=== PATIENT | female | born 1945 | race Caucasian/White ===

== ENCOUNTER → 2018-02-01 18:47 | Outpatient (CLI) | payer MEDICARE, SELFPAY ==
[2018-02-01 18:49] LABS: Bacteria 0 SEEN /hpf (None Seen); Mucous, Urine 0 SEEN /hpf (<or=2+); Red Blood Cells-Urine 0 SEEN /hpf (0-5); Squamous Epithelial Cells - UA 0 SEEN /hpf (5-10)
[2018-02-01 19:07] LABS: Color, Urine Yellow (Yellow); Glucose, Dipstick Normal (Normal); Ketone-Dipstick Negative (Negative); Leukocyte Esterase-Dipstick 500 /ul (Negative); Nitrite-Dipstick Negative (Negative); Occult Blood-Urine 50 /ul (Negative); Protein-Dipstick 30 mg/dl (Negative); Urine Bilirubin Dipstick Negative (Negative); Urine Clarity Sl. Cloudy (Clear); Urine Urobilinogen Normal (Normal)
[2018-02-01 19:13] LABS: White Blood Cells >100 SEEN /hpf (0-5)
== END ==
PROVIDERS: Family Provider Family Medicine; PCP Family Medicine; Visit Provider Physician Assistant Surgical
DX: N39.0 Urinary tract infection, site not specified (principal); R30.0 Dysuria
CPT/HCPCS: 81001; 87077; 87086; 87088; 87186

== ENCOUNTER 2018-03-18 20:45 | Emergency (ER) | payer MEDICARE, SELFPAY ==
[2018-03-18 20:47] VITALS: BP 152/74; PULSE 60; RESP 14; TEMP 36.6; O2SAT 98; BMI 20.5
--- NOTE | 2018-03-18 21:51 | RAD_ITS ---
STUDY: X-RAY - LEFT WRIST REASON FOR EXAM: Female, 73 years old. Swelling TECHNIQUE: 3 view(s) of the wrist were obtained. COMPARISON: None. FINDINGS: There is demineralization of the radius and ulna. Normal radiocarpal articulation. Normal distal radioulnar articulation. There is demineralization of the carpal bones. Normal carpal articulations. Normal carpometacarpal articulation of the thumb. Normal second through fifth carpometacarpal articulations. There is demineralization of the metacarpal bones. There is a soft tissue calcification overlying the dorsum of the wrist. This measures 8 mm. RAD/Wrist min 3 Views IMPRESSION: There is a soft tissue calcification overlying the dorsum of the wrist. This measures 8 mm. This may be related to prior trauma. Electronically Signed: James Hemphill MD at 22:24 EDT , Service support ,
[2018-03-18] MEDS: Acetaminophen 500 MG Tablet 1000 MG PO (21:52)
--- NOTE | 2018-03-18 22:29 | ED.VISSUMM ---
- ER Visit Summary Date of Service: 03/18/18 Chief Complaint: Left wrist pain History of Present Illness: The patient is a [address] Muhammad. She reports that she noticed a small bump on back of her left wrist 5 days ago. She reports that it increase in size today and is much more painful. She describes a sharp pain with movement and an aching pain at rest. It is 10 out of 10 at worst 9 out of 10 currently. She is taken ibuprofen with some relief. Physical Examination: Vitals: Stable. Afebrile. General: Well-nourished and well-developed. Head: Normocephalic atraumatic. Neck: Supple, no lymphadenopathy. No JVD. Nontender. Cardiovascular: Regular rate and rhythm. No murmurs. Respiratory: No respiratory distress. Clear to auscultation bilaterally. Abdominal: Soft, nontender, nondistended, normal bowel sounds. No guarding, rebound, or peritoneal signs. Back: Nontender. Extremities: Approximately 1 cm hard cyst to the dorsum of her left wrist on the ulnar side. There is approximately 4 cm surrounding erythema with slight contusion. There is no induration or fluctuance. She is neurovascular intact distal to this. Skin: Normal color, no rash. Neurologic: Alert and oriented ?3. Cranial nerves II through XII are intact. Normal strength and sensation. Psych: Normal affect. Test Results: X-ray shows a calcium deposit dorsally without an acute fracture. Emergency Department Course and Treatment: Patient was treated with Tylenol p.o. She was placed in a Velcro wrist splint. Treatment Plan: A prolonged discussion the patient that this is not a ganglion cyst as she had thought. The x-ray suggests calcific tendinitis. She will be discharged instructions to continue ibuprofen. Follow Dr. Toussaint in 1 week for another exam. Disposition: To home in improved and stable condition. Impression: 1. Calcific tendinopathy left wrist. This note was generated with Scy[employer] dictation software. It may contain incorrect words, spelling, and punctuation that were not noted in review of the chart prior to signing ED Disposition - Plan for ED Patient: Disposition: Home or Assisted Living Chief Complaint: Upper Extremity Injury Instructions: ED Tendinitis Calcific Referrals: Sheeba Toussaint DO [STAFF PHYSICIAN] - 3-5 Days
[2018-03-18 22:49] VITALS: BP 148/60; PULSE 72; RESP 18
== END 2018-03-18 22:50 | disposition home or self-care (01) ==
PROVIDERS: Emergency Provider Emergency Medicine; Family Provider Family Medicine; PCP Family Medicine
DX: M65.28 Calcific tendinitis, other site (principal)
CPT/HCPCS: 73110; 99283

== ENCOUNTER → 2018-04-02 08:29 | Outpatient (CLI) | payer MEDICARE, SELFPAY | PROVIDERS: Family Provider Family Medicine; PCP Family Medicine; Visit Provider Orthopaedic Surgery | DX: R22.32 Localized swelling, mass and lump, left upper limb (principal) | CPT/HCPCS: 73223; A9585 ==

== ENCOUNTER 2018-05-18 09:00 | Outpatient (RCR) | payer MEDICARE, SELFPAY ==
--- NOTE | 2018-04-14 15:08 | HP.OTEVAL_ITS ---
Patient's Visit Information BATOOL LONG is a 73 year old F, referred to Occupational Therapy by Sheeba Toussaint DO, with a diagnosis of L extensor tenosynovitis/hydroxyapatite crystal deposition.. Date of Evaluation: 04/14/18 Occupational Therapist: Priti Rios - Subjective Subjective: Batool arrived and noted that bump start about month ago, March 14. Noted had dx of ganglion cyst. Noted the pain got really bad and noted that got x-ray in ER which indicated ?calcium chip? per Pt. report, and was later confirmed with MRI that increased calcium deposit or ?gout? per Pt. report. - Pain Left Wrist 0 Pain Intensity Range: 0, 4 - ROM Wrist: flexion 0-83, L 0-57; ext R 0-40, L 0-47 CMC: WFL MP: WFL PIP: WFL DIP: WFL ROM Comments: radial dev R 0-16, L 0-21. ulnar dev R 0-25, L 0-21 - Strength Vibratory Pile Driver: R 66, L 33 Lateral Pinch: R 12, L 9 Tripod Pinch: R 16 . L 13 Tip-to-Tip Pinch: R 8, L 4 - Edema Wrist: about .5cm rise and 1.5 cm width pump over dorsal wrist - Sensation Sensation Comments: Denies numbness or tingling. - In-Hand Manipulation Finger to Palm Translation: Normal - Right, Mild - Left Palm to Finger Translation: Normal - Right, Normal - Left Shift: Normal - Right, Normal - Left Rotation: Normal - Right, Normal - Left - DASH-Disabilities of Arm, Shoulder& Hand DASH Sum: 63 - Goals Goal:: Batool to increased L marble chip terrazzo worker strength by 15-20 lbs to promote increased marble chip terrazzo worker needed for B hand manipulation tasks needed for self care by d/c. Goal:: Batool to increase ROM of L wrist to similar measurements of that of R to increase ROM needed to complete ADL/IADls by d/c. Goal:: Batool to have no more than 1/10 pain for all fx tasks 4/5 trials 80% of the time by d/c. Goal:: Batool to complete energy conservation/joint protection techniques in daily activities to promote increase ROM and decrease risk of further injury by d/c. Goal:: Elizabth to be (I) to complete all ADl/IADls and b hand manipulation tasks e.g. hooking bra 4/5 trials 80% of the time by d/c. - Rehabilitation General Assessment: OT evaluation on 04/14/18. Order received from Dr. Toussaint for iontophoresis and papers faxed to [facility] pharmacy to obtain order. Batool presents with increased nodule on dorsum of wrist with .5 m height and 1.5 cm width. Limited ROM for flexion and strength due to increased discomfort with movement. OT to address ROM and strength concerns as well as work with modalities to help decrease inflammation and pain to return to PLOF for all ADl/IADls. Rehabilitation Potential: Good - Anticipated Interventions Anticipated Interventions: A/AAROM/PROM, Strengthening, Edema Control, Triggerpoint Release, Modalities, Joint Protection/Energy Conservation, Ergonomic Education, Neuro Reeducation, ADL Training, Caregiver Training, Home Program - Visit Plan Frequency: 2-3x /Week Duration: 4 Weeks General Plan: OT to work on increased ROM, strengththrough PRE, and ability to return to PLOF with ADl/IADls with minimal pain. TEXT: Thank you for the opportunity to evaluate your patient. For Medicare and Medicare HMO plans, please review the plan of care and approve it. It will need to be FAXED BACK to us at [phone] for Medicare purposes. Please let me know if there are questions or concerns regarding this plan of care. Physician Signature: Date:
--- NOTE | 2018-05-06 09:19 | HP.OTREVAL ---
Sheeba Toussaint, DO, It has been my pleasure to treat RADHA LONG over the last 10 visits for L extensor tenosynovitis/hydroxyapatite crystal deposition.. Please see the progress note below for an update on the occupational therapy plan of care! Subjective: Arrived and noted everything is going well. Feels she is about 80-85% back to PLOF. Noted that although insurance does not cover ionto but would like to continue at least for today. Objective/Function: Completed reassessment on this date. ROM measurements are as follows: ROM. wrist: flexion R 0-80, L 0-74. ext R 0-46, L 0-60. radial dev R 0-14, L 0-18. ulnar dev R 0-17, L 0-20. Strength: logistics operations director R 52, L 46. lateral R 11, L 10. tripod R 17, L 13. pincer R 7, L 5 lbs. Measurement of dorsal gout -related edema over carpal : diameter: 1.5 cm and height: .2 cm. She has decreased in height of area but looks to potentially have similar bump starting on R hand. Area to be monitored. Area is no long sensitive with palpation. She has progressed with all measurements at this time. DASH sum 51 which is progress from initial evaluation DASH score of perceived disability of 63. Plan Frequency: 2-3x /Week Duration: 3 Weeks Visits in this POC: 6- Plan: continue POC to Wednesday. She is to determine if wanting to complete continued ionto at that time. She has progressed in all measurements on this date. Will continue 2-3x per week for 3 weeks. Goals - Goals Goal:: Radha to increased L logistics operations director strength by 15-20 lbs to promote increased logistics operations director needed for B hand manipulation tasks needed for self care by d/c. Goal:: Radha to increase ROM of L wrist to similar measurements of that of R to increase ROM needed to complete ADL/IADls by d/c. Goal:: Radha to have no more than 1/10 pain for all fx tasks 4/5 trials 80% of the time by d/c. Goal:: Radha to complete energy conservation/joint protection techniques in daily activities to promote increase ROM and decrease risk of further injury by d/c. Goal:: Elizabth to be (I) to complete all ADl/IADls and b hand manipulation tasks e.g. hooking bra 4/5 trials 80% of the time by d/c. Anticipated Interventions Anticipated Interventions: A/AAROM/PROM, Strengthening, Edema Control, Triggerpoint Release, Modalities, Joint Protection/Energy Conservation, Ergonomic Education, Neuro Reeducation, ADL Training, Caregiver Training, Home Program Please do not hesitate to contact me at [phone] by phone or if you have questions or concerns regarding this new plan of care! Sincerely, Priti Rios
--- NOTE | 2018-05-18 10:17 | HP.OTDCSUM ---
HP - OT D/C Summary It has been my pleasure to treat BATOOL LONG under orders from Sheeba Toussaint DO, for the diagnosis of L extensor tenosynovitis/hydroxyapatite crystal deposition. for a total of 14 visit(s). Please see the following information for a summary of their discharge status. - Overall Improvement % Improvement: 90 - Objective Objective/Function: Completed reassessment today and measurements are as follows: ROM wrist flexion R 0-70, L 0-71, wrist extension R 0-40, L 0-42. Completed Strength measurements are as follows: employment law attorney R 52, L 41; lateral R 14, L 10; tripod R 18, L 16, tip pinch R 8, L 8 lbs. Dorsal gout related bump measurements: diameter 1.3 cm, and height .2 cm. She has progressed towards or meant most goals. - Goals Patient Goals: Regain Mobility, Regain Strength, Decrease Pain, Decrease Swelling/Stiffness, Improve Fine Motor Skills, Use Hand/Wrist/Arm Normally Again, Be More Independent in ADLS, Resume Former Household Responsibilities (Cooking,Cleaning,Yard, etc.), Resume Hobbies Goal:: Batool to increased L employment law attorney strength by 15-20 lbs to promote increased employment law attorney needed for B hand manipulation tasks needed for self care by d/c. Goal:: Batool to increase ROM of L wrist to similar measurements of that of R to increase ROM needed to complete ADL/IADls by d/c. Goal:: Batool to have no more than 1/10 pain for all fx tasks 4/5 trials 80% of the time by d/c. Goal:: Batool to complete energy conservation/joint protection techniques in daily activities to promote increase ROM and decrease risk of further injury by d/c. Goal:: Miguelina to be (I) to complete all ADl/IADls and b hand manipulation tasks e.g. hooking bra 4/5 trials 80% of the time by d/c. - Plan Plan: She will be d/c'd. DASH sum has progressed from 51 to 42 showing decreased percieved disability with L wrist. She has progressed since initial evaluation. She no longer had pain and has returned to all ADl/IADls. Gout related bump still noted but she has declined further iontophoresis treatments to hand due to need to pay out of pocket. Ultrasound on healing mode has been being completed but due to no functional related deficits and she has returned to very close to PLOF she will be d/c'd. She is to call with questions/concerns. If pain or bump get bigger she is to call and return to Dr. Olvera. - D/C Information Discharge Comments: Call with questions/concerns. Card provided to contact. She is to return to Dr. Toussaint if pain or bump increases. If there are questions or concerns regarding this patient's occupational therapy, please fell free to call me at [phone]. Thank you for the referral of this patient. Sincerely, Priti Rios
== END 2018-05-18 19:00 | disposition home or self-care (01) ==
LOC: OT 09:00
PROVIDERS: Family Provider Family Medicine; PCP Family Medicine; Visit Provider Orthopaedic Surgery
DX: M65.862 Other synovitis and tenosynovitis, left lower leg (principal); M11.0 Hydroxyapatite deposition disease
CPT/HCPCS: 97033; 97035; 97110; 97166; 97168

== ENCOUNTER → 2018-10-07 13:44 | Outpatient (CLI) | payer MEDICARE, SELFPAY ==
[2018-10-07 08:42] VITALS: BMI 20.5
[2018-10-07 14:01] LABS: Mucous, Urine 0 SEEN /hpf (<or=2+); Red Blood Cells-Urine 0 SEEN /hpf (0-5); Squamous Epithelial Cells - UA 0 SEEN /hpf (5-10)
[2018-10-07 14:07] LABS: Color, Urine Yellow (Yellow); Glucose, Dipstick Normal (Normal); Ketone-Dipstick Negative (Negative); Leukocyte Esterase-Dipstick 500 /ul (Negative); Nitrite-Dipstick Negative (Negative); Occult Blood-Urine 10 /ul (Negative); Protein-Dipstick Negative (Negative); Urine Bilirubin Dipstick Negative (Negative); Urine Clarity Sl. Cloudy (Clear); Urine Urobilinogen Normal (Normal); Urine pH 6.5 (5.0 - 8.0)
[2018-10-07 14:13] LABS: Bacteria 3+ /hpf (None Seen); White Blood Cells 10-25 SEEN /hpf (0-5)
== END ==
PROVIDERS: Family Provider Family Medicine; PCP Family Medicine; Referring Provider Physician Assistant Surgical; Visit Provider Physician Assistant Surgical
DX: N39.0 Urinary tract infection, site not specified (principal); R30.0 Dysuria
CPT/HCPCS: 81001; 87077; 87086; 87088

== ENCOUNTER → 2018-11-02 15:10 | Outpatient (CLI) | payer MEDICARE, SELFPAY ==
[2018-10-07 08:42] VITALS: BMI 20.5
--- NOTE | 2018-11-02 15:14 | US_ITS ---
STUDY: RENAL ULTRASOUND - COMPLETE REASON FOR EXAM: Female, 73 years old. Kidney stones TECHNIQUE: Ultrasound evaluation of the kidneys was performed with real-time and static zhang-scale imaging. COMPARISON: None. FINDINGS: RIGHT KIDNEY: Normal location of the right kidney, which is normal in size. The right kidney measures 10 x 4.1 x 3.7 cm. There is a normal cortex of the right kidney. The renal cortex measures 1.1 cm. There is no right renal mass or cyst. There are no right renal calculi. There is no right hydronephrosis. DISTAL RIGHT URETER: There is non-visualization of the distal right ureter. There is no demonstrated right ureterovesical junction calculus. There is a visualized right ureteral jet. LEFT KIDNEY: Normal location of the left kidney, which is normal in size. The left kidney measures 10.8 x 4 x 4.4 cm. There is a normal cortex of the left kidney. The renal cortex measures 1.2 cm. There is no left renal mass or cyst. There are no left renal calculi. There is no left hydronephrosis. DISTAL LEFT URETER: There is non-visualization of the distal left ureter. There is no demonstrated left ureterovesical junction calculus. There is a visualized left ureteral jet. AORTA: There is no demonstrated aneurysm.. I.V.C.: The IVC is patent. BLADDER: The distended urinary bladder has a volume of 294 ml. There is a urinary bladder diverticulum on the left side measures 4.5 cm in diameter. There is a normal wall thickness of the distended urinary bladder. There is no demonstrated mass within the urinary bladder. There are no demonstrated bladder calculi. US/Kidney and Bladder IMPRESSION: There is a urinary bladder diverticulum on the left side measures 4.5 cm in diameter. Electronically Signed: Bebeto Nina, at 9:17 EDT Tel , Service support ,
== END ==
PROVIDERS: Family Provider Family Medicine; PCP Family Medicine; Referring Provider Urology; Visit Provider Urology
DX: N20.0 Calculus of kidney (principal)
CPT/HCPCS: 76770

== ENCOUNTER → 2018-11-25 | Outpatient (CLI) | payer MEDICARE, SELFPAY ==
[2018-10-07 08:42] VITALS: BMI 20.5
--- NOTE | 2018-11-25 15:39 | CT_ITS ---
STUDY: CT ABDOMEN AND PELVIS WITHOUT CONTRAST REASON FOR EXAM: Female, 73 years old. Chronic right flank pain RADIATION DOSAGE (If Supplied By Facility): CTDIvol = ( 7.70 ) mGy, DLP = ( 331.65 ) mGycm TECHNIQUE: Transaxial images were obtained from the dome of the diaphragm to the symphysis pubis without oral contrast, and without intravenous contrast. Sagittal and coronal images were reconstructed. Individualized dose optimization techniques were used for this CT. COMPARISON: September 08, 2013 FINDINGS: The visualized lung bases are unremarkable. The visualized portions of the heart are within normal limits. Normal liver. Normal gallbladder and extrahepatic biliary system. Normal spleen. Normal pancreas. Normal bilateral adrenal glands. Normal right kidney. Normal left kidney. Normal visualized stomach. Nonspecific ileus with diffuse fecal retention in the colon. Multiple diverticula in the colon without evidence for acute diverticulitis No evidence for acute appendicitis. Atherosclerotic changes of the aorta without evidence for aneurysm. Normal inferior vena cava. Normal retroperitoneum. Normal urinary bladder. There is a pessary within the vaginal vault Small cystic structure in left adnexa most likely ovarian Normal abdominal wall. Normal osseous structures. Previously noted left renal calculus not identified at this time. No other significant change. CT/Abdomen/Pelvis without Cont IMPRESSION: Mild diffuse ileus and fecal retention in the colon No evidence for renal obstruction or mass Minor diverticular disease of colon without evidence for acute diverticulitis Small left ovarian cyst. Electronically Signed: Carlos Owen MD at 19:49 EDT , Service support ,
== END | disposition home or self-care (01) ==
LOC: CT 15:36
PROVIDERS: Family Provider Family Medicine; PCP Family Medicine; Referring Provider Urology; Visit Provider Urology
DX: N20.0 Calculus of kidney (principal)
CPT/HCPCS: 74176

== ENCOUNTER 2019-08-21 12:24 | Emergency (ER) | payer MEDICARE, SELFPAY ==
[2018-10-07 08:42] VITALS: BMI 20.5
[2019-08-21 12:26] VITALS: BP 151/78; PULSE 67; RESP 17; TEMP 36.4; O2SAT 100; BMI 20.9
--- NOTE | 2019-08-21 12:41 | EKG12_ITS ---
Test Reason : NEURO SYM Blood Pressure : / mmHG Vent. Rate : 058 BPM Atrial Rate : 058 BPM P-R Int : 140 ms QRS Dur : 072 ms QT Int : 432 ms P-R-T Axes : 086 048 046 degrees QTc Int : 424 ms Sinus bradycardia Otherwise normal ECG Confirmed by JESUS TINEO, BENJAMIN ([id number]), production editor TREVER DOHERTY ([id number] on 08/23/2019 10:57:18 AM Referred By: Confirmed By:BENJAMIN LEE MD
--- NOTE | 2019-08-21 12:41 | MRI_ITS ---
STUDY: MRI BRAIN WITHOUT CONTRAST REASON FOR EXAM: Female, 74 years old. DIFFICULTY READING/COMPREHENDING, VISION ISSUES, HEAD PRESSURE TECHNIQUE: Standardized multiplanar fat and water weighted pulse sequences were obtained. COMPARISON: None. FINDINGS: There is mild cerebral atrophy with widening of the extra-axial spaces and ventricular dilatation. There are a limited number of small white matter hyperintensities, distributed throughout the deep white matter tracts of the cerebral hemispheres, consistent with mild chronic white matter ischemic changes. There is no evidence for recent intracranial ischemia or other cause of cytotoxic edema on diffusion weighted imaging (DWI). Normal T2* images of the brain without demonstrated susceptibility artifact. There is no demonstrated hemosiderin stain. No visualized hydrocephalus. Normal bilateral basal ganglia. Normal thalami. There is no extra-axial fluid accumulation. Normal flow voids within the major intracranial circulation suggesting patency by spin echo criteria. Normal sella turcica, pituitary gland, infundibular stalk, optic chiasm and hypothalamus. Normal tectal plate and pineal gland. Normal midbrain, kia and medulla. Normal cerebellum. Normal basal cisterns. Normal bilateral temporal bones. Normal bilateral internal auditory canals. No demonstrated orbital abnormality, within the constraints of a routine brain study. Normal visualized paranasal sinuses. Normal calvarium and skull base. Normal visualized soft tissue structures. Normal visualized upper cervical spine. MRI/Brain without Contrast IMPRESSION: 1. Chronic involutional and ischemic changes of the brain, as described above. Electronically Signed: Damon Jackson MD at 14:58 EST , Service support ,
--- NOTE | 2019-08-21 12:51 | NURSING ---
NO OLD EKGS
[2019-08-21 12:57] VITALS: BP 138/67; PULSE 61; RESP 14; O2SAT 100
[2019-08-21 13:00] LABS: Bedside Glucose 172 mg/dL (70-110)
[2019-08-21 13:11] LABS: Absolute Lymphocyte Count 1.62 X10^3/uL (0.83-4.51); Absolute Neutrophil Count 7.6 X10^3/uL (2.0-7.7); Basophil# 0.04 X10^3/uL; Basophil% 0.4 % (0-1); Eosinophil# 0.02 X10^3/uL; Eosinophils% 0.2 % (0-5); Hematocrit 41.2 % (37-47); Hemoglobin 13.2 g/dL (12.0-15.0); Lymphocyte # 1.62 X10^3/ul (4.0); Lymphocyte % 16.5 % (19-41); Mean Corpuscular Volume 93.6 fL (81-99); Mean Platelet Vol. 12.1 fl (6.2-12.0); Monocyte# 0.51 X10^3/uL; Monocyte% 5.2 % (0-10); NRBC Flagged by Analyzer 0 % (0-5); Neutrophil # 7.57 X10^3/uL (2.7-7.7); Neutrophil % 77.4 % (47-70); Platelet Count 186 K/mm3 (150-450); RBC Distribution Width CV 12.6 % (11.6-14.6); RBC Distribution Width SD 43.7 fl (35.1-43.9); White Blood Count 9.8 K/mm3 (4.4-11.0)
--- NOTE | 2019-08-21 13:21 | ED.VIS.STROK ---
History of Present Illness Chief Complaint: Neuro S/Sx Informant: Patient Onset: Yesterday Timing: Intermittent Quality and Location: - - Difficulty with reading Onset: 2100 on Wednesday, August 20 until 2119 Current Severity: Gone Maximum Severity: Mild Worsened by: Nothing Relieved by: Nothing Associated Symptoms: Headache - Complained of by parietal head pressure that lasted 1 hour this morning. Negative for: Nausea, Vomiting, Chest Pain Narrative: Patient is an elderly 74-year-old woman who lives by herself. States at approximate 2100 while reading words were jumbled. She could not comprehend what she was reading. She did not notice letters missing or words missing. She was with no one. When she spoke with her son this morning no one noted change in her speech. She denied trouble with swallowing. She denied numbness, tingling in her upper or lower extremities. Denied weakness in her upper or lower extremity. She denied problems with balance. She denied double vision. She denied loss of vision or partial loss of vision. Prior similar symptoms: No Recent Illness/Hospitalization: No - Past Medical History (1) No significant past medical history Status: Acute Past Medical History - Allergies and Home Meds Allergies/Adverse Reactions: Allergies Sulfa (Sulfonamide Antibiotics) Allergy (Verified 10/07/18 08:41) Rash Primary Care Physician: Kymberly Muhammad DO [Primary Care Provider] - Prior records reviewed: Yes Surgical History: no surgical history Lives: Alone Smoking Status: Never smoker Alcohol: None Drugs: None Review of Systems General: Denies: Chills, Fever, Sweats Eyes: Denies: Visual changes - bilaterally, Blurred Vision - bilaterally, Diplopia ENT: Reports: - - He denied decreased hearing or ringing or ears.. Denies: Bilateral ear pain, Rhinorrhea, Sore throat Cardiovascular: Denies: Chest pain, Palpitations, Heart racing Respiratory: Denies: Dyspnea, Cough, Dyspnea on exertion Gastrointestinal: Denies: Abdominal pain, Nausea, Vomiting, Diarrhea, Melena, Hematochezia Genitourinary: Denies: Dysuria, Hematuria, Frequency Musculoskeletal: Denies: Back pain, Extremity Pain Skin: Denies: Rash, Wounds Neurological: Reports: Headache - Previously described. Denies: Weakness, Parasthesia, Numbness Psych: Denies: Depression, Anxiety Hematologic: Denies: Easy bruising, Easy bleeding Allergy: Denies: Uticaria, Swelling of the mouth, Swelling of the tongue STROKE Vital Signs/Narrative: Vital Signs Temp Pulse Resp BP Pulse Ox 08/21/19 12:57 61 14 138/67 H 100 08/21/19 12:26 97.5 F L 67 17 151/78 H 100 Inital Vital Signs reviewed: Yes - NIHSS Initial 1a Level of Consciousness: 0 1b LOC Questions (Score 2 if aphasic/stupor): 0 1c LOC Commands (Only score 1st attempt): 0 2 Best Gaze (If aphasic, use reflexive mvmts.): 0 3 Visual: 0 4 Facial Palsy: 0 5 Motor Arm Right (UN = amputation/fusion): 0 5 Motor Arm Left: 0 6 Motor Leg Right: 0 6 Motor Leg Left: 0 7 Limb ataxia (Only + if out of proportion): 0 8 Sensory (Aphasia/stupor=0 or 1, coma=2): 0 9 Best Language: 0 10 Dysarthria (mute, coma=2, intubated=UN): 0 11 Extinction and Inattention (only scored if +): 0 Total Score: 0 General: Well nourished, Well developed Head: Normocephalic, Atraumatic Eyes: Perrl, EOMI. Negative for: Pale conjunctiva, Scleral icterus ENT: Moist mucous membranes, No rhinorrhea, TM's clear Neck: Supple, Nontender, No lymphadenopathy, No JVD Cardiovascular: Regular rate, Regular rhythm, No murmurs, Normal S1, Normal S2 Respiratory: No distress, CTA bilaterally, Chest nontender Abdomen: Soft, Nontender, Nondistended, Normal bowel sounds Back: Nontender, Normal Inspection Extremities: Nontender, No edema Skin: Normal color, No rash Neurological: Alert, Oriented x3, Cranial nerves II-XII grossly intact, Normal Strength, Normal Sensation, Normal DTR Psychological: Normal affect Diagnostic/Tx/Re-eval Impressions Brain MRI 08/21/19 12:41 IMPRESSION: 1. Chronic involutional and ischemic changes of the brain, as described above. Electronically Signed: Damon Jackson MD at 14:58 EST , Service support , 08/21/19 12:41 Brain without Contrast [MRI] Stat Laboratory Results 08/21/19 08/21/19 08/21/19 12:47 12:50 12:50 WBC 9.8 RBC 4.40 Hgb 13.2 Hct 41.2 MCV 93.6 MCH 30.0 MCHC 32.0 RDW Std Deviation 43.7 RDW Coeff of Meghan 12.6 Plt Count 186 MPV 12.1 H Immature Gran % (Auto) 0.300 Neut % (Auto) 77.4 H Lymph % (Auto) 16.5 L [place] % (Auto) 5.2 Eos % (Auto) 0.2 Baso % (Auto) 0.4 Absolute Neuts (auto) 7.6 Absolute Lymphs (auto) 1.62 Nucleated RBC % 0 PT 14.1 INR 1.1 APTT 28.3 Sodium Potassium Chloride Carbon Dioxide Anion Gap BUN Creatinine Estim Creat Clear Calc Est GFR (MDRD) Af Amer Est GFR (MDRD) Non-Af BUN/Creatinine Ratio Glucose Calcium POC Glucose 172 H 08/21/19 12:50 WBC RBC Hgb Hct MCV MCH MCHC RDW Std Deviation RDW Coeff of Meghan Plt Count MPV Immature Gran % (Auto) Neut % (Auto) Lymph % (Auto) [place] % (Auto) Eos % (Auto) Baso % (Auto) Absolute Neuts (auto) Absolute Lymphs (auto) Nucleated RBC % PT INR APTT Sodium 139 Potassium 3.6 Chloride 106 Carbon Dioxide 30.0 Anion Gap 3 L BUN 21 H Creatinine 0.80 Estim Creat Clear Calc 54.89 Est GFR (MDRD) Af Amer 90 Est GFR (MDRD) Non-Af 75 BUN/Creatinine Ratio 26.2 H Glucose 187 H Calcium 8.3 L POC Glucose Basic metabolic panel is remarkable for a glucose of 187. BC is unremarkable. MRI reveals no acute pathology. There is evidence of chronic ischemic changes. - EKG Initial EKG Interpretation: Sinus Bradycardia - Sinus bradycardia with a ventricular rate of 58. KS interval is 140 ms. QS duration 72 ms. QT duration 432 ms. [place] is normal. Other than the rate being less than 60 there is no abnormality. - Medical Decision Making Stroke Team Activated: No Reviewed Inclusion/Exclusion criteria: No Was Patient considered for Endovascular Intervention?: No IV Alteplase (t-PA) Administered: No No contraindications for IV Alteplase (t-PA) administration.: No Alteplase (t-PA) risks, benefits, alternative discussed: No Patient symptoms may represent a receptive aphasia. Since this occurred greater than 12 hours ago and she has no symptoms now with an NIH of 0 and a normal complete neurologic exam will obtain MRI to determine if there is evidence of a lacunar infarct. If MRI shows no abnormality will have her follow-up with her primary care physician. ED Disposition - Plan for ED Patient: Disposition: Home or Assisted Living Diagnosis: Transient receptive aphasia Instructions: T.I.A.: Transient Ischemic Attack Referrals: Kymberly Muhammad DO [Primary Care Provider] - 2 Days Additional Instructions: Take an aspirin a day.
[2019-08-21 13:24] LABS: International Normalized Ratio 1.1; Partial Thromboplast Time 28.3 Seconds (24.1-36.2); Prothrombin Time (Protime)PT. 14.1 SECONDS (11.7-14.9)
[2019-08-21 13:25] LABS: Anion Gap 3 (5-15); BUN 21 mg/dL (7-18); BUN/Creat Ratio 26.2 RATIO (10-20); Calcium,Total 8.3 mg/dL (8.5-10.1); Chloride 106 mmol/L (98-107); EST Glomerular Filtration Rate 75 mL/min (>60); Est Glom Filt Rate - Afr Amer 90 mL/min (>60); Estimated Creatinine Clearance 54.89 ml/min; Glucose 187 mg/dL (74-106); Potassium 3.6 mmol/L (3.5-5.1); Sodium Level 139 mmol/L (136-145)
[2019-08-21 13:35] VITALS: BP 130/72; PULSE 60; RESP 18; O2SAT 99
[2019-08-21 15:58] VITALS: BP 125/74; PULSE 56; RESP 19; O2SAT 99
[2019-08-24 16:57] LABS: Cholesterol 211 mg/dL (200); High Density Lipoprotein 84 mg/dL; Triglycerides 54 mg/dL; Very Low Density Lipoprotein 11 mg/dL (5-40)
== END 2019-08-21 16:08 | disposition home or self-care (01) ==
PROVIDERS: Emergency Provider Emergency Medicine; Family Provider Family Medicine; PCP Family Medicine
DX: G45.9 Transient cerebral ischemic attack, unspecified (principal); R47.01 Aphasia; I49.8 Other specified cardiac arrhythmias
CPT/HCPCS: 70551; 80048; 80061; 82962; 85025; 85610; 85730; 93005; 99284; A4216

== ENCOUNTER → 2019-09-04 11:21 | Outpatient (CLI) | payer MEDICARE, SELFPAY ==
[2019-08-21 12:26] VITALS: BMI 20.9
== END ==
PROVIDERS: Family Provider Family Medicine; PCP Family Medicine; Referring Provider Family Medicine; Visit Provider Family Medicine
DX: R00.2 Palpitations (principal); G45.9 Transient cerebral ischemic attack, unspecified
CPT/HCPCS: 93225; 93226

== ENCOUNTER 2019-10-05 08:07 | Emergency (ER) | payer MEDICARE, SELFPAY ==
[2019-10-05 08:09] VITALS: BP 166/83; PULSE 66; RESP 12; TEMP 36.5; O2SAT 99; BMI 21.4
[2019-10-05 08:13] VITALS: BMI 21.4
--- NOTE | 2019-10-05 08:14 | CT_ITS ---
STUDY: CT BRAIN WITHOUT CONTRAST REASON FOR EXAM: Female, 74 years old. LEFT FACIAL DROOP THIS AM SYMPTOMS RESOLVED NOW RADIATION DOSAGE (If Supplied By Facility): CTDIvol = ( 60.81 ) mGy, DLP = ( 998.67 ) mGycm TECHNIQUE: Transaxial CT imaging of the brain was performed without administration of intravenous contrast material. Individualized dose optimization techniques were used for this CT. COMPARISON: No relevant priors. FINDINGS: Normal soft tissue structures. Normal calvarium. There is mild cerebral atrophy with widening of the extra-axial spaces and ventricular dilatation. Normal white matter tracts of the cerebral hemispheres. Normal basal ganglia and thalami. Normal brainstem. Normal cerebellum. There is no intracranial hemorrhage. There are no findings of an acute ischemic infarction. Atherosclerotic calcification of the cavernous portions of the internal carotid arteries bilaterally. Normal visualized paranasal sinuses. CT/Brain/Head without Contrast IMPRESSION: Chronic involutional changes of the brain. Electronically Signed: Tony Smith, at 8:55 EST , Service support ,
--- NOTE | 2019-10-05 08:14 | EKG12_ITS ---
Test Reason : Blood Pressure : / mmHG Vent. Rate : 061 BPM Atrial Rate : 061 BPM P-R Int : 150 ms QRS Dur : 072 ms QT Int : 420 ms P-R-T Axes : 006 044 046 degrees QTc Int : 422 ms Normal sinus rhythm with sinus arrhythmia Nonspecific ST abnormality Abnormal ECG Confirmed by FLORENCIA TINEO, KEENAN ([id number]), digital editor HARJIT BONILLA ([id number]) on 10/09/2019 2:16:56 PM Referred By: KURT Confirmed By:LUIZ DON MD
--- NOTE | 2019-10-05 08:19 | ED.DCSUM_ITS ---
History of Present Illness Chief Complaint: Neuro S/Sx Informant: Patient Onset: Today Current Severity: Mild Narrative: Patient reports this morning she woke feeling fine as she was putting on her make-up she felt as if she had a left facial droop and that she felt the left corner of her mouth did not go up as high as the right corner, She went to bed feeling fine and she is not ill in any way, she has no headache change in vision numbness weakness paresthesias, she came to the emergency department and on arrival time here she indicates the symptoms are resolved, and no time did she notice anything else the only thing she complained of was when she looked in the mirror she felt as if the left corner of her mouth did not go up as the right she had not noticed any change in vision trouble speaking no motor or sensory gait abnormalities no headache, her review of systems are negative She indicates she had similar symptoms about a month ago had an MRI and her work-up was negative she was told to use baby aspirin but she does not wish to use that as she believes that could cause GI bleeding, she has no history of stroke IN PE DVT or cardiovascular disease that she knows of Past Medical History - Allergies and Home Meds Allergies/Adverse Reactions: Allergies Sulfa (Sulfonamide Antibiotics) Allergy (Verified 10/05/19 08:11) Rash Primary Care Physician: Kymberly Muhammad DO [Primary Care Provider] - Past Medical History: - Surgical History: no surgical history Smoking Status: Never smoker Review of Systems ROS: - As above General: Denies: Chills, Fever, Sweats Eyes: Denies: Visual changes - bilaterally, Diplopia ENT: Reports: - - Insert for left facial droop. Denies: Rhinorrhea, Sore throat Cardiovascular: Denies: Chest pain, Palpitations Respiratory: Denies: Dyspnea, Cough, Dyspnea on exertion Gastrointestinal: Denies: Abdominal pain, Nausea, Vomiting, Diarrhea, Melena, Hematochezia Genitourinary: Denies: Dysuria, Hematuria, Frequency Musculoskeletal: Denies: Back pain, Extremity Pain Skin: Denies: Rash, Wounds Neurological: Denies: Headache, Weakness, Numbness Physical Exam Vital Signs/Narrative: Vital Signs Temp Pulse Resp BP Pulse Ox 10/05/19 08:09 97.7 F L 66 12 166/83 H 99 General: Well nourished, Well developed, No Acute Distress Head: Normocephalic, Atraumatic Eyes: Perrl, EOMI ENT: Moist mucous membranes, No rhinorrhea Neck: Supple, Nontender Cardiovascular: Regular rate, Regular rhythm, No murmurs Respiratory: No distress, CTA bilaterally, Chest nontender Abdomen: Soft, Nontender, Nondistended, Normal bowel sounds Back: Nontender, Normal Inspection Extremities: Nontender, No edema Skin: Normal color, No rash Neurological: Alert, Oriented x3, Cranial nerves II-XII grossly intact, Normal Strength, Normal Sensation, Normal Gait, - - Patient's NIH is 0 her cranial nerve exam is normal, there is no facial droop her speech is normal vision is normal neck and head normal. Negative for: Confused, Left side facial droop, Right side facial droop Psychological: Normal affect, Normal Mood Diagnostic/Tx/Re-eval - Medical Decision Making A long conversation with her about all the above her prior work-up etc. she is concerned about the possibly of stroke given all the above screening labs obtained head CT, did review her MRI from last month it showed no acute abnormality other than chronic small vessel ischemic type changes see that report The patient screening studies labs head CT are all generally unremarkable please see those reports on reevaluation she remains asymptomatic NIH is 0 I had a long conversation with her we discussed her current symptoms her symptoms from previous visits her previous work-up including MRI etc., she indicates she did have some type of imaging that showed no blockages in her carotids we discussed inpatient versus outpatient management, we discussed the need for her to take the aspirin as prescribed and recommended, she understands all the above understands the risks of an occult condition or change in status could be life- threatening she wants to go home does not wish to be admitted, she will take at least 1 baby aspirin a day and follow-up with her outpatient providers for further management potential referral to neurology Home stable Final impression transient left facial droop etiology unclear ED Disposition - Plan for ED Patient: Diagnosis: TIA Instructions: T.I.A.: Transient Ischemic Attack Referrals: Kymberly Muhammad DO [Primary Care Provider] - Additional Instructions: Take at least one baby aspirin a day and follow-up with your outpatient providers for further management
[2019-10-05 08:25] LABS: Absolute Lymphocyte Count 1.31 X10^3/uL (0.83-4.51); Absolute Neutrophil Count 4.3 X10^3/uL (2.0-7.7); Basophil# 0.05 X10^3/uL; Basophil% 0.8 % (0-1); Eosinophil# 0.08 X10^3/uL; Eosinophils% 1.3 % (0-5); Hematocrit 44.7 % (37-47); Hemoglobin 14.5 g/dL (12.0-15.0); Lymphocyte # 1.31 X10^3/ul (4.0); Lymphocyte % 20.8 % (19-41); Mean Corp Hgb Conc 32.4 g/dL (32-36); Mean Corpuscular Hgb 30.9 pg (27.0-32.0); Mean Corpuscular Volume 95.1 fL (81-99); Monocyte# 0.51 X10^3/uL; Monocyte% 8.1 % (0-10); NRBC Flagged by Analyzer 0 % (0-5); Neutrophil # 4.34 X10^3/uL (2.7-7.7); Neutrophil % 68.7 % (47-70); Platelet Count 187 K/mm3 (150-450); RBC Distribution Width SD 45.7 fl (35.1-43.9); White Blood Count 6.3 K/mm3 (4.4-11.0)
[2019-10-05 08:38] LABS: Anion Gap 3 (5-15); BUN 22 mg/dL (7-18); BUN/Creat Ratio 28.8 RATIO (10-20); Calcium,Total 8.7 mg/dL (8.5-10.1); Chloride 108 mmol/L (98-107); Creatinine, Serum 0.76 mg/dL (0.55-1.02); EST Glomerular Filtration Rate 79 mL/min (>60); Est Glom Filt Rate - Afr Amer 96 mL/min (>60); Estimated Creatinine Clearance 43.91 ml/min; Glucose 83 mg/dL (74-106); Potassium 4.1 mmol/L (3.5-5.1); Sodium Level 143 mmol/L (136-145)
[2019-10-05 09:45] VITALS: BP 139/69; PULSE 54; RESP 12; O2SAT 100
== END 2019-10-05 09:47 | disposition home or self-care (01) ==
LOC: ED 08:32
PROVIDERS: Emergency Provider Emergency Medicine; PCP Family Medicine
DX: G45.9 Transient cerebral ischemic attack, unspecified (principal)
CPT/HCPCS: 70450; 80048; 85025; 93005; 99283; A4216

== ENCOUNTER → 2022-04-17 | Outpatient (CLI) | payer MEDICARE, SELFPAY | END | disposition home or self-care (01) | PROVIDERS: PCP Family Medicine; Referring Provider Family Medicine; Visit Provider Family Medicine | DX: R10.31 Right lower quadrant pain (principal) | CPT/HCPCS: 87086; 87088 ==

== ENCOUNTER → 2022-04-24 | Outpatient (CLI) | payer MEDICARE, SELFPAY ==
[2022-04-24 12:00] LABS: Bacteria 0 SEEN /hpf (None Seen); Mucous, Urine 0 SEEN /hpf (<or=2+); Red Blood Cells-Urine 0 SEEN /hpf (0-5)
[2022-04-24 12:10] LABS: Color, Urine Yellow (Yellow); Glucose, Dipstick Normal (Normal); Ketone-Dipstick Negative (Negative); Leukocyte Esterase-Dipstick 25 /ul (Negative); Nitrite-Dipstick Negative (Negative); Occult Blood-Urine Negative /ul (Negative); Protein-Dipstick Negative (Negative); Specific Gravity, Urine 1.005 (1.002-1.030); Urine Bilirubin Dipstick Negative (Negative); Urine Clarity Sl. Cloudy (Clear); Urine Urobilinogen Normal (Normal); Urine pH 6.5 (5.0 - 8.0)
[2022-04-24 12:16] LABS: Squamous Epithelial Cells - UA 0-5 SEEN /hpf (5-10); White Blood Cells 0-5 SEEN /hpf (0-5)
== END | disposition home or self-care (01) ==
LOC: LABSPEC 11:51
PROVIDERS: PCP Family Medicine; Visit Provider Physician Assistant Surgical
DX: N30.00 Acute cystitis without hematuria (principal); M54.50 Low back pain, unspecified
CPT/HCPCS: 81001; 87086; 87088

== ENCOUNTER → 2022-05-07 | Outpatient (CLI) | payer MEDICARE, SELFPAY ==
--- NOTE | 2022-05-07 14:21 | US_ITS ---
STUDY: RENAL ULTRASOUND - COMPLETE REASON FOR EXAM: Female, 77 years old. KIDNEY STONES TECHNIQUE: Ultrasound evaluation of the kidneys was performed with real-time and static zhang-scale imaging. COMPARISON: Comparison is made with prior study dated 11/02/2018. FINDINGS: RIGHT KIDNEY: Normal location of the right kidney, which is normal in size. The right kidney measures 10 cm x 4.4 cm x 3.3 cm. There is a normal cortex of the right kidney. The renal cortex measures 1 cm. There is no right renal mass or cyst. There are no right renal calculi. There is an extra-renal pelvis of the right kidney. There is no distention of the renal calyces. DISTAL RIGHT URETER: There is non-visualization of the distal right ureter. There is no demonstrated right ureterovesical junction calculus. There is a visualized right ureteral jet. LEFT KIDNEY: Normal location of the left kidney, which is normal in size. The left kidney measures 10.1 cm x 4.67 x 3.8 cm. There is a normal cortex of the left kidney. The renal cortex measures 1.0 cm. There is no left renal mass or cyst. There are no left renal calculi. There is no left hydronephrosis. DISTAL LEFT URETER: There is non-visualization of the distal left ureter. There is no demonstrated left ureterovesical junction calculus. There is a visualized left ureteral jet. BLADDER: The distended urinary bladder has a volume of 520 ml. There is a normal wall thickness of the distended urinary bladder. There is no demonstrated mass within the urinary bladder. There are no demonstrated bladder calculi. Stable 4 cm left-sided bladder diverticulum. US/Kidney and Bladder IMPRESSION: Normal ultrasound of the kidneys and urinary bladder. Electronically Signed: Tony Smith MD at 9:39 EDT ,
--- NOTE | 2022-05-07 14:23 | US_ITS ---
STUDY: ULTRASOUND OF THE FEMALE PELVIS - COMPLETE REASON FOR EXAM: Female, 77 years old. CYST LMP: TECHNIQUE: 11/13/2013 TECHNICAL QUALITY: Adequate. COMPARISON: None. FINDINGS: Examination of the uterus is limited due to artifact created by vaginal pessary The uterus is retroverted and is in a midline position. The uterus measures 6 x 2.7 x 3 cm. Normal uterine cervix. The endometrium measures 4.3 mm in thickness. There is questionable fluid within the endometrial canal. There Is no demonstrated endometrial mass. There is no demonstrated myometrial mass. I.U.D. - The patient does not have an I.U.D. The right ovary is visualized. The right ovary measures 2.1 x 1.7 x 0.8 cm. There is no right ovarian cyst or ovarian mass. There is no visualized right adnexal mass or complex lesion. There is normal arterial and normal venous vascularity. The left ovary is visualized. The left ovary measures 3.5 x 2.9 x 2 cm. There is a cyst measuring 3.2 x 1.9 x 1.7 cm. There is no visualized left adnexal mass or complex lesion. There is normal arterial and normal venous vascularity. There is no fluid in the cul-de-sac. The pre void volume of the bladder was 482 ml. . US/Pelvic (Non ) IMPRESSION: Small left ovarian cyst measuring 3.2 x 1.9 x 1.7 cm of uncertain significance. Recommend clinical correlation and follow-up studies. Electronically Signed: Carlos Owen MD at 15:45 EDT ,
== END | disposition home or self-care (01) ==
PROVIDERS: PCP Family Medicine; Referring Provider Urology; Visit Provider Urology
DX: N83.202 Unspecified ovarian cyst, left side (principal); M54.9 Dorsalgia, unspecified; R10.2 Pelvic and perineal pain; Z87.442 Personal history of urinary calculi
CPT/HCPCS: 76770; 76856

== ENCOUNTER → 2022-05-30 | Outpatient (CLI) | payer MEDICARE, SELFPAY ==
--- NOTE | 2022-05-30 09:00 | US_ITS ---
STUDY: RENAL ULTRASOUND - COMPLETE REASON FOR EXAM: Female, 77 years old. HX KIDNEY STONES TECHNIQUE: Ultrasound evaluation of the kidneys was performed with real-time and static zhang-scale imaging. COMPARISON: None. FINDINGS: RIGHT KIDNEY: Normal location of the right kidney, which is normal in size. The right kidney measures 10.4 cm. . There is a normal cortex of the right kidney. There is no right renal mass or cyst. There are no right renal calculi. There is an extra-renal pelvis of the right kidney. There is no distention of the renal calyces. DISTAL RIGHT URETER: There is non-visualization of the distal right ureter. There is no demonstrated right ureterovesical junction calculus. There is no demonstrated right ureteral jet. LEFT KIDNEY: Normal location of the left kidney, which is normal in size. The left kidney measures 11 cm. . There is a normal cortex of the left kidney. There is no left renal mass or cyst. There are no left renal calculi. There is no left hydronephrosis. DISTAL LEFT URETER: There is non-visualization of the distal left ureter. There is no demonstrated left ureterovesical junction calculus. There is no demonstrated left ureteral jet. AORTA: There is obscuration of the abdominal aorta by overlying bowel gas I.V.C.: It is not visualized. There is too much overlying bowel gas. BLADDER: The distended urinary bladder has a volume in cc of 201. There is a normal wall thickness of the distended urinary bladder. There is no demonstrated mass within the urinary bladder. There are no demonstrated bladder calculi. US/Kidney and Bladder IMPRESSION: No acute findings of the ultrasound of the kidneys and urinary bladder. Electronically Signed: James Hemphill MD at 16:50 EDT ,
== END | disposition home or self-care (01) ==
PROVIDERS: PCP Family Medicine; Referring Provider Urology; Visit Provider Urology
DX: Z87.442 Personal history of urinary calculi (principal); Z87.898 Personal history of other specified conditions
CPT/HCPCS: 76770

== ENCOUNTER → 2023-06-09 | Outpatient (CLI) | payer MEDICARE, SELFPAY ==
[2023-06-09 13:23] LABS: ALB/GLOB Ratio 1.1 RATIO (0.9-2.4); AST(SGOT) 14 U/L (15-37); Alanine Aminotransfer ALT/SGPT 16 U/L (13-56); Albumin, Serum 3.8 g/dL (3.2-5.0); Alkaline Phosphatase 87 U/L (45-117); Anion Gap 5 (5-15); BUN 19 mg/dL (7-18); BUN/Creat Ratio 29.2 RATIO (10-20); CRP 6.23 mg/L (0.0-3.0); Chloride 104 mmol/L (98-107); Creatinine, Serum 0.65 mg/dL (0.55-1.02); EST Glomerular Filtration Rate 94 mL/min (>60); Est Glom Filt Rate - Afr Amer 114 mL/min (>60); Globulin 3.5 g/dL (2.2-4.2); Glucose 90 mg/dL (74-106); Potassium 4.6 mmol/L (3.5-5.1); Protein, Total 7.3 g/dL (6.4-8.2); Sodium Level 139 mmol/L (136-145)
[2023-06-09 13:26] LABS: Erythrocyte Sedimentation Rate 6 mm/hr (0-30)
[2023-06-09 13:29] LABS: Absolute Lymphocyte Count 1.07 X10^3/uL (0.83-4.51); Basophil# 0.07 X10^3/uL; Basophil% 0.4 % (0-1); Eosinophil# 0.04 X10^3/uL; Eosinophils% 0.2 % (0-5); Hematocrit 42.4 % (37-47); Hemoglobin 13.8 g/dL (12.0-15.0); Lymphocyte # 1.07 X10^3/ul (0.83-4.51); Lymphocyte % 6.6 % (19-41); Mean Corp Hgb Conc 32.5 g/dL (32-36); Mean Corpuscular Hgb 30.5 pg (27.0-32.0); Mean Corpuscular Volume 93.6 fL (81-99); Mean Platelet Vol. 11.9 fl (6.2-12.0); Monocyte# 1.05 X10^3/uL; Monocyte% 6.4 % (0-10); NRBC Flagged by Analyzer 0 % (0-5); Neutrophil # 14.01 X10^3/uL (2.7-7.7); Neutrophil % 85.8 % (47-70); Platelet Count 246 K/mm3 (150-450); RBC Distribution Width CV 12.6 % (11.6-14.6); RBC Distribution Width SD 43.3 fl (35.1-43.9); Red Blood Count 4.53 M/mm3 (4.2-5.4); White Blood Count 16.3 K/mm3 (4.4-11.0)
[2023-06-10 12:08] LABS: ANTINUCLEAR ANTIBODIES DIRECT Negative (Negative)
== END | disposition home or self-care (01) ==
LOC: BFHLAB 10:49
PROVIDERS: PCP Family Medicine; Visit Provider Family Medicine
DX: K12.30 Oral mucositis (ulcerative), unspecified (principal); K11.7 Disturbances of salivary secretion
CPT/HCPCS: 36415; 80053; 85025; 85652; 86038; 86140; 86225; 86235

== ENCOUNTER → 2023-12-13 | Outpatient (CLI) | payer MEDICARE, SELFPAY ==
[2023-12-13 15:21] LABS: Erythrocyte Sedimentation Rate 4 mm/hr (0-30)
[2023-12-13 15:37] LABS: Vitamin B12 556 pg/mL (211-911)
[2023-12-13 15:40] LABS: AST(SGOT) 19 U/L (15-37); Alanine Aminotransfer ALT/SGPT 21 U/L (13-56); Albumin, Serum 3.6 g/dL (3.2-5.0); Alkaline Phosphatase 83 U/L (45-117); Anion Gap 4 (5-15); BUN 21 mg/dL (7-18); BUN/Creat Ratio 28.4 RATIO (10-20); CRP < 2.90 mg/L (0.0-3.0); Chloride 105 mmol/L (98-107); Creatinine, Serum 0.74 mg/dL (0.55-1.02); EST Glomerular Filtration Rate 81 mL/min (>60); Est Glom Filt Rate - Afr Amer 98 mL/min (>60); Globulin 3.5 g/dL (2.2-4.2); Glucose 132 mg/dL (74-106); Potassium 3.7 mmol/L (3.5-5.1); Protein, Total 7.1 g/dL (6.4-8.2); Sodium Level 140 mmol/L (136-145)
[2023-12-13 15:45] LABS: Absolute Lymphocyte Count 1.21 X10^3/uL (0.83-4.51); Absolute Neutrophil Count 9.2 X10^3/uL (2.0-7.7); Basophil# 0.06 X10^3/uL; Basophil% 0.5 % (0-1); Eosinophil# 0.02 X10^3/uL; Eosinophils% 0.2 % (0-5); Hematocrit 43.8 % (37-47); Lymphocyte # 1.21 X10^3/ul (0.83-4.51); Lymphocyte % 10.7 % (19-41); Mean Corpuscular Hgb 29.9 pg (27.0-32.0); Mean Corpuscular Volume 93.4 fL (81-99); Mean Platelet Vol. 12.5 fl (6.2-12.0); Monocyte# 0.79 X10^3/uL; NRBC Flagged by Analyzer 0 % (0-5); Neutrophil # 9.17 X10^3/uL (2.7-7.7); Neutrophil % 81.3 % (47-70); Platelet Count 209 K/mm3 (150-450); RBC Distribution Width CV 13.1 % (11.6-14.6); RBC Distribution Width SD 44.3 fl (35.1-43.9); Red Blood Count 4.69 M/mm3 (4.2-5.4); White Blood Count 11.3 K/mm3 (4.4-11.0)
[2023-12-15 14:09] LABS: ANTINUCLEAR ANTIBODIES DIRECT Negative (Negative)
[2023-12-17 01:07] LABS: Lyme IgG P18 Ab Absent (.); Lyme IgG P23 Ab Absent (.); Lyme IgG P28 Ab Absent (.); Lyme IgG P30 Ab Absent (.); Lyme IgG P39 Ab Absent (.); Lyme IgG P41 Ab Present (.); Lyme IgG P45 Ab Absent (.); Lyme IgG P58 Ab Present (.); Lyme IgG P66 Ab Absent (.); Lyme IgG P93 Ab Absent (.); Lyme IgG WB Interpretation Negative (.); Lyme IgM P23 Ab Absent (.); Lyme IgM P39 Ab Absent (.); Lyme IgM P41 Ab Absent (.); Lyme IgM WB Interpretation Negative (.)
== END | disposition home or self-care (01) ==
LOC: BFHLAB 13:15
PROVIDERS: PCP Family Medicine; Visit Provider Family Medicine
DX: M25.50 Pain in unspecified joint (principal); M79.10 Myalgia, unspecified site; R53.83 Other fatigue; R20.2 Paresthesia of skin
CPT/HCPCS: 36415; 80053; 82607; 85025; 85652; 86038; 86140; 86225; 86235; 86617

== ENCOUNTER → 2024-04-25 | Outpatient (CLI) | payer MEDICARE, SELFPAY ==
[2024-04-25 15:49] LABS: Absolute Lymphocyte Count 1.44 X10^3/uL (0.83-4.51); Absolute Neutrophil Count 7.1 X10^3/uL (2.0-7.7); Basophil# 0.05 X10^3/uL; Basophil% 0.5 % (0-1); Eosinophil# 0.02 X10^3/uL; Eosinophils% 0.2 % (0-5); Hematocrit 42.4 % (37-47); Hemoglobin 13.7 g/dL (12.0-15.0); Lymphocyte # 1.44 X10^3/ul (0.83-4.51); Lymphocyte % 15.6 % (19-41); Mean Corp Hgb Conc 32.3 g/dL (32-36); Mean Corpuscular Hgb 30.2 pg (27.0-32.0); Mean Corpuscular Volume 93.6 fL (81-99); Mean Platelet Vol. 12.6 fl (6.2-12.0); Monocyte# 0.59 X10^3/uL; Monocyte% 6.4 % (0-10); NRBC Flagged by Analyzer 0 % (0-5); Neutrophil # 7.11 X10^3/uL (2.7-7.7); Platelet Count 202 K/mm3 (150-450); RBC Distribution Width CV 12.8 % (11.6-14.6); Red Blood Count 4.53 M/mm3 (4.2-5.4); White Blood Count 9.2 K/mm3 (4.4-11.0)
[2024-04-25 16:04] LABS: Vitamin B12 583 pg/mL (211-911); Vitamin D,25 Hydroxy 36.6 ng/mL
[2024-04-25 16:38] LABS: AST(SGOT) 13 U/L (15-37); Alanine Aminotransfer ALT/SGPT 21 U/L (13-56); Albumin, Serum 3.4 g/dL (3.2-5.0); Alkaline Phosphatase 77 U/L (45-117); Anion Gap 5 (5-15); BUN 18 mg/dL (7-18); BUN/Creat Ratio 22.8 RATIO (10-20); Calcium,Total 8.7 mg/dL (8.5-10.1); Chloride 105 mmol/L (98-107); Creatinine, Serum 0.79 mg/dL (0.55-1.02); EST Glomerular Filtration Rate 75 mL/min (>60); Est Glom Filt Rate - Afr Amer 91 mL/min (>60); Ferritin 77 ng/mL (8-252); Globulin 3.5 g/dL (2.2-4.2); Glucose 102 mg/dL (74-106); Iron 57 ug/dL (50-170); Protein, Total 6.9 g/dL (6.4-8.2); Sodium Level 139 mmol/L (136-145); T4 Free Direct 0.99 ng/dL (0.76-1.46)
== END | disposition home or self-care (01) ==
LOC: MTLAB 13:40
PROVIDERS: PCP Family Medicine; Referring Provider Nurse Practitioner Family; Visit Provider Nurse Practitioner Family
DX: I10 Essential (primary) hypertension (principal); D50.9 Iron deficiency anemia, unspecified; E03.9 Hypothyroidism, unspecified; E53.8 Deficiency of other specified B group vitamins; E55.9 Vitamin D deficiency, unspecified
CPT/HCPCS: 36415; 80053; 82306; 82607; 82728; 83540; 84439; 84443; 85025

== ENCOUNTER → 2024-05-24 | Outpatient (CLI) | payer MEDICARE, SELFPAY ==
[2024-05-24 17:44] LABS: Mucous, Urine 0 SEEN /hpf (<or=2+)
[2024-05-24 17:53] LABS: Color, Urine Yellow (Yellow); Glucose, Dipstick Normal (Normal); Ketone-Dipstick Negative (Negative); Leukocyte Esterase-Dipstick 500 /ul (Negative); Nitrite-Dipstick Positive (Negative); Occult Blood-Urine 150 /ul (Negative); Protein-Dipstick 15 mg/dl (Negative); Urine Bilirubin Dipstick Negative (Negative); Urine Clarity Sl. Cloudy (Clear); Urine Urobilinogen Normal (Normal)
[2024-05-24 18:01] LABS: Red Blood Cells-Urine 10-25 SEEN /hpf (0-5)
[2024-05-24 18:02] LABS: Bacteria 2+ /hpf (None Seen); Squamous Epithelial Cells - UA 0-5 SEEN /hpf (5-10); White Blood Cells >100 SEEN /hpf (0-5)
== END | disposition home or self-care (01) ==
PROVIDERS: PCP Family Medicine; Referring Provider Physician Assistant Surgical; Visit Provider Physician Assistant Surgical
DX: R30.0 Dysuria (principal)
CPT/HCPCS: 81001; 87077; 87086; 87088; 87186

== ENCOUNTER 2024-11-01 17:02 | Emergency (ER) | payer MEDICARE, SELFPAY ==
[2024-11-01 17:03] VITALS: BP 154/108; PULSE 66; RESP 15; TEMP 36.2; O2SAT 99; BMI 22.1
--- NOTE | 2024-11-01 17:11 | EDS_ITS ---
HPI History of Present Illness Chief Complaint: Eye Problem Informant: patient Narrative Narrative: Patient sent in from ophthalmology for treatment for concerns for temporal arteritis. I spoke with Dr. Murphy prior to her arrival. Patient states she woke up briseno vision lower part of her eye mild headache on the right side. No head trauma. She went to her normal eye doctor referred over to ophthalmology. She states she was evaluated for these concerns and sent here for treatment. She is not diabetic no chronic past medical history. No history of similar. She does wear bifocal glasses. Per Dr. Murphy, requesting labs with inflammatory markers starting Solu-Medrol 1 g daily for 3 days. He states MRI was not necessary in the emergency room. He coordinates temporal artery biopsies with surgeon Dr. Doll. he states this should be done within a week. Reports with his exam, there was swelling superior aspect of the optic nerve. PFSH PFSH Home Medications ?Medication ?Instructions ?Recorded ?Last Taken ?Type prednisone 20 mg tablet 80 mg (4 x 20 mg) PO DAILY # 28 11/01/24 Unknown Rx TABLETS Allergy/AdvReac Type Severity Reaction Status Date / Time Sulfa (Sulfonamide Allergy Rash Verified 11/01/24 17:03 Antibiotics) Social History Smoking Status: Never smoker alcohol intake: never ROS ROS ED Constitutional Constitutional ED: Denies chills, fever(s) or sweats Eyes Eyes: Reports blurry vision and change in vision ENT ENT ED: Denies sore throat Cardiovascular Cardiovascular: Denies chest pain, leg edema, palpitations or racing heartbeat Respiratory/Chest Respiratory/Chest: Denies cough, dyspnea or dyspnea on exertion Gastrointestinal Gastrointestinal: Denies abdominal pain, diarrhea, nausea or vomiting Genitourinary Genitourinary ED: Denies dysuria, hematuria or urinary frequency Musculoskeletal Musculoskeletal: Denies back pain, extremity pain or neck pain Integumentary Denies rash or wounds Neurologic Neurologic: Reports headache(s); Denies paresthesias or weakness EXAM Physical Exam Const Vital Signs: 11/01/24 17:03 Temperature 97.2 F L Temperature Source Temporal Pulse Rate 66 Respiratory Rate 15 Blood Pressure 154/108 H Blood Pressure Mean 123 Pulse Ox 99 Oxygen Delivery Method Room Air Positive well nourished and well developed General Appearance ED: well developed and NAD HEENT Reports moist mucous membranes HEENT Narrative: Tenderness palpation right temporal artery region. normocephalic and atraumatic Eyes Eyes Narrative: Right eye dilated from ophthalmology office. Ophthalmic evaluation noted some swelling optic nerve, finger counting patient did not see in the inferior quadrants right eye both lower quadrants. Able to finger count in the upper quadrants. Neck full ROM Chest Wall Chest: Negative for tenderness Resp normal respiratory effort and normal air movement Effort and Inspection: symmetric chest movement; Negative for respiratory distress Cardio regular rate, regular rhythm and no murmurs Peripheral Pulses: pulses 2+ throughout GI normal to inspection, nondistended, normoactive bowel sounds and non-tender Palpation: Negative for guarding or rebound tenderness present Extremity normal to inspection General Extremety ED: Negative for edema or tenderness General Extremity: Negative for edema Neuro oriented x3 and no sensory deficits noted Neuro Narrative: No focal deficit on exam. Sensorium / Orientation: awake and alert Skin no rashes or lesions noted and no wounds MDM MDM MDM Narrative Medical decision making narrative: Interventions / MDM: Differential diagnosis: Temporal arteritis, optic nerve swelling Diagnosis considered but do not suspect: My EKG interpretation: N/A Imaging independently reviewed and interpreted by myself: N/A External documents reviewed: N/A Test considered but not ordered:N/A ED course: Vital stable nontoxic. Coordinating care with ophthalmology, labs are drawn with ESR and CRP. Ordered for 1 g of IV Solu-Medrol. 1754: Labs CRP 15.9 normal ESR 17 white count normal. High clinical suspicion for temporal arteritis. She was given her Solu-Medrol. I did speak with on- call surgeon Dr. Ramirez both him and his partner does perform the biopsies. He states this can be performed within the week's timeframe. Information to his office for patient to call tomorrow. Currently coordinating IV steroids for additional 2 more days with social work. Prescription of 80 mg prednisone will be sent to her pharmacy to start after IV steroids. She will follow-up with ophthalmology as planned on Wednesday. 1924: Final plan will be charge nurses will hand the prescription to the infusion center in the morning. Patient given phone number to call the infusion center. She has been approved by her insurance company to receive outpatient steroids through social work assistance. Prescription sent to her pharmacy. She will call surgery tomorrow for outpatient definitive diagnoses. All questions were answered. Re-evaluation: stable Disposition discussed with patient/family/significant other: Patient Case discussed with consulting clinician: Ophthalmology, general surgery, licensed physical therapist This note was generated with [employer] dictation software. It may contain incorrect words, spelling, and punctuation that were not noted in checking the note before signing. Discharge Plan Triage Chief Complaint: Eye Problem ED Provider: Enoc Armijo Dx/Rx/DC Orders Clinical Impression: Temporal arteritis syndrome, Blurred vision, right eye, Optic nerve swelling Instructions: ED Temporal Arteritis Prescriptions: New prednisone 20 mg tablet 80 mg PO DAILY Qty: 28 0RF Rx Instructions: Next dose 11/04/2024 Primary Care Provider: Kymberly Muhammad Referrals: Carlos Murphy MD [Med Staff - Active Staff] - Keep Nano appointment Kymberly Muhammad DO [Primary Care Provider] - Kashmir Ramirez MD [Med Staff - Active Staff] - 1 Day Activity Restrictions/Additional Instructions: Your ESR 17, your CRP 15.9. You are given 1 g IV steroids in the emergency department. Discussed with Dr. Ramirez, call the office so they can set up and perform your biopsy within a week. Return to infusion center the next 2 days for additional IV steroids. Call infusion center tomorrow morning discussed time to come. Start your prednisone at 80 mg on Monday November 04, 2024 for the next week. Keep your follow-up with ophthalmology Dr. Murphy next week. Print Language: Cymraes Disposition Disposition: Home, Self Care
[2024-11-01 17:19] LABS: Absolute Neutrophil Count 8.2 X10^3/uL (2.0-7.7); Basophil# 0.05 X10^3/uL; Basophil% 0.5 % (0-1); Eosinophils% 0.9 % (0-5); Hematocrit 39.9 % (37-47); Lymphocyte % 13.8 % (19-41); Mean Corp Hgb Conc 32.6 g/dL (32-36); Mean Corpuscular Hgb 30.2 pg (27.0-32.0); Mean Corpuscular Volume 92.8 fL (81-99); Mean Platelet Vol. 11.4 fl (6.2-12.0); Monocyte# 0.94 X10^3/uL; Monocyte% 8.6 % (0-10); NRBC Flagged by Analyzer 0 % (0-5); Neutrophil # 8.24 X10^3/uL (2.7-7.7); Neutrophil % 75.8 % (47-70); Platelet Count 265 K/mm3 (150-450); RBC Distribution Width CV 12.4 % (11.6-14.6); RBC Distribution Width SD 42.5 fl (35.1-43.9); White Blood Count 10.9 K/mm3 (4.4-11.0)
[2024-11-01 17:27] LABS: Erythrocyte Sedimentation Rate 17 mm/hr (0-30)
[2024-11-01 17:42] LABS: Anion Gap 13 (5-15); BUN 18 mg/dL (4-19); BUN/Creat Ratio 28.1 RATIO (10-20); Calcium,Total 8.8 mg/dL (7.6-11.0); Carbon Dioxide 23.1 mmol/L (21.0-32.0); Chloride 104 mmol/L (98-108); Creatinine, Serum 0.63 mg/dL (0.70-1.20); EST Glomerular Filtration Rate 91 (>60); Estimated Creatinine Clearance 50.85 ml/min (50-250); Glucose 110 mg/dL (70-99); Potassium 4.2 mmol/L (3.3-5.1); Sodium Level 140 mmol/L (133-145)
[2024-11-01] MEDS: MethylPREDNISolone 1,000 MG in 0.9% Normal Saline (100mL Bag) 100 ML 100 MG IV (18:04)
--- NOTE | 2024-11-01 18:30 | CM.ED ---
Social Work Patient is requiring 3 days of IV antibiotics and asked about insurance coverage to get next two doses at the outpatient pavilion. SW contacted patients insurance to inquire about coverage. SW was told that patient would be charged a max of $55.00 per day for copay. Case # for call [id number]. Patient given information and is in agreement with same. Patient also given case number should she need to reference call. Yuliya Terrell, COMMAND AND CONTROL SPECIALIST, [employer]
[2024-11-01 19:02] VITALS: BP 165/68; PULSE 57; RESP 16; O2SAT 99
[2024-11-01 19:13] VITALS: BP 165/68; PULSE 57; RESP 16; TEMP 36.8; O2SAT 99
--- NOTE | 2024-11-01 19:30 | ED.RN ---
PER DR. MILLIGAN, NO VISUAL ACUITY NEEDED
== END 2024-11-01 19:31 | disposition home or self-care (01) ==
PROVIDERS: Emergency Provider Emergency Medicine; PCP Family Medicine; Visit Provider Emergency Medicine
DX: M31.6 Other giant cell arteritis (principal); H53.8 Other visual disturbances; Z97.3 Presence of spectacles and contact lenses; H47.091 Other disorders of optic nerve, not elsewhere classified, right eye
CPT/HCPCS: 80048; 85025; 85652; 86140; 96365; 96366; 99283; A4216; J2919

== ENCOUNTER 2024-11-02 14:18 | Outpatient (CLI) | payer MEDICARE, SELFPAY ==
[2024-11-02 14:26] VITALS: BP 139/71; PULSE 83; RESP 16; TEMP 36.3; O2SAT 96
[2024-11-02] MEDS: MethylPREDNISolone 1,000 MG in 0.9% Normal Saline (100mL Bag) 100 ML 100 MG IV (14:39)
[2024-11-02 16:21] VITALS: BP 131/62; PULSE 63; RESP 16; TEMP 36.4; O2SAT 98
== END 2024-11-02 23:59 | disposition home or self-care (01) ==
LOC: MEDOUTP 14:19
PROVIDERS: PCP Family Medicine; Referring Provider Emergency Medicine; Visit Provider Emergency Medicine
DX: M31.6 Other giant cell arteritis (principal)
CPT/HCPCS: 96365; A4216; J2919

== ENCOUNTER 2024-11-03 10:53 | Outpatient (CLI) | payer MEDICARE, SELFPAY ==
[2024-11-03 11:20] VITALS: BP 130/72; PULSE 56; RESP 16; TEMP 35.9; O2SAT 97
[2024-11-03] MEDS: MethylPREDNISolone 1,000 MG in 0.9% Normal Saline (100mL Bag) 100 ML 100 MG IV (11:27)
[2024-11-03 13:05] VITALS: BP 122/64; PULSE 55; RESP 16; TEMP 36; O2SAT 98
== END 2024-11-03 23:59 | disposition home or self-care (01) ==
LOC: MEDOUTP 10:53
PROVIDERS: PCP Family Medicine; Referring Provider Emergency Medicine; Visit Provider Emergency Medicine
DX: M31.6 Other giant cell arteritis (principal)
CPT/HCPCS: 96365; A4216; J2919

== ENCOUNTER 2024-11-06 05:57 | Day surgery (SDC) | payer MEDICARE, SELFPAY ==
--- NOTE | 2024-11-02 15:14 | PAT.ANE_ITS ---
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 When Was Last Pacemaker Check QUESTION #4 FULL TEXT: You/Your Family Experience fever (hyperthermia) with Anesthesia Last Oral Intake Last Oral intake: Last Oral Intake NPO since Meds taken in AM with sips of water? Meds patient instructed to take am of surgery PONV PONV - senior environmental engineer: PONV - senior environmental engineer Female Yes 11/02/24 10:36 HX of Motion Sickness No 11/02/24 10:36 HX of N/V After Surgery No 11/02/24 10:36 Non-Smoker Yes 11/02/24 10:36 Duration of Surgery greater No 11/02/24 10:36 than 60 minutes Number of Risk Factors 2 11/02/24 10:36 PONV Score Moderate Risk 11/02/24 10:36 Height & Weight Height & Weight: Anesthesia: Height & Weight Height 5 ft 4 in 11/02/24 09:00 Respiratory Assessment Respiratory Assessment - senior environmental engineer: Respiratory Tract Infection Hx - senior environmental engineer Hx Respiratory Tract Infection No 11/02/24 10:36 STOP Sleep Apnea STOP Sleep Apnea - senior environmental engineer: STOP Sleep Apnea - senior environmental engineer Hx Hypertension No 11/02/24 10:36 Hx Sleep Apnea No 11/02/24 10:36 CPAP No 11/02/24 10:36 BIPAP No 11/02/24 10:36 Do you snore loudly (louder No 11/02/24 10:36 than talking or can be heard Do you often feel tired/ No 11/02/24 10:36 fatigued/ sleepy during daytime? Has anyone observed you stop No 11/02/24 10:36 breathing during sleep? STOP Results Negative 11/02/24 10:36 QUESTION #5 FULL TEXT : Do you snore loudly (louder than talking or can be heard through closed doors)? 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 Specify any problems Hx of Preganancy in last 3 No 11/02/24 10:36 Months Nurse Filling Out Transfusion VCHRISTIN 11/02/24 10:36 & Questions: Date: 11/02/24 11/02/24 10:36 Time: 10:37 11/02/24 10:36 Patient unable to answer at this time (ie. confused, unrespo /Reproduction History /Reproductive History - senior environmental engineer: /Reproductive Hx- senior environmental engineer Hx Now No 11/02/24 10:36 Gestational Age (in weeks): EDC: Hx Hx Para Hx Section SAB No 11/02/24 10:36 PFSH Medical History Wears dentures Wears glasses History of steroid therapy Easy bruising Excessive bleeding Non-smoker Home Medications ?Medication ?Instructions ?Recorded ?Last Taken ?Type prednisone 20 mg tablet 80 mg (4 x 20 mg) PO DAILY # 28 11/01/24 Unknown Rx TABLETS multivitamin with minerals-ferrous 1 tab PO DAILY 10/15 Unknown History sulfate 4.5 mg iron tablet (One Daily Multivitamins with Minerals) Allergy/AdvReac Type Severity Reaction Status Date / Time Sulfa (Sulfonamide Allergy Rash Verified 11/02/24 14:29 Antibiotics) Surgical History (Updated 11/02/24 @ 10:39 by Natalie Pérez) Hx of tooth extraction Social History Smoking Status: Never smoker alcohol intake: never Audit: Pertinent Findings Pertinent Findings EKG Perinent findings: October 05, 2019. Normal sinus rhythm with sinus arrhythmia. Nonspecific ST abnormalities. Additional pertinent findings: Holter. Done on 09/04/2019-predominantly normal sinus rhythm. There were a few isolated PVCs. There were a total of 381 premature supraventricular beats. This was 0.2% of the total QRS complexes. There were 15 runs. Patient's diary had no symptoms noted. Recommendation Anesthesia Recommendation Anesthesia recommendation: OPTIMIZED for anesthesia
[2024-11-06] VITALS (9 sets, daily range): BP systolic 133–149; BP diastolic 72–83; PULSE 52–77; RESP 16; TEMP 36.2–36.6; O2SAT 95–97; BMI 22.3
--- NOTE | 2024-11-06 06:59 | HP.PCM_ITS ---
History and Physical Date of Admission: 11/06/24 Intake Vital Signs 11/01/2516:03 11/03/2507:04 11/02/2508:00 Height 5 ft 4 in 5 ft 4 in 5 ft 4 in Weight: 126 lb BMI 21.6 BP 111/70 Blood Pressure Location Rt brachial Position Sitting Respiration 17 Pulse 70 Pulse Source Monitor Temp 96 F L Temp Source Temporal Pulse Oximetry (%) 97 Oxygen Delivery Method room air Intake Visit Reasons: TEMPORAL ARTERY BIOPSY Chief Complaint: temporal artery biopsy Is patient in pain?: Yes Allergies Sulfa (Sulfonamide Antibiotics) Allergy (Verified 11/02/24 09:01) Rash Medications ?Medication ?Instructions ?Recorded ?Confirmed ?Type prednisone 20 mg tablet 80 mg (4 x 20 mg) PO DAILY #28 11/01/24 11/02/24 Rx TABLETS multivitamin with minerals-ferrous tab PO 11/02/24 11/02/24 History sulfate 4.5 mg iron tablet (One Daily Multivitamins with Minerals) Have you fallen in the past year?: No PFSH Social History Smoking Status: Never smoker alcohol intake: never HPI HPI HPI: Patient is a 79-year-old female is here with vision changes in the right as well as headaches and facial pain. She says this started about a week ago. ROS General General: No weight change, appetite, fatigue, colon cancer, breast cancer or weakness HEENT HEENT: No difficulty swallowing, eye injury, eye surgery, swollen glands or hoarseness Endo Endocrine: No thyroid disease, diabetes mellitus, thyroid cancer, Hair loss, heat intolerance or cold intolerance Skin Skin: No rash or changing moles Musc Musculoskeletal: No back problems, arthritis, rheumatoid arthritis, gout or joint pain Cardio Cardiovascular: No murmur, pacemaker, heart disease, atrial fibrillation, high blood pressure, heart attack, heart stent, palpitations, shortness of breath with exertion or chest pain Psych Psychiatric: No depression, anxiety or hearing voices Resp Respiratory: No shortness of breath, No sleep apnea, No cough, No COPD, No asthma, No emphysema and No wheezing Gastro Gastrointestinal: No abdominal pain, No nausea or vomiting, No diarrhea, No constipation, No blood in stool, No acid reflux, No hemorrhoids, No ulcers, No gallbladder problem and No black,tarry stools Jony Hematologic: No blood thinners, No blood disorders, No bleeding, No anemia and No blood clots Neuro Neurologic: No system reviewed and no additional complaints, except as documented, No as per HPI, No abnormal gait, No abnormal hearing, No abnormal movements, No abnormal speech, No behavioral changes, No burning sensations, No confusion, No convulsions, No disequilibrium, No dizziness, No localized weakness, No frequent falls, No headache(s), No lack of coordination, Yes loss of vision, No memory loss, No numbness, No other visual disturbances, No radicular pain, No restless legs, No sensory deficit, No syncope, No tingling, No tremor(s), No weakness and No other Exam Const General: cooperative Orientation: alert and oriented x3 HENMT Head: normal to inspection Neck Neck: normal visual inspection and full ROM Chest Chest palpation & inspection: normal inspection of the chest Resp Effort & Inspection: normal respiratory effort Auscultation: clear to auscultation bilaterally Cardio Rate: regular rate Rhythm: regular rhythm GI Inspection: non-distended Palpation: soft and nontender Skin General: no rashes or lesions noted Neuro General: patient alert and patient oriented x3 Extrem General: full ROM Psych Appearance: grossly normal Mental Status: mental status grossly normal Assessment and Plan Assessment and Plan (1) Blurred vision, right eye: Status: Acute Plan: Patient had vision changes on the right eye and she is having right headache and facial pain. She was sent here for temporal artery biopsy. I discussed right temporal artery biopsy with her in detail. I discussed the risks including but not limited to bleeding, infection, nerve injury. Patient understands the risks and is willing to proceed. Brandon Doll MD Pager: [facility] [address] [place] [address], [address] [place] [address] Office: I have examined the patient and the H&P has been reviewed. There are no clinical changes since date of exam.
--- NOTE | 2024-11-06 07:14 | PCM.PRE.AN2 ---
ASA Classification* ASA Classification ASA Classification: 2 Assessment & Plan Anesthesia* Anesthesia Assessment Anesthesia Assessment: Discussed sedation and/or anesthesia options, risks, benefits, and alternatives with patient/parents/legal guardian/POA. Questions invited. The patient/parents/legal guardian/POA seems to understand and agrees to proceed with anesthesia plan. Reviewed the physical assessment, medical history, allergy history and patient home medications list prior to surgery/procedure/anesthetic and documented any changes. Performed airway and anesthesia risk assessments. Anesthesia Type Anesthesia Type: MAC History Source History Obtained from:: Patient and Chart Anesthesia Focused Assessment* Temperature: 97.8 F Pulse Rate: 52 Blood Pressure: 148/76 Respiratory Rate: 16 Pulse Ox: 97 Oxygen Delivery Method: Room Air Airway Assessment Mouth opens: >3 cm Mallampati Score: II Teeth Condition: Dentures (Patient has upper and lower full implants) Neck Range of motion (ROM): Limited ROM (Slight decrease in extension) Focused Labs Anesthesia Preop lab: CBC WBC 10.9 K/mm3 (4.4-11.0) 11/01/24 17:14 11/01/24 RBC 4.30 M/mm3 (4.2-5.4) 11/01/24 17:14 11/01/24 Hgb 13.0 g/dL (12.0-15.0) 11/01/24 17:14 11/01/24 Hct 39.9 % (37-47) 11/01/24 17:14 11/01/24 Plt Count 265 K/mm3 (150-450) 11/01/24 17:14 11/01/24 CHEMISTRY Potassium 4.2 mmol/L (3.3-5.1) 11/01/24 17:14 11/01/24 Sodium 140 mmol/L (133-145) 11/01/24 17:14 11/01/24 BUN 18 mg/dL (4-19) 11/01/24 17:14 11/01/24 Creatinine 0.63 mg/dL (0.70-1.20) L 11/01/24 17:14 11/01/24 Glucose 110 mg/dL (70-99) H 11/01/24 17:14 11/01/24 POC Glucose 172 mg/dL (70-110) H 08/21/19 12:47 08/21/19 TSH 2.120 uIU/mL (0.358-3.740) 04/25/24 13:43 04/25/24 COAG PT 14.1 SECONDS (11.7-14.9) 08/21/19 12:50 08/21/19 Pre-Assessment Diagnosis/Proposed Procedure Planned Operative Procedure(s): RIGHT TEMPORAL ARTERY BX Anesthesia History 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 When Was Last Pacemaker Check QUESTION #4 FULL TEXT: You/Your Family Experience fever (hyperthermia) with Anesthesia Last Oral Intake Last Oral intake: Last Oral Intake NPO since 22:00 11/06/24 06:22 Meds taken in AM with sips of No 11/06/24 06:22 water? Meds patient instructed to take am of surgery PONV PONV - checkering machine adjuster: PONV - checkering machine adjuster Female Yes 11/02/24 10:36 HX of Motion Sickness No 11/02/24 10:36 HX of N/V After Surgery No 11/02/24 10:36 Non-Smoker Yes 11/02/24 10:36 Duration of Surgery greater No 11/02/24 10:36 than 60 minutes Number of Risk Factors 2 11/02/24 10:36 PONV Score Moderate Risk 11/02/24 10:36 Height & Weight Height & Weight: Anesthesia: Height & Weight Height 5 ft 4 in 11/06/24 06:22 Weight: 59 kg 11/06/24 06:22 Body Mass Index (BMI) 22.3 11/06/24 06:22 Respiratory Assessment Respiratory Assessment - checkering machine adjuster: Respiratory Tract Infection Hx - checkering machine adjuster Hx Respiratory Tract Infection No 11/02/24 10:36 STOP Sleep Apnea STOP Sleep Apnea - checkering machine adjuster: STOP Sleep Apnea - checkering machine adjuster Hx Hypertension No 11/03/24 11:20 Hx Sleep Apnea No 11/02/24 10:36 CPAP No 11/02/24 10:36 BIPAP No 11/02/24 10:36 Do you snore loudly (louder No 11/02/24 10:36 than talking or can be heard Do you often feel tired/ No 11/02/24 10:36 fatigued/ sleepy during daytime? Has anyone observed you stop No 11/02/24 10:36 breathing during sleep? STOP Results Negative 11/02/24 10:36 QUESTION #5 FULL TEXT : Do you snore loudly (louder than talking or can be heard through closed doors)? 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 Specify any problems Hx of Preganancy in last 3 No 11/02/24 10:36 Months Nurse Filling Out Transfusion VCHRISTIN 11/02/24 10:36 & Questions: Date: 11/02/24 11/02/24 10:36 Time: 10:37 11/02/24 10:36 Patient unable to answer at this time (ie. confused, unrespo /Reproduction History /Reproductive History - checkering machine adjuster: /Reproductive Hx- checkering machine adjuster Hx Now No 11/02/24 10:36 Gestational Age (in weeks): EDC: Hx Hx Para Hx Section SAB No 11/02/24 10:36 PFSH Medical History Wears dentures Wears glasses History of steroid therapy Easy bruising Excessive bleeding Non-smoker Home Medications ?Medication ?Instructions ?Recorded ?Last Taken ?Type prednisone 20 mg tablet 80 mg (4 x 20 mg) PO DAILY #28 11/01/24 11/05/24 Rx TABLETS multivitamin with minerals-ferrous 1 tab PO DAILY 11/02/24 11/05/24 History sulfate 4.5 mg iron tablet (One Daily Multivitamins with Minerals) Allergy/AdvReac Type Severity Reaction Status Date / Time Sulfa (Sulfonamide Allergy Rash Verified 11/06/24 06:21 Antibiotics) Surgical History Hx of tooth extraction Social History Smoking Status: Never smoker alcohol intake: never Review of Systems (Anesthesia) ROS Narrative System reviewed and no additional complaints, except as documented.
[2024-11-06] MEDS: Lubricating Jelly 60 GM Tube 30 GM (07:30)
--- NOTE | 2024-11-06 07:30 | TEM_PTH ---
PATIENT: BATOOL LONG LOC: [facility] U#:[id number] AGE/SX: 79/F ROOM: RE11/06/[address]: Dr. Brandon Doll MD : 1945 BED: DIS: 11/06/2024 SPEC #: [id number] RECD: 11/06/24 13:21 STATUS: WENDI MAYERJuan C #: [id number] ETIENNE: 11/06/24 07:[address]: Brandon Doll DEPT: SURGICAL PATHOLOGY RECD BY: Abdirashid Hackett ENTERED: 11/06/24 13:21 SP TYPE: TEMPORAL OTHR DR: Dr. Kymberly Muhamamd, DO Tissues: A - Temporal region Procedures: Surgery Specimen Level IV HEADER OPERATION: Temporal artery biopsy PRE-OP DIAGNOSIS: Blurred vision in right eye TISSUE SUBMITTED: A- Right temporal artery MICROSCOPIC DIAGNOSIS Right temporal artery, biopsy:Disrupted internal elastic lamina and chronic inflammation with very rare giant cells consistent with arteritisJ Courtney MD, 11/08/2024 MICROSCOPIC DESCRIPTION Slides are reviewed. GROSS DESCRIPTION Received in formalin labeled, Batool Long, and designated right temporal artery, is a red-brown, smooth segment of blood vessel that measures 1.2 cm long by 0.2 cm in diameter. The outer surface is entirely inked black. Sectioning is unremarkable. Totally submitted in one cassette. CELIA 11/06/2024 CPT:98703, TC:3
[2024-11-06] MEDS: Lidocaine 1% (20 ml mdv) 20 ML Vial (07:51)
--- NOTE | 2024-11-06 09:07 | PCM.POST.ANE ---
Anesthesia: Postop Eval I Current Vital Signs Temperature: 97.4 F Pulse Rate: 53 Blood Pressure: 147/76 Respiratory Rate: 16 Pulse Ox: 97 Oxygen Delivery Method: Room Air Assessment Airway patent: Yes Spontaneous unlabored respirations: Yes Mental status: Awake nausea: No Vomiting: No Anesthesia Complication: No Fluid Hydration Crystalloid volume administer (ml): 10 Total IV fluid infused: 10 Progress Note Anesthesia document: Postop Eval 1 completed: Yes
--- NOTE | 2024-11-06 09:11 | OP.PCM_ITS ---
Operative Report (Standard) Operative Information Date of Procedure: 11/06/24 Pre-Operative Diagnosis: Right vision loss Post-Operative Diagnosis: Same Surgery/Procedure Performed: Right temporal artery biopsy embedded software test engineer: Yes Import/Export Freight Forwarder: Jeremie Sebastian Tasks completed by elementary assistant teacher: Retracting Type of Anesthesia: Local MAC RN Documented Start/Stop Times: Operation Date: 11/06/24 07:30 Case Time Into Pre-Op 11/06/24 06:09 Out of Pre-Op 11/06/24 07:27 Anesthesia Start 11/06/24 07:28 Into Room 11/06/24 07:28 Procedure Start 11/06/24 08:03 Procedure End 11/06/24 08:54 Anesthesia End 11/06/24 09:01 Out of Room 11/06/24 09:01 Into Recovery 11/06/24 09:02 Procedure Start Time: 08:03 Procedure Stop Time: 08:54 Select all DRAINS/GRAFTS/IMPLANTS that apply: None Estimated Blood Loss: 5 Specimen collected: Yes Description of specimen(s) removed: Temporal artery Description of surgery: Patient was taken back to the operating room and MAC anesthesia was induced. The right yarsani was inspected and the route of the artery was marked. The yarsani was prepped and draped in usual sterile fashion. The incision site was injected with local anesthetic. Incision was made with a scalpel and deepened to the subcutaneous tissue using electrocautery. The artery was very difficult to identify. It was very small and diminutive. I did find a segment that appeared to be artery and clipped the proximal and distal ends and ligated the segment and sent for pathology. Unfortunately we do not have frozen pathology available at this time. It appears to be a temporal artery although is hard to distinguish between artery and vein. There were no other structures that appear to be artery into the right yarsani. The area was irrigated and suctioned dry and it was continue to be explored but I did not find other tubular structures in the yarsani. The incision was irrigated and suctioned dry once more and then closed with running 4-0 Monocryl suture. Dermabond was applied. Patient was taken to PACU in stable condition. Surgical Findings: Small temporal artery Complications Complications: No Admit VTE Documentation VTE Mechan Device Prophylaxis: SCD's
--- NOTE | 2024-11-06 09:14 | DCINST_ITS ---
Discharge Instructions Diet Discharge Diet: No restrictions Activity Discharge Activity: Return to Normal Activity and May Shower Dressing / Incision Call your doctor if your incision/area has: Continuous Slow Oozing, Sudden Inc reased Bleeding, Increased Pain/ Swelling, Increased Redness, Foul Smelling Discharge and Swelling at the incision site Call your doctor if you observe: Fever of 101 or Higher Cleanse incision/area with: Soap & Water Additional Dressing/Incision Instructions:: Ibuprofen and Tylenol for pain control. Follow Up Care Please Follow Up With: Brandon Doll MD When: Please call to schedule 2 week follow up appointment. [phone] Test Results: Test results from this visit will be discussed in further detail at your follow- up appointment, if applicable. Discharge Plan Admission Attending Provider: Brandon Doll Primary Care Provider: Kymberly Muhammad Instructions Print Language: Citizen Of [place] Discharge Orders/Prescriptions Prescriptions: No Action One Daily Multi-Vit w-Mineral 4.5 mg iron tablet 1 tab PO DAILY prednisone 20 mg tablet 80 mg PO DAILY Qty: 28 0RF Rx Instructions: Next dose 11/04/2024 Referrals / Follow Up: Kymberly Muhammad DO [Primary Care Provider] - Disposition Disposition (needs filled in before D/C Order can be placed): Home, Self Care
[2024-11-06] MEDS: Acetaminophen 325 MG Tablet 650 MG PO (10:14)
--- NOTE | 2024-11-06 10:15 | POSTOPAN2_ITS ---
Anesthesia Postop Eval I Sum Postop Eval Completion status Anesthesia document: Postop Eval 1 completed: Yes Anesthesia Postop Eval I Summary Anesthesia Postop Eval I Summary: Anesthesia Postop Eval I: Assessment Summary Airway patent Yes 11/06/24 09:08 [email or web address] Spontaneous unlabored Yes 11/06/24 09:08 [email or web address] respirations Mental status Awake 11/06/24 09:08 [email or web address] nausea No 11/06/24 09:08 [email or web address] Vomiting No 11/06/24 09:08 [email or web address] Anesthesia Postop Eval I: Fluid Summary Crystalloid volume administer 10 11/06/24 09:08 [email or web address] (ml) Colloids volume administered ( ml) Blood Product volume administered (ml) Total IV fluid infused 10 11/06/24 09:08 [email or web address] Anesthesia Postop Eval I: Summary Notes Anesthesia Complication No 11/06/24 09:08 [email or web address] Anesthesia Complication Comment: Post-operative progress note Anesthesia: Postop Eval II Evaluation Mental status: Awake Pain Level: 1 nausea: No Vomiting: No
--- NOTE | 2024-11-06 10:15 | PCM.POSTANE2 ---
Anesthesia Postop Eval I Sum Postop Eval Completion status Anesthesia document: Postop Eval 1 completed: Yes Anesthesia Postop Eval I Summary Anesthesia Postop Eval I Summary: Anesthesia Postop Eval I: Assessment Summary Airway patent Yes 11/06/24 09:08 [email or web address] Spontaneous unlabored Yes 11/06/24 09:08 [email or web address] respirations Mental status Awake 11/06/24 09:08 [email or web address] nausea No 11/06/24 09:08 [email or web address] Vomiting No 11/06/24 09:08 [email or web address] Anesthesia Postop Eval I: Fluid Summary Crystalloid volume administer 10 11/06/24 09:08 [email or web address] (ml) Colloids volume administered ( ml) Blood Product volume administered (ml) Total IV fluid infused 10 11/06/24 09:08 [email or web address] Anesthesia Postop Eval I: Summary Notes Anesthesia Complication No 11/06/24 09:08 [email or web address] Anesthesia Complication Comment: Post-operative progress note Anesthesia: Postop Eval II Evaluation Mental status: Awake Pain Level: 1 nausea: No Vomiting: No
== END 2024-11-06 11:14 | disposition home or self-care (01) ==
LOC: SDC 05:58 → AC 06:00
PROVIDERS: PCP Family Medicine; Referring Provider Surgery; Visit Provider Surgery
PROC: (CPT 37609; principal; 2024-11-06 07:15)
DX: M31.6 Other giant cell arteritis (principal)
CPT/HCPCS: 37609; 00352; 88305; A4648; A4216; J2405

== ENCOUNTER → 2024-11-08 | Outpatient (CLI) | payer MEDICARE, SELFPAY ==
[2024-11-08 13:06] LABS: Erythrocyte Sedimentation Rate 2 mm/hr (0-30)
[2024-11-08 13:16] LABS: CRP < 3.00 mg/L (0.0-3.0)
== END | disposition home or self-care (01) ==
LOC: BFHLAB 09:53
PROVIDERS: PCP Family Medicine; Visit Provider Family Medicine
DX: M31.6 Other giant cell arteritis (principal)
CPT/HCPCS: 36415; 85652; 86140

== ENCOUNTER → 2024-11-29 | Outpatient (CLI) | payer MEDICARE, SELFPAY ==
--- NOTE | 2024-11-29 08:24 | RAD_ITS ---
PROCEDURE: CHEST PA AND LATERAL (RADCXR), 11/29/2024 REASON FOR EXAM: PAIN TECHNIQUE: PA and lateral views of the chest were obtained. COMPARISON: None FINDINGS: Heart: Unremarkable. Mediastinum: Atherosclerosis. Lungs/pleura: No focal consolidation. No pleural effusion or visible pneumothorax. Bones: Demineralization. Trace to mild scoliosis. Lines and support devices: None. Other: None. RAD/Chest PA and Lateral IMPRESSION: 1. No visible acute cardiopulmonary findings 2. Additional description as above. Reading Location: [id number]
[2024-11-29 11:22] LABS: Absolute Lymphocyte Count 1.39 X10^3/uL (0.83-4.51); Absolute Neutrophil Count 10.7 X10^3/uL (2.0-7.7); Basophil# 0.05 X10^3/uL; Basophil% 0.4 % (0-1); Eosinophil# 0.08 X10^3/uL; Eosinophils% 0.6 % (0-5); Hematocrit 42.5 % (37-47); Hemoglobin 14.1 g/dL (12.0-15.0); Lymphocyte # 1.39 X10^3/ul (0.83-4.51); Lymphocyte % 10.4 % (19-41); Mean Corp Hgb Conc 33.2 g/dL (32-36); Mean Corpuscular Hgb 30.5 pg (27.0-32.0); Mean Platelet Vol. 11.6 fl (6.2-12.0); Monocyte# 0.89 X10^3/uL; Monocyte% 6.7 % (0-10); NRBC Flagged by Analyzer 0 % (0-5); Neutrophil # 10.66 X10^3/uL (2.7-7.7); Neutrophil % 79.9 % (47-70); Platelet Count 174 K/mm3 (150-450); RBC Distribution Width CV 15.1 % (11.6-14.6); RBC Distribution Width SD 50.7 fl (35.1-43.9); Red Blood Count 4.62 M/mm3 (4.2-5.4); White Blood Count 13.3 K/mm3 (4.4-11.0)
[2024-11-29 11:30] LABS: Erythrocyte Sedimentation Rate 1 mm/hr (0-30)
[2024-11-29 12:08] LABS: ALB/GLOB Ratio 2.1 RATIO (0.9-2.4); AST(SGOT) 18 U/L (<=31); Alanine Aminotransfer ALT/SGPT 29 U/L (<=34); Albumin, Serum 3.9 g/dL (3.4-4.8); Alkaline Phosphatase 67 U/L (35-104); Anion Gap 13 (5-15); BUN 21 mg/dL (4-19); BUN/Creat Ratio 26.8 RATIO (10-20); Calcium,Total 8.8 mg/dL (7.6-11.0); Carbon Dioxide 26.9 mmol/L (21.0-32.0); Chloride 102 mmol/L (98-108); Creatinine, Serum 0.77 mg/dL (0.70-1.20); EST Glomerular Filtration Rate 80 (>60); Globulin 1.8 g/dL (2.2-4.2); Glucose 96 mg/dL (70-99); Hepatitis B Surface Antibody Nonreactive; Hepatitis B Surface Antigen Nonreactive (Nonreactive); Hepatitis C Antibody Nonreactive (Nonreactive); Potassium 3.7 mmol/L (3.3-5.1); Protein, Total 5.7 g/dL (5.9-8.4); Sodium Level 142 mmol/L (133-145); Total Bilirubin 0.49 mg/dL (0.00-1.30)
[2024-11-29 12:10] LABS: CRP < 3.00 mg/L (0.0-3.0); Rheumatoid Factor < 10.0 IU/mL (<15); Vitamin D,25 Hydroxy 22.9 ng/mL (30-100)
[2024-11-30 14:08] LABS: CCP IgG Antibodies 4 units (0-19)
== END | disposition home or self-care (01) ==
LOC: MTLAB 08:22
PROVIDERS: PCP Family Medicine; Referring Provider Internal Medicine Rheumatology; Visit Provider Internal Medicine Rheumatology
DX: M31.6 Other giant cell arteritis (principal); H47.011 Ischemic optic neuropathy, right eye; Z79.899 Other long term (current) drug therapy
CPT/HCPCS: 36415; 71046; 80053; 82306; 85025; 85652; 86140; 86200; 86431; 86706; 86803; 87340

== ENCOUNTER → 2024-12-01 | Outpatient (CLI) | payer MEDICARE, SELFPAY ==
[2024-12-02 11:08] LABS: QNTFERON TB Mitogen Value > 10.00 IU/mL (.); QNTFERON TB Nil Value 0.02 IU/mL (.); QNTFERON TB1+ Ag Value 0.09 IU/mL (.); QNTFERON TB2+ Ag Value 0.08 IU/mL (.); QNTIFERON TB Positive Criteria Negative (Negative)
== END | disposition home or self-care (01) ==
LOC: MTLAB 08:53
PROVIDERS: PCP Family Medicine; Referring Provider Internal Medicine Rheumatology; Visit Provider Internal Medicine Rheumatology
DX: M31.6 Other giant cell arteritis (principal); H47.011 Ischemic optic neuropathy, right eye; Z79.899 Other long term (current) drug therapy
CPT/HCPCS: 86480

== ENCOUNTER 2024-12-26 21:57 | Emergency (ER) | payer MEDICARE, SELFPAY ==
[2024-12-26 21:57] VITALS: BP 139/79; PULSE 68; RESP 16; TEMP 36.7; O2SAT 100; O2SAT 94; BMI 23.0
--- NOTE | 2024-12-26 22:42 | EDS_ITS ---
HPI History of Present Illness Chief Complaint: Chest Pain Informant: patient and EMS Narrative Narrative: 79-year-old female presenting to the emergency room with a chief complaint of chest pain. Patient states that just prior to arrival she was sitting in her c hair at her house watching television when she got a crunching/pressure in her mid chest. She states that after 15 minutes of an unrelenting she called the nurse. EMS administered aspirin and nitroglycerin and she states now the pain is fully resolved. During the event she noted some shortness of breath but no nausea no sweating. She states she is never felt anything like this before. She had some grapes around 2030 hrs. She denies any known heart disease. She notes no recent change in exercise tolerance. No leg swelling. PFSH PFS Medical History Wears dentures Wears glasses History of steroid therapy Easy bruising Excessive bleeding Non-smoker Home Medications ?Medication ?Instructions ?Recorded ?Last Taken ?Type prednisone 20 mg tablet 80 mg (4 x 20 mg) PO DAILY # 28 11/01/24 11/05/24 Rx TABLETS multivitamin with minerals-ferrous 1 tab PO DAILY 10/1511/05/24 History sulfate 4.5 mg iron tablet (One Daily Multivitamins with Minerals) Allergy/AdvReac Type Severity Reaction Status Date / Time Sulfa (Sulfonamide Allergy Rash Verified 12/26/24 21:58 Antibiotics) Surgical History History of biopsy of temporal artery Hx of tooth extraction Social History Smoking Status: Never smoker alcohol intake: never ROS ROS ED Constitutional Constitutional ED: Denies chills, fever(s) or weight loss Eyes Eyes: Denies change in vision or diplopia ENT ENT ED: Denies ear pain, rhinorrhea or sore throat Cardiovascular Cardiovascular: Reports as per HPI and chest pain; Denies orthopnea, palp itations or racing heartbeat Respiratory/Chest Respiratory/Chest: Reports dyspnea; Denies cough or orthopnea Gastrointestinal Gastrointestinal: Denies abdominal pain, diarrhea, nausea or vomiting Genitourinary Genitourinary ED: Denies dysuria, hematuria or urinary frequency Musculoskeletal Musculoskeletal: Denies arthralgias or myalgias Integumentary Denies abscess or rash Neurologic Neurologic: Denies headache(s) or weakness Psychiatric Psychiatric: Denies anxiety, depression, suicidal ideation or suicidal thoughts Endocrine Endocrinology: Denies polydipsia, polyphagia or polyuria Allergic/Immunologic Allergic/Immunologic ED: Denies mouth swelling, tongue swelling or urticaria EXAM Physical Exam Const Vital Signs: 12/26/24 21:57 12/26/24 22:58 12/27/24 00:00 Temperature 98.0 F Temperature Source Oral Pulse Rate 68 65 58 L Respiratory Rate 16 16 14 Blood Pressure 139/79 H 136/79 H 118/71 Blood Pressure Mean 99 98 86 Pulse Ox 94 96 97 Oxygen Delivery Method Room Air 12/27/24 01:00 12/27/24 01:05 Temperature 97.9 F Temperature Source Pulse Rate 56 L 56 L Respiratory Rate 18 18 Blood Pressure 131/84 H 131/84 H Blood Pressure Mean 99 99 Pulse Ox 97 97 Oxygen Delivery Method Room Air Positive well nourished and well developed General Appearance ED: well developed and NAD HEENT Reports normocephalic, head/scalp atraumatic and moist mucous membranes Eyes PERRL and EOMs intact bilaterally Neck no lymphadenopathy, supple and no JVD Resp normal respiratory effort and clear to auscultation bilaterally Cardio regular rate, regular rhythm and no murmurs GI normal to inspection, nondistended, normoactive bowel sounds and non-tender Palpation: soft Back/Spine no CVA tenderness and normal ROM Extremity normal to inspection General Extremety ED: Negative for edema General Extremity: Negative for edema Neuro oriented x3 and CN's II-XII intact bilaterally Sensorium / Orientation: alert Motor Exam: strength 5/5 throughout Psych mental status grossly normal Mood & Affect: Negative for depressed or tearful Skin no rashes or lesions noted and no wounds MDM MDM MDM Narrative Medical decision making narrative: Differential diagnosis includes but not limited to cardiac dysrhythmia acute coronary syndrome esophageal spasm reflux 2 sets of cardiac enzymes are negative. Patient's remained asymptomatic here in the department. No significant EKG changes are noted. White count 15.3 hemoglobin 13.5 platelet count of 212. Creatinine 0.65. Made up interpretation of chest x-ray as no acute findings. This point I think the patient can be discharged home. I would asked that she have PCP follow-up to discuss possibility of further cardiac testing such as stress test. Patient is comfortable this plan will return if worsening symptoms or return of symptoms. History & Record Review Discussion w/independent historian: EMS personnel and Patient Additional record(s) reviewed:: Prior outpatient record, Prior ED visit and Prior labs Lab Data Attestation: I reviewed the patient's lab results. Labs: Laboratory Results - last 24 hr 12/25/24 12/26/24 23:55 22:00 WBC 15.3 H RBC 4.32 Hgb 13.5 Hct 39.7 MCV 91.9 MCH 31.3 MCHC 34.0 RDW Std Deviation 52.3 H RDW Coeff of Meghan 15.5 H Plt Count 212 MPV 10.8 Immature Gran % (Auto) 9.000 H Neut % (Auto) 85.5 H Lymph % (Auto) 3.1 L [place] % (Auto) 2.3 Eos % (Auto) 0.0 Baso % (Auto) 0.1 Absolute Neuts (auto) 13.1 H Absolute Lymphs (auto) 0.47 L Nucleated RBC % 0 Differential Comment SCANNED Sodium 136 Potassium 4.1 Chloride 99 Carbon Dioxide 25.3 Anion Gap 12 BUN 24 H Creatinine 0.65 L Estim Creat Clear Calc 50.85 Est GFR (MDRD) Non-Af 91 BUN/Creatinine Ratio 37.1 H Glucose 243 H Calcium 8.4 Troponin T High Sens 8 Troponin T Hi Sens 2 Hr 10 Radiography Diagnostic Testing: Clinical Impression(s) from Imaging Studies Chest X-Ray 12/26/24 22:45 IMPRESSION: No Acute Findings. Reading Location: [facility] EKG Initial EKG: Attestation: I personally reviewed and interpreted this EKG as follows: Comments: Sinus rhythm with a ventricular rate of 73 bpm. Sinus arrhythmia noted. Prior EKG tracings: available for review (October 05, 2019. There is subtle ST changes noted particularly in lead V1 no definitive ST elevation is noted.) Discharge Plan Triage Chief Complaint: Chest Pain ED Provider: Fernie More Dx/Rx/DC Orders Clinical Impression: Chest pain Instructions: ED Chest Pain, Uncertain Cause Prescriptions: No Action One Daily Multi-Vit w-Mineral 4.5 mg iron tablet 1 tab PO DAILY prednisone 20 mg tablet 80 mg PO DAILY Qty: 28 0RF Rx Instructions: Next dose 11/04/2024 Primary Care Provider: Kymberly Muhammad Referrals: Kymberly Muhammad, [Primary Care Provider] - 3-5 Days (discuss cardiac testing with your doctor) Activity Restrictions/Additional Instructions: If symptoms return or have you any concerns please return to the emergency. Please discuss your ED visit with your doctor and the possibility of going on for cardiac stress testing. As we discussed both sets of cardiac enzymes were negative and your EKG did not show an obvious heart attack. Print Language: American Disposition Disposition: Home, Self Care Discharge Date/Time: 12/27/24 01:44
--- NOTE | 2024-12-26 22:42 | EKG12_ITS ---
Test Reason : CP Blood Pressure : */* mmHG Vent. Rate : 73 BPM Atrial Rate : 73 BPM P-R Int : 136 ms QRS Dur : 70 ms QT Int : 372 ms P-R-T Axes : 68 15 44 degrees QTcB Int : 409 ms Sinus rhythm with marked sinus arrhythmia Otherwise normal ECG Confirmed by Kashmir Morfin ([id number]), editor farm journal ROMA WARNER ([id number]) on 12/28/2024 10:04:47 AM Referred By: Confirmed By: Kashmir Morfin
--- NOTE | 2024-12-26 22:45 | RAD_ITS ---
PROCEDURE: CHEST 1 VIEW (PORTABLE) 12/26/2024 REASON FOR EXAM: CHEST PAIN TECHNIQUE: Frontal view of the chest. COMPARISON: 11/30/2019 FINDINGS: Hardware: None Heart: Cardiac and mediastinal contours are stable. Lungs: No focal consolidation. No pneumothorax. No pleural effusion. Bones: The bones are unremarkable. Other: RAD/Chest 1 View (Portable) IMPRESSION: No Acute Findings. Reading Location: [facility]
[2024-12-26 22:58] VITALS: BP 136/79; PULSE 65; RESP 16; O2SAT 96
[2024-12-26 22:59] LABS: Absolute Lymphocyte Count 0.47 X10^3/uL (0.83-4.51); Absolute Neutrophil Count 13.1 X10^3/uL (2.0-7.7); Basophil# 0.02 X10^3/uL; Basophil% 0.1 % (0-1); Hematocrit 39.7 % (37-47); Hemoglobin 13.5 g/dL (12.0-15.0); Lymphocyte # 0.47 X10^3/ul (0.83-4.51); Lymphocyte % 3.1 % (19-41); Mean Corpuscular Hgb 31.3 pg (27.0-32.0); Mean Corpuscular Volume 91.9 fL (81-99); Mean Platelet Vol. 10.8 fl (6.2-12.0); Monocyte# 0.35 X10^3/uL; Monocyte% 2.3 % (0-10); NRBC Flagged by Analyzer 0 % (0-5); Neutrophil # 13.08 X10^3/uL (2.7-7.7); Neutrophil % 85.5 % (47-70); POSITIVE COUNT YES; POSITIVE DIFFERENTIAL YES; POSITIVE MORPHOLOGY YES; Platelet Count 212 K/mm3 (150-450); RBC Distribution Width CV 15.5 % (11.6-14.6); RBC Distribution Width SD 52.3 fl (35.1-43.9); Red Blood Count 4.32 M/mm3 (4.2-5.4); White Blood Count 15.3 K/mm3 (4.4-11.0)
[2024-12-26 23:08] LABS: Anion Gap 12 (5-15); BUN 24 mg/dL (4-19); BUN/Creat Ratio 37.1 RATIO (10-20); Calcium,Total 8.4 mg/dL (7.6-11.0); Carbon Dioxide 25.3 mmol/L (21.0-32.0); Chloride 99 mmol/L (98-108); Creatinine, Serum 0.65 mg/dL (0.70-1.20); EST Glomerular Filtration Rate 91 (>60); Estimated Creatinine Clearance 50.85 ml/min (50-250); Glucose 243 mg/dL (70-99); Potassium 4.1 mmol/L (3.3-5.1); Sodium Level 136 mmol/L (133-145); Troponin T High Sensitivity 8 ng/L (<=14)
[2024-12-26 23:56] LABS: Differential Indicated SCAN CRITERIA MET
[2024-12-26 23:57] LABS: Differential Comment SCANNED
[2024-12-27] VITALS: BP 118/71; PULSE 58; RESP 14; O2SAT 97
[2024-12-27 00:19] LABS: Troponin T High Sens 2 HR 10 ng/L (<=14)
[2024-12-27 01:00] VITALS: BP 131/84; PULSE 56; RESP 18; O2SAT 97
[2024-12-27 01:05] VITALS: BP 131/84; PULSE 56; RESP 18; TEMP 36.6; O2SAT 97
== END 2024-12-27 01:44 | disposition home or self-care (01) ==
PROVIDERS: Emergency Provider Emergency Medicine; PCP Family Medicine; Visit Provider Emergency Medicine
DX: R07.9 Chest pain, unspecified (principal); R06.02 Shortness of breath
CPT/HCPCS: 71045; 80048; 84484; 85025; 93005; 99285; A4216

== ENCOUNTER → 2024-12-29 | Outpatient (CLI) | payer MEDICARE, SELFPAY ==
[2024-12-29 17:52] LABS: Erythrocyte Sedimentation Rate 5 mm/hr (0-30)
[2024-12-29 18:06] LABS: CRP < 3.00 mg/L (0.0-3.0)
== END | disposition home or self-care (01) ==
LOC: MTLAB 16:01
PROVIDERS: PCP Family Medicine; Referring Provider Internal Medicine Rheumatology; Visit Provider Internal Medicine Rheumatology
DX: M31.6 Other giant cell arteritis (principal); H47.011 Ischemic optic neuropathy, right eye; Z79.899 Other long term (current) drug therapy
CPT/HCPCS: 36415; 85652; 86140

== ENCOUNTER → 2025-01-27 | Outpatient (CLI) | payer MEDICARE, SELFPAY ==
--- OUTSIDE RECORDS SUMMARY | 2025-01-27 07:54 | XMS RPT_ITS | CCD ---
Author Organization [facility] Care Team Providers Care Pasteurizer Name Role Phone Dr. Kymberly Muhammad Primary Care Provider Dr. Kymberly Muhammad Referring Provider TERESE Vyas Attending Provider Dr. Kymberly Muhammad DO Primary Care Provider Zofia FRIAS, Dr. Stubbs Emergency Provider Dr. Kymberly Muhammad DO Referring Provider Lavon TINEO, Dr. Taylor Attending Provider Dr. Enoc Armijo DO Attending Provider Dr. Enoc Armijo DO Referring Provider Lavon TINEO, Dr. Taylor Referring Provider [phone] Dr. Brandon Doll MD Other Provider Dr. Enoc Armijo DO Attending Provider Dr. Kymberly Muhammad DO Attending Provider [phone] Dr. Lefty Valdez MD Attending Provider Dr. Lefty Valdez MD Referring Provider Dr. Allyson Soler MD Attending Provider Dr. Allyson Soler MD Referring Provider Dr. Fernie More DO Emergency Provider [phone] Dr. Fernie More DO Attending Provider Kymberly Muhammad Attending Unavailable Kymberly Muhammad Primary Care Unavailable Malys, Kymberly Primary Care Unavailable Vellanki, Allyson Attending Unavailable Vellanki, Allyson Referring Unavailable Malys, Kymberly Primary Care Unavailable Vellanki, Allyson Referring Unavailable Vellanki, Allyson Attending Unavailable Sailmilly, Lefty Referring Unavailable ilLefty atkins Attending Unavailable Malys, Kymberly Primary Care Unavailable Calabretta, Brandon Referring Unavailable Calabretta, Brandon Attending Unavailable Calabretta, Brandon Consulting Unavailable Malys, Kymberly Primary Care Unavailable Malys, Kymberly Referring Unavailable Malys, Kymberly Primary Care Unavailable Uche Vyas Attending Unavailable Malys, Kymberly Referring Unavailable Calabretta, Brandon Attending Unavailable Malys, Kymberly Primary Care Unavailable Malys, Kymberly Primary Care Unavailable Vellanki, Allyson Referring Unavailable Vellanki, Allyson Attending Unavailable Malys, Kymberly Primary Care Unavailable Anand, Daniella Referring Unavailable Anand, Daniella Attending Unavailable Malys, Kymberly Primary Care Unavailable Uche Vyas Referring Unavailable Uche Vyas Attending Unavailable Malys, Kymberly Primary Care Unavailable Fernie More Attending Unavailable Malys, Kymberly Primary Care Unavailable Le, Enoc Attending Unavailable Calabretta, Brandon Referring Unavailable Calabretta, Brandon Attending Unavailable Malys, Kymberly Primary Care Unavailable Malys, Kymberly Referring Unavailable Calabretta, Brandon Attending Unavailable Malys, Kymberly Primary Care Unavailable Malys, Kymberly Primary Care Unavailable Le, Enoc Referring Unavailable Le, Enoc Attending Unavailable Malys, Kymberly Primary Care Unavailable Le, Enoc Referring Unavailable Le, Enoc Attending Unavailable Allergies Allergy Classification Reported Allergen(s) Allergy Type Date of Onset Reaction(s) Facility (14 sources) Sulfonamides (Antibiotic) Allergy to substance 0 Rash [facility] (1 source) Sulfonamides (Antibiotic) Drug allergy (disorder) 5 [facility] Repository Medications Current Medications Medication Drug Class(es) Dates Sig (Normalized) Sig (Original) Pmdcbwyx-Haq-Hntsjk s Sulfate (One Daily Multi-Vit W-Mineral) 4.5 mg iron tablet (7 sources) Start: 11-02-2024 take 1 tablet by mouth once daily Ftttwvlb-Seg-Mwqqf us Sulfate (One Daily Multi-Vit W-Mineral) 4.5 mg iron tablet Active 1 {tbl} PO DAILY November 02, 2024 12:00am [place] (Nk) (1 source) Start: 08-21-2019 [place] (Nk) Active August 21, 2019 1:00am predniSONE 20 mg oral tablet (20 sources) Start: 11-01-2024 take 4 tablets by mouth once daily Prednisone 20 mg tablet Active 80 mg PO DAILY November 01, 2024 12:00am Next dose 11/04/2024 Start: 09-12-2017 End: 12-05-2017 take 1 tablet by mouth once daily at mealtime Prednisone 20 mg tablet Discontinued 20 mg PO .COMPLEX 10 September 12, 2017 1:00am December 05, 2017 8:28am 20 mg PO 2 pills daily x 3 days, then 1 pill daily x 4 days; administer with food or milk Completed/Discontinued Medications Medication Drug Class(es) Dates Sig (Normalized) Sig (Original) [id number] actuat albuterol 0.09 mg/actuat metered dose inhaler (14 sources) beta2-Adrenergic Agonist Start: 09-12-2017 End: 12-05-2017 Albuterol Sulfate 90 mcg/actuation HFA aerosol inhaler Discontinued 2 NMA INHALATION EVERY 6 HOURS as needed for shortness of breath or wheezing 6.7 September 12, 2017 1:00am December 05, 2017 8:28am administer with spacer Start: 09-12-2017 End: 12-05-2017 take 1 puff(s) by inhalation every six hours Albuterol Sulfate Discontinued 2 PUFF INHALATION EVERY 6 HOURS 6.7 September 12, 2017 1:00am December 05, 2017 8:28am administer with spacer amoxicillin 875 mg / clavulanate 125 mg oral tablet (20 sources) Penicillin-class Antibacterial Start: 07-26-2018 End: 08-05-2018 Amoxicillin-Pot Clavulanate (Augmentin) 875-125 mg tablet Discontinued 1 {tbl} PO Q12H 20 July 26, 2018 1:00am August 04, 2018 1:00am August 05, 2018 1:12am Start: 06-28-2017 End: 09-12-2017 take 1 tablet by mouth twice daily Amoxicillin-Pot Clavulanate Discontinued 1 TABLET PO TWICE A DAY June 28, 2017 10:28am September 12, 2017 10:35am Start: 06-26-2017 End: 09-12-2017 Amoxicillin-Pot Clavulanate 1 EACH tablet Discontinued 1 {tbl} PO TWICE A DAY June 28, 2017 10:28am September 12, 2017 10:35am cephalexin 500 mg oral capsule (20 sources) Cephalosporin Antibacterial Start: 04-24-2022 End: 05-04-2022 take 1 capsule by mouth every twelve hours Cephalexin 500 mg capsule Discontinued 500 mg PO Q12H 20 April 24, 2022 12:00am May 03, 2022 12:00am May 04, 2022 12:03am Start: 10-07-2018 End: 10-17-2018 take 1 capsule by mouth every twelve hours Cephalexin 500 mg capsule Discontinued 500 mg PO Q12H 20 October 07, 2018 1:00am October 16, 2018 1:00am October 17, 2018 1:10am Start: 09-12-2017 End: 09-22-2017 take 1 capsule by mouth every twelve hours Cephalexin 500 mg capsule Discontinued 500 mg PO Q12H 20 September 12, 2017 1:00am September 21, 2017 1:00am September 22, 2017 1:05am ciprofloxacin 500 mg oral tablet (20 sources) Quinolone Antimicrobial Start: 05-26-2024 End: 06-02-2024 take 1 tablet by mouth twice daily Ciprofloxacin Hcl 500 mg tablet Discontinued 500 mg PO TWICE A DAY 14 May 26, 2024 12:00am June 01, 2024 12:00am June 02, 2024 12:07am Start: 12-05-2017 End: 02-01-2018 take 1 tablet by mouth every twelve hours Ciprofloxacin Hcl (Cipro) 500 mg tablet Discontinued 500 mg PO Q12H December 05, 2017 12:00am February 01, 2018 9:39am nitrofurantoin, macrocrystals 25 mg / nitrofurantoin, monohydrate 75 mg oral capsule (20 sources) Nitrofuran Antibacterial Start: 05-24-2024 End: 05-26-2024 take 1 capsule by mouth every twelve hours at mealtime Nitrofurantoin Monohyd/M-Cryst 100 mg capsule Discontinued 1 NMA PO Q12H 14 May 24, 2024 12:00am May 30, 2024 12:00am May 26, 2024 12:39pm administer with a meal/food; swallow whole; do not open, crush, dissolve , or chew Start: 10-07-2018 End: 10-07-2018 take 1 capsule by mouth every twelve hours at mealtime Nitrofurantoin Monohyd/M-Cryst 100 mg capsule Discontinued 1 NMA PO Q12H 14 October 07, 2018 1:00am October 13, 2018 1:00am October 07, 2018 9:43am administer with a meal/food; swallow whole; do not open, crush, dissolve , or chew Start: 02-01-2018 End: 02-08-2018 take 1 capsule by mouth every twelve hours at mealtime Nitrofurantoin Monohyd/M-Cryst 100 mg capsule Discontinued 1 NMA PO Q12H 14 February 01, 2018 12:00am February 07, 2018 12:00am February 08, 2018 12:06am administer with a meal/food; swallow whole; do not open, crush, dissolve , or chew traMADol hydrochloride 50 mg oral tablet (14 sources) Opioid Agonist Start: 06-28-2017 End: 09-12-2017 take 1 tablet by mouth every six hours as needed for pain Tramadol 50 MG tablet Discontinued 50 mg PO EVERY 6 HOURS NEEDED as needed for Pain June 28, 2017 1:00am September 12, 2017 10:35am Problems Active Problems Problem Classification Problem Date Documented Da te Episodic/Chronic Blindness and vision defects (19 sources) Blurring of visual image; Translations: [Other visual disturbances] Onset: 11-22-2024 11-01-2024 Episodic E Codes: Natural/environment (14 sources) Cat scratch - wound; Translations: [Scratched by cat, initial encounter] 07-26-2018 Episodic Essential hypertension (1 source) Essential (primary) hypertension; Translations: [Essential (primary) hypertension] Onset: 05-15-2024 Chronic Nonspecific chest pain (3 sources) Chest pain; Translations: [Chest pain, unspecified] Onset: 01-01-2025 12-27-2024 Episodic Open wounds of extremities (14 sources) Cat bite - wound; Translations: [Open bite of unspecified hand, initial encounter] 08-21-2019 Episodic Other ear and sense organ disorders (1 source) Unspecified disorder of ear, unspecified ear; Translations: [Unspecified disorder of ear, unspecified ear] Onset: 11-07-2024 Episodic Other eye disorders (8 sources) Swelling of structure of eye; Translations: [Unspecified papilledema] 11-01-2024 Chronic Skin and subcutaneous tissue infections (14 sources) Cellulitis; Translations: [Cellulitis, unspecified] 08-21-2019 Episodic Systemic lupus erythematosus and connective tissue disorders (9 sources) Temporal arteritis; Translations: [Other giant cell arteritis] Onset: 01-03-2025 11-01-2024 Chronic Unclassified (14 sources) No history of clinical finding in subject; Translations: [No significant past medical history] 10-05-2019 Unclassified (2 sources) discuss cardiac testing with your doctor Urinary tract infections (17 sources) Urinary tract infectious disease; Translations: [Urinary tract infection, site not specified] Episodic Past or Other Problems Problem Classification Problem Date Documented Da te Episodic/Chronic Genitourinary symptoms and ill-defined conditions (1 source) Dysuria; Translations: [Dysuria] Onset: 06-19-2024 Episodic Results Test Name Value Interpretation Reference Range Facility CRPon 12-29-2024 C-REACTIVE PROT < 3.00 Normal 0.0-3.0 [facility] Comment on above: Performed By: #### L 501.6710, L505.7010, L506.1001, L101.9900, L3890.6102, L100.0100, L3890.6202, L500.4050, L3890.6301, L4600.0100 #### [facility] [address] [facility]. [place], [place], [id number] Erythrocyte Sed Rateon 12-29 SED RATE 5 mm/hr Normal 0-30 [facility] Comment on above: Performed By: #### L 501.6710, L505.7010, L506.1001, L101.9900, L3890.6102, L100.0100, L3890.6202, L500.4050, L3890.6301, L4600.0100 #### [facility] [address] [place], [place], [id number] Erythrocyte sedimentation ra teOrdered By: Allyson Soler on 12-29-2024 ESR (Bld) [Velocity] 5 mm/h 0-30 [facility] Serum or plasma C reactive p rotein measurement (mass/volume)Ordered By: Allyson Soler on 12-29-2024 CRP [Mass/Vol] mg/L 0.0-3.0 [facility] L499.0042on 12-27-2024 Trop T High Sen 10 ng/L Normal <=14 [facility] Comment on above: Performed By: #### L 501.6710, L505.7010, L506.1001, L101.9900, L3890.6102, L100.0100, L3890.6202, L500.4050, L3890.6301, L4600.0100 #### [facility] [address] [place], [address] L499.0043on 12-27-2024 Trop T High Sen Normal <=14 [facility] Comment on above: Result Comment: Canc elled via OM: Order cancelled - Patient discharged Performed By: #### L 499.0043 #### [facility] [address] [place], [address] 12 Lead EKGon 12-26-2024 12 Lead EKG [facility] Services [address] [place] [address] 12 Lead EKG 12/26/24 2201 MR#: [id number] Acct: [id number] Name: BATOOL ESTRELLA Rep #: [id number] : 1945 79 From: Kashmir Morfin MD Attending Dr: Status: DEP ER Ordering Dr: Fernie More DO Date: 12/26/24 Location: ED Sex: F C Admitted: Test Reason : CP Blood Pressure : */* mmHG Vent. Rate : 73 BPM Atrial Rate : 73 BPM P-R Int : 136 ms QRS Dur : 70 ms QT Int : 372 ms P-R-T Axes : 68 15 44 degrees QTcB Int : 409 ms Sinus rhythm with marked sinus arrhythmia Otherwise normal ECG Confirmed by Kashmir Morfin ([id number]), editor book ROMA WARNER ([id number]) on 12/28/2024 10:04:47 AM Referred By: Confirmed By: Kashmir Morfin 12/28/24 1004 Date Kashmir Morfin MD CC: Dr. Fernie More, DO; Dr. Kymberly Muhammad DO Signed Normal [facility] Absolute lymphocyte countOrd ered By: Fernie More on 12-26-2024 Lymphocytes Auto (Unsp spec) [#/Vol] 0.47 10*3/uL Low 0.83-4.51 [facility] Absolute neutrophil countOrd ered By: Fernie More on 12-26-2024 Neutrophils (Bld) [#/Vol] 13.1 10*3/uL High 2.0-7.7 [facility] Anion gap in Serum or Plasma Ordered By: Fernie More on 12-26-2024 Anion gap [Moles/Vol] 12 mmol/L 12-28 [facility] Automated lymphocyte count a s percentage of total leukocytesOrdered By: Fernie More on 12-26-2024 Lymphocytes/100 WBC Auto (Unsp spec) 3.1 % Low 19-41 [facility] BUN/creatinine ratioOrdered By: Fernie More on 12-26-2024 Urea nitrogen/Creatinine [Mass ratio] 37.1 mg/mg High 10 [facility] Basic Metabolic Profile (BMP )on 12-26-2024 BUN/CRE 37.1 RATIO High 06-04 [facility] Comment on above: Performed By: #### L 499.0043 #### [facility] [address] [place], [place], [id number] ECRCL 50.85 ml/min Normal 50-250 [facility] Comment on above: Performed By: #### L 499.0043 #### [facility] [address] [place], [address] GAP 12 Normal 12-28 [facility] Comment on above: Performed By: #### L 499.0043 #### [facility] [address] [place], [place], [id number] Potassium [Moles/Vol] 4.1 mmol/L Normal 3.3-5.1 [facility] Comment on above: Performed By: #### L 499.0043 #### [facility] [address] [place], [address] Basophil percentageOrdered B y: Fernie More on 12-26-2024 Basophils/100 WBC (Bld) 0.1 % 0-1 [facility] Blood manual differential co mment interpretation (narrative result)Ordered By: Fernie More on 12-26-2024 Manual differential comment Andrew (Bld) [Interp] SCANNED [facility] CBC W/Diff, Automatedon 12-14 SMEAR COMMENT SCANNED Normal [facility] Comment on above: Performed By: #### L 499.0043 #### [facility] [address] [place], [place], [id number] Carbon dioxide, total [Moles /volume] in Central venous bloodOrdered By: Fernie More on 12-26-2024 CO2 [Moles/Vol] 25.3 mmol/L Normal 21.0-32.0 [facility] Comment on above: Performed By: #### L 499.0043 #### [facility] [address] [place], [address] Chest 1 View (Portable)on Chest 1 View (Portable) [facility] Imaging Services [address] [place], [place] [address] Chest 1 View (Portable) MR#: [id number] Acct: [id number] Name: BATOOL ESTRELLA Rep #: [id number] : 1945 F 79 From: De belcher MD PCP: Dr. Kymberly Muhammad, DO Status: REG ER Study: Chest 1 View (Portable) Date of Exam: 12/26/24 Exam# [id number] Ordering Dr: Fernie More DO PROCEDURE: CHEST 1 VIEW (PORTABLE) 12/26/2024 REASON FOR EXAM: CHEST PAIN TECHNIQUE: Frontal view of the chest. COMPARISON: 11/30/2019 FINDINGS: Hardware: None Heart: Cardiac and mediastinal contours are stable. Lungs: No focal consolidation. No pneumothorax. No pleural effusion. Bones: The bones are unremarkable. Other: RAD/Chest 1 View (Portable) IMPRESSION: No Acute Findings. [facility] CC: Dr. Fernie More DO; Dr. Kymberly Muhammad DO Career And Guidance Counselor: Signed Normal [facility] Chloride assayOrdered By: Peter More on 12-26-2024 Chloride [Moles/Vol] 99 mmol/L Normal 98-108 [facility] Comment on above: Performed By: #### L 499.0043 #### [facility] [address] [place], [address] Emergency Department Summary on 12-26-2024 Emergency Department Summary [facility] Medical Records Department [address] [place] [address] Emergency Department Summary 12/26/24 MR#: [id number] Acct: [id number] Name: BATOOL ESTRELLA Rep #: [id number] : 1945 79 From: Fernie More DO PCP: Dr. Kymberly Muhammad DO Status:DEP ER Location: ED HPI History of Present Illness Chief Complaint: Chest Pain Informant: patient and EMS Narrative Narrative: 79-year-old female presenting to the emergency room with a chief complaint of chest pain. Patient states that just prior to arrival she was sitting in her chair at her house watching television when she got a crunching/pressure in her mid chest. She states that after 15 minutes of an unrelenting she called the nurse. EMS administered aspirin and nitroglycerin and she states now the pain is fully resolved. During the event she noted some shortness of breath but no nausea no sweating. She states she is never felt anything like this before. She had some grapes around 2030 hrs. She denies any known heart disease. She notes no recent change in exercise tolerance. No leg swelling. [facility] Medical History Wears dentures Wears glasses History of steroid therapy Easy bruising Excessive bleeding Non-smoker Home Medications ???Medication ???Instructions ???Recorded ???Last Taken ???Type prednisone 20 mg tablet 80 mg (4 x 20 mg) PO DAILY #28 11/05/24 Rx TABLETS multivitamin with minerals-ferrous 1 tab PO DAILY 11/02/24 11/05/24 History sulfate 4.5 mg iron tablet (One Daily Multivitamins with Minerals) Allergy/AdvReac Type Severity Reaction Status Date / Time Sulfa (Sulfonamide Allergy Rash Verified 12/26/24 21:58 Antibiotics) Surgical History History of biopsy of temporal artery Hx of tooth extraction Social History Smoking Status: Never smoker alcohol intake: never ROS ROS ED Constitutional Constitutional ED: Denies chills, fever(s) or weight loss Eyes Eyes: Denies change in vision or diplopia ENT ENT ED: Denies ear pain, rhinorrhea or sore throat Cardiovascular Cardiovascular: Reports as per HPI and chest pain; Denies orthopnea, palpitations or racing heartbeat Respiratory/Chest Respiratory/Chest: Reports dyspnea; Denies cough or orthopnea Gastrointestinal Gastrointestinal: Denies abdominal pain, diarrhea, nausea or vomiting Genitourinary Genitourinary ED: Denies dysuria, hematuria or urinary frequency Musculoskeletal Musculoskeletal: Denies arthralgias or myalgias Integumentary Denies abscess or rash Neurologic Neurologic: Denies headache(s) or weakness Psychiatric Psychiatric: Denies anxiety, depression, suicidal ideation or suicidal thoughts Endocrine Endocrinology: Denies polydipsia, polyphagia or polyuria Allergic/Immunologic Allergic/Immunologic ED: Denies mouth swelling, tongue swelling or urticaria EXAM Physical Exam Const Vital Signs: 12/26/24 21:57 12/26/24 22:58 12/27/24 00:00 Temperature 98.0 F Temperature Source Oral Pulse Rate 68 65 58 L Respiratory Rate 16 16 14 Blood Pressure 139/79 H 136/79 H 118/71 Blood Pressure Mean 99 98 86 Pulse Ox 94 96 97 Oxygen Delivery Method Room Air 12/27/24 01:00 12/27/24 01:05 Temperature 97.9 F Temperature Source Pulse Rate 56 L 56 L Respiratory Rate 18 18 Blood Pressure 131/84 H 131/84 H Blood Pressure Mean 99 99 Pulse Ox 97 97 Oxygen Delivery Method Room Air Positive well nourished and well developed General Appearance ED: well developed and NAD HEENT Reports normocephalic, head/scalp atraumatic and moist mucous membranes Eyes PERRL and EOMs intact bilaterally Neck no lymphadenopathy, supple and no JVD Resp normal respiratory effort and clear to auscultation bilaterally Cardio regular rate, regular rhythm and no murmurs GI normal to inspection, nondistended, normoactive bowel sounds and non-tender Palpation: soft Back/Spine no CVA tenderness and normal ROM Extremity normal to inspection General Extremety ED: Negative for edema General Extremity: Negative for edema Neuro oriented x3 and CN's II-XII intact bilaterally Sensorium / Orientation: alert Motor Exam: strength 5/5 throughout Psych mental status grossly normal Mood Affect: Negative for depressed or tearful Skin no rashes or lesions noted and no wounds MDM MDM MDM Narrative Medical decision making narrative: Differential diagnosis includes but not limited to cardiac dysrhythmia acute coronary syndrome esophageal spasm reflux 2 sets of cardiac enzymes are negative. Patient's remained asymptomatic here in the department. No significant EKG changes are noted. White count 1 (more content not included)... Normal [facility] Eosinophil percentageOrdered By: Fernie More on 12-26-2024 Eosinophils/100 WBC (Bld) 0.0 % 0-5 [facility] Erythrocyte distribution wid th ratioOrdered By: Fernie More on 12-26-2024 Erythrocyte distribution width (RBC) [Ratio] 15.5 % High 11.6-14.6 [facility] Erythrocyte distribution wid th standard deviationOrdered By: Fernie More on 12-26-2024 Erythrocyte distribution width (RBC) [Ratio] 52.3 fl High 35.1-43.9 [facility] Glomerular filtration rate ( GFR) estimation/1.73 sq m using serum, plasma, or whole bOrdered By: Fernie More on 12-26-2024 GFR/1.73 sq M.predicted among non-blacks MDRD (S/P/Bld) [Vol rate/Area] 91 mL/min/{1.73_m2} Normal >60 [facility] Comment on above: mL/min/1.73m2 CKD-EP I Creatinine Equation (2020) Result Comment: mL/m in/1.73m2 CKD-EPI Creatinine Equation (2020) Performed By: #### L 499.0043 #### [facility] [address] [place], [place], [address] Hematocrit Auto (Bld) [Volum e fraction]Ordered By: Fernie More on 12-26-2024 Hematocrit (Bld) [Volume fraction] 39.7 % 37-47 [facility] Hemoglobin measurementOrdere d By: Fernie More on 12-26-2024 Hemoglobin (Bld) [Mass/Vol] 13.5 g/dL 12.0-15.0 [facility] Immature granulocytes/100 WB C Auto (Bld)Ordered By: Fernie More on 12-26-2024 Immature granulocytes/100 WBC (Bld) 9.000 % High 0.0-0.9 [facility] Comment on above: IG% - Immature Granu locytes (promyelocytes, myelocytes and metamyelocytes) > 1% indicates that a LEFT SHIFT is Present. L501.4021on 12-26-2024 Trop T High Sen 8 ng/L Normal <=14 [facility] Comment on above: Performed By: #### L 499.0043 #### [facility] [address] [place], [place], [address] MCV (mean corpuscular volume ) determinationOrdered By: Fernie More on 12-26-2024 MCV (RBC) [Entitic vol] 91.9 fL 81-99 [facility] Mean corpuscular hemoglobin (MCH) determinationOrdered By: Fernie More on 12-26-2024 MCH (RBC) [Entitic mass] 31.3 pg 27.0-32.0 [facility] Mean corpuscular hemoglobin concentration (MCHC) determinationOrdered By: Fernie More on 12-26-2024 MCHC (RBC) [Mass/Vol] 34.0 g/dL 32-36 [facility] Mean platelet volume determi nationOrdered By: Fernie More on 12-26-2024 Platelet mean volume (Bld) [Entitic vol] 10.8 fL 6.2-12.0 [facility] Monocyte percentageOrdered B y: Fernie More on 12-26-2024 Monocytes/100 WBC (Bld) 2.3 % 0-10 [facility] Neutrophil percentageOrdered By: Fernie More on 12-26-2024 Neutrophils/100 WBC (Bld) 85.5 % High 47-70 [facility] Nucleated red blood cell per centageOrdered By: eFrnie More on 12-26-2024 Nucleated RBC/100 WBC (Bld) [Ratio] 0 % 0-5 [facility] Platelet countOrdered By: Peter More on 12-26-2024 Platelets (Bld) [#/Vol] 212 10*3/uL 150-450 [facility] Potassium measurement (mass/ volume)Ordered By: Fernie More on 12-26-2024 Potassium (Unsp spec) [Mass/Vol] 4.1 mmol/L 3.3-5.1 [facility] RBC Auto (Bld) [#/Vol]Ordere d By: Fernie More on 12-26-2024 RBC (Bld) [#/Vol] 4.32 10*6/uL 4.2-5.4 [facility] Serum creatinine measurement (mass/volume)Ordered By: Fernie More on 12-26-2024 Creatinine [Mass/Vol] 0.65 mg/dL Low 0.70-1.20 [facility] Comment on above: Performed By: #### L 499.0043 #### [facility] [address] [place], [place], [address] Serum glucose measurement (m ass/volume)Ordered By: Fernie More on 12-26-2024 Glucose [Mass/Vol] 243 mg/dL High 70-99 [facility] Comment on above: Performed By: #### L 499.0043 #### [facility] [address] [place], [place], [address] Serum or plasma calcium rolando urement (mass/volume)Ordered By: Fernie More on 12-26-2024 Calcium [Mass/Vol] 8.4 mg/dL Normal 7.6-11.0 [facility] Comment on above: Performed By: #### L 499.0043 #### [facility] [address] [facility] [address] [place], [place], [id number] Serum or plasma urea nitroge n measurement (mass/volume)Ordered By: Fernie More on 12-26-2024 Urea nitrogen [Mass/Vol] 24 mg/dL High 12-02 [facility] Comment on above: Performed By: #### L 499.0043 #### [facility] [address] [facility] [place], [place], [id number] Sodium levelOrdered By: Ran More on 12-26-2024 Sodium [Moles/Vol] 136 mmol/L Normal 133-145 [facility] Comment on above: Performed By: #### L 499.0043 #### [facility] [address] [place], [place], [id number] Troponin T.cardiac [Mass/vol ume] in Serum or Plasma by High sensitivity methodOrdered By: Fernie More on 12-26-2024 Troponin T.cardiac High sensitivity method [Mass/Vol] 8 ng/L <14 [facility] White blood cell (WBC) count Ordered By: Fernie More on 12-26-2024 WBC (Bld) [#/Vol] 15.3 10*3/uL High 4.4-11.0 [facility] Troponin T.cardiac [Mass/vol ume] in Serum or Plasma by High sensitivity methodOrdered By: Fernie More on 12-25-2024 Troponin T.cardiac High sensitivity method [Mass/Vol] 10 ng/L <14 [facility] Quantiferon TB-Gold+on 12-02 QFT MITOGEN GENE > 10.00 Normal . [facility] Comment on above: Performed By: #### L 3400.8000 #### [facility] [address] [place], [address] QFT NIL VALUE 0.02 IU/mL Normal . [facility] Comment on above: Performed By: #### L 3400.8000 #### [facility] [address] [place], [address] QFT TB GOLD+ Comment Normal . [facility] Comment on above: Result Comment: Jose tiFERON-TB Gold Plus is a qualitative indirect test for M tuberculosis infection (including disease) and is intended for use in conjunction with risk assessment, radiography, and other medical and diagnostic evaluations. The QuantiFERON-TB Gold Plus result is determined by subtracting the Nil value from either TB antigen (Ag) value. The Mitogen tube serves as a control for the test. Performed By: #### L 3400.8000 #### [facility] [address] [facility] [place], [address] QFT TB POS CRIT Negative Normal Negative [facility] Comment on above: Result Comment: No r esponse to M tuberculosis antigens detected. Infection with M tuberculosis is unlikely, but high risk individuals should be considered for additional testing (ATS/IDSA/CDC Clinical Practice Guidelines, 2017). The reference range is an Antigen minus Nil result of <0.35 IU/mL. The specimen received for QuantiFERON testing was incubated by the ordering institution. Specific procedures outlined in our Directory of Services and in the package insert for the QuantiFERON Gold (In Tube) test must be followed to enable for proper stimulation of cells for the production of interferon gamma. Chemiluminescence immunoassay methodology Performed at: [facility] [employer] [id number] Process Manager: Renny Frankel PhD, Phone: [phone] Performed By: #### L 3400.8000 #### [facility] [address] [place], [address] QFT TB1+ AG GENE 0.09 IU/mL Normal . [facility] Comment on above: Performed By: #### L 3400.8000 #### [facility] [address] [place], [address] QFT TB2+ AG GENE 0.08 IU/mL Normal . [facility] Comment on above: Performed By: #### L 3400.8000 #### [facility] [address] [place], [address] M. tuberculosis tuberculin s jose IFN-g Ql (Bld)Ordered By: Allyson Soler on 12-01-2024 TB Test (QFT) Antigen 1 0.09 IU/mL . [facility] Qualitative QuantiFERON-TB g old in tube testOrdered By: Allyson Soler on 12-01-2024 M. tuberculosis tuberculin stim IFN-g Ql (Bld) 0.09 IU/mL . [facility] Quantiferon-TB Gold Plus yaneth tOrdered By: Allyson Soler on 12-01-2024 TB Test (QFT) Comment . [facility] Comment on above: QuantiFERON-TB Gold Plus is a qualitative indirect test forM tuberculosis infection (including disease) and isintended for use in conjunction with risk assessment,radiography, and other medical and diagnostic evaluations.The QuantiFERON-TB Gold Plus result is determined bysubtracting the Nil value from either TB antigen (Ag)value. The Mitogen tube serves as a control for the test. TB Test (QFT) Antigen 2 0.08 IU/mL . [facility] TB Test (QFT) Mitogen > 10.00 IU/mL . [facility] TB Test (QFT) Nil 0.02 IU/mL . [facility] TB Test (QFT) Positive Criteria Negative Negative [facility] Comment on above: No response to M tub erculosis antigens detected.Infection with M tuberculosis is unlikely, but high riskindividuals should be considered for additional testing(ATS/IDSA/CDC Clinical Practice Guidelines, 2017). Thereference range is an Antigen minus Nil result of <0.35IU/mL.The specimen received for QuantiFERON testing was incubatedby the ordering institution. Specific procedures outlinedin our Directory of Services and in the package insert forthe QuantiFERON Gold (In Tube) test must be followed toenable for proper stimulation of cells for the productionof interferon gamma. Chemiluminescence immunoassaymethodologyPerformed at: [facility] [id number] Director: Renny Frankel PhD, Phone: [phone] CCP IgG Antibodieson 025 CCP IgG Ab. 4 units Normal 0-19 [facility] Comment on above: Result Comment: Nega tive <20 Weak positive 20 - 39 Moderate positive 40 - 59 Strong positive >59 Performed at: [facility] [id number] Process Manager: Renny Frankel PhD, Phone: [phone] Performed By: #### L 499.0043 #### [facility] [address] [place], [address] Absolute lymphocyte countOrd ered By: Allyson Soler on 11-29-2024 Lymphocytes Auto (Unsp spec) [#/Vol] 1.39 10*3/uL 0.83-4.51 [facility] Absolute neutrophil countOrd ered By: Allyson Soler on 11-29-2024 Neutrophils (Bld) [#/Vol] 10.7 10*3/uL High 2.0-7.7 [facility] Anion gap in Serum or Plasma Ordered By: Allyson Soler on 11-29-2024 Anion gap [Moles/Vol] 13 mmol/L 5-15 [facility] Automated lymphocyte count a s percentage of total leukocytesOrdered By: Allyson Soler on 11-29-2024 Lymphocytes/100 WBC Auto (Unsp spec) 10.4 % Low 19-41 [facility] BUN/creatinine ratioOrdered By: Allyson Soler on 11-29-2024 Urea nitrogen/Creatinine [Mass ratio] 26.8 mg/mg High 10-20 [facility] Basophil percentageOrdered B y: Allyson Soler on 11-29-2024 Basophils/100 WBC (Bld) 0.4 % 0-1 [facility] Bilirubin, totalOrdered By: Allyson Soler on 11-29-2024 Bilirubin [Mass/Vol] 0.49 mg/dL 0.00-1.30 [facility] CBC W/Diff, Automatedon 04-08 21-2024 Absolute Lymph 1.39 X10 3/uL Normal 0.83-4.51 [facility] Comment on above: Performed By: #### L 501.6710, L505.7010, L506.1001, L101.9900, L3890.6102, L100.0100, L3890.6202, L500.4050, L3890.6301, L4600.0100 #### [facility] [address] [place], [address] Absolute Neut 10.7 X10 3/uL High 2.0-7.7 [facility] Comment on above: Performed By: #### L 501.6710, L505.7010, L506.1001, L101.9900, L3890.6102, L100.0100, L3890.6202, L500.4050, L3890.6301, L4600.0100 #### [facility] [address] [place], [address] Basophils/100 WBC (Bld) 0.4 % Normal 0-1 [facility] Comment on above: Performed By: #### L 501.6710, L505.7010, L506.1001, L101.9900, L3890.6102, L100.0100, L3890.6202, L500.4050, L3890.6301, L4600.0100 #### [facility] [address] [place], [address] Eosinophils/100 WBC (Bld) 0.6 % Normal 0-5 [facility] Comment on above: Performed By: #### L 501.6710, L505.7010, L506.1001, L101.9900, L3890.6102, L100.0100, L3890.6202, L500.4050, L3890.6301, L4600.0100 #### [facility] [address] [place], [place], [id number] Erythrocyte distribution width (RBC) [Ratio] 15.1 % High 11.6-14.6 [facility] Comment on above: Performed By: #### L 501.6710, L505.7010, L506.1001, L101.9900, L3890.6102, L100.0100, L3890.6202, L500.4050, L3890.6301, L4600.0100 #### [facility] [address] [place], [place], [id number] Hematocrit (Bld) [Volume fraction] 42.5 % Normal 37-47 [facility] Comment on above: Performed By: #### L 501.6710, L505.7010, L506.1001, L101.9900, L3890.6102, L100.0100, L3890.6202, L500.4050, L3890.6301, L4600.0100 #### [facility] [address] [place], [place], [id number] Hemoglobin (Bld) [Mass/Vol] 14.1 g/dL Normal 12.0-15.0 [facility] Comment on above: Performed By: #### L 501.6710, L505.7010, L506.1001, L101.9900, L3890.6102, L100.0100, L3890.6202, L500.4050, L3890.6301, L4600.0100 #### [facility] [address] [place], [place], [id number] IG% 2.000 High 0.0-0.9 [facility] Comment on above: Result Comment: IG% - Immature Granulocytes (promyelocytes, myelocytes and metamyelocytes) > 1% indicates that a LEFT SHIFT is Present. Performed By: #### L 501.6710, L505.7010, L506.1001, L101.9900, L3890.6102, L100.0100, L3890.6202, L500.4050, L3890.6301, L4600.0100 #### [facility] [address] [place], [address] Lymphocytes/100 WBC (Bld) 10.4 % Low 19-41 [facility] Comment on above: Performed By: #### L 501.6710, L505.7010, L506.1001, L101.9900, L3890.6102, L100.0100, L3890.6202, L500.4050, L3890.6301, L4600.0100 #### [facility] [address] [place], [address] MCH (RBC) [Entitic mass] 30.5 pg Normal 27.0-32.0 [facility] Comment on above: Performed By: #### L 501.6710, L505.7010, L506.1001, L101.9900, L3890.6102, L100.0100, L3890.6202, L500.4050, L3890.6301, L4600.0100 #### [facility] [address] [facility] [place], [address] MCHC (RBC) [Mass/Vol] 33.2 g/dL Normal 32-36 [facility] Comment on above: Performed By: #### L 501.6710, L505.7010, L506.1001, L101.9900, L3890.6102, L100.0100, L3890.6202, L500.4050, L3890.6301, L4600.0100 #### [facility] [address] [place], [address] MCV (RBC) [Entitic vol] 92.0 fL Normal 81-99 [facility] Comment on above: Performed By: #### L 501.6710, L505.7010, L506.1001, L101.9900, L3890.6102, L100.0100, L3890.6202, L500.4050, L3890.6301, L4600.0100 #### [facility] [address] [facility] [place], [address] Monocytes/100 WBC (Bld) 6.7 % Normal 0-10 [facility] Comment on above: Performed By: #### L 501.6710, L505.7010, L506.1001, L101.9900, L3890.6102, L100.0100, L3890.6202, L500.4050, L3890.6301, L4600.0100 #### [facility] [address] [place], [address] Neutrophils/100 WBC (Bld) 79.9 % High 47-70 [facility] Comment on above: Performed By: #### L 501.6710, L505.7010, L506.1001, L101.9900, L3890.6102, L100.0100, L3890.6202, L500.4050, L3890.6301, L4600.0100 #### [facility] [address] [place], [address] Nucleated RBC (Bld) [#/Vol] 0 10*3/uL Normal 0-5 [facility] Comment on above: Performed By: #### L 501.6710, L505.7010, L506.1001, L101.9900, L3890.6102, L100.0100, L3890.6202, L500.4050, L3890.6301, L4600.0100 #### [facility] [address] [facility] [place], [address] Platelet mean volume (Bld) [Entitic vol] 11.6 fL Normal 6.2-12.0 [facility] Comment on above: Performed By: #### L 501.6710, L505.7010, L506.1001, L101.9900, L3890.6102, L100.0100, L3890.6202, L500.4050, L3890.6301, L4600.0100 #### [facility] [address] [place], [address] Platelets (Bld) [#/Vol] 174 10*3/uL Normal 150-450 [facility] Comment on above: Performed By: #### L 501.6710, L505.7010, L506.1001, L101.9900, L3890.6102, L100.0100, L3890.6202, L500.4050, L3890.6301, L4600.0100 #### [facility] [address] [place], [address] RBC (Bld) [#/Vol] 4.62 10*6/uL Normal 4.2-5.4 [facility] Comment on above: Performed By: #### L 501.6710, L505.7010, L506.1001, L101.9900, L3890.6102, L100.0100, L3890.6202, L500.4050, L3890.6301, L4600.0100 #### [facility] [address] [place], [address] RDW SD 50.7 fl High 35.1-43.9 [facility] Comment on above: Performed By: #### L 501.6710, L505.7010, L506.1001, L101.9900, L3890.6102, L100.0100, L3890.6202, L500.4050, L3890.6301, L4600.0100 #### [facility] [address] [place], [address] WBC (Bld) [#/Vol] 13.3 10*3/uL High 4.4-11.0 [facility] Comment on above: Performed By: #### L 501.6710, L505.7010, L506.1001, L101.9900, L3890.6102, L100.0100, L3890.6202, L500.4050, L3890.6301, L4600.0100 #### [facility] [address] [facility] [place], [address] CRPon 11-29-2024 C-REACTIVE PROT < 3.00 Normal 0.0-3.0 [facility] Comment on above: Performed By: #### L 501.6710, L505.7010, L506.1001, L101.9900, L3890.6102, L100.0100, L3890.6202, L500.4050, L3890.6301, L4600.0100 #### [facility] [address] [place], [address] CRP [Mass/Vol]Ordered By: Terese Soler on 11-29-2024 C-Reactive Protein Extended Range < 3.00 mg/L 0.0-3.0 [facility] Carbon dioxide, total [Moles /volume] in Central venous bloodOrdered By: Allyson Soler on 11-29-2024 CO2 [Moles/Vol] 26.9 mmol/L 21.0-32.0 [facility] Chest PA and Lateralon 11-29 Chest PA and Lateral [facility] [address] [place], [place] [address] Chest PA and Lateral MR#: [id number] Acct: [id number] Name: BATOOL ESTRELLA Rep #: [id number] : 1945 F 79 From: Greg Motley MD PCP: Dr. Kymberly Muhammad, DO Status: REG CLI Study: Chest PA and Lateral Date of Exam: 11/29/24 Exam# [id number] Ordering Dr: Allyson Soler MD PROCEDURE: CHEST PA AND LATERAL (RADCXR), 11/29/2024 REASON FOR EXAM: PAIN TECHNIQUE: PA and lateral views of the chest were obtained. COMPARISON: None FINDINGS: Heart: Unremarkable. Mediastinum: Atherosclerosis. Lungs/pleura: No focal consolidation. No pleural effusion or visible pneumothorax. Bones: Demineralization. Trace to mild scoliosis. Lines and support devices: None. Other: None. RAD/Chest PA and Lateral IMPRESSION: 1. No visible acute cardiopulmonary findings 2. Additional description as above. Reading Location: [id number] CC: Dr. Kymebrly Muhammad DO; Dr. Allyson Soler MD Career And Guidance Counselor: Signed Normal [facility] Chloride assayOrdered By: Terese Soler on 11-29-2024 Chloride [Moles/Vol] 102 mmol/L 98-108 [facility] Comprehensive Metabolic Prof ilon 11-29-2024 Albumin [Mass/Vol] 3.9 g/dL Normal 3.4-4.8 [facility] Comment on above: Performed By: #### L 501.6710, L505.7010, L506.1001, L101.9900, L3890.6102, L100.0100, L3890.6202, L500.4050, L3890.6301, L4600.0100 #### [facility] [address] [facility] [place], [address] Albumin/Globulin [Mass ratio] 2.1 {ratio} Normal 0.9-2.4 [facility] Comment on above: Performed By: #### L 501.6710, L505.7010, L506.1001, L101.9900, L3890.6102, L100.0100, L3890.6202, L500.4050, L3890.6301, L4600.0100 #### [facility] [address] [facility] [place], [address] ALK PHOS 67 U/L Normal 35-104 [facility] Comment on above: Performed By: #### L 501.6710, L505.7010, L506.1001, L101.9900, L3890.6102, L100.0100, L3890.6202, L500.4050, L3890.6301, L4600.0100 #### [facility] [address] [facility] [place], [address] ALT [Catalytic activity/Vol] 29 U/L Normal <=34 [facility] Comment on above: Performed By: #### L 501.6710, L505.7010, L506.1001, L101.9900, L3890.6102, L100.0100, L3890.6202, L500.4050, L3890.6301, L4600.0100 #### [facility] [address] [facility] [place], [place], [phone] (642) AST [Catalytic activity/Vol] 18 U/L Normal <=31 [facility] Comment on above: Performed By: #### L 501.6710, L505.7010, L506.1001, L101.9900, L3890.6102, L100.0100, L3890.6202, L500.4050, L3890.6301, L4600.0100 #### [facility] [address] [facility] [place], [place], [id number] Bilirubin [Mass/Vol] 0.49 mg/dL Normal 0.00-1.30 [facility] Comment on above: Performed By: #### L 501.6710, L505.7010, L506.1001, L101.9900, L3890.6102, L100.0100, L3890.6202, L500.4050, L3890.6301, L4600.0100 #### [facility] [address] [facility]. [place], [place], [id number] BUN/CRE 26.8 RATIO High 10-20 [facility] Comment on above: Performed By: #### L 501.6710, L505.7010, L506.1001, L101.9900, L3890.6102, L100.0100, L3890.6202, L500.4050, L3890.6301, L4600.0100 #### [facility] [address] [place], [address] Calcium [Mass/Vol] 8.8 mg/dL Normal 7.6-11.0 [facility] Comment on above: Performed By: #### L 501.6710, L505.7010, L506.1001, L101.9900, L3890.6102, L100.0100, L3890.6202, L500.4050, L3890.6301, L4600.0100 #### [facility] [address] [facility] [place], [address] Chloride [Moles/Vol] 102 mmol/L Normal 98-108 [facility] Comment on above: Performed By: #### L 501.6710, L505.7010, L506.1001, L101.9900, L3890.6102, L100.0100, L3890.6202, L500.4050, L3890.6301, L4600.0100 #### [facility] [address] [facility] [place], [address] CO2 [Moles/Vol] 26.9 mmol/L Normal 21.0-32.0 [facility] Comment on above: Performed By: #### L 501.6710, L505.7010, L506.1001, L101.9900, L3890.6102, L100.0100, L3890.6202, L500.4050, L3890.6301, L4600.0100 #### [facility] [address] [facility] [place], [address] Creatinine [Mass/Vol] 0.77 mg/dL Normal 0.70-1.20 [facility] Comment on above: Performed By: #### L 501.6710, L505.7010, L506.1001, L101.9900, L3890.6102, L100.0100, L3890.6202, L500.4050, L3890.6301, L4600.0100 #### [facility] [address] [place], [place], [id number] (748) GAP 13 Normal 5-15 [facility] Comment on above: Performed By: #### L 501.6710, L505.7010, L506.1001, L101.9900, L3890.6102, L100.0100, L3890.6202, L500.4050, L3890.6301, L4600.0100 #### [facility] [address] [place], [place], [phone] (724) GFR/1.73 sq M.predicted among non-blacks MDRD (S/P/Bld) [Vol rate/Area] 80 mL/min/{1.73_m2} Normal >60 [facility] Comment on above: Result Comment: mL/m in/1.73m2 CKD-EPI Creatinine Equation (2020) Performed By: #### L 501.6710, L505.7010, L506.1001, L101.9900, L3890.6102, L100.0100, L3890.6202, L500.4050, L3890.6301, L4600.0100 #### [facility] [address] [place], [place], [phone] (559) Globulin (S) [Mass/Vol] 1.8 g/dL Low 2.2-4.2 [facility] Comment on above: Performed By: #### L 501.6710, L505.7010, L506.1001, L101.9900, L3890.6102, L100.0100, L3890.6202, L500.4050, L3890.6301, L4600.0100 #### [facility] [address] [place], [address] Glucose [Mass/Vol] 96 mg/dL Normal 70-99 [facility] Comment on above: Performed By: #### L 501.6710, L505.7010, L506.1001, L101.9900, L3890.6102, L100.0100, L3890.6202, L500.4050, L3890.6301, L4600.0100 #### [facility] [address] [place], [address] Potassium [Moles/Vol] 3.7 mmol/L Normal 3.3-5.1 [facility] Comment on above: Performed By: #### L 501.6710, L505.7010, L506.1001, L101.9900, L3890.6102, L100.0100, L3890.6202, L500.4050, L3890.6301, L4600.0100 #### [facility] [address] [place], [address] Sodium [Moles/Vol] 142 mmol/L Normal 133-145 [facility] Comment on above: Performed By: #### L 501.6710, L505.7010, L506.1001, L101.9900, L3890.6102, L100.0100, L3890.6202, L500.4050, L3890.6301, L4600.0100 #### [facility] [address] [place], [address] T PROT 5.7 g/dL Low 5.9-8.4 [facility] Comment on above: Performed By: #### L 501.6710, L505.7010, L506.1001, L101.9900, L3890.6102, L100.0100, L3890.6202, L500.4050, L3890.6301, L4600.0100 #### [facility] [address] [place], [address] Urea nitrogen [Mass/Vol] 21 mg/dL High 4-19 [facility] Comment on above: Performed By: #### L 501.6710, L505.7010, L506.1001, L101.9900, L3890.6102, L100.0100, L3890.6202, L500.4050, L3890.6301, L4600.0100 #### [facility] [address] [facility] [place], [address] Cyclic citrullinated peptide IgG QnOrdered By: Allyson Soler on 11-29-2024 Cyclic Citrullinated Peptide IgG Ab 4 units 0-19 [facility] Comment on above: Negative <20 Weak po sitive 20 - 39 Moderate positive 40 - 59 Strong positive >59Performed at: [facility] [address] [id number] Director: Renny Frankel PhD, Phone: [phone] Eosinophil percentageOrdered By: Allyson Soler on 11-29-2024 Eosinophils/100 WBC (Bld) 0.6 % 0-5 [facility] Erythrocyte Sed Rateon 11-29 SED RATE 1 mm/hr Normal 0-30 [facility] Comment on above: Performed By: #### L 501.6710, L505.7010, L506.1001, L101.9900, L3890.6102, L100.0100, L3890.6202, L500.4050, L3890.6301, L4600.0100 #### [facility] [address] [facility] [place], [address] Erythrocyte distribution wid th (RBC) [Ratio]Ordered By: Allyson Soler on 11-29-2024 Erythrocyte distribution width (RBC) [Entitic vol] 50.7 fL High 35.1-43.9 [facility] Erythrocyte distribution wid th ratioOrdered By: Allyson Soler on 11-29-2024 Erythrocyte distribution width (RBC) [Ratio] 15.1 % High 11.6-14.6 [facility] Erythrocyte distribution wid th standard deviationOrdered By: Allyson Soler on 11-29-2024 Erythrocyte distribution width (RBC) [Ratio] 50.7 fl High 35.1-43.9 [facility] Erythrocyte sedimentation ra teOrdered By: Allyson Soler on 11-29-2024 ESR (Bld) [Velocity] 1 mm/h 0-30 [facility] GFR/1.73 sq M.predicted adriana g non-blacks MDRD (S/P/Bld) [Vol rate/Area]Ordered By: Allyson Soler on 11-29-2024 Estimated GFR (MDRD) Non-Af Amer 80 >60 [facility] Comment on above: mL/min/1.73m2 CKD-EP I Creatinine Equation (2020) Glomerular filtration rate ( GFR) estimation/1.73 sq m using serum, plasma, or whole bOrdered By: Allyson Soler on 11-29-2024 GFR/1.73 sq M.predicted among non-blacks MDRD (S/P/Bld) [Vol rate/Area] 80 mL/min/{1.73_m2} >60 [facility] Comment on above: mL/min/1.73m2 CKD-EP I Creatinine Equation (2020) HBV surface Ab Ql (S)Ordered By: Allyson Soler on 11-29-2024 Hepatitis B Surface Antibody Non-Reactive [facility] Comment on above: <8.5 mIU/mL: Non-[place] ctive8.5<= x <11.5 mIU/mL: Indeterminate>=11.5 mIU/mL: Reactive Non Reactive: Inconsistent with immunity less than <10 mIU/mL Reactive: Consistent with immunity greater than or equal to 10 mIU/mL HBV surface Ag Ql (S)Ordered By: Allyson Soler on 11-29-2024 Hepatitis B Surface Antigen Non-Reactive Nonreactive [facility] Comment on above: Reactive: Presumptiv e evidence of HBV. Repeatedly reactive samples must be confirmed using a neutralization test ([employer] HBsAg Confirmatory Test)Non-Reactive: HBsAg not detected; does not exclude the possibility of exposure to HBV Hematocrit Auto (Bld) [Volum e fraction]Ordered By: Allyson Soler on 11-29-2024 Hematocrit (Bld) [Volume fraction] 42.5 % 37-47 [facility] Hemoglobin measurementOrdere d By: Allyson Cantrellliameloisa on 11-29-2024 Hemoglobin (Bld) [Mass/Vol] 14.1 g/dL 12.0-15.0 [facility] Hepatitis B Surface Antibody on 11-29-2024 HEP B Surf Ab Non-Reactive Normal [facility] Comment on above: Result Comment: <8.5 mIU/mL: Non-Reactive 8.5<= x <11.5 mIU/mL: Indeterminate >=11.5 mIU/mL: Reactive Non Reactive: Inconsistent with immunity less than <10 mIU/mL Reactive: Consistent with immunity greater than or equal to 10 mIU/mL Performed By: #### L 501.6710, L505.7010, L506.1001, L101.9900, L3890.6102, L100.0100, L3890.6202, L500.4050, L3890.6301, L4600.0100 #### [facility] [address] [place], [address] Hepatitis C Antibodyon 11-29 Hepatitis C Ab Non-Reactive Normal Nonreactive [facility] Comment on above: Result Comment: Reac tive: Presumptive evidence of antibodies to HCV. Follow CDC recommendations for supplemental testing. Non-Reactive: Antibodies to HCV were not detected; does not exclude the possibility of exposure to HCV Reactive Results are presumptive evidence of antibodies to HCV. Follow CDC recommendations for supplemental testing. Order confirmation testing: HCV Quant by PCR testing - HCVPCR #[id number] Non Reactive: < 0.8 Equivocal: >/= 0.8 to < 1.0 Reactive: >/= 1.0 The CDC requires that a reactive/equivocal HCV antibody result be sent out for confirmation. HCV Quant by PCR testing. Performed By: #### L 501.6710, L505.7010, L506.1001, L101.9900, L3890.6102, L100.0100, L3890.6202, L500.4050, L3890.6301, L4600.0100 #### [facility] [address] [place], [address] Hepatitis C antibodyOrdered By: Allyson Soler on 11-29-2024 Hepatitis C Antibody Non-Reactive Nonreactive [facility] Comment on above: Reactive: Presumptiv e evidence of antibodies to HCV. Follow CDC recommendations for supplemental testing.Non-Reactive: Antibodies to HCV were not detected; does not exclude the possibility of exposure to HCVReactive Results are presumptive evidence of antibodies to HCV. Follow CDC recommendations for supplemental testing.Order confirmation testing: HCV Quant by PCR testing - HCVPCR #[id number] Non Reactive: < 0.8 Equivocal: >/= 0.8 to < 1.0 Reactive: >/= 1.0The [facility] requires that a reactive/equivocal HCV antibody result be sent out for confirmation. HCV Quant by PCR testing. Immature granulocytes/100 WB C Auto (Bld)Ordered By: Allyson Soler on 11-29-2024 Immature granulocytes/100 WBC (Bld) 2.000 % High 0.0-0.9 [facility] Comment on above: IG% - Immature Granu locytes (promyelocytes, myelocytes and metamyelocytes) > 1% indicates that a LEFT SHIFT is Present. L3890.6102on 11-29-2024 HEP B Surf Ag Non-Reactive Normal Nonreactive [facility] Comment on above: Result Comment: Reac tive: Presumptive evidence of HBV. Repeatedly reactive samples must be confirmed using a neutralization test ([employer] HBsAg Confirmatory Test) Non-Reactive: HBsAg not detected; does not exclude the possibility of exposure to HBV Performed By: #### L 501.6710, L505.7010, L506.1001, L101.9900, L3890.6102, L100.0100, L3890.6202, L500.4050, L3890.6301, L4600.0100 #### [facility] [address] [place], [place], [address] Laboratory - Chemistry and C hemistry - challengeOrdered By: Allyson Soler on 11-29-2024 AST [Catalytic activity/Vol] 18 U/L <32 [facility] - Microbiology an d Antimicrobial susceptibilityOrdered By: Allyson Soler on 11-29-2024 HBV surface Ag Ql (S) Non-Reactive Nonreactive [facility] Comment on above: Reactive: Presumptiv e evidence of HBV. Repeatedly reactive samples must be confirmed using a neutralization test ([employer] HBsAg Confirmatory Test)Non-Reactive: HBsAg not detected; does not exclude the possibility of exposure to HBV Lymphocytes Auto (Unsp spec) [#/Vol]Ordered By: Allyson Soler on 11-29-2024 Lymphocytes (Bld) [#/Vol] 1.39 10*3/uL 0.83-4.51 [facility] Lymphocytes/100 WBC Auto (Un sp spec)Ordered By: Allyson Soler on 11-29-2024 Lymphocytes/100 WBC (Bld) 10.4 % Low 19-41 [facility] MCV (mean corpuscular volume ) determinationOrdered By: Allyson Soler on 11-29-2024 MCV (RBC) [Entitic vol] 92.0 fL 81-99 [facility] Mean corpuscular hemoglobin (MCH) determinationOrdered By: Allyson Soler on 11-29-2024 MCH (RBC) [Entitic mass] 30.5 pg 27.0-32.0 [facility] Mean corpuscular hemoglobin concentration (MCHC) determinationOrdered By: Allyson Soler on 11-29-2024 MCHC (RBC) [Mass/Vol] 33.2 g/dL 32-36 [facility] Mean platelet volume determi nationOrdered By: Allyson Soler on 11-29-2024 Platelet mean volume (Bld) [Entitic vol] 11.6 fL 6.2-12.0 [facility] Monocyte percentageOrdered B y: Allyson Soler on 11-29-2024 Monocytes/100 WBC (Bld) 6.7 % 0-10 [facility] Neutrophil percentageOrdered By: Allyson Soler on 11-29-2024 Neutrophils/100 WBC (Bld) 79.9 % High 47-70 [facility] Nucleated red blood cell per centageOrdered By: Allyson Soler on 11-29-2024 Nucleated RBC/100 WBC (Bld) [Ratio] 0 % 0-5 [facility] Platelet countOrdered By: Terese Soler on 11-29-2024 Platelets (Bld) [#/Vol] 174 10*3/uL 150-450 [facility] Potassium (Unsp spec) [Mass/ Vol]Ordered By: Allyson Soler on 11-29-2024 Potassium [Moles/Vol] 3.7 mmol/L 3.3-5.1 [facility] Potassium measurement (mass/ volume)Ordered By: Allyson Soler on 11-29-2024 Potassium (Unsp spec) [Mass/Vol] 3.7 mmol/L 3.3-5.1 [facility] RBC Auto (Bld) [#/Vol]Ordere d By: Allyson Soler on 11-29-2024 RBC (Bld) [#/Vol] 4.62 10*6/uL 4.2-5.4 [facility] Rheumatoid Factoron 11-30-19 25 RHEUMATOID FAC < 10.0 Normal <15 [facility] Comment on above: Performed By: #### L 499.0043 #### [facility] [address] [place] [address], [id number] Rheumatoid factor Ql (S)Orde red By: Allyson Soler on 11-29-2024 Rheumatoid Factor < 10.0 IU/mL <15 [facility] Serum creatinine measurement (mass/volume)Ordered By: Allyson Soler on 11-29-2024 Creatinine [Mass/Vol] 0.77 mg/dL 0.70-1.20 [facility] Serum globulin measurementOr dered By: Allyson Soler on 11-29-2024 Globulin (S) [Mass/Vol] 1.8 g/dL Low 2.2-4.2 [facility] Serum glucose measurement (m ass/volume)Ordered By: Allyson Soler on 11-29-2024 Glucose [Mass/Vol] 96 mg/dL 70-99 [facility] Serum hepatitis B virus surf andrés antibody detectionOrdered By: Allyson Soler on 11-29-2024 HBV surface Ab Ql (S) Non-Reactive [facility] Comment on above: <8.5 mIU/mL: Non-Ashley ctive8.5<= x <11.5 mIU/mL: Indeterminate>=11.5 mIU/mL: Reactive Non Reactive: Inconsistent with immunity less than <10 mIU/mL Reactive: Consistent with immunity greater than or equal to 10 mIU/mL Serum or plasma C reactive p rotein measurement (mass/volume)Ordered By: Allyson Soler on 11-29-2024 CRP [Mass/Vol] mg/L 0.0-3.0 [facility] Serum or plasma alanine christianson otransferase (ALT) measurementOrdered By: Allyson Soler on 11-29-2024 ALT [Catalytic activity/Vol] 29 U/L <35 [facility] Serum or plasma albumin rolando urement (mass/volume)Ordered By: Allyson Soler on 11-29-2024 Albumin [Mass/Vol] 3.9 g/dL 3.4-4.8 [facility] Serum or plasma albumin/glob ulin mass ratioOrdered By: Allyson Soler on 11-29-2024 Albumin/Globulin [Mass ratio] 2.1 {ratio} 0.9-2.4 [facility] Serum or plasma alkaline trudy sphatase measurementOrdered By: Allyson Soler on 11-29-2024 ALP [Catalytic activity/Vol] 67 U/L 35-104 [facility] Serum or plasma calcium rolando urement (mass/volume)Ordered By: Allyson Soler on 11-29-2024 Calcium [Mass/Vol] 8.8 mg/dL 7.6-11.0 [facility] Serum or plasma cyclic citru llinated peptide IgG antibody assay (units/volume)Ordered By: Allyson Soler on 11-29-2024 Cyclic citrullinated peptide IgG Qn 4 units 0-19 [facility] Comment on above: Negative <20 Weak po sitive 20 - 39 Moderate positive 40 - 59 Strong positive >59Performed at: - [facility] [id number] Director: Renny Frankel PhD, Phone: [phone] Serum or plasma urea nitroge n measurement (mass/volume)Ordered By: Allyson Soler on 11-29-2024 Urea nitrogen [Mass/Vol] 21 mg/dL High 4-19 [facility] Serum rheumatoid factor dete ctionOrdered By: Allyson Soler on 11-29-2024 Rheumatoid factor Ql (S) < 10.0 IU/mL <15 [facility] Sodium levelOrdered By: Jude Soler on 11-29-2024 Sodium [Moles/Vol] 142 mmol/L 133-145 [facility] Total proteinOrdered By: Justin Soler on 11-29-2024 Protein [Mass/Vol] 5.7 g/dL Low 5.9-8.4 [facility] Vitamin D, 25-hydroxyOrdered By: Allyson Soler on 11-29-2024 Vitamin D 25-Hydroxy 22.9 ng/mL Low 30-100 [facility] Comment on above: Vitamin D StatusDefi ciency: <20 ng/mL (50nmol/L)Insufficiency: 20-30 ng/mL (50-75 nmol/L)Sufficiency: 30-100 ng/mL (75-250 nmol/L)Toxicity: >100 ng/mL (>250 nmol/L) Vitamin D,25 Hydroxyon 11-29 Vitamin D 25-OH 22.9 ng/mL Low 30-100 [facility] Comment on above: Result Comment: Latricia min D Status Deficiency: <20 ng/mL (50nmol/L) Insufficiency: 20-30 ng/mL (50-75 nmol/L) Sufficiency: 30-100 ng/mL (75-250 nmol/L) Toxicity: >100 ng/mL (>250 nmol/L) Performed By: #### L 499.0043 #### [facility] [address] [facility] [place], [place], [address] White blood cell (WBC) count Ordered By: Allyson Soler on 11-29-2024 WBC (Bld) [#/Vol] 13.3 10*3/uL High 4.4-11.0 [facility] Surgery Visit Reporton 11-23 Surgery Visit Report [facility] [address] [place] [address] OFFICE VISIT Date of Service: 11/23/24 MR#: [id number] Acct: [id number] Name: BATOOL ESTRELLA Rep #: [id number] : 1945 Provider: Dr. 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 Her jaw pain is gone but she is still having vision changes on the right Objective Details: Incision healing well Coding Level of Care Code Global Post Op Diagnoses Blurred vision, right eye H53.8 [facility] Medical History Wears dentures Wears glasses History of steroid therapy Easy bruising Excessive bleeding Non-smoker Surgical History (Updated 11/23/24 @ 08:41 by Jasmine Restrepo) History of biopsy of temporal artery Hx of tooth extraction Social History Smoking Status: Never smoker alcohol intake: never Assessment and Plan (No Qualifiers) Assessment and Plan (1) Blurred vision, right eye: Status: Inactive Plan: 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 She is under treatment by her physicians. Her incision is healing well. Follow-up as needed. Brandon Doll MD Pager: [facility] [address] [place] [address], [address] [place] [address] Office: 11/23/2404 Date Brandon Gregorio Signature: Date (if applicable) CC: Normal [facility] CRPon 11-08-2024 C-REACTIVE PROT < 3.00 Normal 0.0-3.0 [facility] Comment on above: Performed By: #### L 501.6710, L505.7010, L506.1001, L101.9900, L3890.6102, L100.0100, L3890.6202, L500.4050, L3890.6301, L4600.0100 #### [facility] [address] [place], [address] CRP [Mass/Vol]Ordered By: Yadira Muhammad on 11-08-2024 C-Reactive Protein Extended Range < 3.00 mg/L 0.0-3.0 [facility] Erythrocyte Sed Rateon 11-08 SED RATE 2 mm/hr Normal 0-30 [facility] Comment on above: Performed By: #### L 501.6710, L505.7010, L506.1001, L101.9900, L3890.6102, L100.0100, L3890.6202, L500.4050, L3890.6301, L4600.0100 #### [facility] [address] [place], [place], [address] Erythrocyte sedimentation ra teOrdered By: Kymberly Muhammad on 11-08-2024 ESR (Bld) [Velocity] 2 mm/h 0-30 [facility] Serum or plasma C reactive p rotein measurement (mass/volume)Ordered By: Kymberly Muhammad on 11-08-2024 CRP [Mass/Vol] mg/L 0.0-3.0 [facility] Discharge Instructionon 10-15 Discharge Instruction [facility] Medical Records Department [address] [place] [address] Instructions for Home/Discharge Instructions 11/06/2414 MR#: [id number] Acct: [id number] Name: BATOOL ESTRELLA Rep #: [id number] : 1945 79 From: Brandon Doll MD PCP: Dr. Kymberly Muhammad DO Status:REG [facility] Discharge Instructions Diet Discharge Diet: No restrictions Activity Discharge Activity: Return to Normal Activity and May Shower Dressing / Incision Call your doctor if your incision/area has: Continuous Slow Oozing, Sudden Increased Bleeding, Increased Pain/ Swelling, Increased Redness, Foul Smelling Discharge and Swelling at the incision site Call your doctor if you observe: Fever of 101 or Higher Cleanse incision/area with: Soap Water Additional Dressing/Incision Instructions:: Ibuprofen and Tylenol for pain control. Follow Up Care Please Follow Up With: Brandon Doll MD When: Please call to schedule 2 week follow up appointment. [phone] Test Results: Test results from this visit will be discussed in further detail at your follow-up appointment, if applicable. Discharge Plan Admission Attending Provider: Brandon Doll Primary Care Provider: Kymberly Muhammad Instructions Print Language: Iraqi Discharge Orders/Prescriptions Prescriptions: No Action One Daily Multi-Vit w-Mineral 4.5 mg iron tablet 1 tab PO DAILY prednisone 20 mg tablet 80 mg PO DAILY Qty: 28 0RF Rx Instructions: Next dose 11/04/2024 Referrals / Follow Up: Kymberly Muhammad DO [Primary Care Provider] - Disposition Disposition (needs filled in before D/C Order can be placed): Home, Self Care 11/06/24914 Brandon Doll MD CC: Dr. Kymberly Muhammad DO Signed Normal [facility] MR/POSTOP.Charissa 11-06-2024 MR/POSTOP.[facility] Medical Records Department [address] [place] [address] Anesthesia Postop Eval I 11/06/24906 MR#: [id number] Acct: [id number] Name: BATOOL ESTRELLA Rep #: [id number] : 1945 79 From: Enriqueta Light CRNA PCP: Dr. Kymberly Muhammad, DO Status:REG SDC Y Race: C Location: [place] [address] Anesthesia: Postop Eval I Current Vital Signs Temperature: 97.4 F Pulse Rate: 53 Blood Pressure: 147/76 Respiratory Rate: 16 Pulse Ox: 97 Oxygen Delivery Method: Room Air Assessment Airway patent: Yes Spontaneous unlabored respirations: Yes Mental status: Awake nausea: No Vomiting: No Anesthesia Complication: No Fluid Hydration Crystalloid volume administer (ml): 10 Total IV fluid infused: 10 Progress Note Anesthesia document: Postop Eval 1 completed: Yes 11/06/24907 Date Enriqueta Light BAKER HEAD Cosigner Signature: Date CC: Signed Normal [facility] MR/[id number] 11-06-2024 MR/POSTOPAN2 [facility] Medical Records Department [address] [place] [address] Anesthesia Postop Eval II 11/06/24 1015 MR#: [id number] Acct: [id number] Name: BATOOL ESTRELLA Rep #: [id number] : 1945 79 From: Carmen Wallis PCP: Dr. Kymberly Muhammad, DO Status:REG SDC Y Race: C Location: [place] [address] Anesthesia Postop Eval I Sum Postop Eval Completion status Anesthesia document: Postop Eval 1 completed: Yes Anesthesia Postop Eval I Summary Anesthesia Postop Eval I Summary: Anesthesia Postop Eval I: Assessment Summary Airway patent Yes 11/06/24 09:08 BAKER HEAD.LMIL Spontaneous unlabored Yes 11/06/24 09:08 BAKER HEAD.LMIL respirations Mental status Awake 11/06/24 09:08 BAKER HEAD.LMIL nausea No 11/06/24 09:08 BAKER HEAD.LMIL Vomiting No 11/06/24 09:08 BAKER HEAD.LMIL Anesthesia Postop Eval I: Fluid Summary Crystalloid volume administer 10 11/06/24 09:08 BAKER HEAD.LMIL (ml) Colloids volume administered ( ml) Blood Product volume administered (ml) Total IV fluid infused 10 11/06/24 09:08 BAKER HEAD.LMIL Anesthesia Postop Eval I: Summary Notes Anesthesia Complication No 11/06/24 09:08 BAKER HEAD.LMIL Anesthesia Complication Comment: Post-operative progress note Anesthesia: Postop Eval II Evaluation Mental status: Awake Pain Level: 1 nausea: No Vomiting: No 11/06/24 1015 Date Carmenfidel Wallis Chloeigntomasa Signature: Date CC: Signed Normal [facility] Operative Reporton 5 Operative Report [facility] Medical Records Department [address] [place] [address] Operative Report 11/06/24910 MR#: [id number] Acct: [id number] Name: BATOOL ESTRELLA Rep #: [id number] : 1945 79 From: Brandon Doll MD PCP: Dr. Kymberly Muhammad, DO Status:[facility] Location: [place] [address] Operative Report (Standard) Operative Information Date of Procedure: 11/06/24 Pre-Operative Diagnosis: Right vision loss Post-Operative Diagnosis: Same Surgery/Procedure Performed: Right temporal artery biopsy laundry helper: Yes Software Support Specialist: Jeremie Sebastian Tasks completed by contract administrative assistant: Retracting Type of Anesthesia: Local MAC RN Documented Start/Stop Times: Operation Date: 11/06/24 07:30 Case Time Into Pre-Op 11/06/24 06:09 Out of Pre-Op 11/06/24 07:27 Anesthesia Start 11/06/24 07:28 Into Room 11/06/24 07:28 Procedure Start 11/06/24 08:03 Procedure End 11/06/24 08:54 Anesthesia End 11/06/24 09:01 Out of Room 11/06/24 09:01 Into Recovery 11/06/24 09:02 Procedure Start Time: 08:03 Procedure Stop Time: 08:54 Select all DRAINS/GRAFTS/IMPLANTS that apply: None Estimated Blood Loss: 5 Specimen collected: Yes Description of specimen(s) removed: Temporal artery Description of surgery: Patient was taken back to the operating room and MAC anesthesia was induced. The right baptism was inspected and the route of the artery was marked. The baptism was prepped and draped in usual sterile fashion. The incision site was injected with local anesthetic. Incision was made with a scalpel and deepened to the subcutaneous tissue using electrocautery. The artery was very difficult to identify. It was very small and diminutive. I did find a segment that appeared to be artery and clipped the proximal and distal ends and ligated the segment and sent for pathology. Unfortunately we do not have frozen pathology available at this time. It appears to be a temporal artery although is hard to distinguish between artery and vein. There were no other structures that appear to be artery into the right baptism. The area was irrigated and suctioned dry and it was continue to be explored but I did not find other tubular structures in the baptism. The incision was irrigated and suctioned dry once more and then closed with running 4-0 Monocryl suture. Dermabond was applied. Patient was taken to PACU in stable condition. Surgical Findings: Small temporal artery Complications Complications: No Admit VTE Documentation VTE Mechan Device Prophylaxis: SCD's 11/06/24 0914 Cosigner Signature (if applicable): CC: Dr. Brandon Doll MD; Dr. Kymberly Muhammad DO Signed Normal [facility] Surgery Specimen Level Aristeo 11-06-2024 Surgery Specimen Level IV Patient Age/Sex Location Account Attending Physician BATOOL ESTRELLA 79/F [facility] [id number] Dr. Brandon Doll MD Specimen: [id number] Received: 11/06/24-1320 Status: WENDI Capps Num: [id number] Spec Type: TEMPORAL Subm Dr: Dr. Brandon Doll MD HEADER OPERATION: Temporal artery biopsy PRE-OP DIAGNOSIS: Blurred vision in right eye TISSUE SUBMITTED: A- Right temporal artery MICROSCOPIC DIAGNOSIS Right temporal artery, biopsy:Disrupted internal elastic lamina and chronic inflammation with very rare giant cells consistent with arteritisEster Valdez MD, 11/08/2024 MICROSCOPIC DESCRIPTION Slides are reviewed. GROSS DESCRIPTION Received in formalin labeled, Batool Estrella, and designated right temporal artery, is a red-brown, smooth segment of blood vessel that measures 1.2 cm long by 0.2 cm in diameter. The outer surface is entirely inked black. Sectioning is unremarkable. Totally submitted in one cassette. JK 11/06/2024 CPT:80130, TC:3 Patient Age/Sex Location Account Attending Physician BATOOL ESTRELLA 79/F [facility] [id number] Dr. Brandon Doll MD Signed (signature on file) Dr. Lefty Valdez MD 11/08/24 1321 [facility] Comment on above: Performed By: #### L 501.6710, L505.7010, L506.1001, L101.9900, L3890.6102, L100.0100, L3890.6202, L500.4050, L3890.6301, L4600.0100 #### [facility] [address] [place], [address] MR/PATTrixie 11-02-2024 MR/PAT.NIKOLAI [facility] Medical Records Department [address] [facility] [place] [address] PAT - Anesthesia 11/02/24 1514 MR#: [id number] Acct: [id number] Name: BATOOL ESTRELLA (BETSY) Rep #: [id number] : 1945 79 From: Chris Jang MD PCP: Dr. Kymberly Muhammad, DO Status:PRE [facility] Y Race: C Location: [facility] Pre-Assessment Diagnosis/Proposed Procedure Planned Operative Procedure(s): RIGHT TEMPORAL ARTERY BX Anesthesia History Anesthesia History - silk screen cutter: Anesthesia History - silk screen cutter Hx Hospitalization No 11/02/24 10:36 Any Problems With Anesthesia No 11/02/24 10:36 Cholinesterase deficiency No 11/02/24 10:36 You/Your Family Experience No 11/02/24 10:36 fever (hyperthermia) with Relationship Recent Exposure to Contagious No 11/02/24 08:04 Disease Does patient have nerve No 11/02/24 10:36 stimulator Patient instructed to have device shut off --Does patient have Pacemaker or ICD? When Was Last Pacemaker Check QUESTION #4 FULL TEXT: You/Your Family Experience fever (hyperthermia) with Anesthesia Last Oral Intake Last Oral intake: Last Oral Intake NPO since Meds taken in AM with sips of water? Meds patient instructed to take am of surgery PONV PONV - silk screen cutter: PONV - silk screen cutter Female Yes 11/02/24 10:36 HX of Motion Sickness No 11/02/24 10:36 HX of N/V After Surgery No 11/02/24 10:36 Non-Smoker Yes 11/02/24 10:36 Duration of Surgery greater No 11/02/24 10:36 than 60 minutes Number of Risk Factors 2 11/02/24 10:36 PONV Score Moderate Risk 11/02/24 10:36 Height Weight Height Weight: Anesthesia: Height Weight Height 5 ft 4 in 11/02/24 09:00 Respiratory Assessment Respiratory Assessment - silk screen cutter: Respiratory Tract Infection Hx - silk screen cutter Hx Respiratory Tract Infection No 11/02/24 10:36 STOP Sleep Apnea STOP Sleep Apnea - silk screen cutter: STOP Sleep Apnea - silk screen cutter Hx Hypertension No 11/02/24 10:36 Hx Sleep Apnea No 11/02/24 10:36 CPAP No 11/02/24 10:36 BIPAP No 11/02/24 10:36 Do you snore loudly (louder No 11/02/24 10:36 than talking or can be heard Do you often feel tired/ No 11/02/24 10:36 fatigued/ sleepy during daytime? Has anyone observed you stop No 11/02/24 10:36 breathing during sleep? STOP Results Negative 11/02/24 10:36 QUESTION #5 FULL TEXT : Do you snore loudly (louder than talking or can be heard through closed doors)? Tobacco Use History Tobacco Use History - silk screen cutter: Tobacco Use History - silk screen cutter Tobacco Use Smoking Status Never smoker 11/02/24 10:36 Hx Tobacco Use No 11/02/24 10:36 Years Smoking Packs Smoked per Day Smoking Cessation Date was within the last 15 years Hx Smoking Cessation Date Hx Smoking Cessation Counseling Hematologic Medial History Hematologic Hx - silk screen cutter: Hematologic Medical Hx - documentation liaison Hx of Blood Transfusion No 11/02/24 10:36 Hx of Transfusion in last 3 No 11/02/24 10:36 Months Date of Last Transfusion (if within last 3 months) Ever experience any problems No 11/02/24 10:36 with transfusion(s)? Specify any problems Hx of Preganancy in last 3 No 11/02/24 10:36 Months Nurse Filling Out Transfusion VCHRISTIN 11/02/24 10:36 Questions: Date: 11/02/24 11/02/24 10:36 Time: 10:37 11/02/24 10:36 Patient unable to answer at this time (ie. confused, unrespo /Reproduction History /Reproductive History - silk screen cutter: /Reproductive Hx- silk screen cutter Hx Now No 11/02/24 10:36 Gestational Age (in weeks): EDC: Hx Hx Para Hx Section SAB No 11/02/24 10:36 PFSH Medical History Wears dentures Wears glasses History of steroid therapy Easy bruising Excessive bleeding Non-smoker Home Medications ???Medication ???Instructions ???Recorded ???Last Taken ???Type prednisone 20 mg tablet 80 mg (4 x 20 mg) PO DAILY #28 Unknown Rx TABLETS multivitamin with minerals-ferrous 1 tab PO DAILY 11/02/24 Unknown History sulfate 4.5 mg iron tablet (One Daily Multivitamins with Minerals) Allergy/AdvReac Type Severity Reaction Status Date / Time Sulfa (Sulfonamide Allergy Rash Verified 11/02/24 14:29 Antibiotics) Surgical History (Updated 11/02/24 @ 10:39 by Natalie Pérez) Hx of tooth extraction Social History Smoking Status: Never smoker alcohol intake: never Audit: Pertinent Findings Pertinent Findings EKG Perinent findings: October 05, 2019. Normal si (more content not included)... Normal [facility] Surgery Visit Reporton 11-02 Surgery Visit Report [facility] [address] [facility] [place] [address] OFFICE VISIT Date of Service: 11/02/24 MR#: [id number] Acct: [id number] Name: BATOOL ESTRELLA (BETSY) Rep #: [id number] : 1945 Provider: Dr. Brandon buckley MD Age/Sex: 79/F Location: [facility] Status: Signed Intake Vital Signs 11/01/24 17:03 11/02/24 08:04 11/02/24 09:00 Height 5 ft 4 in 5 ft 4 in 5 ft 4 in Weight: 126 lb BMI 21.6 BP 111/70 Blood Pressure Location Rt brachial Position Sitting Respiration 17 Pulse 70 Pulse Source Monitor Temp 96 F L Temp Source Temporal Pulse Oximetry (%) 97 Oxygen Delivery Method room air Intake Visit Reasons: TEMPORAL ARTERY BIOPSY Chief Complaint: temporal artery biopsy Is patient in pain?: Yes Allergies Sulfa (Sulfonamide Antibiotics) Allergy (Verified 11/02/24 09:01) Rash Medications ???Medication ???Instructions ???Recorded ???Confirmed ???Type prednisone 20 mg tablet 80 mg (4 x 20 mg) PO DAILY #28 11/02/24 Rx TABLETS multivitamin with minerals-ferrous tab PO 11/02/24 11/02/24 History sulfate 4.5 mg iron tablet (One Daily Multivitamins with Minerals) Have you fallen in the past year?: No PFSH Social History Smoking Status: Never smoker alcohol intake: never HPI HPI HPI: Patient is a 79-year-old female is here with vision changes in the right as well as headaches and facial pain. She says this started about a week ago. ROS General General: No weight change, appetite, fatigue, colon cancer, breast cancer or weakness HEENT HEENT: No difficulty swallowing, eye injury, eye surgery, swollen glands or hoarseness Endo Endocrine: No thyroid disease, diabetes mellitus, thyroid cancer, Hair loss, heat intolerance or cold intolerance Skin Skin: No rash or changing moles Musc Musculoskeletal: No back problems, arthritis, rheumatoid arthritis, gout or joint pain Cardio Cardiovascular: No murmur, pacemaker, heart disease, atrial fibrillation, high blood pressure, heart attack, heart stent, palpitations, shortness of breath with exertion or chest pain Psych Psychiatric: No depression, anxiety or hearing voices Resp Respiratory: No shortness of breath, No sleep apnea, No cough, No COPD, No asthma, No emphysema and No wheezing Gastro Gastrointestinal: No abdominal pain, No nausea or vomiting, No diarrhea, No constipation, No blood in stool, No acid reflux, No hemorrhoids, No ulcers, No gallbladder problem and No black,tarry stools Jony Hematologic: No blood thinners, No blood disorders, No bleeding, No anemia and No blood clots Neuro Neurologic: No system reviewed and no additional complaints, except as documented, No as per HPI, No abnormal gait, No abnormal hearing, No abnormal movements, No abnormal speech, No behavioral changes, No burning sensations, No confusion, No convulsions, No disequilibrium, No dizziness, No localized weakness, No frequent falls, No headache(s), No lack of coordination, Yes loss of vision, No memory loss, No numbness, No other visual disturbances, No radicular pain, No restless legs, No sensory deficit, No syncope, No tingling, No tremor(s), No weakness and No other Exam Const General: cooperative Orientation: alert and oriented x3 HENMT Head: normal to inspection Neck Neck: normal visual inspection and full ROM Chest Chest palpation inspection: normal inspection of the chest Resp Effort Inspection: normal respiratory effort Auscultation: clear to auscultation bilaterally Cardio Rate: regular rate Rhythm: regular rhythm GI Inspection: non-distended Palpation: soft and nontender Skin General: no rashes or lesions noted Neuro General: patient alert and patient oriented x3 Extrem General: full ROM Psych Appearance: grossly normal Mental Status: mental status grossly normal Assessment and Plan Assessment and Plan (1) Blurred vision, right eye: Status: Acute Plan: Patient had vision changes on the right eye and she is having right headache and facial pain. She was sent here for temporal artery biopsy. I discussed right temporal artery biopsy with her in detail. I discussed the risks including but not limited to bleeding, infection, nerve injury. Patient understands the risks and is willing to proceed. Brandon Doll MD Pager: [facility] [address] [place] [address] Outpatient [facility], [address] [place] [address] Office: Coding Level of Care Code Off vis,new,level 3 Diagnoses Blurred vision, right eye H53.8 Clinical Quality Measures Falls Risk Screening/Assistive Devices Have you fallen in the past year?: No 11/02/24 0911 (more content not included)... Normal [facility] Absolute lymphocyte countOrd ered By: Enoc Armijo on 11-01-2024 Lymphocytes Auto (Unsp spec) [#/Vol] 1.50 10*3/uL 0.83-4.51 [facility] Absolute neutrophil countOrd ered By: Enoc Armijo on 11-01-2024 Neutrophils (Bld) [#/Vol] 8.2 10*3/uL High 2.0-7.7 [facility] Anion gap in Serum or Plasma Ordered By: Enoc Armijo on 11-01-2024 Anion gap [Moles/Vol] 13 mmol/L 5-15 [facility] Automated lymphocyte count a s percentage of total leukocytesOrdered By: Enoc Armijo on 11-01-2024 Lymphocytes/100 WBC Auto (Unsp spec) 13.8 % Low 19-41 [facility] BUN/creatinine ratioOrdered By: Enoc Armijo on 11-01-2024 Urea nitrogen/Creatinine [Mass ratio] 28.1 mg/mg High - [facility] Basic Metabolic Profile (BMP )on 11-01-2024 BUN/CRE 28.1 RATIO High - [facility] Comment on above: Performed By: #### L 499.0043 #### [facility] [address] [place], [address] Calcium [Mass/Vol] 8.8 mg/dL Normal 7.6-11.0 [facility] Comment on above: Performed By: #### L 499.0043 #### [facility] [address] [place], [address] Chloride [Moles/Vol] 104 mmol/L Normal 98-108 [facility] Comment on above: Performed By: #### L 499.0043 #### [facility] [address] [place], [address] CO2 [Moles/Vol] 23.1 mmol/L Normal 21.0-32.0 [facility] Comment on above: Performed By: #### L 499.0043 #### [facility] [address] [place], [address] Creatinine [Mass/Vol] 0.63 mg/dL Low 0.70-1.20 [facility] Comment on above: Performed By: #### L 499.0043 #### [facility] [address] [place], [address] ECRCL 50.85 ml/min Normal 50-250 [facility] Comment on above: Performed By: #### L 499.0043 #### [facility] [address] [place], [address] GAP 13 Normal 5-15 [facility] Comment on above: Performed By: #### L [id number] #### [facility] [address] [place], [address] GFR/1.73 sq M.predicted among non-blacks MDRD (S/P/Bld) [Vol rate/Area] 91 mL/min/{1.73_m2} Normal >60 [facility] Comment on above: Result Comment: mL/m in/1.73m2 CKD-EPI Creatinine Equation (2020) Performed By: #### L [id number] #### [facility] [address] [place], [address] Glucose [Mass/Vol] 110 mg/dL High 70-99 [facility] Comment on above: Performed By: #### L [id number] #### [facility] [address] [place], [address] Potassium [Moles/Vol] 4.2 mmol/L Normal 3.3-5.1 [facility] Comment on above: Performed By: #### L 499.0043 #### [facility] [address] [place], [address] Sodium [Moles/Vol] 140 mmol/L Normal 133-145 [facility] Comment on above: Performed By: #### L [id number] #### [facility] [address] [place], [address] Urea nitrogen [Mass/Vol] 18 mg/dL Normal 4-19 [facility] Comment on above: Performed By: #### L 499.0043 #### [facility] [address] [place], [address] Basophil percentageOrdered B y: Enoc Le on 11-01-2024 Basophils/100 WBC (Bld) 0.5 % 0-1 [facility] CBC W/Diff, Automatedon 10-14 Absolute Lymph 1.50 X10 3/uL Normal 0.83-4.51 [facility] Comment on above: Performed By: #### L 499.0043 #### [facility] [address] [place], [address] Absolute Neut 8.2 X10 3/uL High 2.0-7.7 [facility] Comment on above: Performed By: #### L [id number] #### [facility] [address] [place], [address] Basophils/100 WBC (Bld) 0.5 % Normal 0-1 [facility] Comment on above: Performed By: #### L [id number] #### [facility] [address] [place], [address] Eosinophils/100 WBC (Bld) 0.9 % Normal 0-5 [facility] Comment on above: Performed By: #### L [id number] #### [facility] [address] [place], [address] Erythrocyte distribution width (RBC) [Ratio] 12.4 % Normal 11.6-14.6 [facility] Comment on above: Performed By: #### L [id number] #### [facility] [address] [place], [address] Hematocrit (Bld) [Volume fraction] 39.9 % Normal 37-47 [facility] Comment on above: Performed By: #### L 499.0043 #### [facility] [address] [place], [address] Hemoglobin (Bld) [Mass/Vol] 13.0 g/dL Normal 12.0-15.0 [facility] Comment on above: Performed By: #### L 499.0043 #### [facility] [address] [place], [address] IG% 0.400 Normal 0.0-0.9 [facility] Comment on above: Result Comment: IG% - Immature Granulocytes (promyelocytes, myelocytes and metamyelocytes) > 1% indicates that a LEFT SHIFT is Present. Performed By: #### L [id number] #### [facility] [address] [place], [address] Lymphocytes/100 WBC (Bld) 13.8 % Low 19-41 [facility] Comment on above: Performed By: #### L [id number] #### [facility] [address] [place], [address] MCH (RBC) [Entitic mass] 30.2 pg Normal 27.0-32.0 [facility] Comment on above: Performed By: #### L 499.0043 #### [facility] [address] [place], [address] MCHC (RBC) [Mass/Vol] 32.6 g/dL Normal 32-36 [facility] Comment on above: Performed By: #### L [id number] #### [facility] [address] [place], [address] MCV (RBC) [Entitic vol] 92.8 fL Normal 81-99 [facility] Comment on above: Performed By: #### L [id number] #### [facility] [address] [place], [address] Monocytes/100 WBC (Bld) 8.6 % Normal 0-10 [facility] Comment on above: Performed By: #### L [id number] #### [facility] [address] [place], [address] Neutrophils/100 WBC (Bld) 75.8 % High 47-70 [facility] Comment on above: Performed By: #### L [id number] #### [facility] [address] [place], [address] Nucleated RBC (Bld) [#/Vol] 0 10*3/uL Normal 0-5 [facility] Comment on above: Performed By: #### L [id number] #### [facility] [address] [place], [address] Platelet mean volume (Bld) [Entitic vol] 11.4 fL Normal 6.2-12.0 [facility] Comment on above: Performed By: #### L [id number] #### [facility] [address] [place], [address] Platelets (Bld) [#/Vol] 265 10*3/uL Normal 150-450 [facility] Comment on above: Performed By: #### L [id number] #### [facility] [address] [place], [address] RBC (Bld) [#/Vol] 4.30 10*6/uL Normal 4.2-5.4 [facility] Comment on above: Performed By: #### L [id number] #### [facility] [address] [place], [address] RDW SD 42.5 fl Normal 35.1-43.9 [facility] Comment on above: Performed By: #### L [id number] #### [facility] [address] [place], [address] WBC (Bld) [#/Vol] 10.9 10*3/uL Normal 4.4-11.0 [facility] Comment on above: Performed By: #### L [id number] #### [facility] [address] [place], [address] CRPon 11-01-2024 C-REACTIVE PROT 15.90 mg/L High 0.0-3.0 [facility] Comment on above: Performed By: #### L 499.0043 #### [facility] [address] [place], [address] CRP [Mass/Vol]Ordered By: Luis Alberto Armijo on 11-01-2024 C-Reactive Protein Extended Range 15.90 mg/L High 0.0-3.0 [facility] Carbon dioxide, total [Moles /volume] in Central venous bloodOrdered By: Enoc Armijo on 11-01-2024 CO2 [Moles/Vol] 23.1 mmol/L 21.0-32.0 [facility] Chloride assayOrdered By: Luis Alberto Armijo on 11-01-2024 Chloride [Moles/Vol] 104 mmol/L 98-108 [facility] Emergency Department Summary on 11-01-2024 Emergency Department Summary [facility] Medical Records Department [address] [place] [address] Emergency Department Summary 11/01/24 MR#: [id number] Acct: [id number] Name: BATOOL ESTRELLA Rep #: [id number] : 1945 79 From: Enoc Watkins PCP: Dr. Kymberly Muhammad DO Status:REG ER Location: ED HPI History of Present Illness Chief Complaint: Eye Problem Informant: patient Narrative Narrative: Patient sent in from ophthalmology for treatment for concerns for temporal arteritis. I spoke with Dr. Murphy prior to her arrival. Patient states she woke up briseno vision lower part of her eye mild headache on the right side. No head trauma. She went to her normal eye doctor referred over to ophthalmology. She states she was evaluated for these concerns and sent here for treatment. She is not diabetic no chronic past medical history. No history of similar. She does wear bifocal glasses. Per Dr. Murphy, requesting labs with inflammatory markers starting Solu-Medrol 1 g daily for 3 days. He states MRI was not necessary in the emergency room. He coordinates temporal artery biopsies with surgeon Dr. Doll. he states this should be done within a week. Reports with his exam, there was swelling superior aspect of the optic nerve. PFSH PFS Home Medications ???Medication ???Instructions ???Recorded ???Last Taken ???Type prednisone 20 mg tablet 80 mg (4 x 20 mg) PO DAILY #28 Unknown Rx TABLETS Allergy/AdvReac Type Severity Reaction Status Date / Time Sulfa (Sulfonamide Allergy Rash Verified 11/01/24 17:03 Antibiotics) Social History Smoking Status: Never smoker alcohol intake: never ROS ROS ED Constitutional Constitutional ED: Denies chills, fever(s) or sweats Eyes Eyes: Reports blurry vision and change in vision ENT ENT ED: Denies sore throat Cardiovascular Cardiovascular: Denies chest pain, leg edema, palpitations or racing heartbeat Respiratory/Chest Respiratory/Chest: Denies cough, dyspnea or dyspnea on exertion Gastrointestinal Gastrointestinal: Denies abdominal pain, diarrhea, nausea or vomiting Genitourinary Genitourinary ED: Denies dysuria, hematuria or urinary frequency Musculoskeletal Musculoskeletal: Denies back pain, extremity pain or neck pain Integumentary Denies rash or wounds Neurologic Neurologic: Reports headache(s); Denies paresthesias or weakness EXAM Physical Exam Const Vital Signs: 11/01/24 17:03 Temperature 97.2 F L Temperature Source Temporal Pulse Rate 66 Respiratory Rate 15 Blood Pressure 154/108 H Blood Pressure Mean 123 Pulse Ox 99 Oxygen Delivery Method Room Air Positive well nourished and well developed General Appearance ED: well developed and NAD HEENT Reports moist mucous membranes HEENT Narrative: Tenderness palpation right temporal artery region. normocephalic and atraumatic Eyes Eyes Narrative: Right eye dilated from ophthalmology office. Ophthalmic evaluation noted some swelling optic nerve, finger counting patient did not see in the inferior quadrants right eye both lower quadrants. Able to finger count in the upper quadrants. Neck full ROM Chest Wall Chest: Negative for tenderness Resp normal respiratory effort and normal air movement Effort and Inspection: symmetric chest movement; Negative for respiratory distress Cardio regular rate, regular rhythm and no murmurs Peripheral Pulses: pulses 2+ throughout GI normal to inspection, nondistended, normoactive bowel sounds and non-tender Palpation: Negative for guarding or rebound tenderness present Extremity normal to inspection General Extremety ED: Negative for edema or tenderness General Extremity: Negative for edema Neuro oriented x3 and no sensory deficits noted Neuro Narrative: No focal deficit on exam. Sensorium / Orientation: awake and alert Skin no rashes or lesions noted and no wounds MDM MDM MDM Narrative Medical decision making narrative: Interventions / MDM: Differential diagnosis: Temporal arteritis, optic nerve swelling Diagnosis considered but do not suspect: My EKG interpretation: N/A Imaging independently reviewed and interpreted by myself: N/A External documents reviewed: N/A Test considered but not ordered:N/A ED course: Vital stable nontoxic. Coordinating care with ophthalmology, labs are drawn with ESR and CRP. Ordered for 1 g of IV Solu-Medrol. 175: Labs CRP 15.9 normal ESR 17 white count normal. High clinical suspicion for temporal arteritis. She was given her Solu-Medrol. I did speak with on-call surgeon Dr. Ramirez both him and his partner does perform the biopsies. He states this can be performed within the week's timeframe. Information to his office for patient to call tomorrow. 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 Normal [facility] Eosinophil percentageOrdered By: Enoc Armijo on 11-01-2024 Eosinophils/100 WBC (Bld) 0.9 % 0-5 [facility] Erythrocyte Sed Rateon 11-01 SED RATE 17 mm/hr Normal 0-30 [facility] Comment on above: Performed By: #### L [id number] #### [facility] [address] [place], [address] Erythrocyte distribution wid th ratioOrdered By: Enoc Armijo on 11-01-2024 Erythrocyte distribution width (RBC) [Ratio] 12.4 % 11.6-14.6 [facility] Erythrocyte distribution wid th standard deviationOrdered By: Enoc Armijo on 11-01-2024 Erythrocyte distribution width (RBC) [Entitic vol] 42.5 fL 35.1-43.9 [facility] Erythrocyte distribution width (RBC) [Ratio] 42.5 fl 35.1-43.9 [facility] Erythrocyte sedimentation ra teOrdered By: Enoc Armijo on 11-01-2024 ESR (Bld) [Velocity] 17 mm/h 0-30 [facility] Estimation of creatinine faviola aranceOrdered By: Enoc Armijo on 11-01-2024 Estimated Creatinine Clearance Calc 50.85 ml/min 50-250 [facility] GFR/1.73 sq M.predicted adriana g non-blacks MDRD (S/P/Bld) [Vol rate/Area]Ordered By: Enco Armijo on 11-01-2024 Estimated GFR (MDRD) Non-Af Amer 91 >60 [facility] Comment on above: mL/min/1.73m2 CKD-EP I Creatinine Equation (2020) Glomerular filtration rate ( GFR) estimation/1.73 sq m using serum, plasma, or whole bOrdered By: Enoc Armijo on 11-01-2024 GFR/1.73 sq M.predicted among non-blacks MDRD (S/P/Bld) [Vol rate/Area] 91 mL/min/{1.73_m2} >60 [facility] Comment on above: mL/min/1.73m2 CKD-EP I Creatinine Equation (2020) Hematocrit Auto (Bld) [Volum e fraction]Ordered By: Enoc Armijo on 11-01-2024 Hematocrit (Bld) [Volume fraction] 39.9 % 37-47 [facility] Hemoglobin measurementOrdere d By: Enoc Armijo on 11-01-2024 Hemoglobin (Bld) [Mass/Vol] 13.0 g/dL 12.0-15.0 [facility] Immature granulocytes/100 WB C Auto (Bld)Ordered By: Enoc Armijo on 11-01-2024 Immature granulocytes/100 WBC (Bld) 0.400 % 0.0-0.9 [facility] Comment on above: IG% - Immature Granu locytes (promyelocytes, myelocytes and metamyelocytes) > 1% indicates that a LEFT SHIFT is Present. Lymphocytes Auto (Unsp spec) [#/Vol]Ordered By: Enoc Armijo on 11-01-2024 Lymphocytes (Bld) [#/Vol] 1.50 10*3/uL 0.83-4.51 [facility] Lymphocytes/100 WBC Auto (Un sp spec)Ordered By: Enoc Armijo on 11-01-2024 Lymphocytes/100 WBC (Bld) 13.8 % Low 19-41 [facility] MCV (mean corpuscular volume ) determinationOrdered By: Enoc Armijo on 11-01-2024 MCV (RBC) [Entitic vol] 92.8 fL 81-99 [facility] Mean corpuscular hemoglobin (MCH) determinationOrdered By: Enoc Armijo on 11-01-2024 MCH (RBC) [Entitic mass] 30.2 pg 27.0-32.0 [facility] Mean corpuscular hemoglobin concentration (MCHC) determinationOrdered By: Enoc Armijo on 11-01-2024 MCHC (RBC) [Mass/Vol] 32.6 g/dL 32-36 [facility] Mean platelet volume determi nationOrdered By: Enoc Armijo on 11-01-2024 Platelet mean volume (Bld) [Entitic vol] 11.4 fL 6.2-12.0 [facility] Monocyte percentageOrdered B y: Enoc Armijo on 11-01-2024 Monocytes/100 WBC (Bld) 8.6 % 0-10 [facility] Neutrophil percentageOrdered By: Enoc Le on 11-01-2024 Neutrophils/100 WBC (Bld) 75.8 % High 47-70 [facility] Nucleated red blood cell per centageOrdered By: Enoc Le on 11-01-2024 Nucleated RBC/100 WBC (Bld) [Ratio] 0 % 0-5 [facility] Platelet countOrdered By: Luis Alberto Armijo on 11-01-2024 Platelets (Bld) [#/Vol] 265 10*3/uL 150-450 [facility] Potassium (Unsp spec) [Mass/ Vol]Ordered By: Enoc Le on 11-01-2024 Potassium [Moles/Vol] 4.2 mmol/L 3.3-5.1 [facility] Potassium measurement (mass/ volume)Ordered By: Enoc Le on 11-01-2024 Potassium (Unsp spec) [Mass/Vol] 4.2 mmol/L 3.3-5.1 [facility] RBC Auto (Bld) [#/Vol]Ordere d By: Enoc Le on 11-01-2024 RBC (Bld) [#/Vol] 4.30 10*6/uL 4.2-5.4 [facility] Serum creatinine measurement (mass/volume)Ordered By: Enoc Le on 11-01-2024 Creatinine [Mass/Vol] 0.63 mg/dL Low 0.70-1.20 [facility] Serum glucose measurement (m ass/volume)Ordered By: Enoc Armijo on 11-01-2024 Glucose [Mass/Vol] 110 mg/dL High 70-99 [facility] Serum or plasma C reactive p rotein measurement (mass/volume)Ordered By: Enoc Le on 11-01-2024 CRP [Mass/Vol] 15.90 mg/L High 0.0-3.0 [facility] Serum or plasma calcium rolando urement (mass/volume)Ordered By: Enco Armijo on 11-01-2024 Calcium [Mass/Vol] 8.8 mg/dL 7.6-11.0 [facility] Serum or plasma urea nitroge n measurement (mass/volume)Ordered By: Enoc Armijo on 11-01-2024 Urea nitrogen [Mass/Vol] 18 mg/dL 4-19 [facility] Sodium levelOrdered By: Enoc Armijo on 11-01-2024 Sodium [Moles/Vol] 140 mmol/L 133-145 [facility] White blood cell (WBC) count Ordered By: Enoc Armijo on 11-01-2024 WBC (Bld) [#/Vol] 10.9 10*3/uL 4.4-11.0 [facility] Urine Cultureon 05-26-2024 [facility] Klebsiella pneumonia e sp pneum [place] Count 80,000-100,000 Klebsiella pneumoniae sp pneum: REACTION Ampicillin Islt SUNNY >=32 Ampicillin+Sulbac Islt SUNNY 4 S ceFAZolin Islt SUNNY <=4 S Cefepime Islt SUNNY <=0.12 S cefTRIAXone Islt SUNNY <=0.25 S Ciprofloxacin Islt SUNNY <=0.25 S B-Lactamase Extended Susc Islt NEG Gentamicin Islt SUNNY <=1 S Imipenem Islt SUNNY 0.5 S levoFLOXacin Islt SUNNY <=0.12 S Nitrofurantoin Islt SUNNY 64 I Pip+Tazo Islt SUNNY <=4 S Tobramycin Islt SUNNY <=1 S TMP SMX Islt SUNNY <=20 S Normal [facility] Comment on above: Performed By: #### L 3400.8000 #### [facility] [address] [place], [place], [id number] Urgent Care Visit Reporton 1 Urgent Care Visit Report [facility] [address] , [address] [place], [place] [address] OFFICE VISIT Date of Service: 05/24/24 MR#: [id number] Acct: [id number] Name: ESTRELLABATOOLGOLDEN PICKENS Rep #: [id number] : 1945 Provider: TERESE Murillo Age/Sex: 79/F Location: [facility] Status: Signed Intake Vital Signs 10/05/19 08:13 05/24/24 15:49 Height 5 ft 4 in 5 ft 4 in Weight: 124 lb BMI 21.2 BP 132/86 H Blood Pressure Location Lt brachial Position Sitting Respiration 16 Pulse 60 Pulse Source Monitor Temp 97.5 F L Temp Source Oral Pulse Oximetry (%) 98 Oxygen Delivery Method room air Intake Visit Reasons: CONCERN FOR UTI 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 Accompanied by: Self Is patient in pain?: No Allergies Sulfa (Sulfonamide Antibiotics) Allergy (Verified 05/24/24 15:50) Rash Medications ???Medication ???Instructions ???Recorded ???Confirmed ???Type nitrofurantoin 1 cap PO Q12H 7 days #14 caps 05/24/24 05/24/24 Rx monohydrate/macrocrystals 100 mg capsule Have you fallen in the past year?: No Nurse's Note: pt states she has discomfort, nausous and fregency with urination PFSH Social History Smoking Status: Never smoker alcohol intake: never HPI HPI Chief Complaint: DYSURIA sx yesterday Details: BATOOL ESTRELLA, is a 79 F who presents to the office today for complaint of dysuria and increasing urgency/frequency starting yesterday. Patient denies fever, chills, sweats. No nausea, vomiting, diarrhea. No hemoptysis, shortness of breath or difficulty breathing. No loss of bowel or bladder control. No other associated symptoms or alleviating/aggravating factors. ROS Const Constitutional: No other (6 system ROS completed with pertinent findings in the HPI otherwise normal.) Exam Const General: cooperative and healthy appearing Resp Effort Inspection: normal respiratory effort Auscultation: Bilateral: Clear to Auscultation Cardio Rate: regular rate Rhythm: regular rhythm GI Auscultation: normal bowel sounds General: No CVA tenderness Psych Appearance: grossly normal Mental Status: mental status grossly normal Results POC Urinalysis Dip (Clinic) Office Urine Color STRAW Last Edit by Christine Roque MA on 05/24/24 16:01 Office Urine Clarity Cloudy Last Edit by Christine Roque MA on 05/24/24 16:01 Office Urine Glucose Negative Last Edit by Christine Roque MA on 05/24/24 16:01 Office Urine Ketones Negative Last Edit by Christine Roque MA on 05/24/24 16:01 Off Ur Spec Lorena 1.015 Last Edit by Christine Roque MA on 05/24/24 16:01 Office Urine pH 6.5 Last Edit by Christine Roque MA on 05/24/24 16:01 Office Urine Bilirubin Negative Last Edit by Christine Roque MA on 05/24/24 16:01 Office Urine Urobilinogen 0.2 mg/dL Last Edit by Christine Roque MA on 05/24/24 16:01 Office Urine Blood Hemolyzed Last Edit by Christine Roque MA on 05/24/24 16:01 Office Urine Blood Hemolyzed Small Last Edit by Christine Roque MA on 05/24/24 16:01 Office Urine Protein Negative Last Edit by Christine Roque MA on 05/24/24 16:01 Office Urine Nitrate Negative Last Edit by Christine Roque MA on 05/24/24 16:01 Off Ur Leukocytes Positive Last Edit by Christine Roque MA on 05/24/24 16:01 Coding Level of Care Code Off vis,est,level 3 Diagnoses Acute cystitis without hematuria N30.00 Urinary tract infection type: acute cystitis Hematuria presence: without hematuria Assessment and Plan Assessment and Plan (1) Urinary tract infection: Status: Acute Qualifiers: Urinary tract infection type: acute cystitis Hematuria presence: without hematuria Qualified Code(s): N30.00 - Acute cystitis without hematuria Plan: Macrobid as prescribed today. Encouraged to get plenty of rest, drink lots of clear liquids, and use Tylenol or Ibuprofen (unless contraindicated) for fever and comfort. Patient also educated on other symptomatic management techniques. To be seen in 7-10 days if no improvement; sooner if worsening of symptoms. Patient advised of potential red flags and when appropriate to report to the ED. Patient verbalized understanding and agreement with all the above. Orders: Orders Urinalysis, Complete 05/24/24 R30.0 - Dysuria Culture, Urine 05/24/24 R30.0 - Dysuria POC Urinalysis Dip (Clinic) 05/24/24 R30.0 - Dysuria Medications: New nitrofurantoin monohyd/m-cryst 100 mg administer with a meal/food; swallow whole; do not open, crush, dissolve , or chew 1 cap PO Q12H 14 caps 0RF 7 days Clinical Quality Measures Falls Risk Screening/Assistive Devices Have you fallen in the past year?: No 05/25/24 0838 Date (more content not included)... Normal [facility] Urinalysis, Completeon 05-24 BACTERIA 2+ /hpf Normal None Seen [facility] Comment on above: Order Comment: BRADFORD CTOR TO SPECIFY Performed By: #### [id number] #### [facility] [address] [place], [address] EPI,SQUAMOUS 0-5 SEEN Normal 5-10 [facility] Comment on above: Order Comment: BRADFORD CTOR TO SPECIFY Performed By: #### [id number] #### [facility] [address] [place], [address] WBC >100 SEEN Normal 0-5 [facility] Comment on above: Order Comment: BRADFORD CTOR TO SPECIFY Performed By: #### [id number] #### [facility] [address] [place], [address] RBC 10-25 SEEN Normal 0-5 [facility] Comment on above: Order Comment: BRADFORD CTOR TO SPECIFY Performed By: #### [id number] #### [facility] [address] [place], [address] Mucus Ql (Urine sed) 0 SEEN Normal [facility] Comment on above: Order Comment: BRADFORD CTOR TO SPECIFY Performed By: #### [id number] #### [facility] [address] [place], [address] CBC W/Diff, Automatedon 09-1 0-4 Absolute Lymph 1.44 X10 3/uL Normal 0.83-4.51 [facility] Comment on above: Performed By: #### [id number] #### [facility] [address] [place], [address] Absolute Neut 7.1 X10 3/uL Normal 2.0-7.7 [facility] Comment on above: Performed By: #### L [id number] #### [facility] [address] [place], [address] Basophils/100 WBC (Bld) 0.5 % Normal 0-1 [facility] Comment on above: Performed By: #### [id number] #### [facility] [address] [place], [address] Eosinophils/100 WBC (Bld) 0.2 % Normal 0-5 [facility] Comment on above: Performed By: #### [id number] #### [facility] [address] [place], [address] Erythrocyte distribution width (RBC) [Ratio] 12.8 % Normal 11.6-14.6 [facility] Comment on above: Performed By: #### [id number] #### [facility] [address] [place], [address] Hematocrit (Bld) [Volume fraction] 42.4 % Normal 37-47 [facility] Comment on above: Performed By: #### L [id number] #### [facility] [address] [place], [address] Hemoglobin (Bld) [Mass/Vol] 13.7 g/dL Normal 12.0-15.0 [facility] Comment on above: Performed By: #### L [id number] #### [facility] [address] [place], [address] IG% 0.300 Normal 0.0-0.9 [facility] Comment on above: Result Comment: IG% - Immature Granulocytes (promyelocytes, myelocytes and metamyelocytes) > 1% indicates that a LEFT SHIFT is Present. Performed By: #### [id number] #### [facility] [address] [place], [address] Lymphocytes/100 WBC (Bld) 15.6 % Low 19-41 [facility] Comment on above: Performed By: #### [id number] #### [facility] [address] [place], [address] MCH (RBC) [Entitic mass] 30.2 pg Normal 27.0-32.0 [facility] Comment on above: Performed By: #### L [id number] #### [facility] [address] [place], [address] MCHC (RBC) [Mass/Vol] 32.3 g/dL Normal 32-36 [facility] Comment on above: Performed By: #### L [id number] #### [facility] [address] [place], [address] MCV (RBC) [Entitic vol] 93.6 fL Normal 81-99 [facility] Comment on above: Performed By: #### L [id number] #### [facility] [address] [place], [address] Monocytes/100 WBC (Bld) 6.4 % Normal 0-10 [facility] Comment on above: Performed By: #### L [id number] #### [facility] [address] [place], [address] Neutrophils/100 WBC (Bld) 77.0 % High 47-70 [facility] Comment on above: Performed By: #### [id number] #### [facility] [address] [place], [address] Nucleated RBC (Bld) [#/Vol] 0 10*3/uL Normal 0-5 [facility] Comment on above: Performed By: #### [id number] #### [facility] [address] [place], [address] Platelet mean volume (Bld) [Entitic vol] 12.6 fL High 6.2-12.0 [facility] Comment on above: Performed By: #### L [id number] #### [facility] [address] [place], [address] Platelets (Bld) [#/Vol] 202 10*3/uL Normal 150-450 [facility] Comment on above: Performed By: #### [id number] #### [facility] [address] [place], [address] RBC (Bld) [#/Vol] 4.53 10*6/uL Normal 4.2-5.4 [facility] Comment on above: Performed By: #### L [id number] #### [facility] [address] [place], [address] RDW SD 44.0 fl High 35.1-43.9 [facility] Comment on above: Performed By: #### L [id number] #### [facility] [address] [place], [address] WBC (Bld) [#/Vol] 9.2 10*3/uL Normal 4.4-11.0 [facility] Comment on above: Performed By: #### L [id number] #### [facility] [address] [place], [address] Comprehensive Metabolic Prof ilon 04-25-2024 Albumin [Mass/Vol] 3.4 g/dL Normal 3.2-5.0 [facility] Comment on above: Performed By: #### L [id number] #### [facility] [address] [place], [address] Albumin/Globulin [Mass ratio] 1.0 {ratio} Normal 0.9-2.4 [facility] Comment on above: Performed By: #### [id number] #### [facility] [address] [place], [address] ALK P 77 U/L Normal 45-117 [facility] Comment on above: Performed By: #### [id number] #### [facility] [address] [place], [address] ALT [Catalytic activity/Vol] 21 U/L Normal 13-56 [facility] Comment on above: Performed By: #### L [id number] #### [facility] [address] [place], [address] AST [Catalytic activity/Vol] 13 U/L Low 15-37 [facility] Comment on above: Performed By: #### L [id number] #### [facility] [address] [place], [address] Bilirubin [Mass/Vol] 0.40 mg/dL Normal 0.20-1.00 [facility] Comment on above: Result Comment: For patients on eltrombopag therapy, use of Dimension [place] TBIL is not recommended. Performed By: #### L [id number] #### [facility] [address] [place], [address] BUN/CRE 22.8 RATIO High 10-20 [facility] Comment on above: Performed By: #### [id number] #### [facility] [address] [place], [address] CA,Total 8.7 mg/dL Normal 8.5-10.1 [facility] Comment on above: Performed By: #### L [id number] #### [facility] [address] [place], [address] Chloride [Moles/Vol] 105 mmol/L Normal 98-107 [facility] Comment on above: Performed By: #### L [id number] #### [facility] [address] [place], [address] CO2 [Moles/Vol] 29.0 mmol/L Normal 21.0-32.0 [facility] Comment on above: Performed By: #### L [id number] #### [facility] [address] [place], [address] Creatinine [Mass/Vol] 0.79 mg/dL Normal 0.55-1.02 [facility] Comment on above: Result Comment: The validity of the calculated GFR GFRAA in patients over 70 years has not been determined. Clinical correlation is essential. Performed By: #### L [id number] #### [facility] [address] [place], [address] EST GFR - AA 91 mL/min Normal >60 [facility] Comment on above: Result Comment: Afri can [place] GFR Calc Performed By: #### L [id number] #### [facility] [address] [place], [address] GAP 5 Normal 5-15 [facility] Comment on above: Performed By: #### [id number] #### [facility] [address] [place], [address] GFR/1.73 sq M.predicted among non-blacks MDRD (S/P/Bld) [Vol rate/Area] 75 mL/min/{1.73_m2} Normal >60 [facility] Comment on above: Result Comment: Non- GFR Calc Performed By: #### [id number] #### [facility] [address] [place], [address] Globulin (S) [Mass/Vol] 3.5 g/dL Normal 2.2-4.2 [facility] Comment on above: Performed By: #### L [id number] #### [facility] [address] [place], [address] Glucose [Mass/Vol] 102 mg/dL Normal 74-106 [facility] Comment on above: Result Comment: Fast ing Glucose result from 100 to 125 mg/dL suggests IMPAIRED HOMEOSTASIS per A.D.A. criteria. Performed By: #### [id number] #### [facility] [address] [place], [address] Potassium [Moles/Vol] 4.0 mmol/L Normal 3.5-5.1 [facility] Comment on above: Performed By: #### L [id number] #### [facility] [address] [place], [address] Sodium [Moles/Vol] 139 mmol/L Normal 136-145 [facility] Comment on above: Performed By: #### [id number] #### [facility] [address] [place], [address] T PROT 6.9 g/dL Normal 6.4-8.2 [facility] Comment on above: Performed By: #### [id number] #### [facility] [address] [place], [address] Urea nitrogen [Mass/Vol] 18 mg/dL Normal 7-18 [facility] Comment on above: Performed By: #### [id number] [id number] #### [facility] [address] [place], [address] Ferritinon 04-25-2024 Ferritin [Mass/Vol] 77 ng/mL Normal 8-252 [facility] Comment on above: Performed By: #### L [id number] #### [facility] [address] [place], [address] Ironon 04-25-2024 Iron [Mass/Vol] 57 ug/dL Normal 50-170 [facility] Comment on above: Performed By: #### [id number] #### [facility] [address] [place], [address] T4 Free Directon 04-25-2024 T4 FREE DIRECT 0.99 ng/dL Normal 0.76-1.46 [facility] Comment on above: Performed By: #### [id number] #### [facility] [address] [place], [address] Thyroid Stim Hormone (TSH)on 04-25-2024 TSH 2.120 uIU/mL Normal 0.358-3.740 [facility] Comment on above: Performed By: #### L [id number] #### [facility] [address] [place], [address] Vitamin B12on 04-25-2024 Cobalamin (Vitamin B12) [Mass/Vol] 583 pg/mL Normal 211-911 [facility] Comment on above: Performed By: #### L [id number] #### [facility] [address] [place], [address] Vitamin D,25 Hydroxyon 04-25 Vitamin D 25-OH 36.6 ng/mL Normal [facility] Comment on above: Result Comment: Latricia min D 25(OH) Status Range Deficiency <20 ng/mL (50nmol/L) Insufficiency 20 - 30 ng/mL (50 - 75 nmol/L) Sufficiency 30 - 100 ng/mL (75 - 250 nmol/L) Toxicity >100 ng/mL (>250 nmol/L) Performed By: #### L [id number] #### [facility] [address] [place], [address] Absolute lymphocyte countOrd ered By: Kymberly Muhammad on 12-13-2023 Lymphocytes Auto (Unsp spec) [#/Vol] 1.21 10*3/uL 0.83-4.51 [facility] Automated lymphocyte count a s percentage of total leukocytesOrdered By: Kymberly Muhammad on 12-13-2023 Lymphocytes/100 WBC Auto (Unsp spec) 10.7 % 19-41 [facility] Basophil percentageOrdered B y: Kymberly Muhammad on 12-13-2023 Basophils/100 WBC (Bld) 0.5 % 0-1 [facility] Bilirubin [Mass/Vol] 0.30 mg/dL 0.20-1.00 [facility] Comment on above: For patients on eltr ombopag therapy, use of Dimension [place] TBIL is not recommended. Chloride [Moles/Vol] 105 mmol/L 98-107 [facility] Eosinophils/100 WBC (Bld) 0.2 % 0-5 [facility] Glucose [Mass/Vol] 132 mg/dL 74-106 [facility] Comment on above: Fasting Glucose resu lt greater than or equal to 126 mg/dL suggests DIABETES MELLITUS per A.D.A. criteria. Hemoglobin (Bld) [Mass/Vol] 14.0 g/dL 12.0-15.0 [facility] Monocytes/100 WBC (Bld) 7.0 % 0-10 [facility] Neutrophils (Bld) [#/Vol] 9.2 10*3/uL 2.0-7.7 [facility] Neutrophils/100 WBC (Bld) 81.3 % 47-70 [facility] Potassium [Moles/Vol] 3.7 mmol/L 3.5-5.1 [facility] Protein [Mass/Vol] 7.1 g/dL 6.4-8.2 [facility] Sodium [Moles/Vol] 140 mmol/L 136-145 [facility] WBC (Bld) [#/Vol] 11.3 10*3/uL 4.4-11.0 [facility] Determination of erythrocyte mean corpuscular volume (MCV)Ordered By: Kymberly Muhammad on 12-13-2023 MCV (RBC) [Entitic vol] 93.4 fL 81-99 [facility] Erythrocyte distribution wid th ratioOrdered By: Kymberly Muhammad on 12-13-2023 Erythrocyte distribution width (RBC) [Ratio] 13.1 % 11.6-14.6 [facility] Erythrocyte distribution wid th standard deviationOrdered By: Kymberly Muhammad on 12-13-2023 Erythrocyte distribution width (RBC) [Entitic vol] 44.3 fL 35.1-43.9 [facility] Erythrocyte sedimentation ra teOrdered By: Kymberly Muhammad on 12-13-2023 ESR (Bld) [Velocity] 4 mm/h 0-30 [facility] Hematocrit Auto (Bld) [Volum e fraction]Ordered By: Kymberly Muhammad on 12-13-2023 Hematocrit (Bld) [Volume fraction] 43.8 % 37-47 [facility] Immature granulocytes/100 WB C Auto (Bld)Ordered By: Kymberly Muhammad on 12-13-2023 Immature granulocytes/100 WBC (Bld) 0.300 % 0.0-0.9 [facility] Comment on above: IG% - Immature Granu locytes (promyelocytes, myelocytes and metamyelocytes) > 1% indicates that a LEFT SHIFT is Present. Laboratory - Chemistry and C hemistry - challengeOrdered By: Kymberly Muhammad on 12-13-2023 Albumin/Globulin [Mass ratio] 1.0 {ratio} 0.9-2.4 [facility] ALP [Catalytic activity/Vol] 83 U/L 45-117 [facility] ALT [Catalytic activity/Vol] 21 U/L 13-56 [facility] CO2 [Moles/Vol] 31.0 mmol/L 21.0-32.0 [facility] Cobalamin (Vitamin B12) [Mass/Vol] 556 pg/mL 211-911 [facility] Globulin (S) [Mass/Vol] 3.5 g/dL 2.2-4.2 [facility] Urea nitrogen/Creatinine [Mass ratio] 28.4 mg/mg 10-20 [facility] - Hematology and Cell countsOrdered By: Kymberly Muhammad on 12-13-2023 MCH (RBC) [Entitic mass] 29.9 pg 27.0-32.0 [facility] MCHC (RBC) [Mass/Vol] 32.0 g/dL 32-36 [facility] Nucleated RBC/100 WBC (Bld) [Ratio] 0 % 0-5 [facility] Platelet mean volume (Bld) [Entitic vol] 12.5 fL 6.2-12.0 [facility] Platelets (Bld) [#/Vol] 209 10*3/uL 150-450 [facility] No Panel InformationOrdered By: Kymberly Muhammad on 12-13-2023 Anti-Nuclear Antibody Screen Negative Negative [facility] Comment on above: Performed at: [employer] [facility] [address] [id number] Director: Renny Frankel PhD, Phone: [phone] C-Reactive Protein Extended Range < 2.90 mg/L 0.0-3.0 [facility] Comment on above: C-Reactive Protein ( CRP) provides useful information for thediagnosis, therapy and monitoring of inflammatory processesand associated diseases. For the evaluation of Relative Riskfor Cardiovascular Disease, a High Sensitivity CRP (HSCRP)should be ordered. Centromere B Antibody Not Reportable [facility] Estimated GFR (MDRD) Amer 98 mL/min >60 [facility] Comment on above: GFR Calc Estimated GFR (MDRD) Non-Af Amer 81 mL/min >60 [facility] Comment on above: Non- GFR Calc LADONNA-1 Antibody Not Reportable [facility] Lyme Disease IgG Ab 18 kDa Band Absent . [facility] Lyme Disease IgG Ab 23 kDa Band Absent . [facility] Lyme Disease IgG Ab 28 kDa Band Absent . [facility] Lyme Disease IgG Ab 30 kDa Band Absent . [facility] Lyme Disease IgG Ab 39 kDa Band Absent . [facility] Lyme Disease IgG Ab 41 kDa Band Present . [facility] Lyme Disease IgG Ab 45 kDa Band Absent . [facility] Lyme Disease IgG Ab 58 kDa Band Present . [facility] Lyme Disease IgG Ab 66 kDa Band Absent . [facility] Lyme Disease IgG Ab 93 kDa Band Absent . [facility] Lyme Disease IgG West Blot Interp Negative . [facility] Comment on above: Positive: 5 of the f ollowing Borrelia-specific bands: 18,23,28,30,39,41,45,58, 66, and 93. Negative: No bands or banding patterns which do not meet positive criteria. Lyme Disease IgM Ab (Western Blot) Negative . [facility] Comment on above: Note: An equivocal o r positive EIA result followed by anegative Line Blot result is considered NEGATIVE. Anequivocal or positive EIA result followed by a positiveLine Blot is considered POSITIVE by the CDC.Positive: 2 of the following bands: 23,39 or 41Negative: No bands or banding patterns which do not meetpositive criteria.Criteria for positivity are those recommended byCDC/ASTPHLD. p23=Osp C, a24=kmpfislinKdog:Sera from individuals with the following may cross reactin the Lyme Line Blot assays: other spirochetal diseases(periodontal disease, leptospirosis, relapsing fever, yaws,and pinta); connective autoimmune (Rheumatoid Arthritis andSystemic Lupus Erythematosus and also individuals withAntinuclear Antibody); other infections (Jarod MountainSpotted Fever; Linh-Marquez Virus, and Cytomegalovirus).Please Note: Lyme immunoblot alone is not recommended forthe diagnosis of Lyme disease. Current guidelines recommendthe use of a two-tiered approach to Lyme serology testingto improve the sensitivity and specificity of testing.[facility] offers test code [id number] Lyme Disease Serology withReflex to aid in the diagnosis of Lyme Disease.Performed at: [address] [id number] Director: Solo Kaiser MD, Phone: [phone] Lyme Disease IgM Ab 23 kDa Band Absent . [facility] Lyme Disease IgM Ab 39 kDa Band Absent . [facility] Lyme Disease IgM Ab 41 kDa Band Absent . [facility] DEPOSITION OPERATOR Antibody Not Reportable [facility] SM Antibody Not Reportable [facility] SS-A/Ro IgG Antibody Not Reportable [facility] SS-B/La IgG Antibody Not Reportable [facility] RBC Auto (Bld) [#/Vol]Ordere d By: Kymberly Muhammad on 12-13-2023 RBC (Bld) [#/Vol] 4.69 10*6/uL 4.2-5.4 [facility] Serum DNA double strand anti body assay (units/volume)Ordered By: Kymberly Muhammad on 12-13-2023 DNA double strand Ab Qn (S) Not Reportable [facility] Serum Scl-70 antibody assay (units/volume)Ordered By: Kymberly Muhammad on 12-13-2023 SCL-70 extractable nuclear Ab Qn (S) Not Reportable [facility] Serum or plasma calcium rolando urement (mass/volume)Ordered By: Kymberly Muhammad on 12-13-2023 Calcium [Mass/Vol] 9.0 mg/dL 8.5-10.1 [facility] Serum or plasma creatinine m easurement (mass/volume)Ordered By: Kymberly Muhammad on 12-13-2023 Creatinine [Mass/Vol] 0.74 mg/dL 0.55-1.02 [facility] Comment on above: The validity of the calculated GFR & GFRAA in patients over 70 years has not been determined. Clinical correlation is essential. Serum or plasma urea nitroge n measurement (mass/volume)Ordered By: Kymberly Muhammad on 12-13-2023 Urea nitrogen [Mass/Vol] 21 mg/dL 7-18 [facility] Thin prep Papanicolaou smear with manual screeningOrdered By: Kymberly Muhammad on 12-13-2023 Thin prep Papanicolaou smear with manual screening 3.6 g/dL 3.2-5.0 [facility] Thin prep Papanicolaou smear with manual screening 19 U/L 15-37 [facility] Thin prep Papanicolaou smear with manual screening 4 5-15 [facility] Absolute lymphocyte countOrd ered By: Kymberly Trliya on 06-09-2023 Lymphocytes Auto (Unsp spec) [#/Vol] 1.07 10*3/uL 0.83-4.51 [facility] Basophil percentageOrdered B y: Kymberly Armandoliya on 06-09-2023 Basophils/100 WBC (Bld) 0.4 % 0-1 [facility] Bilirubin [Mass/Vol] 0.30 mg/dL 0.20-1.00 [facility] Comment on above: For patients on eltr ombopag therapy, use of Dimension [place] TBIL is not recommended. Chloride [Moles/Vol] 104 mmol/L 98-107 [facility] Eosinophils/100 WBC (Bld) 0.2 % 0-5 [facility] Glucose [Mass/Vol] 90 mg/dL 74-106 [facility] Neutrophils (Bld) [#/Vol] 14.0 10*3/uL 2.0-7.7 [facility] Neutrophils/100 WBC (Bld) 85.8 % 47-70 [facility] Potassium [Moles/Vol] 4.6 mmol/L 3.5-5.1 [facility] Protein [Mass/Vol] 7.3 g/dL 6.4-8.2 [facility] Sodium [Moles/Vol] 139 mmol/L 136-145 [facility] WBC (Bld) [#/Vol] 16.3 10*3/uL 4.4-11.0 [facility] Blood erythrocytes count (nu mber/volume)Ordered By: Kymberly Muhammad on 06-09-2023 RBC (Bld) [#/Vol] 4.53 10*6/uL 4.2-5.4 [facility] Blood hemoglobin measurement (mass/volume)Ordered By: Kymberly Muhammad on 06-09-2023 Hemoglobin (Bld) [Mass/Vol] 13.8 g/dL 12.0-15.0 [facility] Blood lymphocytes/100 leukoc ytesOrdered By: Kymberly Muhammad on 06-09-2023 Lymphocytes/100 WBC (Bld) 6.6 % 19-41 [facility] Blood monocytes/100 leukocyt esOrdered By: Kymberly Muhammad on 06-09-2023 Monocytes/100 WBC (Bld) 6.4 % 0-10 [facility] Blood platelet mean volumeOr dered By: Kymberly Muhammad on 06-09-2023 Platelet mean volume (Bld) [Entitic vol] 11.9 fL 6.2-12.0 [facility] Determination of erythrocyte mean corpuscular volume (MCV)Ordered By: Kymberly Muhammad on 06-09-2023 MCV (RBC) [Entitic vol] 93.6 fL 81-99 [facility] Erythrocyte sedimentation ra teOrdered By: Kymberly Muhammad on 06-09-2023 ESR (Bld) [Velocity] 6 mm/h 0-30 [facility] Hematocrit Auto (Bld) [Volum e fraction]Ordered By: Kymberly Muhammad on 06-09-2023 Hematocrit (Bld) [Volume fraction] 42.4 % 37-47 [facility] - Chemistry and C hemistry - challengeOrdered By: Kymberly Muhammad on 06-09-2023 ALP [Catalytic activity/Vol] 87 U/L 45-117 [facility] ALT [Catalytic activity/Vol] 16 U/L 13-56 [facility] CO2 [Moles/Vol] 30.0 mmol/L 21.0-32.0 [facility] Globulin (S) [Mass/Vol] 3.5 g/dL 2.2-4.2 [facility] Urea nitrogen/Creatinine [Mass ratio] 29.2 mg/mg 10-20 [facility] - Hematology and Cell countsOrdered By: Kymberly Muhammad on 06-09-2023 Erythrocyte distribution width (RBC) [Entitic vol] 43.3 fL 35.1-43.9 [facility] Erythrocyte distribution width (RBC) [Ratio] 12.6 % 11.6-14.6 [facility] Immature granulocytes/100 WBC (Bld) 0.600 % 0.0-0.9 [facility] Comment on above: IG% - Immature Granu locytes (promyelocytes, myelocytes and metamyelocytes) > 1% indicates that a LEFT SHIFT is Present. MCH (RBC) [Entitic mass] 30.5 pg 27.0-32.0 [facility] Nucleated RBC/100 WBC (Bld) [Ratio] 0 % 0-5 [facility] MCHC Auto (RBC) [Mass/Vol]Or dered By: Kymberly Muhammad on 06-09-2023 MCHC (RBC) [Mass/Vol] 32.5 g/dL 32-36 [facility] No Panel InformationOrdered By: Kymberly Muhammad on 06-09-2023 Anti-Nuclear Antibody Screen Negative Negative [facility] Comment on above: Performed at: [employer] [facility] [address] [id number] Director: Renny Frankel PhD, Phone: [phone] Estimated GFR (MDRD) Amer 114 mL/min >60 [facility] Comment on above: GFR Calc Estimated GFR (MDRD) Non-Af Amer 94 mL/min >60 [facility] Comment on above: Non- GFR Calc Platelets bldOrdered By: Dorene Muhammad on 06-09-2023 Platelets (Bld) [#/Vol] 246 10*3/uL 150-450 [facility] Serum or plasma C reactive p rotein measurement (mass/volume)Ordered By: Kymberly Muhammad on 06-09-2023 CRP [Mass/Vol] 6.23 mg/L 0.0-3.0 [facility] Comment on above: C-Reactive Protein ( CRP) provides useful information for thediagnosis, therapy and monitoring of inflammatory processesand associated diseases. For the evaluation of Relative Riskfor Cardiovascular Disease, a High Sensitivity CRP (HSCRP)should be ordered. Serum or plasma albumin rolando urement (mass/volume)Ordered By: Kymberly Muhammad on 06-09-2023 Albumin [Mass/Vol] 3.8 g/dL 3.2-5.0 [facility] Serum or plasma albumin/glob ulin mass ratioOrdered By: Kymberly Muhammad on 06-09-2023 Albumin/Globulin [Mass ratio] 1.1 {ratio} 0.9-2.4 [facility] Serum or plasma calcium rolando urement (mass/volume)Ordered By: Kymberly Muhammad on 06-09-2023 Calcium [Mass/Vol] 9.0 mg/dL 8.5-10.1 [facility] Serum or plasma creatinine m easurement (mass/volume)Ordered By: Kymberly Muhammad on 06-09-2023 Creatinine [Mass/Vol] 0.65 mg/dL 0.55-1.02 [facility] Comment on above: The validity of the calculated GFR & GFRAA in patients over 70 years has not been determined. Clinical correlation is essential. Serum or plasma urea nitroge n measurement (mass/volume)Ordered By: Kymberly Muhammad on 06-09-2023 Urea nitrogen [Mass/Vol] 19 mg/dL 7-18 [facility] Thin prep Papanicolaou smear with manual screeningOrdered By: Kymberly Muhammad on 06-09-2023 Thin prep Papanicolaou smear with manual screening 14 U/L 15-37 [facility] Thin prep Papanicolaou smear with manual screening 5 5-15 [facility] Basophil percentageon 2021 Basophil percentage 0-5 SEEN /hpf 0-5 [facility] Work Phone: Laboratory - Chemistry and C hemistry - challengeon 09-09-2022 Glucose Ql (U) Negative [facility] Work Phone: pH (U) 5.0 [pH] [facility] Work Phone: Specific gravity (U) [Rel density] 1.010 [facility] Work Phone: Urobilinogen (U) [Mass/Vol] Negative [facility] Work Phone: Laboratory - Hematology and Cell countson 04-24-2022 Hemoglobin Ql (U) Negative [facility] Work Phone: Laboratory - Specimen inform ationon 04-24-2022 Clarity (U) Clear [facility] Work Phone: Mucus LM Ql (Urine sed)on Mucus Ql (Urine sed) 0 SEEN /hpf [facility] Work Phone: Nitrite ur dipstickon 2021 Nitrite Ql (U) Negative [facility] Work Phone: [phone] No Panel Informationon 04-24 Urine Leukocytes Positive [facility] Work Phone: Urine Non-Hemolyzed Blood Negative [facility] Work Phone: Squamous epithelial cells de tection in urine sediment by light microscopyon 04-24-2022 Epithelial cells.squamous LM Ql (Urine sed) 0-5 SEEN /hpf 5-10 [facility] Work Phone: Urine blood detectionon RBC Ql (U) Negative Negative [facility] Work Phone: RBC Ql (U) 0 SEEN /hpf 0-5 [facility] Work Phone: Urine clarityon 04-24-2022 Clarity (U) Sl. Cloudy Clear [facility] Work Phone: Urine color determinationon 04-24-2022 Color (U) Yellow [facility] Work Phone: Urine glucose detectionon Glucose Ql (U) Normal mg/dl Normal [facility] Work Phone: Urine ketones detection by t est stripon 04-24-2022 Ketones Ql (U) Negative [facility] Work Phone: [phone] Urine leukocyte esterase det ection by dipstickon 04-24-2022 Leukocyte esterase Test strip Ql (U) 25 /ul Negative [facility] Work Phone: [phone] Urine pHon 04-24-2022 pH (U) 6.5 [pH] 5.0 - 8.0 [facility] Work Phone: [phone] Urine protein assay by test strip, semi-quantitativeon 04-24-2022 Protein Ql (U) Negative [facility] Work Phone: [phone] Urine sediment bacteria coun t by microscopy (number/high power field)on 04-24-2022 Bacteria LM.HPF (Urine sed) [#/Area] 0 /[HPF] None Seen [facility] Work Phone: [phone] Urine specific gravity measu rementon 04-24-2022 Specific gravity (U) [Rel density] 1.005 1.002-1.030 [facility] Work Phone: [phone] Urine total bilirubin detect ion by test stripon 04-24-2022 Bilirubin Ql (U) Negative [facility] Work Phone: Urobilinogen Auto test strip Ql (U)on 04-24-2022 Urobilinogen Ql (U) Normal mg/dl Normal [facility] Work Phone: Culture, urine Bacteria identified Cx Nom (U) Mixed Gram Pos & Gram Neg Org [facility] Work Phone: Vital Signs Date Time Vital Sign Value Performing Clinician Faci lity 12-27-2024 01:05-0400 Body temperature 97.9 [degF] Dr. Kymberly Muhammad DO Work Phone: [facility] 12-27-2024 01:05-0400 Diastolic blood pressure 84 mm[Hg] Dr. Kymberly Muhammad DO Work Phone: [facility] 12-27-2024 01:05-0400 Heart rate 56 /min Dr. Kymberly Muhammad DO Work Phone: [facility] 12-27-2024 01:05-0400 Respiratory rate 18 /min Dr. Kymberly Muhammad DO Work Phone: [facility] 12-27-2024 01:05-0400 SaO2% (BldA) [Mass fraction] 97 % Dr. Kymberly Muhammad DO Work Phone: [facility] 12-27-2024 01:05-0400 Systolic blood pressure 131 mm[Hg] Dr. Kymberly Muhammad DO Work Phone: [facility] 12-26-2024 21:57-0400 Body height 162.[address] Kymberly Muhammad DO Work Phone: [facility] 12-26-2024 21:57-0400 Body mass index (BMI) [Ratio] 23 kg/m2 Dr. Kymberly Muhammad DO Work Phone: [facility] 12-26-2024 21:57-0400 Body weight 60.[address] Kymberly Muhammad DO Work Phone: [facility] 11-06-2024 09:45-0400 Body temperature 97.2 [degF] Dr. Kymberly Muhammad DO Work Phone: [facility] 11-06-2024 09:45-0400 Diastolic blood pressure 72 mm[Hg] Dr. Kymberly Muhammad DO Work Phone: [facility] 11-06-2024 09:45-0400 Heart rate 77 /min Dr. Kymberly Muhammad DO Work Phone: [facility] 11-06-2024 09:45-0400 Respiratory rate 16 /min Dr. Kymberly Muhammad DO Work Phone: [facility] 11-06-2024 09:45-0400 SaO2% (BldA) [Mass fraction] 96 % Dr. Kymberly Muhammad DO Work Phone: [facility] 11-06-2024 09:45-0400 Systolic blood pressure 133 mm[Hg] Dr. Kymberly Muhammad DO Work Phone: [facility] 11-06-2024 06:22-0400 Body height 162.[address] Kymberly Muhammad DO Work Phone: [facility] 11-06-2024 06:22-0400 Body mass index (BMI) [Ratio] 22.3 kg/m2 Dr. Kymberly Muhammad DO Work Phone: [facility] 11-06-2024 06:22-0400 Body weight [address] Kymberly Muhammad DO Work Phone: [facility] 11-03-2024 13:05-0400 Body temperature 96.8 [degF] Dr. Kymberly Muhammad DO Work Phone: [facility] 11-03-2024 13:05-0400 Diastolic blood pressure 64 mm[Hg] Dr. Kymberly Muhammad DO Work Phone: [facility] 11-03-2024 13:05-0400 Heart rate 55 /min Dr. Kymbelry Muhammad DO Work Phone: [facility] 11-03-2024 13:05-0400 Respiratory rate 16 /min Dr. Kymberly Muhammad DO Work Phone: [facility] 11-03-2024 13:05-0400 SaO2% (BldA) [Mass fraction] 98 % Dr. Kymberly Muhammad DO Work Phone: [facility] 11-03-2024 13:05-0400 Systolic blood pressure 122 mm[Hg] Dr. Kymberly Muhammad DO Work Phone: [facility] 11-03-2024 11:20-0400 Body height 162.[address] Kymberly Muhammad DO Work Phone: [facility] 11-02-2024 16:21-0400 Body temperature 97.5 [degF] Dr. Kymberly Muhammad DO Work Phone: [facility] 11-02-2024 16:21-0400 Diastolic blood pressure 62 mm[Hg] Dr. Kymberly Muhammad DO Work Phone: [facility] 11-02-2024 16:21-0400 Heart rate 63 /min Dr. Kymberly Muhammad DO Work Phone: [facility] 11-02-2024 16:21-0400 Respiratory rate 16 /min Dr. Kymberly Muhammad DO Work Phone: [facility] 11-02-2024 16:21-0400 SaO2% (BldA) [Mass fraction] 98 % Dr. Kymberly Muhammad DO Work Phone: [facility] 11-02-2024 16:21-0400 Systolic blood pressure 131 mm[Hg] Dr. Kymberly Muhammad DO Work Phone: [facility] 11-02-2024 14:26-0400 Body height 162.[address] Kymberly Muhammad DO Work Phone: [facility] 11-02-2024 09:00-0400 Body mass index (BMI) [Ratio] 21.6 kg/m2 Dr. Kymberly Muhammad DO Work Phone: [facility] 11-02-2024 09:00-0400 Body temperature 96 [degF] Dr. Kymberly Muhammad DO Work Phone: [facility] 11-02-2024 09:00-0400 Body weight 57.[address] Kymberly Muhammad DO Work Phone: [facility] 11-02-2024 09:00-0400 Diastolic blood pressure 70 mm[Hg] Dr. Kymberly Muhammad DO Work Phone: [facility] 11-02-2024 09:00-0400 Heart rate 70 /min Dr. Kymberly Muhammad DO Work Phone: [facility] 11-02-2024 09:00-0400 Respiratory rate 17 /min Dr. Kymberly Muhammad DO Work Phone: [facility] 11-02-2024 09:00-0400 SaO2% (BldA) [Mass fraction] 97 % Dr. Kymberly Muhammad DO Work Phone: [facility] 11-02-2024 09:00-0400 Systolic blood pressure 111 mm[Hg] Dr. Kymberly Muhammad DO Work Phone: [facility] 11-01-2024 19:13-0400 Body temperature 98.2 [degF] Dr. Kymberly Muhammad DO Work Phone: [facility] 11-01-2024 19:13-0400 Diastolic blood pressure 68 mm[Hg] Dr. Kymberly Muhammad DO Work Phone: [facility] 11-01-2024 19:13-0400 Heart rate 57 /min Dr. Kymberly Muhammad DO Work Phone: [facility] 11-01-2024 19:13-0400 Respiratory rate 16 /min Dr. Kymberly Muhammad DO Work Phone: [facility] 11-01-2024 19:13-0400 SaO2% (BldA) [Mass fraction] 99 % Dr. Kymberly Muhammad DO Work Phone: [facility] 11-01-2024 19:13-0400 Systolic blood pressure 165 mm[Hg] Dr. Kymberly Muhammad DO Work Phone: [facility] 11-01-2024 17:03-0400 Body height 162.[address] Kymberly Muhammad DO Work Phone: [facility] 11-01-2024 17:03-0400 Body mass index (BMI) [Ratio] 22.1 kg/m2 Dr. Kymberly Muhammad DO Work Phone: [facility] 11-01-2024 17:03-0400 Body weight 58.[address] Kymberly Muhammad DO Work Phone: [facility] 04-24-2022 08:58-0400 Body temperature 98 [degF] Dr. Kymberly Muhammad Work Phone: [facility] Work Phone: 04-24-2022 08:58-0400 Diastolic blood pressure 74 mm[Hg] Dr. Kymberly Muhammad Work Phone: [facility] Work Phone: 04-24-2022 08:58-0400 Heart rate 60 /min Dr. Kymberly Muhammad Work Phone: [facility] Work Phone: 04-24-2022 08:58-0400 Respiratory rate 16 /min Dr. Kymberly Muhammad Work Phone: [facility] Work Phone: 04-24-2022 08:58-0400 SaO2% (BldA) [Mass fraction] 97 % Dr. Kymberly Muhammad Work Phone: [facility] Work Phone: 04-24-2022 08:58-0400 Systolic blood pressure 132 mm[Hg] Dr. Kymberly Muhammad Work Phone: [facility] Work Phone: Encounters Encounter Date Encounter Type Care Provider Facility Start: 12-29-2024 End: 12-29-[address] Kymberly Muhammad DO Work Phone: [facility] Work Phone: Start: 12-29-2024 End: 12-29-[address] Allyson Soler MD -[facility] [place] Work Phone: Start: 12-29-2024 End: 12-29-2024 ambulatory Kymberly Muhammad Facility:[facility] Start: 12-26-2024 End: 12-27-2024 Emergency department patient visit Dr. Kymberly Muhammad DO Work Phone: -Emergency Department Work Phone: Start: 12-01-2024 End: 12-01-[address] Allyson Soler MD -Laboratory, [place] Work Phone: Start: 12-01-2024 End: 12-01-2024 ambulatory Kymberlyricco Muhammad Facility:[facility] Start: 11-29-2024 End: 11-29-[address] Kymberly Muhammad DO Work Phone: [facility] Work Phone: Start: 11-29-2024 End: 11-29-[address] Allyson Soler MD -Laboratory, [place] Work Phone: Start: 11-29-2024 End: 11-29-2024 ambulatory Kymberlyricco Muhammad Facility:[facility] Start: 11-23-2024 End: 11-23-[address] Brandon Doll MD -[facility] Work Phone: Start: 11-23-2024 End: 11-23-2024 ambulatory Kymberly Muhammad Facility:[facility] Start: 11-08-2024 End: 11-08-[address] Kymberly Muhammad DO Work Phone: [facility] Work Phone: Start: 11-08-2024 End: 11-08-[address] Kymberly Muhammad DO [facility] Start: 11-08-2024 End: 11-08-2024 ambulatory Kymberly Muhammad Facility:[facility] Start: 11-06-2024 ambulatory Brandon Malone lity:[facility] Start: 11-06-2024 Non-patient / Non-visit Dr. Heidi Doll MD -[facility] Start: 11-06-2024 End: 11-06-2024 Admission to same day surgery center Dr. Brandon Doll MD -[facility] Start: 11-06-2024 End: 11-06-[address] Kymberly Muhammad DO Work Phone: [facility] Work Phone: Start: 11-03-2024 End: 11-03-[address] [facility] Start: 11-03-2024 End: 11-03-[address] Kymberly Muhammad DO Work Phone: [facility] Work Phone: Start: 11-02-2024 End: 11-02-[address] Enoc Watkins -[facility] Work Phone: Start: 11-02-2024 End: 11-02-[address] Kymberly Muhammad DO Work Phone: [facility] Work Phone: Start: 11-02-2024 End: 11-02-[address] Brandon Doll MD -[facility] Work Phone: Start: 11-02-2024 End: 11-02-2024 ambulatory Kymberly Jb Facility:[facility] Start: 11-01-2024 End: 11-01-2024 Emergency department patient visit Dr. Kymberly Muhammad DO Work Phone: -Emergency Department Work Phone: Start: 05-24-2024 End: 05-24-2024 ambulatory Kymberly Malys Facility:[facility] Start: 05-24-2024 End: 05-24-2024 ambulatory Kymberly Malys Facility:[facility] Start: 04-25-2024 End: 04-25-2024 ambulatory Kymberly Malys Facility:[facility] Start: 12-13-2023 End: 12-13-2023 ambulatory [facility] Work Phone: Start: 12-13-2023 End: 12-13-2023 Patient encounter procedure [facility] Start: 06-09-2023 End: 06-09-2023 ambulatory [facility] Work Phone: Start: 06-09-2023 End: 06-09-2023 Patient encounter procedure [facility] Start: 05-30-2022 End: 05-30-[address] Kymberly Muhammad Work Phone: [facility] Work Phone: Start: 05-30-2022 End: 05-30-[address] Kymberly Muhammad Work Phone: [facility] Start: 05-07-2022 End: 05-07-[address] Kymberly Muhammad Work Phone: [facility] Work Phone: Start: 05-07-2022 End: 05-07-[address] Kymberly Muhammad Work Phone: [facility] Start: 04-24-2022 End: 04-24-[address] Kymberly Muhammad Work Phone: [facility] Work Phone: Start: 04-24-2022 End: 04-24-[address] [facility] Start: 04-24-2022 End: 04-24-[address] Kymberly Muhammad Work Phone: [facility] Start: 04-17-2022 End: 04-17-2022 ambulatory [facility] Work Phone: Start: 04-17-2022 End: 04-17-2022 [facility] Date Procedure Procedure Detail Performing Clinician Start: 12-26-2024 Plain chest X-ray Dr. Kymberly Muhammad DO Work Phone: Start: 12-26-[address] Kymberly Muhammad DO Work Phone: Start: 12-01-2024 In-vitro immunologic test Dr. Kymberly Muhammad DO Work Phone: Comment on above: QuantiFERON-TB Gold Plus is a qualitativ e indirect test forM tuberculosis infection (including disease) and isintended for use in conjunction with risk assessment,radiography, and other medical and diagnostic evaluations.The QuantiFERON-TB Gold Plus result is determined bysubtracting the Nil value from either TB antigen (Ag)value. The Mitogen tube serves as a control for the test. No response to M tub erculosis antigens detected.Infection with M tuberculosis is unlikely, but high riskindividuals should be considered for additional testing(ATS/IDSA/CDC Clinical Practice Guidelines, 2017). Thereference range is an Antigen minus Nil result of <0.35IU/mL.The specimen received for QuantiFERON testing was incubatedby the ordering institution. Specific procedures outlinedin our Directory of Services and in the package insert forthe QuantiFERON Gold (In Tube) test must be followed toenable for proper stimulation of cells for the productionof interferon gamma. Chemiluminescence immunoassaymethodologyPerformed at: [employer] [address] [id number] Director: Renny Frankel PhD, Phone: [phone] Start: 11-29-2024 Hepatitis C antibody measurement Dr. Dorene Muhammad DO Work Phone: Comment on above: Reactive: Presumptive evidence of antibo dies to HCV. Follow CDC recommendations for supplemental testing.Non-Reactive: Antibodies to HCV were not detected; does not exclude the possibility of exposure to HCVReactive Results are presumptive evidence of antibodies to HCV. Follow CDC recommendations for supplemental testing.Order confirmation testing: HCV Quant by PCR testing - HCVPCR #[id number] Non Reactive: < 0.8 Equivocal: >/= 0.8 to < 1.0 Reactive: >/= 1.0The CDC requires that a reactive/equivocal HCV antibody result be sent out for confirmation. HCV Quant by PCR testing. Start: 11-29-2024 Vitamin D, 25-hydroxy measurement Dr. Yadira Muhammad DO Work Phone: Comment on above: Vitamin D StatusDeficiency: <20 ng/mL (5 0nmol/L)Insufficiency: 20-30 ng/mL (50-75 nmol/L)Sufficiency: 30-100 ng/mL (75-250 nmol/L)Toxicity: >100 ng/mL (>250 nmol/L) Start: 11-29-2024 X-ray of chest, PA and lateral views Dr. Kymberly Muhammad DO Work Phone: Start: 11-06-2024 Biopsy of temporal artery Dr. Kymberly Muhammad DO Work Phone: Start: 11-01-[address] Kymberly Muhammad DO Work Phone: Start: 05-30-[address] Kymberly Muhammad Work Phone: Start: 05-07-[address] Kymberly Muhammad Work Phone: Start: 05-07-[address] Kymberly Muhammad Work Phone: Urine culture Plan of Treatment Date Care Activity Detail Author Start: 12-26-2024 End: 12-27-2024 [facility] Start: 11-06-2024 Anesthesia major ves sels neck simple ligation ANESTH NECK VESSEL SURGERY [facility] Start: 11-06-2024 Ligation/biopsy temp oral artery LIGATION/BX TEMPORAL ARTERY [facility] Start: 11-06-2024 Patient discharge [facility] Start: 11-03-2024 Iv infusion therapy/prophylaxis /dx 1st to 1 hr THER/PROPH/DIAG IV INF INIT [facility] Start: 11-01-2024 [facility] Start: 05-07-2022 US Kidney - bilatera l and Urinary bladder [facility] Work Phone: Start: 05-07-2022 US urinary tract Kidney and Bladder [facility] Work Phone: Antibody to lupus La protein measurement [facility] Antibody to SS-A measurement [facility] Centromere protein B Ab [Units/volume] in Serum [facility] Chromatin Ab [Units/volume] in Serum or Plasma [facility] DNA double strand Ab [Units/volume] in Serum [facility] Ladonna-1 extractable nuc lear Ab [Units/volume] in Serum [facility] Patient Education [facility] Work Phone: Patient referral [facility] Work Phone: SCL-70 extractable nuclear Ab [Units/volume] in Serum by Immunoassay [facility] Majano extractable nuclear Ab [Presence] in Serum [facility] Immunizations Immunization Date Immunization Notes Care Provider Scott sanchez 06-26-2017 tetanus toxoid, redu suzanne diphtheria toxoid, and acellular pertussis vaccine, adsorbed [facility] Payers Date Payer Category Payer Self-pay [id number] 2013 Medicare [id number] Unknown [id number] Unknown [id number] 2.16.8 [id number] Unknown [id number] 2.16.8 [id number] Unknown [id number] 2.16.8 [id number] Unknown [id number] 2.16.8 [id number] Unknown [id number] 2.16.8 [id number] Unknown [id number] 2.16.8 [id number] Unknown [id number] 2.16.8 [id number] Unknown [id number] 2.16.8 [id number] Unknown [id number] 2.16.8 40.1.605723.3.579.2.462 Unknown [id number] 2.16.8 [id number] Unknown [id number] 2.16.8 [id number] Unknown [id number] 2.16.8 [id number] Unknown [id number] 2.16.8 [id number] Unknown [id number] 2.16.8 [id number] Unknown [id number] 2.16.8 [id number] Unknown [id number] 2.16.8 [id number] Social History Date Type Detail Facility Start: 10-05-2019 End: 04-24-2022 Tobacco smoking status NHIS Unknown if ever smoked [facility] Start: 08-21-2019 None [facility] Start: 08-21-2019 Alone [facility] Start: 1945 Sex Assigned At Female [facility] Start: 11-01-2024 End: 12-26-2024 Tobacco smoking status NHIS Never smoked tobacco (finding) [facility] Start: 11-01-2024 End: 12-06-2024 Sex Female (finding) [facility] NEGATED: Highlighted row Not [facility] Medical Equipment Procedure Code Equipment Code Equipment Origin al Text Equipment Identifier Dates Biopsy, artery, temporal Ligation clip, metallic ()[id number] FDA Start: 11-06-2024 Biopsy, artery, temporal Ligation clip, metallic ()[id number] FDA Start: 11-06-2024 Goals Date Patient Goal Desired Activity /State Mental Status Date Assessment Result Facility 12-26-2024 Cognitive function Voice/Name [facility] Work Phone: 11-06-2024 Cognitive function Voice/Name [facility] Work Phone: 11-03-2024 Cognitive function Awake;Alert;A ppropriate;Fol lows Commands [facility] Work Phone: 11-02-2024 Cognitive function Awake;Appropr iate;Follows Commands [facility] Work Phone: Clinical Notes 11-01-2024 to 12-26-2024 Note Date & Type Note Facility 12-26-2024 Radiology Diagnostic study note [facility] Imaging Services [address] [place] [address] Chest 1 View (Portable) MR#: [id number] Acct: [id number] Name: BATOOL ESTRELLA Rep #: [id number] : 1945 F 79 From: Loretta Partida MD PCP: Dr. Kymberly Muhammad DO Status: REG ER Study:Chest 1 View (Portable) Date of Exam: 12/26/24 Exam# [id number] Ordering Dr: Rolando More DO PROCEDURE: CHEST 1 VIEW (PORTABLE) 12/26/2024 REASON FOR EXAM: CHEST PAIN TECHNIQUE: Frontal view of the chest. COMPARISON: 11/30/2019 FINDINGS: Hardware: None Heart: Cardiac and mediastinal contours are stable. Lungs: No focal consolidation. No pneumothorax. No pleural effusion. Bones: The bones are unremarkable. Other: RAD/Chest 1 View (Portable) IMPRESSION: No Acute Findings. Reading Location: [place] CC: Dr. Fernie More DO; Dr. Kymberly Muhammad DO ~ Career And Guidance Counselor: Signed [facility] 11-29-2024 Radiology Diagnostic study note [facility] Imaging Services [address] [place] [address] Chest PA and Lateral MR#: [id number] Acct: [id number] Name: BATOOL ESTRELLA Rep #: [id number] : 1945 F 79 From: Veena Motley MD PCP: Dr. Kymberly Muhammad DO Status: REG CLI Study:Chest PA and Lateral Date of Exam: 11/29/24 Exam# [id number] Ordering Dr: Allyson Soler MD PROCEDURE: CHEST PA AND LATERAL (RADCXR), 11/29/2024 REASON FOR EXAM: PAIN TECHNIQUE: PA and lateral views of the chest were obtained. COMPARISON: None FINDINGS: Heart: Unremarkable. Mediastinum: Atherosclerosis. Lungs/pleura: No focal consolidation. No pleural effusion or visible pneumothorax. Bones: Demineralization. Trace to mild scoliosis. Lines and support devices: None. Other: None. RAD/Chest PA and Lateral IMPRESSION: 1. No visible acute cardiopulmonary findings 2. Additional description as above. Reading Location: [id number] CC: Dr. Kymberly Muhammad DO; Dr. Allyson Soler MD ~ Career And Guidance Counselor: Signed [facility] 11-06-2024 Discharge summary Note Date/Time November 06, 2024 9:15am [facility] Medical Records Department [address] [place] [id number] Instructions for Home/Discharge Instructions 11/06/24 0914 MR#: [id number] Acct: [id number] Name: BATOOL ESTRELLA Rep #:[id number] : 1945 79 From: Brandon ayon MD PCP: Dr. Kymberly Muhammad DO [facility] Discharge Instructions Diet Discharge Diet: No restrictions Activity Discharge Activity: Return to Normal Activity and May Shower Dressing / Incision Call your doctor if your incision/area has: Continuous Slow Oozing, Sudden Increased Bleeding, Increased Pain/ Swelling, Increased Redness, Foul Smelling Discharge and Swelling at the incision site Call your doctor if you observe: Fever of 101 or Higher Cleanse incision/area with: Soap & Water Additional Dressing/Incision Instructions:: Ibuprofen and Tylenol for pain control. Follow Up Care Please Follow Up With: Brandon Doll MD When: Please call to schedule 2 week follow up appointment. [phone] Test Results: Test results from this visit will be discussed in further detail at your follow-up appointment, if applicable. Discharge Plan Admission Attending Provider: Brandon Doll Primary Care Provider: Kymberly Muhammad Instructions Print Language: Iraqi Discharge Orders/Prescriptions Prescriptions: No Action One Daily Multi-Vit w-Mineral 4.5 mg iron tablet 1 tab PO DAILY prednisone 20 mg tablet 80 mg PO DAILY Qty: 28 0RF Rx Instructions: Next dose 11/04/2024 Referrals / Follow Up: Kymberly Muhammad DO [Primary Care Provider] - Disposition Disposition (needs filled in before D/C Order can be placed): Home, Self Care 11/06/24 0915<Electronically signed by Brandon Doll MD>Brandon Doll MD CC: Dr. Kymberly Muhammad DO ~ Signed [facility] Work Phone: 1(119) 320-149703-24-2025 Consult note [facility] Medical Records Department [address] [place] [address] Anesthesia Postop Eval II 11/06/24 1015 MR#: [id number] Acct: [id number] Name: BATOOL ESTRELLA Rep #:[id number] : 1945 79 From: Carmen Wallis PCP: Dr. Kymberly Muhammad DO Status:REG SDC Y Race: C Location: [place] [address]- Anesthesia Postop Eval I Sum Postop Eval Completion status Anesthesia document: Postop Eval 1 completed: Yes Anesthesia Postop Eval I Summary Anesthesia Postop Eval I Summary: Anesthesia Postop Eval I: Assessment Summary Airway patent Yes 11/06/24 09:08 BAKER HEAD.LMIL Spontaneous unlabored Yes 11/06/24 09:08 BAKER HEAD.LMIL respirations Mental status Awake 11/06/24 09:08 BAKER HEAD.LMIL nausea No 11/06/24 09:08 BAKER HEAD.LMIL Vomiting No 11/06/24 09:08 BAKER HEAD.LMIL Anesthesia Postop Eval I: Fluid Summary Crystalloid volume administer 10 11/06/24 09:08 BAKER HEAD.LMIL (ml) Colloids volume administered ( ml) Blood Product volume administered (ml) Total IV fluid infused 10 11/06/24 09:08 BAKER HEAD.LMIL Anesthesia Postop Eval I: Summary Notes Anesthesia Complication No 11/06/24 09:08 BAKER HEAD.LMIL Anesthesia Complication Comment: Post-operative progress note Anesthesia: Postop Eval II Evaluation Mental status: Awake Pain Level: 1 nausea: No Vomiting: No 11/06/24 1015 a> Date _ Carmen Gregorio Signature: Date CC: ~ Signed [facility]03-24-2025 History and physical note [facility] Medical Records Department [address] [place] [address] History & Physical Exam 11/06/24 0659 MR#: [id number] Acct: [id number] Name: BATOOL ESTRELLA Rep #:[id number] : 1945 79 From: Brandon ayon MD PCP: Dr. Kymberly Muhammad, DO Status:[facility] Location: [place] [address] History and Physical Date of Admission: 11/06/24 Intake Vital Signs 11/01/2516:03 11/03/2507:04 11/02/2508:00 Height 5 ft 4 in 5 ft 4 in 5 ft 4 in Weight: 126 lb BMI 21.6 BP 111/70 Blood Pressure Location Rt brachial Position Sitting Respiration 17 Pulse 70 Pulse Source Monitor Temp 96 F L Temp Source Temporal Pulse Oximetry (%) 97 Oxygen Delivery Method room air Intake Visit Reasons: TEMPORAL ARTERY BIOPSY Chief Complaint: temporal artery biopsy Is patient in pain?: Yes Allergies Sulfa (Sulfonamide Antibiotics) Allergy (Verified 11/02/24 09:01) Rash Medications ?Medication ?Instructions ?Recorded ?Confirmed ?Type prednisone 20 mg tablet 80 mg (4 x 20 mg) PO DAILY #28 11/01/24 11/02/24 Rx TABLETS multivitamin with minerals-ferrous tab PO 11/02/24 11/02/24 History sulfate 4.5 mg iron tablet (One Daily Multivitamins with Minerals) Have you fallen in the past year?: No PFSH Social History Smoking Status: Never smoker alcohol intake: never HPI HPI HPI: Patient is a 79-year-old female is here with vision changes in the right as wellas headaches and facial pain. She says this started about a week ago. ROS General General: No weight change, appetite, fatigue, colon cancer, breast cancer or weakness HEENT HEENT: No difficulty swallowing, eye injury, eye surgery, swollen glands or hoarseness Endo Endocrine: No thyroid disease, diabetes mellitus, thyroid cancer, Hair loss, heat intolerance or cold intolerance Skin Skin: No rash or changing moles Musc Musculoskeletal: No back problems, arthritis, rheumatoid arthritis, gout or joint pain Cardio Cardiovascular: No murmur, pacemaker, heart disease, atrial fibrillation, high blood pressure, heart attack, heart stent, palpitations, shortness of breath with exertion or chest pain Psych Psychiatric: No depression, anxiety or hearing voices Resp Respiratory: No shortness of breath, No sleep apnea, No cough, No COPD, No asthma, No emphysema andNo wheezing Gastro Gastrointestinal: No abdominal pain, No nausea or vomiting, No diarrhea, No constipation, No blood in stool, No acid reflux, No hemorrhoids, No ulcers, No gallbladder problem and No black,tarry stools Jony Hematologic: No blood thinners, No blood disorders, No bleeding, No anemia and No blood clots Neuro Neurologic: No system reviewed and no additional complaints, except as documented, No as per HPI, No abnormal gait, No abnormal hearing, No abnormal movements, No abnormal speech, No behavioral changes, No burning sensations, No confusion, No convulsions, No disequilibrium, No dizziness, No localized weakness, No frequent falls, No headache(s), No lack of coordination, Yes loss of vision, No memory loss, No numbness, No other visual disturbances, No radicular pain, No restless legs, No sensory deficit, No syncope, No tingling, No tremor(s), No weakness and No other Exam Const General: cooperative Orientation: alert and oriented x3 HENMT Head: normal to inspection Neck Neck: normal visual inspection and full ROM Chest Chest palpation & inspection: normal inspection of the chest Resp Effort & Inspection: normal respiratory effort Auscultation: clear to auscultation bilaterally Cardio Rate: regular rate Rhythm: regular rhythm GI Inspection: non-distended Palpation: soft and nontender Skin General: no rashes or lesions noted Neuro General: patient alert and patient oriented x3 Extrem General: full ROM Psych Appearance: grossly normal Mental Status: mental status grossly normal Assessment and Plan Assessment and Plan (1) Blurred vision, right eye: Status: Acute Plan: Patient had vision changes on the right eye and she is having right headache andfacial pain. She was sent here for temporal artery biopsy. I discussed right temporal artery biopsy with her in detail.I discussed the risks including but not limited to bleeding, infection, nerve injury. Patient understands the risksand is willing to proceed. Brandon Doll MD Pager: [facility] [address] [place] [address], [address] [place] [address] Office: I have examined the patient and the H&P has been reviewed. There are no clinicalchanges since date of exam. 11/06/24 0659 Cosigner Signature (if applicable): CC: Dr. Brandon Doll MD; Dr. Kymberly Muhammad, DO~ Signed [facility]03-24-2025 Consult note Author Enriqueta Light [facility] Note Date/Time November 06, 2024 9:0 8am [facility] Medical Records Department [address] [place] [address] Anesthesia Postop Eval I 11/06/24906 MR#: [id number] Acct: [id number] Name: BATOOL ESTRELLA Rep #:[id number] : 1945 79 From: Enriqueta Light CRNA PCP: Dr. Kymberly Muhammad, Status:REG SDC Y Race: C Location: [place] [address] Anesthesia: Postop Eval I Current Vital Signs Temperature: 97.4 F Pulse Rate: 53 Blood Pressure: 147/76 Respiratory Rate: 16 Pulse Ox: 97 Oxygen Delivery Method: Room Air Assessment Airway patent: Yes Spontaneous unlabored respirations: Yes Mental status: Awake nausea: No Vomiting: No Anesthesia Complication: No Fluid Hydration Crystalloid volume administer (ml): 10 Total IV fluid infused: 10 Progress Note Anesthesia document: Postop Eval 1 completed: Yes 11/06/24 09 <Electronically signed by Enriqueta castaneda CRNA> Date _ Enriqueta Light CRNA Cosigner Signature: Date CC: ~ Signed [facility] Work Phone: 1(340) 905-369303-24-2025 Consult note Author Chris Jang [facility] Note Date/Time November 06, 2024 7:2 0am [facility] Medical Records Department [address] [place] [address] Pre-Anesthesia Evaluation 11/06/24713 MR#: [id number] Acct: [id number] Name: BATOOL ESTRELLA Rep #:[id number] : 1945 79 From: Chris Jang MD PCP: Dr. Kymberly Muhammad, DO Status:REG SDC Y Race: C Location: [place] [address] ASA Classification* ASA Classification ASA Classification: 2 Assessment & Plan Anesthesia* Anesthesia Assessment Anesthesia Assessment: Discussed sedation and/or anesthesia options, risks, benefits, and alternatives with patient/parents/legal guardian/POA. Questions invited. The patient/parents/legal guardian/POA seems to understand and agrees to proceedwith anesthesia plan. Reviewed the physical assessment, medical history, allergy history and patient home medications list prior to surgery/procedure/anesthetic and documented any changes. Performed airway and anesthesia risk assessments. Anesthesia Type Anesthesia Type: MAC History Source History Obtained from:: Patient and Chart Anesthesia Focused Assessment* Temperature: 97.8 F Pulse Rate: 52 Blood Pressure: 148/76 Respiratory Rate: 16 Pulse Ox: 97 Oxygen Delivery Method: Room Air Airway Assessment Mouth opens: >3 cm Mallampati Score: II Teeth Condition: Dentures (Patient has upper and lower full implants) Neck Range of motion (ROM): Limited ROM (Slight decrease in extension) Focused Labs Anesthesia Preop lab: CBC WBC 10.9 K/mm3 (4.4-11.0) 11/01/24 17:14 11/01/24 RBC 4.30 M/mm3 (4.2-5.4) 11/01/24 17:14 11/01/24 Hgb 13.0 g/dL (12.0-15.0) 11/01/24 17:14 11/01/24 Hct 39.9 % (37-47) 11/01/24 17:14 11/01/24 Plt Count 265 K/mm3 (150-450) 11/01/24 17:14 11/01/24 CHEMISTRY Potassium 4.2 mmol/L (3.3-5.1) 11/01/24 17:14 11/01/24 Sodium 140 mmol/L (133-145) 11/01/24 17:14 11/01/24 BUN 18 mg/dL (4-19) 11/01/24 17:14 11/01/24 Creatinine 0.63 mg/dL (0.70-1.20) L 11/01/24 17:14 Glucose 110 mg/dL (70-99) H 11/01/24 17:14 11/01/24 POC Glucose 172 mg/dL (70-110) H 08/21/19 12:47 08/21/19 TSH 2.120 uIU/mL (0.358-3.740) 04/25/24 13:43 09 COAG PT 14.1 SECONDS (11.7-14.9) 08/21/19 12:50 Pre-Assessment Diagnosis/Proposed Procedure Planned Operative Procedure(s): RIGHT TEMPORAL ARTERY BX Anesthesia History Anesthesia History - silk screen cutter: Anesthesia History - silk screen cutter Hx Hospitalization No 11/02/24 10:36 Any Problems With Anesthesia No 11/02/24 10:36 Cholinesterase deficiency No 11/02/24 10:36 You/Your Family Experience No 11/02/24 10:36 fever (hyperthermia) with Relationship Recent Exposure to Contagious No 11/06/24 06:22 Disease Does patient have nerve No 11/02/24 10:36 stimulator Patient instructed to have device shut off --Does patient have Pacemaker No 11/06/24 06:22 or ICD? When Was Last Pacemaker Check QUESTION #4 FULL TEXT: You/Your Family Experience fever (hyperthermia) with Anesthesia Last Oral Intake Last Oral intake: Last Oral Intake NPO since 22:00 11/06/24 06:22 Meds taken in AM with sips of No 11/06/24 06:22 water? Meds patient instructed to take am of surgery PONV PONV - silk screen cutter: PONV - silk screen cutter Female Yes 11/02/24 10:36 HX of Motion Sickness No 11/02/24 10:36 HX of N/V After Surgery No 11/02/24 10:36 Non-Smoker Yes 11/02/24 10:36 Duration of Surgery greater No 11/02/24 10:36 than 60 minutes Number of Risk Factors 2 11/02/24 10:36 PONV Score Moderate Risk 11/02/24 10:36 Height & Weight Height & Weight: Anesthesia: Height & Weight Height 5 ft 4 in 11/06/24 06:22 Weight: 59 kg 11/06/24 06:22 Body Mass Index (BMI) 22.3 11/06/24 06:22 Respiratory Assessment Respiratory Assessment - silk screen cutter: Respiratory Tract Infection Hx - silk screen cutter Hx Respiratory Tract Infection No 11/02/24 10:36 STOP Sleep Apnea STOP Sleep Apnea - silk screen cutter: STOP Sleep Apnea - silk screen cutter Hx Hypertension No 11/03/24 11:20 Hx Sleep Apnea No 11/02/24 10:36 CPAP No 11/02/24 10:36 BIPAP No 11/02/24 10:36 Do you snore loudly (louder No 11/02/24 10:36 than talking or can be heard Do you often feel tired/ No 11/02/24 10:36 fatigued/ sleepy during daytime? Has anyone observed you stop No 11/02/24 10:36 breathing during sleep? STOP Results Negative 11/02/24 10:36 QUESTION #5 FULL TEXT : Do you snore loudly (louder than talking or can be heard through closed doors)? Tobacco Use History Tobacco Use History - silk screen cutter: Tobacco Use History - silk screen cutter Tobacco Use Smoking Status Never smoker 11/02/24 10:36 Hx Tobacco Use No 11/02/24 10:36 Years Smoking Packs Smoked per Day Smoking Cessation Date was within the last 15 years Hx Smoking Cessation Date Hx Smoking Cessation Counseling Hematologic Medial History Hematologic Hx - silk screen cutter: Hematologic Medical Hx - documentation liaison Hx of Blood Transfusion No 11/02/24 10:36 Hx of Transfusion in last 3 No 11/02/24 10:36 Months Date of Last Transfusion (if within last 3 months) Ever experience any problems No 11/02/24 10:36 with transfusion(s)? Specify any problems Hx of Preganancy in last 3 No 11/02/24 10:36 Months Nurse Filling Out Transfusion VCHRISTIN 11/02/24 10:36 & Questions: Date: 11/02/24 11/02/24 10:36 Time: 10:37 11/02/24 10:36 Patient unable to answer at this time (ie. confused, unrespo /Reproduction History /Reproductive History - silk screen cutter: /Reproductive Hx- silk screen cutter Hx Now No 11/02/24 10:36 Gestational Age (in weeks): EDC: Hx Hx Para Hx Section SAB No 11/02/24 10:36 PFSH Medical History Wears dentures Wears glasses History of steroid therapy Easy bruising Excessive bleeding Non-smoker Home Medications ?Medication ?Instructions ?Recorded ?Last Taken ?Type prednisone 20 mg tablet 80 mg (4 x 20 mg) PO DAILY # 28 11/01/24 11/05/24 Rx TABLETS multivitamin with minerals-ferrous 1 tab PO DAILY 10/1511/05/24 History sulfate 4.5 mg iron tablet (One Daily Multivitamins with Minerals) Allergy/AdvReac Type Severity Reaction Status Date / Time Sulfa (Sulfonamide Allergy Rash Verified 11/06/24 06:21 Antibiotics) Surgical History Hx of tooth extraction Social History Smoking Status: Never smoker alcohol intake: never Review of Systems (Anesthesia) ROS Narrative System reviewed and no additional complaints, except as documented. 11/06/24 07 <Electronically signed by Chris jacobsen MD> Date _ Chris Jang MD Cosigner Signature: Date CC: ~ Signed [facility] Work Phone: 1(883) 225-600003-24-2025 Discharge summary [facility] Medical Records Department [address] [place] [address] Instructions for Home/Discharge Instructions 11/06/2414 MR#: [id number] Acct: [id number] Name: BATOOL ESTRELLA Rep #:[id number] : 1945 79 From: Brandon ayon MD PCP: Dr. Kymberly Muhammad DO Status:REG [facility] [place] Discharge Instructions Diet Discharge Diet: No restrictions Activity Discharge Activity: Return to Normal Activity and May Shower Dressing / Incision Call your doctor if your incision/area has: Continuous Slow Oozing, Sudden Increased Bleeding, Increased Pain/ Swelling, Increased Redness, Foul Smelling Discharge and Swelling at the incision site Call your doctor if you observe: Fever of 101 or Higher Cleanse incision/area with: Soap & Water Additional Dressing/Incision Instructions:: Ibuprofen and Tylenol for pain control. Follow Up Care Please Follow Up With: Brandon Doll MD When: Please call to schedule 2 week follow up appointment. [phone] Test Results: Test results from this visit will be discussed in further detail at your follow- up appointment, if applicable. Discharge Plan Admission Attending Provider: Brandon Doll Primary Care Provider: Kymberly Muhammad Instructions Print Language: Iraqi Discharge Orders/Prescriptions Prescriptions: No Action One Daily Multi-Vit w-Mineral 4.5 mg iron tablet 1 tab PO DAILY prednisone 20 mg tablet 80 mg PO DAILY Qty: 28 0RF Rx Instructions: Next dose 11/04/2024 Referrals / Follow Up: Kymberly Muhammad DO [Primary Care Provider] - Disposition Disposition (needs filled in before D/C Order can be placed): Home, Self Care 11/06/2415Brandon Doll MD CC: Dr. Kymberly Muhammad DO ~ Signed [facility]03-24-2025 Procedure note [facility] Medical Records Department [address] [place] [address] Operative Report 11/06/24910 MR#: [id number] Acct: [id number] Name: BATOOL ESTRELLA Rep #:[id number] : 1945 79 From: Brandon ayon MD PCP: Dr. Kymberly Muhammad, DO Status:REG [facility] [place] Location: [place] [address] Operative Report (Standard) Operative Information Date of Procedure: 11/06/24 Pre-Operative Diagnosis: Right vision loss Post-Operative Diagnosis: Same Surgery/Procedure Performed: Right temporal artery biopsy laundry helper: Yes Software Support Specialist: Jeremie Sebastian Tasks completed by contract administrative assistant: Retracting Type of Anesthesia: Local MAC RN Documented Start/Stop Times: Operation Date: 11/06/24 07:30 Case Time Into Pre-Op 11/06/24 06:09 Out of Pre-Op 11/06/24 07:27 Anesthesia Start 11/06/24 07:28 Into Room 11/06/24 07:28 Procedure Start 11/06/24 08:03 Procedure End 11/06/24 08:54 Anesthesia End 11/06/24 09:01 Out of Room 11/06/24 09:01 Into Recovery 11/06/24 09:02 Procedure Start Time: 08:03 Procedure Stop Time: 08:54 Select all DRAINS/GRAFTS/IMPLANTS that apply: None Estimated Blood Loss: 5 Specimen collected: Yes Description of specimen(s) removed: Temporal artery Description of surgery: Patient was taken back to the operating room and MAC anesthesia was induced. The right baptism was inspected and the route of the artery was marked. The baptism was prepped and draped in usual sterile fashion. The incision site was injected with local anesthetic. Incision was made with a scalpel and deepened to the subcutaneous tissue using electrocautery. The artery was very difficult to identify.It was very small and diminutive. I did find a segment that appeared to be artery and clipped the proximal and distal ends and ligated the segment and sent for pathology. Unfortunately we do not havefrozen pathology available at this time. It appears to be a temporal artery although is hard to distinguish between artery and vein. There were no other structures that appearto be artery into the right baptism. The area was irrigated and suctioned dry and it was continue to be explored but I did not find other tubular structures in the baptism. The incision was irrigated and suctioned dry once more and then closed with running 4-0 Monocryl suture. Dermabond was applied. Patient was taken to PACUin stable condition. Surgical Findings: Small temporal artery Complications Complications: No Admit VTE Documentation VTE Mechan Device Prophylaxis: SCD's 11/06/24913 Cosigner Signature (if applicable): CC: Dr. Brandon Doll MD; Dr. Kymberly Muhammad, DO~ Signed [facility]03-24-2025 Consult note [facility] Medical Records Department [address] [place] [address] Anesthesia Postop Eval I 11/06/24906 MR#: [id number] Acct: [id number] Name: BATOOL ESTRELLA Rep #:[id number] : 1945 79 From: Enriqueta Light CRNA PCP: Dr. Kymberly Muhammad, DO Status:REG SDC Y Race: C Location: [place] [address] Anesthesia: Postop Eval I Current Vital Signs Temperature: 97.4 F Pulse Rate: 53 Blood Pressure: 147/76 Respiratory Rate: 16 Pulse Ox: 97 Oxygen Delivery Method: Room Air Assessment Airway patent: Yes Spontaneous unlabored respirations: Yes Mental status: Awake nausea: No Vomiting: No Anesthesia Complication: No Fluid Hydration Crystalloid volume administer (ml): 10 Total IV fluid infused: 10 Progress Note Anesthesia document: Postop Eval 1 completed: Yes 11/06/24907 leonel BAKER HEAD> Date _ Enriqueta Light BAKER HEAD Cosigner Signature: Date CC: ~ Signed [facility]03-24-2025 History and physical note Author Brandon Doll [facility] Note Date/Time November 06, 2024 11: 14am [facility] Medical Records Department [address] [place] [address] History & Physical Exam 11/06/24 0659 MR#: [id number] Acct: [id number] Name: BATOOL ESTRELLA Rep #:[id number] : 1945 79 From: Brandon ayon MD PCP: Dr. Kymberly Muhammad, DO Status:REG [facility] [place] Location: [place] [address] History and Physical Date of Admission: 11/06/24 Intake Vital Signs 11/01/2516:03 11/03/2507:04 11/02/2508:00 Height 5 ft 4 in 5 ft 4 in 5 ft 4 in Weight: 126 lb BMI 21.6 BP 111/70 Blood Pressure Location Rt brachial Position Sitting Respiration 17 Pulse 70 Pulse Source Monitor Temp 96 F L Temp Source Temporal Pulse Oximetry (%) 97 Oxygen Delivery Method room air Intake Visit Reasons: TEMPORAL ARTERY BIOPSY Chief Complaint: temporal artery biopsy Is patient in pain?: Yes Allergies Sulfa (Sulfonamide Antibiotics) Allergy (Verified 11/02/24 09:01) Rash Medications ?Medication ?Instructions ?Recorded ?Confirmed ?Type prednisone 20 mg tablet 80 mg (4 x 20 mg) PO DAILY #28 11/01/24 11/02/24 Rx TABLETS multivitamin with minerals-ferrous tab PO 11/02/24 11/02/24 History sulfate 4.5 mg iron tablet (One Daily Multivitamins with Minerals) Have you fallen in the past year?: No PFSH Social History Smoking Status: Never smoker alcohol intake: never HPI HPI HPI: Patient is a 79-year-old female is here with vision changes in the right as wellas headaches and facial pain. She says this started about a week ago. ROS General General: No weight change, appetite, fatigue, colon cancer, breast cancer or weakness HEENT HEENT: No difficulty swallowing, eye injury, eye surgery, swollen glands or hoarseness Endo Endocrine: No thyroid disease, diabetes mellitus, thyroid cancer, Hair loss, heat intolerance or cold intolerance Skin Skin: No rash or changing moles Musc Musculoskeletal: No back problems, arthritis, rheumatoid arthritis, gout or joint pain Cardio Cardiovascular: No murmur, pacemaker, heart disease, atrial fibrillation, high blood pressure, heart attack, heart stent, palpitations, shortness of breath with exertion or chest pain Psych Psychiatric: No depression, anxiety or hearing voices Resp Respiratory: No shortness of breath, No sleep apnea, No cough, No COPD, No asthma, No emphysema and No wheezing Gastro Gastrointestinal: No abdominal pain, No nausea or vomiting, No diarrhea, No constipation, No blood in stool, No acid reflux, No hemorrhoids, No ulcers, No gallbladder problem and No black,tarry stools Jony Hematologic: No blood thinners, No blood disorders, No bleeding, No anemia and No blood clots Neuro Neurologic: No system reviewed and no additional complaints, except as documented, No as per HPI, No abnormal gait, No abnormal hearing, No abnormal movements, No abnormal speech, No behavioral changes, No burning sensations, No confusion, No convulsions, No disequilibrium, No dizziness, No localized weakness, No frequent falls, No headache(s), No lack of coordination, Yes loss of vision, No memory loss, No numbness, No other visual disturbances, No radicular pain, No restless legs, No sensory deficit, No syncope, No tingling, No tremor(s), No weakness and No other Exam Const General: cooperative Orientation: alert and oriented x3 HENMT Head: normal to inspection Neck Neck: normal visual inspection and full ROM Chest Chest palpation & inspection: normal inspection of the chest Resp Effort & Inspection: normal respiratory effort Auscultation: clear to auscultation bilaterally Cardio Rate: regular rate Rhythm: regular rhythm GI Inspection: non-distended Palpation: soft and nontender Skin General: no rashes or lesions noted Neuro General: patient alert and patient oriented x3 Extrem General: full ROM Psych Appearance: grossly normal Mental Status: mental status grossly normal Assessment and Plan Assessment and Plan (1) Blurred vision, right eye: Status: Acute Plan: Patient had vision changes on the right eye and she is having right headache andfacial pain. She was sent here for temporal artery biopsy. I discussed right temporal artery biopsy with her in detail. I discussed the risks including but not limited to bleeding, infection, nerve injury. Patient understands the risksand is willing to proceed. Brandon Doll MD Pager: [facility] [address] [place] [address], [address] [place] [address] Office: I have examined the patient and the H&P has been reviewed. There are no clinicalchanges since date of exam. 11/06/24 0659 <Electronically signed by Brandon Doll MD> Cosigner Signature (if applicable): CC: Dr. Brandon Doll MD; Dr. Kymberly Muhammad, DO~ Signed [facility] Work Phone: [phone]) 869-227903-24-2025 Consult note [facility] Medical Records Department [address] [place] [address] Pre-Anesthesia Evaluation 11/06/24 0714 MR#: [id number] Acct: [id number] Name: BATOOL ESTRELLA Rep #:[id number] : 1945 79 From: Chris Jang MD PCP: Dr. Kymberly Muhammad, Status:REG SDC Y Race: C Location: [place] [address] ASA Classification* ASA Classification ASA Classification: 2 Assessment & Plan Anesthesia* Anesthesia Assessment Anesthesia Assessment: Discussed sedation and/or anesthesia options, risks, benefits, and alternatives with patient/parents/legal guardian/POA. Questions invited. The patient/parents/legal guardian/POA seems to understand and agrees to proceedwith anesthesia plan. Reviewed the physical assessment, medical history, allergy history and patient home medications list prior to surgery/procedure/anesthetic and documented any changes. Performed airway and anesthesia risk assessments. Anesthesia Type Anesthesia Type: MAC History Source History Obtained from:: Patient and Chart Anesthesia Focused Assessment* Temperature: 97.8 F Pulse Rate: 52 Blood Pressure: 148/76 Respiratory Rate: 16 Pulse Ox: 97 Oxygen Delivery Method: Room Air Airway Assessment Mouth opens: >3 cm Mallampati Score: II Teeth Condition: Dentures (Patient has upper and lower full implants) Neck Range of motion (ROM): Limited ROM (Slight decrease in extension) Focused Labs Anesthesia Preop lab: CBC WBC 10.9 K/mm3 (4.4-11.0) 11/01/24 17:14 11/01/24 RBC 4.30 M/mm3 (4.2-5.4) 11/01/24 17:14 11/01/24 Hgb 13.0 g/dL (12.0-15.0) 11/01/24 17:14 11/01/24 Hct 39.9 % (37-47) 11/01/24 17:14 11/01/24 Plt Count 265 K/mm3 (150-450) 11/01/24 17:14 11/01/24 CHEMISTRY Potassium 4.2 mmol/L (3.3-5.1) 11/01/24 17:14 11/01/24 Sodium 140 mmol/L (133-145) 11/01/24 17:14 11/01/24 BUN 18 mg/dL (4-19) 11/01/24 17:14 11/01/24 Creatinine 0.63 mg/dL (0.70-1.20) L 11/01/24 17:14 Glucose 110 mg/dL (70-99) H 11/01/24 17:14 11/01/24 POC Glucose 172 mg/dL (70-110) H 08/21/19 12:47 08/21/19 TSH 2.120 uIU/mL (0.358-3.740) 04/25/24 13:43 04/16 COAG PT 14.1 SECONDS (11.7-14.9) 08/21/19 12:50 Pre-Assessment Diagnosis/Proposed Procedure Planned Operative Procedure(s): RIGHT TEMPORAL ARTERY BX Anesthesia History Anesthesia History - silk screen cutter: Anesthesia History - silk screen cutter Hx Hospitalization No 11/02/24 10:36 Any Problems With Anesthesia No 11/02/24 10:36 Cholinesterase deficiency No 11/02/24 10:36 You/Your Family Experience No 11/02/24 10:36 fever (hyperthermia) with Relationship Recent Exposure to Contagious No 11/06/24 06:22 Disease Does patient have nerve No 11/02/24 10:36 stimulator Patient instructed to have device shut off --Does patient have Pacemaker No 11/06/24 06:22 or ICD? When Was Last Pacemaker Check QUESTION #4 FULL TEXT: You/Your Family Experience fever (hyperthermia) with Anesthesia Last Oral Intake Last Oral intake: Last Oral Intake NPO since 22:00 11/06/24 06:22 Meds taken in AM with sips of No 11/06/24 06:22 water? Meds patient instructed to take am of surgery PONV PONV - silk screen cutter: PONV - silk screen cutter Female Yes 11/02/24 10:36 HX of Motion Sickness No 11/02/24 10:36 HX of N/V After Surgery No 11/02/24 10:36 Non-Smoker Yes 11/02/24 10:36 Duration of Surgery greater No 11/02/24 10:36 than 60 minutes Number of Risk Factors 2 11/02/24 10:36 PONV Score Moderate Risk 11/02/24 10:36 Height & Weight Height & Weight: Anesthesia: Height & Weight Height 5 ft 4 in 11/06/24 06:22 Weight: 59 kg 11/06/24 06:22 Body Mass Index (BMI) 22.3 11/06/24 06:22 Respiratory Assessment Respiratory Assessment - silk screen cutter: Respiratory Tract Infection Hx - silk screen cutter Hx Respiratory Tract Infection No 11/02/24 10:36 STOP Sleep Apnea STOP Sleep Apnea - silk screen cutter: STOP Sleep Apnea - silk screen cutter Hx Hypertension No 11/03/24 11:20 Hx Sleep Apnea No 11/02/24 10:36 CPAP No 11/02/24 10:36 BIPAP No 11/02/24 10:36 Do you snore loudly (louder No 11/02/24 10:36 than talking or can be heard Do you often feel tired/ No 11/02/24 10:36 fatigued/ sleepy during daytime? Has anyone observed you stop No 11/02/24 10:36 breathing during sleep? STOP Results Negative 11/02/24 10:36 QUESTION #5 FULL TEXT : Do you snore loudly (louder than talking or can be heard through closeddoors)? Tobacco Use History Tobacco Use History - silk screen cutter: Tobacco Use History - silk screen cutter Tobacco Use Smoking Status Never smoker 11/02/24 10:36 Hx Tobacco Use No 11/02/24 10:36 Years Smoking Packs Smoked per Day Smoking Cessation Date was within the last 15 years Hx Smoking Cessation Date Hx Smoking Cessation Counseling Hematologic Medial History Hematologic Hx - silk screen cutter: Hematologic Medical Hx - documentation liaison Hx of Blood Transfusion No 11/02/24 10:36 Hx of Transfusion in last 3 No 11/02/24 10:36 Months Date of Last Transfusion (if within last 3 months) Ever experience any problems No 11/02/24 10:36 with transfusion(s)? Specify any problems Hx of Preganancy in last 3 No 11/02/24 10:36 Months Nurse Filling Out Transfusion VCHRISTIN 11/02/24 10:36 & Questions: Date: 11/02/24 11/02/24 10:36 Time: 10:37 11/02/24 10:36 Patient unable to answer at this time (ie. confused, unrespo /Reproduction History /Reproductive History - silk screen cutter: /Reproductive Hx- silk screen cutter Hx Now No 11/02/24 10:36 Gestational Age (in weeks): EDC: Hx Hx Para Hx Section SAB No 11/02/24 10:36 PFSH Medical History Wears dentures Wears glasses History of steroid therapy Easy bruising Excessive bleeding Non-smoker Home Medications ?Medication ?Instructions ?Recorded ?Last Taken ?Type prednisone 20 mg tablet 80 mg (4 x 20 mg) PO DAILY # 28 11/01/24 11/05/24 Rx TABLETS multivitamin with minerals-ferrous 1 tab PO DAILY 10/1511/05/24 History sulfate 4.5 mg iron tablet (One Daily Multivitamins with Minerals) Allergy/AdvReac Type Severity Reaction Status Date / Time Sulfa (Sulfonamide Allergy Rash Verified 11/06/24 06:21 Antibiotics) Surgical History Hx of tooth extraction Social History Smoking Status: Never smoker alcohol intake: never Review of Systems (Anesthesia) ROS Narrative System reviewed and no additional complaints, except as documented. 11/06/24 07 ann-marie TINEO> Date _ Chris Coronaigntomasa Signature: Date CC: ~ Signed [facility]03-24-2025 [facility] Medical Records Department [address] [place] [address] History Physical Exam 11/06/24 0659 MR#: [id number] Acct: [id number] Name: BATOOL ESTRELLA Rep #: [id number] : 1945 79 From: Brandon Doll MD PCP: Dr. Kymberly Muhammad, DO Status:[facility] Location: [place] [address] History and Physical Date of Admission: 11/06/24 Intake Vital Signs 11/01/2516:03 11/03/2507:04 11/02/2508:00 Height 5 ft 4 in 5 ft 4 in 5 ft 4 in Weight: 126 lb BMI 21.6 BP 111/70 Blood Pressure Location Rt brachial Position Sitting Respiration 17 Pulse 70 Pulse Source Monitor Temp 96 F L Temp Source Temporal Pulse Oximetry (%) 97 Oxygen Delivery Method room air Intake Visit Reasons: TEMPORAL ARTERY BIOPSY Chief Complaint: temporal artery biopsy Is patient in pain?: Yes Allergies Sulfa (Sulfonamide Antibiotics) Allergy (Verified 11/02/24 09:01) Rash Medications ???Medication ???Instructions ???Recorded ???Confirmed ???Type prednisone 20 mg tablet 80 mg (4 x 20 mg) PO DAILY #28 11/01/24 11/02/24 R x TABLETS multivitamin with minerals-ferrous tab PO 11/02/24 11/02/24 History sulfate 4.5 mg iron tablet (One Daily Multivitamins with Minerals) Have you fallen in the past year?: No PFSH Social History Smoking Status: Never smoker alcohol intake: never HPI HPI HPI: Patient is a 79-year-old female is here with vision changes in the right as well as headaches and facial pain. She says this started about a week ago. ROS General General: No weight change, appetite, fatigue, colon cancer, breast cancer or weakness HEENT HEENT: No difficulty swallowing, eye injury, eye surgery, swollen glands or hoarseness Endo Endocrine: No thyroid disease, diabetes mellitus, thyroid cancer, Hair loss, heat intolerance or cold intolerance Skin Skin: No rash or changing moles Musc Musculoskeletal: No back problems, arthritis, rheumatoid arthritis, gout or joint pain Cardio Cardiovascular: No murmur, pacemaker, heart disease, atrial fibrillation, high blood pressure, heart attack, heart stent, palpitations, shortness of breath with exertion or chest pain Psych Psychiatric: No depression, anxiety or hearing voices Resp Respiratory: No shortness of breath, No sleep apnea, No cough, No COPD, No asthma, No emphysema and No wheezing Gastro Gastrointestinal: No abdominal pain, No nausea or vomiting, No diarrhea, No constipation, No blood in stool, No acid reflux, No hemorrhoids, No ulcers, No gallbladder problem and No black,tarry stools Jony Hematologic: No blood thinners, No blood disorders, No bleeding, No anemia and No blood clots Neuro Neurologic: No system reviewed and no additional complaints, except as documented, No as per HPI, No abnormal gait, No abnormal hearing, No abnormal movements, No abnormal speech, No behavioral changes, No burning sensations, No confusion, No convulsions, No disequilibrium, No dizziness, No localized weakness, No frequent falls, No headache(s), No lack of coordination, Yes loss of vision, No memory loss, No numbness, No other visual disturbances, No radicular pain, No restless legs, No sensory deficit, No syncope, No tingling, No tremor(s), No weakness and No other Exam Const General: cooperative Orientation: alert and oriented x3 HENPA Head: normal to inspection Neck Neck: normal visual inspection and full ROM Chest Chest palpation inspection: normal inspection of the chest Resp Effort Inspection: normal respiratory effort Auscultation: clear to auscultation bilaterally Cardio Rate: regular rate Rhythm: regular rhythm GI Inspection: non-distended Palpation: soft and nontender Skin General: no rashes or lesions noted Neuro General: patient alert and patient oriented x3 Extrem General: full ROM Psych Appearance: grossly normal Mental Status: mental status grossly normal Assessment and Plan Assessment and Plan (1) Blurred vision, right eye: Status: Acute Plan: Patient had vision changes on the right eye and she is having right headache and facial pain. She was sent here for temporal artery biopsy. I discussed right temporal artery biopsy with her in detail. I discussed the risks including but not limited to bleeding, infection, nerve injury. Patient understands the risks and is willing to proceed. Brandon Doll MD Pager: [facility] [address] [place] [address], [address] [place] [address] Office: I have examined the patient and the H P has been reviewed. There are no clinical changes since date of exam. 11/06/24 0659 Cosigner Signature (if applicable): CC: Dr. Brandon Doll MD; Dr. Kymberly Weir (more content not included)... [facility]03-20-2025 Evaluation note* Diagnosis Onset Date Resolution Status Admit Date Blurred vision, right eye acute November 02, 2024 8:48am [facility] Work Phone: 1([phone]) 402-669903-20-2025 Evaluation note* Diagnosis Onset Date Resolution Status Admit Date Blurred vision, right eye inactive November 02, 2024 8:48am [facility] Work Phone: [phone]) 916-789803-20-2025 Evaluation note* Diagnosis Onset Date Resolution Status Admit Date Blurred vision, right eye inactive November 02, 2024 8:48am Blurred vision, right eye inactive November 23, 2024 8:38am [facility] Work Phone: 1(442) 364-203803-19-2025 Discharge summary [facility] Medical Records Department [address] [place] [address] Emergency Department Summary 11/01/24 MR#: [id number] Acct: [id number] Name: BATOOL ESTRELLA Rep #:[id number] : 1945 79 From: Enoc Watkins PCP: Dr. Kymberly Muhammad DO Status:[facility] ER Location: ED HPI History of Present Illness Chief Complaint: Eye Problem Informant: patient Narrative Narrative: Patient sent in from ophthalmology for treatment for concerns for temporal arteritis. I spoke with Dr. Murphy prior to her arrival. Patient states she woke up briseno vision lower part of her eye mild headache on the right side. No head trauma. She went to her normal eye doctor referred over to ophthalmology. She states she was evaluated for these concerns and sent here for treatment. She is not diabetic no chronic past medical history. No history of similar. She does wear bifocal glasses. Per Dr. Murphy, requesting labs with inflammatory markers starting Solu-Medrol 1 g daily for 3 days. He states MRI was not necessary in the emergency room. He coordinates temporal artery biopsies with surgeon Dr. Doll. he states this should be done within a week. Reports with his exam, there was swelling superior aspect of the optic nerve. PFSH PFSH Home Medications ?Medication ?Instructions ?Recorded ?Last Taken ?Type prednisone 20 mg tablet 80 mg (4 x 20 mg) PO DAILY # 28 11/01/24 Unknown Rx TABLETS Allergy/AdvReac Type Severity Reaction Status Date / Time Sulfa (Sulfonamide Allergy Rash Verified 11/01/24 17:03 Antibiotics) Social History Smoking Status: Never smoker alcohol intake: never ROS ROS ED Constitutional Constitutional ED: Denies chills, fever(s) or sweats Eyes Eyes: Reports blurry vision and change in vision ENT ENT ED: Denies sore throat Cardiovascular Cardiovascular: Denies chest pain, leg edema, palpitations or racing heartbeat Respiratory/Chest Respiratory/Chest: Denies cough, dyspnea or dyspnea on exertion Gastrointestinal Gastrointestinal: Denies abdominal pain, diarrhea, nausea or vomiting Genitourinary Genitourinary ED: Denies dysuria, hematuria or urinary frequency Musculoskeletal Musculoskeletal: Denies back pain, extremity pain or neck pain Integumentary Denies rash or wounds Neurologic Neurologic: Reports headache(s); Denies paresthesias or weakness EXAM Physical Exam Const Vital Signs: 11/01/24 17:03 Temperature 97.2 F L Temperature Source Temporal Pulse Rate 66 Respiratory Rate 15 Blood Pressure 154/108 H Blood Pressure Mean 123 Pulse Ox 99 Oxygen Delivery Method Room Air Positive well nourished and well developed General Appearance ED: well developed and NAD HEENT Reports moist mucous membranes HEENT Narrative: Tenderness palpation right temporal artery region. normocephalic and atraumatic Eyes Eyes Narrative: Right eye dilated from ophthalmology office. Ophthalmic evaluation noted some swelling optic nerve,finger counting patient did not see in the inferior quadrants right eye both lower quadrants. Able to finger count in the upper quadrants. Neck full ROM Chest Wall Chest: Negative for tenderness Resp normal respiratory effort and normal air movement Effort and Inspection: symmetric chest movement; Negative for respiratory distress Cardio regular rate, regular rhythm and no murmurs Peripheral Pulses: pulses 2+ throughout GI normal to inspection, nondistended, normoactive bowel sounds and non-tender Palpation: Negative for guarding or rebound tenderness present Extremity normal to inspection General Extremety ED: Negative for edema or tenderness General Extremity: Negative for edema Neuro oriented x3 and no sensory deficits noted Neuro Narrative: No focal deficit on exam. Sensorium / Orientation: awake and alert Skin no rashes or lesions noted and no wounds MDM MDM MDM Narrative Medical decision making narrative: Interventions / MDM: Differential diagnosis: Temporal arteritis, optic nerve swelling Diagnosis considered but do not suspect: My EKG interpretation: N/A Imaging independently reviewed and interpreted by myself: N/A External documents reviewed: N/A Test considered but not ordered:N/A ED course: Vital stable nontoxic. Coordinating care with ophthalmology, labs are drawn with ESR andCRP. Ordered for 1 g of IV Solu-Medrol. 175: Labs CRP 15.9 normal ESR 17 white count normal. High clinical suspicion for temporal arteritis. She was given her Solu-Medrol. I did speak with on-call surgeon Dr. Ramirez both him and his partner does perform the biopsies. He states this can be performed within the week's timeframe. Information to his office for patient to call tomorrow. Currently coordinating IV steroids for additional 2 more days with social work. Prescription of 80 mg prednisone will be sent to her pharmacy to start after IV steroids. She will follow-up with ophthalmology as planned on Wednesday. 1924: Final plan will be charge nurses will hand the prescription to the infusion center in the morning. Patient given phone number to call the infusioncenter. She has been approved by her insurance company to receive outpatient steroids through social work assistance. Prescription sent to her pharmacy. She will call surgery tomorrow for outpatient definitive diagnoses. All questions were answered. 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 It may contain incorrectwords, spelling, and punctuation that were not noted in checking the note beforesigning. Discharge Plan Triage Chief Complaint: Eye Problem ED Provider: Enoc Armijo Dx/Rx/DC Orders Clinical Impression: Temporal arteritis syndrome, Blurred vision, right eye, Optic nerve swelling Instructions: ED Temporal Arteritis Prescriptions: New prednisone 20 mg tablet 80 mg PO DAILY Qty: 28 0RF Rx Instructions: Next dose 11/04/2024 Primary Care Provider: Kymberly Muhammad Referrals: Carlos Murphy MD [Med Staff - Active Staff] - Keep Nano appointment Kymberly Muhammad DO [Primary Care Provider] - Kashmir Ramirez MD [Med Staff - Active Staff] - 1 Day Activity Restrictions/Additional Instructions: Your ESR 17, your CRP 15.9. You are given 1 g IV steroids in the emergency department. Discussed with Dr. Ramirez, call the office so they can set up and perform your biopsy within a week. Return to infusion center the next 2 days for additional IV steroids. Call infusion center tomorrow morning discussed time to come. Start your prednisone at 80 mg on Monday November 04, 2024 for thenext week. Keepyour follow-up with ophthalmology Dr. Murphy next week. Print Language: Iraqi Disposition Disposition: Home, Self Care What to do if you have Problems For any increased pain, shortness of breath, bleeding, nausea or vomiting, chestpain, or any unexpected problems, contact your Primary Care Provider. Call [facility] ([phone]) or report tothe closest Emergency Room. Call 911 if necessary. 11/01/241925 Cosigner Signature (if applicable): CC: Dr. Carlos Murphy MD; Dr. Kymberly Muhammad DO; Dr. Kashmir Ramirez MD ~ Signed [facility]03-19-2025 Discharge summary Author Enoc Zofia [facility] Note Date/Time November 01, 2024 7:2 6pm [facility] Medical Records Department [address] [place] [address] Emergency Department Summary 11/01/24 MR#: [id number] Acct: [id number] Name: BATOOL ESTRELLA Rep #:[id number] : 1945 79 From: Enoc Watkins PCP: Dr. Kymberly Muhammad DO Status:REG ER Location: ED HPI History of Present Illness Chief Complaint: Eye Problem Informant: patient Narrative Narrative: Patient sent in from ophthalmology for treatment for concerns for temporal arteritis. I spoke with Dr. Murphy prior to her arrival. Patient states she woke up briseno vision lower part of her eye mild headache on the right side. No head trauma. She went to her normal eye doctor referred over to ophthalmology. She states she was evaluated for these concerns and sent here for treatment. She is not diabetic no chronic past medical history. No history of similar. She does wear bifocal glasses. Per Dr. Murphy, requesting labs with inflammatory markers starting Solu-Medrol 1 g daily for 3 days. He states MRI was not necessary in the emergency room. He coordinates temporal artery biopsies with surgeon Dr. Doll. he states this should be done within a week. Reports with his exam, there was swelling superior aspect of the optic nerve. PFSH PFSH Home Medications ?Medication ?Instructions ?Recorded ?Last Taken ?Type prednisone 20 mg tablet 80 mg (4 x 20 mg) PO DAILY # 28 11/01/24 Unknown Rx TABLETS Allergy/AdvReac Type Severity Reaction Status Date / Time Sulfa (Sulfonamide Allergy Rash Verified 11/01/24 17:03 Antibiotics) Social History Smoking Status: Never smoker alcohol intake: never ROS ROS ED Constitutional Constitutional ED: Denies chills, fever(s) or sweats Eyes Eyes: Reports blurry vision and change in vision ENT ENT ED: Denies sore throat Cardiovascular Cardiovascular: Denies chest pain, leg edema, palpitations or racing heartbeat Respiratory/Chest Respiratory/Chest: Denies cough, dyspnea or dyspnea on exertion Gastrointestinal Gastrointestinal: Denies abdominal pain, diarrhea, nausea or vomiting Genitourinary Genitourinary ED: Denies dysuria, hematuria or urinary frequency Musculoskeletal Musculoskeletal: Denies back pain, extremity pain or neck pain Integumentary Denies rash or wounds Neurologic Neurologic: Reports headache(s); Denies paresthesias or weakness EXAM Physical Exam Const Vital Signs: 11/01/24 17:03 Temperature 97.2 F L Temperature Source Temporal Pulse Rate 66 Respiratory Rate 15 Blood Pressure 154/108 H Blood Pressure Mean 123 Pulse Ox 99 Oxygen Delivery Method Room Air Positive well nourished and well developed General Appearance ED: well developed and NAD HEENT Reports moist mucous membranes HEENT Narrative: Tenderness palpation right temporal artery region. normocephalic and atraumatic Eyes Eyes Narrative: Right eye dilated from ophthalmology office. Ophthalmic evaluation noted some swelling optic nerve, finger counting patient did not see in the inferior quadrants right eye both lower quadrants. Able to finger count in the upper quadrants. Neck full ROM Chest Wall Chest: Negative for tenderness Resp normal respiratory effort and normal air movement Effort and Inspection: symmetric chest movement; Negative for respiratory distress Cardio regular rate, regular rhythm and no murmurs Peripheral Pulses: pulses 2+ throughout GI normal to inspection, nondistended, normoactive bowel sounds and non-tender Palpation: Negative for guarding or rebound tenderness present Extremity normal to inspection General Extremety ED: Negative for edema or tenderness General Extremity: Negative for edema Neuro oriented x3 and no sensory deficits noted Neuro Narrative: No focal deficit on exam. Sensorium / Orientation: awake and alert Skin no rashes or lesions noted and no wounds MDM MDM MDM Narrative Medical decision making narrative: Interventions / MDM: Differential diagnosis: Temporal arteritis, optic nerve swelling Diagnosis considered but do not suspect: My EKG interpretation: N/A Imaging independently reviewed and interpreted by myself: N/A External documents reviewed: N/A Test considered but not ordered:N/A ED course: Vital stable nontoxic. Coordinating care with ophthalmology, labs are drawn with ESR and CRP. Ordered for 1 g of IV Solu-Medrol. 1755: Labs CRP 15.9 normal ESR 17 white count normal. High clinical suspicion for temporal arteritis. She was given her Solu-Medrol. I did speak with on-call surgeon Dr. Ramirez both him and his partner does perform the biopsies. He states this can be performed within the week's timeframe. Information to his office for patient to call tomorrow. Currently coordinating IV steroids for additional 2 more days with social work. Prescription of 80 mg prednisone will be sent to her pharmacy to start after IV steroids. She will follow-up with ophthalmology as planned on 1924: Final plan will be charge nurses will hand the prescription to the infusion center in the morning. Patient given phone number to call the infusioncenter. She has been approved by her insurance company to receive outpatient steroids through social work assistance. Prescription sent to her pharmacy. She will call surgery tomorrow for outpatient definitive diagnoses. All questions were answered. 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 It may contain incorrectwords, spelling, and punctuation that were not noted in checking the note beforesigning. Discharge Plan Triage Chief Complaint: Eye Problem ED Provider: Enoc Armijo Dx/Rx/DC Orders Clinical Impression: Temporal arteritis syndrome, Blurred vision, right eye, Optic nerve swelling Instructions: ED Temporal Arteritis Prescriptions: New prednisone 20 mg tablet 80 mg PO DAILY Qty: 28 0RF Rx Instructions: Next dose 11/04/2024 Primary Care Provider: Kymberly Muhammad Referrals: Carlos Murphy MD [Med Staff - Active Staff] - Keep Nano appointment Kymberly Muhammad DO [Primary Care Provider] - Kashmir Ramirez MD [Med Staff - Active Staff] - 1 Day Activity Restrictions/Additional Instructions: Your ESR 17, your CRP 15.9. You are given 1 g IV steroids in the emergency department. Discussed with Dr. Ramirez, call the office so they can set up and perform your biopsy within a week. Return to infusion center the next 2 days for additional IV steroids. Call infusion center tomorrow morning discussed time to come. Start your prednisone at 80 mg on Monday November 04, 2024 for thenext week. Keep your follow-up with ophthalmology Dr. Murphy next week. Print Language: Iraqi Disposition Disposition: Home, Self Care What to do if you have Problems For any increased pain, shortness of breath, bleeding, nausea or vomiting, chestpain, or any unexpected problems, contact your Primary Care Provider. Call [facility] ([phone]) or report to the closest Emergency Room. Call 911 if necessary. 11/01/241925 <Electronically signed by Enoc Watkins> Cosigner Signature (if applicable): CC: Dr. Carlos Murphy MD; Dr. Kymberly Muhammad DO; Dr. Kashmir Ramirez MD ~ Signed [facility] Work Phone: Consult note Author Carmen Wallis [facility] Note Date/Time November 06, 2024 11: 14am [facility] Medical Records Department [address] [place] [address] Anesthesia Postop Eval II 11/06/24 1015 MR#: [id number] Acct: [id number] Name: BATOOL ESTRELLA Rep #:[id number] : 1945 79 From: Carmen Wallis PCP: Dr. Kymberly Malys, DO Status:REG SDC Y Race: C Location: [facility] Anesthesia Postop Eval I Sum Postop Eval Completion status Anesthesia document: Postop Eval 1 completed: Yes Anesthesia Postop Eval I Summary Anesthesia Postop Eval I Summary: Anesthesia Postop Eval I: Assessment Summary Airway patent Yes 11/06/24 09:08 [email or web address] Spontaneous unlabored Yes 11/06/24 09:08 [place] [email or web address] respirations Mental status Awake 11/06/24 09:08 [place] [email or web address] nausea No 11/06/24 09:08 B[facility] [email or web address] Vomiting No 11/06/24 09:08 [email or web address] Anesthesia Postop Eval I: Fluid Summary Crystalloid volume administer 10 11/06/24 09:08 [email or web address] (ml) Colloids volume administered ( ml) Blood Product volume administered (ml) Total IV fluid infused 10 11/06/24 09:08 [email or web address] Anesthesia Postop Eval I: Summary Notes Anesthesia Complication No 11/06/24 09:08 [email or web address] Anesthesia Complication Comment: Post-operative progress note Anesthesia: Postop Eval II Evaluation Mental status: Awake Pain Level: 1 nausea: No Vomiting: No 11/06/24 1015 <Electronically signed by Carmen chacko> Date _ Carmen Gregorio Signature: Date CC: ~ Signed [facility] Work Phone: Evaluation noteNo assessment information available [facility] Work Phone: Evaluation note* Diagnosis Onset Date Resolution Status Urinary tract infection acut e [facility] Work Phone: Hospital Discharge instructions Additional Instructions Your ESR 17, your CRP 15.9. You are given 1 g IV steroids in the emergency department. Discussed with Dr. Ramirez, call the office so they can set up and perform your biopsy within a week. Return to infusion center the next 2 days for additional IV steroids. Call infusion center tomorrow morning discussed time to come. Start your prednisone at 80 mg on Monday November 04, 2024 for the next week. Keep your follow-up with ophthalmology Dr. Murphy next week.[facility] Work Phone: Hospital Discharge instructions Additional Instructions If symptoms return or have you any concerns please return to the emergency. Please discuss your ED visit with your doctor and the possibility of going on for cardiac stress testing. As we discussed both sets of cardiac enzymes were negative and your EKG did not show an obvious heart attack.[facility] Work Phone: Reason for referral (narrative)No reason for referral information availableWooSelect [facility] Work Phone: Chief Complaint and Reason for Visit Chief Complaint Right lower quadrant pain Chief Complaint Right lower quadrant pain PAIN IN BACK/RT SIDE/NAUSEOUS Reason for Visit Urinary tract infect ion Chief Complaint Right lower quadrant pain PAIN IN BACK/RT SIDE/NAUSEOUS KIDNEY STONES OVARIAN CYST Reason for Visit Urinary tract infect ion Chief Complaint Right lower quadrant pain PAIN IN BACK/RT SIDE/NAUSEOUS KIDNEY STONES OVARIAN CYST HX KIDNEY STONE, HX OVARIAN CYST Reason for Visit Urinary tract infect ion Chief Complaint Admit Date R EYE November 01, 2024 5:0 2pm Chief Complaint Admit Date R EYE November 01, 2024 5:0 2pm TEMPORAL ARTERY BIOPSY November 02, 2024 8:48am SOLU-MEDROL November 02, 2024 2:1 8pm Reason for Visit Admit Date Blurred vision, right eye November 02 8:48am Chief Complaint Admit Date R EYE November 01, 2024 5:0 2pm TEMPORAL ARTERY BIOPSY November 02, 2024 8:48am SOLU-MEDROL November 02, 2024 2:1 8pm SOLU-MEDROL November 03, 2024 10: 53am Chief Complaint Admit Date R EYE November 01, 2024 5:0 2pm TEMPORAL ARTERY BIOPSY November 02, 2024 8:48am SOLU-MEDROL November 02, 2024 2:1 8pm SOLU-MEDROL November 03, 2024 10: 53am Biopsy, Temporal Artery November 06, 2024 5:57am Biopsy, Temporal Artery November 06, 2024 6:59am Chief Complaint Admit Date R EYE November 01, 2024 5:0 2pm TEMPORAL ARTERY BIOPSY November 02, 2024 8:48am SOLU-MEDROL November 02, 2024 2:1 8pm SOLU-MEDROL November 03, 2024 10: 53am Biopsy, Temporal Artery November 06, 2024 5:57am Biopsy, Temporal Artery November 06, 2024 6:59am BLUURED VISION IN RT EYE November 06 7:00am TEMPORAL ARTERY BIOPSY DOS 11/06November 232024 8:38am PAIN- COPY PCP/ LABS AND XRAY November 8:21am REDRAW/ NOT ENOUGH BLOOD December 01 8:51am Reason for Visit Admit Date Blurred vision, right eye November 02 8:48am Blurred vision, right eye November 23 8:38am Chief Complaint Admit Date R EYE November 01, 2024 5:0 2pm TEMPORAL ARTERY BIOPSY November 02, 2024 8:48am SOLU-MEDROL November 02, 2024 2:1 8pm SOLU-MEDROL November 03, 2024 10: 53am Biopsy, Temporal Artery November 06, 2024 5:57am Biopsy, Temporal Artery November 06, 2024 6:59am BLUURED VISION IN RT EYE November 06 7:00am TEMPORAL ARTERY BIOPSY DOS 11/06November 232024 8:38am PAIN- COPY PCP/ LABS AND XRAY November 8:21am REDRAW/ NOT ENOUGH BLOOD December 01 8:51am chest pain December 26, 2024 9:57p m Chief Complaint Admit Date R EYE November 01, 2024 5:0 2pm TEMPORAL ARTERY BIOPSY November 02, 2024 8:48am SOLU-MEDROL November 02, 2024 2:1 8pm SOLU-MEDROL November 03, 2024 10: 53am Biopsy, Temporal Artery November 06, 2024 5:57am Biopsy, Temporal Artery November 06, 2024 6:59am BLUURED VISION IN RT EYE November 06 7:00am TEMPORAL ARTERY BIOPSY DOS 11/06November 232024 8:38am PAIN- COPY PCP/ LABS AND XRAY November 8:21am REDRAW/ NOT ENOUGH BLOOD December 01 8:51am chest pain December 26, 2024 9:57p m PAIN- COPY PCP December 29, 2024 3:59p m Advance Directives No Advanced Directives Records Found Advance Directive Response Recorded Date/ Time Advance Directives Yes December 06, 014 10:04am Living Will Yes October 05, 9:13am Power of Personal Injury Specialist Yes October 05, 2019 9:13am Advance Directive Response Recorded Date/ Time Living Will Yes November 01, 2024 5:17pm Do you have a Healthcare Power of Personal Injury Specialist? Yes November 01, 2024 5:17pm Name of Medical Power of Personal Injury Specialist child November 01, 2024 5:17pm Advance Directives Yes December 06 10:04am Advance Directive Response Recorded Date/ Time Advance Directives Yes November 02 025 8:04am Living Will Yes November 01, 2024 5:17pm Do you have a Healthcare Power of Personal Injury Specialist? Yes November 01, 2024 5:17pm Name of Medical Power of Personal Injury Specialist child November 01, 2024 5:17pm Advance Directive Response Recorded Date/ Time Advance Directives Yes November 02 025 8:04am Living Will Yes November 01, 2024 5:17pm Do you have a Healthcare Power of Personal Injury Specialist? Yes November 01, 2024 5:17pm Name of Medical Power of Personal Injury Specialist child November 01, 2024 5:17pm Living Will Yes November 02, 2024 10:36am Do you have a Healthcare Power of Personal Injury Specialist? Yes November 02, 2024 10:36am Name of Medical Power of Personal Injury Specialist CARLOS ESTRELLA November 02, 2024 10:36am Advance Directive Response Recorded Date/ Time Advance Directives Yes November 02 025 8:04am Living Will Yes November 01, 2024 5:17pm Do you have a Healthcare Power of Personal Injury Specialist? Yes November 01, 2024 5:17pm Name of Medical Power of Personal Injury Specialist child November 01, 2024 5:17pm Living Will Yes November 02, 2024 10:36am Do you have a Healthcare Power of Personal Injury Specialist? Yes November 02, 2024 10:36am Name of Medical Power of Personal Injury Specialist CARLOS ESTRELLA November 02, 2024 10:36am Do you have a Healthcare Power of Personal Injury Specialist? Yes December 26, 2024 9:57pm Summary Purpose Family History No Family History Records Found Additional Source Comments Goals (unrecognized section and content) Goals may be documented in a n alternate sectionGoals may be documented in an alternate sectionGoals may be documented in an alternate sectionGoals may be documented in an alternate sectionGoals may be documented in an alternate sectionGoals may be documented in an alternate sectionGoals may be documented in an alternate sectionGoals may be documented in an alternate sectionGoals may be documented in an alternate section Care Teams (unrecognized sec tion and content) Team Status: Active Member Role Status Dates Dr. Kymberly Muhammad DO Family Provider Active Dr. Kymberly Muhammad DO Primary Care Provider Active Team Status: Inactive Member Role Status Dates Dr. Kymberly Muhammad DO Primary Care Provider, Attending Yun mills Active Team Status: Active Member Role Status Dates Dr. Kymberly Muhammad DO Primary Care Provider Active Team Status: Inactive Member Role Status Dates Dr. Kymberly Muhammad DO Primary Care Provider Active Start: November 01, 2024 End: November 01, 2024 Dr. Enoc Armijo DO Emergency Provider Active Start : November 01, 2024 End: November 01, 2024 Team Status: Inactive Member Role Status Dates Dr. Kymberly Muhammad DO Primary Care Provider Active Start: November 02, 2024 End: November 02, 2024 Dr. Kymberly Muhammad DO Referring Provider Active St art: November 02, 2024 End: November 02, 2024 Dr. Brandon Doll MD Attending Provider Active Start: November 02, 2024 End: November 02, 2024 Team Status: Inactive Member Role Status Dates Dr. Kymberly Muhammad DO Primary Care Provider Active Start: November 02, 2024 End: November 02, 2024 Dr. Enoc Armijo DO Attending Provider Active Start : November 02, 2024 End: November 02, 2024 Dr. Enoc Armijo DO Referring Provider Active Start : November 02, 2024 End: November 02, 2024 Team Status: Inactive Member Role Status Dates Dr. Kymberly Muhammad DO Primary Care Provider Active Start: November 03, 2024 End: November 03, 2024 Dr. Enoc Armijo DO Attending Provider Active Start : November 03, 2024 End: November 03, 2024 Dr. Enoc Armijo DO Referring Provider Active Start : November 03, 2024 End: November 03, 2024 Team Status: Inactive Member Role Status Dates Dr. Kymberly Muhammad DO Primary Care Provider Active Start: November 06, 2024 End: November 06, 2024 Dr. Brandon Doll MD Attending Provider Active Start: November 06, 2024 End: November 06, 2024 Dr. Brandon Doll MD Referring Provider Active Start: November 06, 2024 End: November 06, 2024 Team Status: Active Member Role Status Dates Dr. Kymberly Muhammad DO Primary Care Provider Active Start: November 06, 2024 Dr. Brandon Doll MD Attending Provider Active Start: November 06, 2024 Dr. Brandon Doll MD Referring Provider Active Start: November 06, 2024 Dr. Brandon Doll MD Other Provider Active Start: November 06, 2024 Team Status: Inactive Member Role Status Dates Dr. Kymberly Muhammad DO Primary Care Provider Active Start: November 01, 2024 End: November 01, 2024 Dr. Eonc Armijo DO Attending Provider Active Start : November 01, 2024 End: November 01, 2024 Dr. Enoc Armijo DO Emergency Provider Active Start : November 01, 2024 End: November 01, 2024 Team Status: Inactive Member Role Status Dates Dr. Kymberly Muhammad DO Primary Care Provider Active Start: November 08, 2024 End: November 08, 2024 Dr. Kymberly Muhammad DO Attending Provider Active St art: November 08, 2024 End: November 08, 2024 Team Status: Active Member Role Status Dates Dr. Kymberly Muhammad DO Primary Care Provider Active Start: November 06, 2024 Dr. Lefty Valdez MD Attending Provider Active Start: November 06, 2024 Dr. Lefty Vadlez MD Referring Provider Active Start: November 06, 2024 Team Status: Inactive Member Role Status Dates Dr. Kymberly Muhammad DO Primary Care Provider Active Start: November 23, 2024 End: November 23, 2024 Dr. Kymberly Muhammad DO Referring Provider Active St art: November 23, 2024 End: November 23, 2024 Dr. Brandon Doll MD Attending Provider Active Start: November 23, 2024 End: November 23, 2024 Team Status: Inactive Member Role Status Dates Dr. Kymberly Muhammad DO Primary Care Provider Active Start: November 29, 2024 End: November 29, 2024 Dr. Allyson Soler MD Attending Provider Active Start: November 29, 2024 End: November 29, 2024 Dr. Allyson Soler MD Referring Provider Active Start: November 29, 2024 End: November 29, 2024 Team Status: Active Member Role Status Dates Dr. Kymberly Muhammad DO Primary Care Provider Active Start: December 01, 2024 Dr. Allyson Soler MD Attending Provider Active Start: December 01, 2024 Dr. Allyson Soler MD Referring Provider Active Start: December 01, 2024 Team Status: Inactive Member Role Status Dates Dr. Kymberly Muhammad DO Primary Care Provider Active Start: December 01, 2024 End: December 01, 2024 Dr. Allyson Soler MD Attending Provider Active Start: December 01, 2024 End: December 01, 2024 Dr. Allyson Soler MD Referring Provider Active Start: December 01, 2024 End: December 01, 2024 Team Status: Inactive Member Role Status Dates Dr. Kymberly Muhammad DO Primary Care Provider Active Start: December 26, 2024 End: December 27, 2024 Dr. Fernie More DO Emergency Provider Active Start: December 26, 2024 End: December 27, 2024 Team Status: Inactive Member Role Status Dates Dr. Kymberly Muhammad DO Primary Care Provider Active Start: December 26, 2024 End: December 27, 2024 Dr. Fernie More DO Attending Provider Active Start: December 26, 2024 End: December 27, 2024 Dr. Fernie More DO Emergency Provider Active Start: December 26, 2024 End: December 27, 2024 Team Status: Inactive Member Role Status Dates Dr. Kymberly Muhammad DO Primary Care Provider Active Start: December 29, 2024 End: December 29, 2024 Dr. Allyson Soler MD Attending Provider Active Start: December 29, 2024 End: December 29, 2024 Dr. Allyson Soler MD Referring Provider Active Start: December 29, 2024 End: December 29, 2024 INFORMATION SOURCE (unrecogn ized section and content) DATE CREATED AUTHOR 01/10/2025 [facility] FOR RECORDS PERTAINING TO PATIENTS WHO ARE OR HAVE BEEN ENROLLED IN A CHEMICAL DEPENDENCY/SUBSTANCEABUSE PROGRAM, SOME INFORMATION MAY BE OMITTED. This clinical summary was aggregated from multiple sources. Caution should be exercised in using it in the provision of clinical care. This summary normalizes information from multiple sources, and as a consequence, information in this document may materially change the coding, format and clinical context of patient data. In addition, data may be omitted in some cases. CLINICAL DECISIONS SHOULD BE BASED ON THE PRIMARY CLINICAL RECORDS. [employer] provides no warranty or guarantee of the accuracy or completeness of information in this document.
[2025-01-27 08:19] LABS: Erythrocyte Sedimentation Rate < 1 mm/hr (0-30)
[2025-01-27 09:22] LABS: CRP < 3.00 mg/L (0.0-3.0)
== END | disposition home or self-care (01) ==
LOC: LAB 07:52
PROVIDERS: PCP Family Medicine; Referring Provider Internal Medicine Rheumatology; Visit Provider Internal Medicine Rheumatology
DX: M31.6 Other giant cell arteritis (principal); H47.011 Ischemic optic neuropathy, right eye; M18.0 Bilateral primary osteoarthritis of first carpometacarpal joints; Z79.899 Other long term (current) drug therapy
CPT/HCPCS: 36415; 85652; 86140

== ENCOUNTER → 2025-01-30 | Outpatient (CLI) | payer MEDICARE, SELFPAY ==
--- NOTE | 2025-01-30 08:05 | MRI_ITS ---
PROCEDURE: BRAIN W/WO CONTRAST 01/30/2025 REASON FOR EXAM: VISION LOSS, CONFUSION TECHNIQUE: BRAIN W/WO CONTRAST Multiplanar and multisequence images were obtained. CONTRAST: Clariscan VOLUME: 10 mL COMPARISON: 10/05/2019 FINDINGS: The ventricles are normal in size and midline in position. Periventricular white matter T2/FLAIR hyperintense foci which are nonspecific but most compatible with chronic microvascular ischemia. No evidence of acute hemorrhage or infarction. No extra-axial blood or fluid collections. No abnormal intracranial enhancement. The paranasal sinuses and mastoid air cells are clear. The globes are intact. MRI/Brain W/WO Contrast IMPRESSION: No acute intracranial abnormalities. Reading Location: [id number]
== END | disposition home or self-care (01) ==
PROVIDERS: PCP Family Medicine; Referring Provider Family Medicine; Visit Provider Family Medicine
DX: R41.0 Disorientation, unspecified (principal); H54.61 Unqualified visual loss, right eye, normal vision left eye
CPT/HCPCS: 70553; A9575

== ENCOUNTER → 2025-03-05 | Outpatient (CLI) | payer MEDICARE, SELFPAY ==
--- OUTSIDE RECORDS SUMMARY | 2025-03-05 09:40 | XMS RPT_ITS | CCD ---
Author Organization [facility] Care Team Providers Care Tattoo Artist Name Role Phone Dr. Kymberly Muhammad Primary Care Provider Dr. Kymberly Muhammad Referring Provider TERESE Vyas Attending Provider [phone] Dr. Kymberly Muhammad DO Primary Care Provider Dr. Enoc Armijo DO Emergency Provider [phone] Kymberly Muhammad DO Referring Provider Dr. Brandon Doll MD Attending Provider Dr. Enoc Armijo DO Attending Provider [phone] Enoc Armijo DO Referring Provider [phone] Brandon Doll MD Referring Provider Dr. Brandon Doll MD Other Provider [phone] Dr. Enoc Armijo DO Attending Provider Dr. Kymberly Muhammad DO Attending Provider Dr. Lefty Valdez MD Attending Provider Dr. Lefty Valdez MD Referring Provider Dr. Allyson Soler MD Attending Provider Dr. Allyson Soler MD Referring Provider Dr. Fernie More DO Emergency Provider [phone] Dr. Fernie More DO Attending Provider Brandon Doll Attending Unavailable Kymberly Muhammad Referring Unavailable Malys, Kymberly Primary Care Unavailable Malys, Kymberly Attending Unavailable Malys, Ykmberly Primary Care Unavailable Vellanki, Allyson Attending Unavailable Vellanki, Allyson Referring Unavailable Malys, Kymberly Primary Care Unavailable Malys, Kymberly Primary Care Unavailable Uche Vyas Attending Unavailable Malys, Kymberly Referring Unavailable Fernie More Attending Unavailable Malys, Kymberly Primary Care Unavailable Le, Enoc Attending Unavailable Malys, Kymberly Primary Care Unavailable Le, Enoc Attending Unavailable Le, Enoc Referring Unavailable Malys, Kymberly Primary Care Unavailable Malys, Kymberly Primary Care Unavailable Calabretta, Brandon Attending Unavailable Malys, Kymberly Referring Unavailable Calabretta, Brandon Attending Unavailable Calabretta, Brandon Referring Unavailable Malys, Kymberly Primary Care Unavailable Vellanki, Allyson Attending Unavailable Vellanki, Allyson Referring Unavailable Malys, Kymberly Primary Care Unavailable Vellanki, Allyson Referring Unavailable Vellanki, Allyson Attending Unavailable Malys, Kymberly Primary Care Unavailable Malys, Kymberly Primary Care Unavailable Anand, Daniella Attending Unavailable Anand, Daniella Referring Unavailable Malys, Kymberly Primary Care Unavailable Malys, Kymberly Attending Unavailable Malys, Kymberly Referring Unavailable Malys, Kymberly Primary Care Unavailable Vellanki, Allyson Attending Unavailable Vellanki, Allyson Referring Unavailable Le, Enoc Attending Unavailable Le, Enoc Referring Unavailable Malys, Kymberly Primary Care Unavailable Malys, Kymberly Primary Care Unavailable Uche Vyas Referring Unavailable Uche Vyas Attending Unavailable Sailors, Lefty Attending Unavailable Sailors, Lefty Referring Unavailable Malys, Kymberly Primary Care Unavailable Brandon Doll Consulting Unavailable SlavaabrBrandon gray Attending Unavailable Calabrisaac Brandon Referring Unavailable Malys, Kymberly Primary Care Unavailable Allergies Allergy Classification Reported Allergen(s) Allergy Type Date of Onset Reaction(s) Facility (16 sources) Sulfonamides (Antibiotic) Allergy to substance 0 Rash [facility] (1 source) Sulfonamides (Antibiotic) Drug allergy (disorder) 5 [facility] Repository Medications Current Medications Medication Drug Class(es) Dates Sig (Normalized) Sig (Original) Jjwsutbu-Xdk-Pkorcg s Sulfate (One Daily Multi-Vit W-Mineral) 4.5 mg iron tablet (9 sources) Start: 11-02-2024 take 1 tablet by mouth once daily Gengnsju-Snh-Boric us Sulfate (One Daily Multi-Vit W-Mineral) 4.5 mg iron tablet Active 1 {tbl} PO DAILY November 02, 2024 12:00am [place] (Nk) (1 source) Start: 08-21-2019 [place] (Nk) Active August 21, 2019 1:00am predniSONE 20 mg oral tablet (20 sources) Start: 11-01-2024 take 4 tablets by mouth once daily Prednisone 20 mg tablet Active 80 mg PO DAILY November 01, 2024 12:00am Next dose 11/04/2024 Start: 09-12-2017 End: 12-05-2017 take 1 tablet by mouth once daily at mealtime Prednisone 20 mg tablet Discontinued 20 mg PO .COMPLEX September 12, 2017 1:00am December 05, 2017 8:28am 20 mg PO 2 pills daily x 3 days, then 1 pill daily x 4 days; administer with food or milk Completed/Discontinued Medications Medication Drug Class(es) Dates Sig (Normalized) Sig (Original) [id number] 200 actuat albuterol 0.09 mg/actuat metered dose inhaler (16 sources) beta2-Adrenergic Agonist Start: 09-12-2017 End: 12-05-2017 [...] chew traMADol hydrochloride 50 mg oral tablet (16 sources) Opioid Agonist Start: 06-28-2017 End: 09-12-2017 take 1 tablet by mouth every six hours as needed for pain Tramadol 50 MG tablet Discontinued 50 mg PO EVERY 6 HOURS NEEDED as needed for Pain June 28, 2017 1:00am September 12, 2017 10:35am Problems Active Problems Problem Classification Problem Date Documented Da te Episodic/Chronic Blindness and vision defects (20 sources) Blurring of visual image; Translations: [Other visual disturbances] Onset: 11-22-2024 11-01-2024 Episodic E Codes: Natural/environment (16 sources) Cat scratch - wound; Translations: [Scratched by cat, initial encounter] 07-26-2018 Episodic Essential hypertension (1 source) Essential (primary) hypertension; Translations: [Essential (primary) hypertension] Onset: 05-15-2024 Chronic Nonspecific chest pain (5 sources) Chest pain; Translations: [Chest pain, unspecified] Onset: 01-01-2025 12-27-2024 Episodic Open wounds of extremities (16 sources) Cat bite - wound; Translations: [Open bite of unspecified hand, initial encounter] 08-21-2019 Episodic Other eye disorders (10 sources) Swelling of structure of eye; Translations: [Unspecified papilledema] 11-01-2024 Chronic Residual codes; unclassified (1 source) Disorientation, unspecified; Translations: [Disorientation, unspecified] Onset: 02-05-2025 Episodic Skin and subcutaneous tissue infections (16 sources) Cellulitis; Translations: [Cellulitis, unspecified] 08-21-2019 Episodic Systemic lupus erythematosus and connective tissue disorders (11 sources) Temporal arteritis; Translations: [Other giant cell arteritis] Onset: 02-01-2025 11-01-2024 Chronic Unclassified (16 sources) No history of clinical finding in subject; Translations: [No significant past medical history] 10-05-2019 Unclassified (4 sources) discuss cardiac testing with your doctor Urinary tract infections (19 sources) Urinary tract infectious disease; Translations: [Urinary tract infection, site not specified] Episodic Past or Other Problems Problem Classification Problem Date Documented Da te Episodic/Chronic Genitourinary symptoms and ill-defined conditions (1 source) Dysuria; Translations: [Dysuria] Onset: 06-19-2024 Episodic Other ear and sense organ disorders (1 source) Unspecified disorder of ear, unspecified ear; Translations: [Unspecified disorder of ear, unspecified ear] Onset: 11-07-2024 Episodic Results Test Name Value Interpretation Reference Range Facility Brain W/WO Contraston 2024 Brain W/WO Contrast [facility] Imaging Services [address] [place], [place] [id number] Brain W/WO Contrast MR#: [id number] Acct: [id number] Name: BATOOL ESTRELLA Rep #: [id number] : 1945 F 79 From: Pipo Daily MD PCP: Dr. Kymberly Muhammad, Status: REG CLI Study: Brain W/WO Contrast Date of Exam: 01/30/25 Exam# [id number] Ordering Dr: Kymberly Muhammad DO PROCEDURE: BRAIN W/WO CONTRAST 01/30/2025 REASON FOR EXAM: VISION LOSS, CONFUSION TECHNIQUE: BRAIN W/WO CONTRAST Multiplanar and multisequence images were obtained. CONTRAST: Clariscan VOLUME: 10 mL COMPARISON: 10/05/2019 FINDINGS: The ventricles are normal in size and midline in position. Periventricular white matter T2/FLAIR hyperintense foci which are nonspecific but most compatible with chronic microvascular ischemia. No evidence of acute hemorrhage or infarction. No extra-axial blood or fluid collections. No abnormal intracranial enhancement. The paranasal sinuses and mastoid air cells are clear. The globes are intact. MRI/Brain W/WO Contrast IMPRESSION: No acute intracranial abnormalities. Reading Location: [place] [address] CC: Dr. Kymberly Muhammad DO Equipment Cleaner: Signed Normal [facility] Magnetic resonance imaging r eportOrdered By: Pipo Daily on 01-30-2025 Study report [facility] Imaging Services [address] [place] [address] Brain W/WO Contrast MR#: [id number] Acct: [id number] Name: BATOOL ESTRELLA Rep #: [id number] : 1945 F 79 From: Zelalem Daily MD PCP: Dr. Kymberly Muhammad DO Status: REG CLI Study:Brain W/WO Contrast Date of Exam: 01/30/25 Exam# [id number] Ordering Dr: Yadira Muhammad sa, DO PROCEDURE: BRAIN W/WO CONTRAST 01/30/2025 REASON FOR EXAM: VISION LOSS, CONFUSION TECHNIQUE: BRAIN W/WO CONTRAST Multiplanar and multisequence images were obtained. CONTRAST: Clariscan VOLUME: 10 mL COMPARISON: 10/05/2019 FINDINGS: The ventricles are normal in size and midline in position. Periventricular white matter T2/FLAIR hyperintense foci which are nonspecific but most compatible with chronic microvascular ischemia. No evidence of acute hemorrhage or infarction. No extra-axial blood or fluid collections. No abnormal intracranial enhancement. The paranasal sinuses and mastoid air cells are clear. The globes are intact. MRI/Brain W/WO Contrast IMPRESSION: No acute intracranial abnormalities. Reading Location: [id number] CC: Dr. Kymberly Muhammad DO ~ Equipment Cleaner: Signed [facility] CRPon 01-27-2025 C-REACTIVE PROT < 3.00 Normal 0.0-3.0 [facility] Comment on above: Performed By: #### L 501.6710, L101.9900 #### [facility] Laboratory [address] [place], [address] Erythrocyte Sed Rateon 01-27 SED RATE < 1 Normal 0-30 [facility] Comment on above: Performed By: #### L 501.6710, L101.9900 #### [facility] [address] [place], [address] Erythrocyte sedimentation ra teOrdered By: Allyson Soler on 01-27-2025 ESR (Bld) [Velocity] mm/h 0-30 [facility] Serum or plasma C reactive p rotein measurement (mass/volume)Ordered By: Allyson Soler on 01-27-2025 CRP [Mass/Vol] mg/L 0.0-3.0 [facility] CRPon 12-29-2024 C-REACTIVE PROT < 3.00 Normal 0.0-3.0 [facility] Comment on above: Performed By: #### L 101.9900, L501.6710 #### [facility] [address] [place], [address] Erythrocyte Sed Rateon 12-29 SED RATE 5 mm/hr Normal 0-30 [facility] Comment on above: Performed By: #### L 101.9900, L501.6710 #### [facility] [address] [place], [address] Erythrocyte sedimentation ra teOrdered By: Allyson Soler on 12-29-2024 ESR (Bld) [Velocity] 5 mm/h 0-30 [facility] Serum or plasma C reactive p rotein measurement (mass/volume)Ordered By: Allyson Soler on 12-29-2024 CRP [Mass/Vol] mg/L 0.0-3.0 [facility] L499.0042on 12-27-2024 Trop T High Sen 10 ng/L Normal <=14 [facility] Comment on above: Performed By: #### L 501.6710, L101.9900 #### [facility] [address] [place], [address] L499.0043on 12-27-2024 Trop T High Sen Normal <=14 [facility] Comment on above: Result Comment: Canc elled via OM: Order cancelled - Patient discharged Performed By: #### L 501.6710, L101.9900 #### [facility] [address] [place], [address] 12 Lead EKGon 12-26-2024 12 Lead EKG [facility] Cardiovascular Services [address] [place] [address] 12 Lead EKG 12/26/24 2201 MR#: [id number] Acct: [id number] Name: BATOOL ESTRELLA Rep #: [id number] : 1945 79 From: Kashmir Morfin MD [...] Otherwise normal ECG Confirmed by Kashmir Morfin ([id number]), editor newspaper ROMA WARNER ([id number]) on 12/28/2024 10:04:47 AM Referred By: Confirmed By: Kashmir Morfin 12/28/24 1004 Date Kashmir Morfin MD CC: Dr. Fernie More DO; Dr. Kymberly Muhammad DO Signed Normal [facility] Absolute lymphocyte countOrd ered By: Fernie More on 12-26-2024 Lymphocytes Auto (Unsp spec) [#/Vol] 0.47 10*3/uL Low 0.83-4.51 [facility] Absolute neutrophil countOrd ered By: Fernie More on 12-26-2024 Neutrophils (Bld) [#/Vol] 13.1 10*3/uL High 2.0-7.7 [facility] Anion gap in Serum or Plasma Ordered By: Fernie More on 12-26-2024 Anion gap [Moles/Vol] 12 mmol/L 5-15 [facility] Automated lymphocyte count a s percentage of total leukocytesOrdered By: Fernie More on 12-26-2024 Lymphocytes/100 WBC Auto (Unsp spec) 3.1 % Low 19-41 [facility] BUN/creatinine ratioOrdered By: Fernie More on 12-26-2024 Urea nitrogen/Creatinine [Mass ratio] 37.1 mg/mg High 10-20 [facility] Basic Metabolic Profile (BMP )on 12-26-2024 BUN/CRE 37.1 RATIO High 10-20 [facility] Comment on above: Performed By: #### L 101.9900, L501.6710 #### [facility] [address] [place], [address] ECRCL 50.85 ml/min Normal 50-250 [facility] Comment on above: Performed By: #### L 101.9900, L501.6710 #### [facility] [address] [place], [address] GAP 12 Normal 5-15 [facility] Comment on above: Performed By: #### L 101.9900, L501.6710 #### [facility] [address] [place], [address] Potassium [Moles/Vol] 4.1 mmol/L Normal 3.3-5.1 [facility] Comment on above: Performed By: #### L 101.9900, L501.6710 #### [facility] [address] [place], [address] Basophil percentageOrdered B y: Fernie More on 12-26-2024 Basophils/100 WBC (Bld) 0.1 % 0-1 [facility] Blood manual differential co mment interpretation (narrative result)Ordered By: Fernie More on 12-26-2024 Manual differential comment Andrew (Bld) [Interp] SCANNED [facility] CBC W/Diff, Automatedon 05 SMEAR COMMENT SCANNED Normal [facility] Comment on above: Performed By: #### L 101.9900, L501.6710 #### [facility] [address] [place], [place], [address] Carbon dioxide, total [Moles /volume] in Central venous bloodOrdered By: Fernie More on 12-26-2024 CO2 [Moles/Vol] 25.3 mmol/L Normal 21.0-32.0 [facility] Comment on above: Performed By: #### L 101.9900, L501.6710 #### [facility] [address] [place], [place], [address] Chest 1 View (Portable)on Chest 1 View (Portable) [facility] Imaging Services [address] [place], [place] [address] Chest 1 View (Portable) MR#: [id number] Acct: [id number] Name: BATOOL ESTRELLA Rep #: [id number] : 1945 F 79 From: De belcher MD PCP: Dr. Kymberly Muhammad, DO Status: REG ER Study: Chest 1 View (Portable) Date of Exam: 12/26/24 Exam# [id number] Ordering Dr: Fernie More DO PROCEDURE: CHEST 1 VIEW (PORTABLE) 12/26/2024 REASON FOR EXAM: CHEST PAIN TECHNIQUE: Frontal view of the chest. COMPARISON: 11/30/2019 FINDINGS: Hardware: None Heart: Cardiac and mediastinal contours are stable. Lungs: No focal consolidation. No pneumothorax. No pleural effusion. Bones: The bones are unremarkable. Other: RAD/Chest 1 View (Portable) IMPRESSION: No Acute Findings. Reading Location: [facility] CC: Dr. Fernie More DO; Dr. Kymberly Muhammad DO Equipment Cleaner: Signed Normal [facility] Chloride assayOrdered By: Peter More on 12-26-2024 Chloride [Moles/Vol] 99 mmol/L Normal 98-108 [facility] Comment on above: Performed By: #### L 101.9900, L501.6710 #### [facility] [address] [facility] [place], [place], [address] Emergency Department Summary on 12-26-2024 Emergency Department Summary [facility] Medical Records Department [address] [place] [address] Emergency Department Summary 12/26/24 MR#: [id number] Acct: [id number] Name: BATOOL ESTRELLA Rep #: [id number] : 1945 79 From: Fernie More DO [...] change in exercise tolerance. No leg swelling. PFSH PFSH Medical History Wears dentures Wears glasses [...] count 1 (more content not included)... Normal [facility] Eosinophil percentageOrdered By: Fernie More on 12-26-2024 Eosinophils/100 WBC (Bld) 0.0 % 0-5 [facility] Erythrocyte distribution wid th ratioOrdered By: Fernie More on 12-26-2024 Erythrocyte distribution width (RBC) [Ratio] 15.5 % High 11.6-14.6 [facility] Erythrocyte distribution wid th standard deviationOrdered By: Fernie More on 12-26-2024 Erythrocyte distribution width (RBC) [Ratio] 52.3 fl High 35.1-43.9 [facility] Glomerular filtration rate ( GFR) estimation/1.73 sq m using serum, plasma, or whole bOrdered By: Fernie More on 12-26-2024 GFR/1.73 sq M.predicted among non-blacks MDRD (S/P/Bld) [Vol rate/Area] 91 mL/min/{1.73_m2} Normal >60 [facility] Comment on above: mL/min/1.73m2 CKD-EP I Creatinine Equation (2020) Result Comment: mL/m in/1.73m2 CKD-EPI Creatinine Equation (2020) Performed By: #### L 101.9900, L501.6710 #### [facility] [address] [place], [place], [address] Hematocrit Auto (Bld) [Volum e fraction]Ordered By: Fernie More on 12-26-2024 Hematocrit (Bld) [Volume fraction] 39.7 % 37-47 [facility] Hemoglobin measurementOrdere d By: Fernie More on 12-26-2024 Hemoglobin (Bld) [Mass/Vol] 13.5 g/dL 12.0-15.0 [facility] Immature granulocytes/100 WB C Auto (Bld)Ordered By: Fernie More on 12-26-2024 Immature granulocytes/100 WBC (Bld) 9.000 % High 0.0-0.9 [facility] Comment on above: IG% - Immature Granu locytes (promyelocytes, myelocytes and metamyelocytes) > 1% indicates that a LEFT SHIFT is Present. L501.4021on 12-26-2024 Trop T High Sen 8 ng/L Normal <=14 [facility] Comment on above: Performed By: #### L 101.9900, L501.6710 #### [facility] [address] [facility] [place], [place], [address] MCV (mean corpuscular volume ) determinationOrdered By: Fernie More on 12-26-2024 MCV (RBC) [Entitic vol] 91.9 fL 81-99 [facility] Mean corpuscular hemoglobin (MCH) determinationOrdered By: Fernie More on 12-26-2024 MCH (RBC) [Entitic mass] 31.3 pg 27.0-32.0 [facility] Mean corpuscular hemoglobin concentration (MCHC) determinationOrdered By: Fernie More on 12-26-2024 MCHC (RBC) [Mass/Vol] 34.0 g/dL 32-36 [facility] Mean platelet volume determi nationOrdered By: Fernie More on 12-26-2024 Platelet mean volume (Bld) [Entitic vol] 10.8 fL 6.2-12.0 [facility] Monocyte percentageOrdered B y: Fernie More on 12-26-2024 Monocytes/100 WBC (Bld) 2.3 % 0-10 [facility] Neutrophil percentageOrdered By: Fernie More on 12-26-2024 Neutrophils/100 WBC (Bld) 85.5 % High 47-70 [facility] Nucleated red blood cell per centageOrdered By: Fernie More on 12-26-2024 Nucleated RBC/100 WBC (Bld) [Ratio] 0 % 0-5 [facility] Platelet countOrdered By: Peter More on 12-26-2024 Platelets (Bld) [#/Vol] 212 10*3/uL 150-450 [facility] Potassium measurement (mass/ volume)Ordered By: Fernie More on 12-26-2024 Potassium (Unsp spec) [Mass/Vol] 4.1 mmol/L 3.3-5.1 [facility] RBC Auto (Bld) [#/Vol]Ordere d By: Fernie More on 12-26-2024 RBC (Bld) [#/Vol] 4.32 10*6/uL 4.2-5.4 [facility] Serum creatinine measurement (mass/volume)Ordered By: Fernie More on 12-26-2024 Creatinine [Mass/Vol] 0.65 mg/dL Low 0.70-1.20 [facility] Comment on above: Performed By: #### L 101.9900, L501.6710 #### [facility] [address] [place], [address] Serum glucose measurement (m ass/volume)Ordered By: Fernie More on 12-26-2024 Glucose [Mass/Vol] 243 mg/dL High 70-99 [facility] Comment on above: Performed By: #### L 101.9900, L501.6710 #### [facility] [address] [place], [address] Serum or plasma calcium rolando urement (mass/volume)Ordered By: Fernie More on 12-26-2024 Calcium [Mass/Vol] 8.4 mg/dL Normal 7.6-11.0 [facility] Comment on above: Performed By: #### L 101.9900, L501.6710 #### [facility] [address] [place], [place], [address] Serum or plasma urea nitroge n measurement (mass/volume)Ordered By: Fernie More on 12-26-2024 Urea nitrogen [Mass/Vol] 24 mg/dL High - [facility] Comment on above: Performed By: #### L 101.9900, L501.6710 #### [facility] [address] [place], [place], [address] Sodium levelOrdered By: Ran More on 12-26-2024 Sodium [Moles/Vol] 136 mmol/L Normal 133-145 [facility] Comment on above: Performed By: #### L 101.9900, L501.6710 #### [facility] [address] [place], [place], [address] Troponin T.cardiac [Mass/vol ume] in Serum or Plasma by High sensitivity methodOrdered By: Fernie More on 12-26-2024 Troponin T.cardiac High sensitivity method [Mass/Vol] 8 ng/L <14 [facility] White blood cell (WBC) count Ordered By: Fernie More on 12-26-2024 WBC (Bld) [#/Vol] 15.3 10*3/uL High 4.4-11.0 [facility] Troponin T.cardiac [Mass/vol ume] in Serum or Plasma by High sensitivity methodOrdered By: Fernie More on 12-25-2024 Troponin T.cardiac High sensitivity method [Mass/Vol] 10 ng/L <14 [facility] Quantiferon TB-Gold+on 12-02 QFT MITOGEN GENE > 10.00 Normal . [facility] Comment on above: Performed By: #### L 501.6710, L101.9900 #### [facility] [address] [place], [address] QFT NIL VALUE 0.02 IU/mL Normal . [facility] Comment on above: Performed By: #### L 501.6710, L101.9900 #### [facility] [address] [place], [address] QFT TB GOLD+ Comment Normal . [facility] Comment on above: Result Comment: Jose tiFERON-TB [...] for the test. Performed By: #### L 501.10, L101.9900 #### [facility] [address] [place], [place], [id number] (760) QFT TB POS CRIT Negative Normal Negative [facility] Comment on above: Result Comment: No r [...] interferon gamma. Chemiluminescence immunoassay methodology Performed at: [facility] [address] [id number] Firesetter: Renny Frankel PhD, Phone: [phone] Performed By: #### L 501.6710, L101.9900 #### [facility] [address] [place], [address] QFT TB1+ AG GENE 0.09 IU/mL Normal . [facility] Comment on above: Performed By: #### L .6710, L101.9900 #### [facility] [address] [place], [address] QFT TB2+ AG GENE 0.08 IU/mL Normal . [facility] Comment on above: Performed By: #### L 501.6710, L101.9900 #### [facility] [address] [place], [place], [address] M. tuberculosis tuberculin s jose IFN-g Ql (Bld)Ordered By: Allyson Soler on 12-01-2024 TB Test (QFT) Antigen 1 0.09 IU/mL . [facility] Qualitative QuantiFERON-TB g old in tube testOrdered By: Allyson Soler on 12-01-2024 M. tuberculosis tuberculin stim IFN-g Ql (Bld) 0.09 IU/mL . [facility] Quantiferon-TB Gold Plus yaneth tOrdered By: Allyson Soler on 12-01-2024 TB Test (QFT) Comment . [facility] Comment on above: QuantiFERON-TB Gold Plus is [...] Test (QFT) Antigen 2 0.08 IU/mL . [facility] TB Test (QFT) Mitogen > 10.00 IU/mL . [facility] TB Test (QFT) Nil 0.02 IU/mL . [facility] TB Test (QFT) Positive Criteria Negative Negative [facility] Comment on above: No response to M [...] the productionof interferon gamma. Chemiluminescence immunoassaymethodologyPerformed at: [facility] [place] [id number] Director: Renny Frankel PhD, Phone: [phone] CCP IgG Antibodieson 025 CCP IgG Ab. 4 units Normal 0-19 [facility] Comment on above: Result Comment: Nega tive <20 Weak positive 20 - 39 Moderate positive 40 - 59 Strong positive >59 Performed at: [facility] [address] [place], [place] [id number] Firesetter: Renny Frankel PhD, Phone: [phone] Performed By: #### L 101.9900, L501.6710 #### [facility] [address] [place], [address] Absolute lymphocyte countOrd ered By: Allyson Soler on 11-29-2024 Lymphocytes Auto (Unsp spec) [#/Vol] 1.39 10*3/uL 0.83-4.51 [facility] Absolute neutrophil countOrd ered By: Allyson Soler on 11-29-2024 Neutrophils (Bld) [#/Vol] 10.7 10*3/uL High 2.0-7.7 [facility] Anion gap in Serum or Plasma Ordered By: Allyson Soler on 11-29-2024 Anion gap [Moles/Vol] 13 mmol/L 5-15 [facility] Automated lymphocyte count a s percentage of total leukocytesOrdered By: Allyson Soler on 11-29-2024 Lymphocytes/100 WBC Auto (Unsp spec) 10.4 % Low 19-41 [facility] BUN/creatinine ratioOrdered By: Allyson Soler on 11-29-2024 Urea nitrogen/Creatinine [Mass ratio] 26.8 mg/mg High 10-20 [facility] Basophil percentageOrdered B y: Allyson Soler on 11-29-2024 Basophils/100 WBC (Bld) 0.4 % 0-1 [facility] Bilirubin, totalOrdered By: Allyson Soler on 11-29-2024 Bilirubin [Mass/Vol] 0.49 mg/dL 0.00-1.30 [facility] CBC W/Diff, Automatedon 04-08 21-2024 Absolute Lymph 1.39 X10 3/uL Normal 0.83-4.51 [facility] Comment on above: Performed By: #### L 501.6710, L505.7010, L506.1001, L4600.0100, L101.9900, L3890.6102, L100.0100, L3890.6202, L500.4050, L3890.6301 #### [facility] [address] [place], [address] Absolute Neut 10.7 X10 3/uL High 2.0-7.7 [facility] Comment on above: Performed By: #### L 501.6710, L505.7010, L506.1001, L4600.0100, L101.9900, L3890.6102, L100.0100, L3890.6202, L500.4050, L3890.6301 #### [facility] [address] [place], [address] Basophils/100 WBC (Bld) 0.4 % Normal 0-1 [facility] Comment on above: Performed By: #### L 501.6710, L505.7010, L506.1001, L4600.0100, L101.9900, L3890.6102, L100.0100, L3890.6202, L500.4050, L3890.6301 #### [facility] [address] [place], [address] Eosinophils/100 WBC (Bld) 0.6 % Normal 0-5 [facility] Comment on above: Performed By: #### L 501.6710, L505.7010, L506.1001, L4600.0100, L101.9900, L3890.6102, L100.0100, L3890.6202, L500.4050, L3890.6301 #### [facility] [address] [place], [address] Erythrocyte distribution width (RBC) [Ratio] 15.1 % High 11.6-14.6 [facility] Comment on above: Performed By: #### L 501.6710, L505.7010, L506.1001, L4600.0100, L101.9900, L3890.6102, L100.0100, L3890.6202, L500.4050, L3890.6301 #### [facility] [address] [place], [place], [id number] (703) Hematocrit (Bld) [Volume fraction] 42.5 % Normal 37-47 [facility] Comment on above: Performed By: #### L 501.6710, L505.7010, L506.1001, L4600.0100, L101.9900, L3890.6102, L100.0100, L3890.6202, L500.4050, L3890.6301 #### [facility] [address] [place], [place], [id number] Hemoglobin (Bld) [Mass/Vol] 14.1 g/dL Normal 12.0-15.0 [facility] Comment on above: Performed By: #### L 501.6710, L505.7010, L506.1001, L4600.0100, L101.9900, L3890.6102, L100.0100, L3890.6202, L500.4050, L3890.6301 #### [facility] [address] [place], [place], [id number] IG% 2.000 High 0.0-0.9 [facility] Comment on above: Result Comment: IG% - Immature Granulocytes (promyelocytes, myelocytes and metamyelocytes) > 1% indicates that a LEFT SHIFT is Present. Performed By: #### L 501.6710, L505.7010, L506.1001, L4600.0100, L101.9900, L3890.6102, L100.0100, L3890.6202, L500.4050, L3890.6301 #### [facility] [address] [place], [address] Lymphocytes/100 WBC (Bld) 10.4 % Low 19-41 [facility] Comment on above: Performed By: #### L 501.6710, L505.7010, L506.1001, L4600.0100, L101.9900, L3890.6102, L100.0100, L3890.6202, L500.4050, L3890.6301 #### [facility] [address] [place], [address] MCH (RBC) [Entitic mass] 30.5 pg Normal 27.0-32.0 [facility] Comment on above: Performed By: #### L 501.6710, L505.7010, L506.1001, L4600.0100, L101.9900, L3890.6102, L100.0100, L3890.6202, L500.4050, L3890.6301 #### [facility] [address] [place], [address] MCHC (RBC) [Mass/Vol] 33.2 g/dL Normal 32-36 [facility] Comment on above: Performed By: #### L 501.6710, L505.7010, L506.1001, L4600.0100, L101.9900, L3890.6102, L100.0100, L3890.6202, L500.4050, L3890.6301 #### [facility] [address] [place], [address] MCV (RBC) [Entitic vol] 92.0 fL Normal 81-99 [facility] Comment on above: Performed By: #### L 501.6710, L505.7010, L506.1001, L4600.0100, L101.9900, L3890.6102, L100.0100, L3890.6202, L500.4050, L3890.6301 #### [facility] [address] [place], [address] Monocytes/100 WBC (Bld) 6.7 % Normal 0-10 [facility] Comment on above: Performed By: #### L 501.6710, L505.7010, L506.1001, L4600.0100, L101.9900, L3890.6102, L100.0100, L3890.6202, L500.4050, L3890.6301 #### [facility] [address] [place], [address] Neutrophils/100 WBC (Bld) 79.9 % High 47-70 [facility] Comment on above: Performed By: #### L 501.6710, L505.7010, L506.1001, L4600.0100, L101.9900, L3890.6102, L100.0100, L3890.6202, L500.4050, L3890.6301 #### [facility] [address] [place], [address] Nucleated RBC (Bld) [#/Vol] 0 10*3/uL Normal 0-5 [facility] Comment on above: Performed By: #### L 501.6710, L505.7010, L506.1001, L4600.0100, L101.9900, L3890.6102, L100.0100, L3890.6202, L500.4050, L3890.6301 #### [facility] [address] [place], [address] Platelet mean volume (Bld) [Entitic vol] 11.6 fL Normal 6.2-12.0 [facility] Comment on above: Performed By: #### L 501.6710, L505.7010, L506.1001, L4600.0100, L101.9900, L3890.6102, L100.0100, L3890.6202, L500.4050, L3890.6301 #### [facility] [address] [place], [address] Platelets (Bld) [#/Vol] 174 10*3/uL Normal 150-450 [facility] Comment on above: Performed By: #### L 501.6710, L505.7010, L506.1001, L4600.0100, L101.9900, L3890.6102, L100.0100, L3890.6202, L500.4050, L3890.6301 #### [facility] [address] [place], [address] RBC (Bld) [#/Vol] 4.62 10*6/uL Normal 4.2-5.4 [facility] Comment on above: Performed By: #### L 501.6710, L505.7010, L506.1001, L4600.0100, L101.9900, L3890.6102, L100.0100, L3890.6202, L500.4050, L3890.6301 #### [facility] [address] [place], [address] RDW SD 50.7 fl High 35.1-43.9 [facility] Comment on above: Performed By: #### L 501.6710, L505.7010, L506.1001, L4600.0100, L101.9900, L3890.6102, L100.0100, L3890.6202, L500.4050, L3890.6301 #### [facility] [address] [place], [address] WBC (Bld) [#/Vol] 13.3 10*3/uL High 4.4-11.0 [facility] Comment on above: Performed By: #### L 501.6710, L505.7010, L506.1001, L4600.0100, L101.9900, L3890.6102, L100.0100, L3890.6202, L500.4050, L3890.6301 #### [facility] [address] [place], [address] CRPon 11-29-2024 C-REACTIVE PROT < 3.00 Normal 0.0-3.0 [facility] Comment on above: Performed By: #### L 101.9900, L501.6710 #### [facility] [address] [place], [address] CRP [Mass/Vol]Ordered By: Terese Soler on 11-29-2024 C-Reactive Protein Extended Range < 3.00 mg/L 0.0-3.0 [facility] Carbon dioxide, total [Moles /volume] in Central venous bloodOrdered By: Allyson Soler on 11-29-2024 CO2 [Moles/Vol] 26.9 mmol/L 21.0-32.0 [facility] Chest PA and Lateralon 11-29 Chest PA and Lateral [facility] [address] [place], [place] [address] (698) Chest PA and Lateral MR#: [id number] Acct: [id number] Name: BATOOL ESTRELLA Rep #: [id number] : 1945 F 79 From: Greg Motley MD PCP: Dr. Kymberly Muhammad, DO Status: REG CLI Study: Chest PA and Lateral Date of Exam: 11/29/24 Exam# [id number] Ordering Dr: Allyson Soler MD PROCEDURE: CHEST [...] 2. Additional description as above. Reading Location: [id number] CC: Dr. Kymberly Muhammad DO; Dr. Allyson Soler MD Equipment Cleaner: Signed Normal [facility] Chloride assayOrdered By: Terese Soler on 11-29-2024 Chloride [Moles/Vol] 102 mmol/L 98-108 [facility] Comprehensive Metabolic Prof ilon 11-29-2024 Albumin [Mass/Vol] 3.9 g/dL Normal 3.4-4.8 [facility] Comment on above: Performed By: #### L 501.6710, L505.7010, L506.1001, L4600.0100, L101.9900, L3890.6102, L100.0100, L3890.6202, L500.4050, L3890.6301 #### [facility] [address] [place], [address] Albumin/Globulin [Mass ratio] 2.1 {ratio} Normal 0.9-2.4 [facility] Comment on above: Performed By: #### L 501.6710, L505.7010, L506.1001, L4600.0100, L101.9900, L3890.6102, L100.0100, L3890.6202, L500.4050, L3890.6301 #### [facility] [address] [place], [address] ALK PHOS 67 U/L Normal 35-104 [facility] Comment on above: Performed By: #### L 501.6710, L505.7010, L506.1001, L4600.0100, L101.9900, L3890.6102, L100.0100, L3890.6202, L500.4050, L3890.6301 #### [facility] [address] [place], [address] ALT [Catalytic activity/Vol] 29 U/L Normal <=34 [facility] Comment on above: Performed By: #### L 501.6710, L505.7010, L506.1001, L4600.0100, L101.9900, L3890.6102, L100.0100, L3890.6202, L500.4050, L3890.6301 #### [facility] [address] [place], [address] AST [Catalytic activity/Vol] 18 U/L Normal <=31 [facility] Comment on above: Performed By: #### L 501.6710, L505.7010, L506.1001, L4600.0100, L101.9900, L3890.6102, L100.0100, L3890.6202, L500.4050, L3890.6301 #### [facility] [address] [place], [place], [id number] Bilirubin [Mass/Vol] 0.49 mg/dL Normal 0.00-1.30 [facility] Comment on above: Performed By: #### L 501.6710, L505.7010, L506.1001, L4600.0100, L101.9900, L3890.6102, L100.0100, L3890.6202, L500.4050, L3890.6301 #### [facility] [address] [place], [address] BUN/CRE 26.8 RATIO High 10-20 [facility] Comment on above: Performed By: #### L 501.6710, L505.7010, L506.1001, L4600.0100, L101.9900, L3890.6102, L100.0100, L3890.6202, L500.4050, L3890.6301 #### [facility] [address] [place], [address] Calcium [Mass/Vol] 8.8 mg/dL Normal 7.6-11.0 [facility] Comment on above: Performed By: #### L 501.6710, L505.7010, L506.1001, L4600.0100, L101.9900, L3890.6102, L100.0100, L3890.6202, L500.4050, L3890.6301 #### [facility] [address] [place], [address] Chloride [Moles/Vol] 102 mmol/L Normal 98-108 [facility] Comment on above: Performed By: #### L 501.6710, L505.7010, L506.1001, L4600.0100, L101.9900, L3890.6102, L100.0100, L3890.6202, L500.4050, L3890.6301 #### [facility] [address] [place], [address] CO2 [Moles/Vol] 26.9 mmol/L Normal 21.0-32.0 [facility] Comment on above: Performed By: #### L 501.6710, L505.7010, L506.1001, L4600.0100, L101.9900, L3890.6102, L100.0100, L3890.6202, L500.4050, L3890.6301 #### [facility] [address] [place], [address] Creatinine [Mass/Vol] 0.77 mg/dL Normal 0.70-1.20 [facility] Comment on above: Performed By: #### L 501.6710, L505.7010, L506.1001, L4600.0100, L101.9900, L3890.6102, L100.0100, L3890.6202, L500.4050, L3890.6301 #### [facility] [address] [place], [address] GAP 13 Normal 5-15 [facility] Comment on above: Performed By: #### L 501.6710, L505.7010, L506.1001, L4600.0100, L101.9900, L3890.6102, L100.0100, L3890.6202, L500.4050, L3890.6301 #### [facility] [address] [place], [address] GFR/1.73 sq M.predicted among non-blacks MDRD (S/P/Bld) [Vol rate/Area] 80 mL/min/{1.73_m2} Normal >60 [facility] Comment on above: Result Comment: mL/m in/1.73m2 CKD-EPI Creatinine Equation (2020) Performed By: #### L 501.6710, L505.7010, L506.1001, L4600.0100, L101.9900, L3890.6102, L100.0100, L3890.6202, L500.4050, L3890.6301 #### [facility] [address] [place], [address] Globulin (S) [Mass/Vol] 1.8 g/dL Low 2.2-4.2 [facility] Comment on above: Performed By: #### L 501.6710, L505.7010, L506.1001, L4600.0100, L101.9900, L3890.6102, L100.0100, L3890.6202, L500.4050, L3890.6301 #### [facility] [address] [place], [address] Glucose [Mass/Vol] 96 mg/dL Normal 70-99 [facility] Comment on above: Performed By: #### L 501.6710, L505.7010, L506.1001, L4600.0100, L101.9900, L3890.6102, L100.0100, L3890.6202, L500.4050, L3890.6301 #### [facility] [address] [place], [address] Potassium [Moles/Vol] 3.7 mmol/L Normal 3.3-5.1 [facility] Comment on above: Performed By: #### L 501.6710, L505.7010, L506.1001, L4600.0100, L101.9900, L3890.6102, L100.0100, L3890.6202, L500.4050, L3890.6301 #### [facility] [address] [place], [address] Sodium [Moles/Vol] 142 mmol/L Normal 133-145 [facility] Comment on above: Performed By: #### L 501.6710, L505.7010, L506.1001, L4600.0100, L101.9900, L3890.6102, L100.0100, L3890.6202, L500.4050, L3890.6301 #### [facility] [address] [place], [address] T PROT 5.7 g/dL Low 5.9-8.4 [facility] Comment on above: Performed By: #### L 501.6710, L505.7010, L506.1001, L4600.0100, L101.9900, L3890.6102, L100.0100, L3890.6202, L500.4050, L3890.6301 #### [facility] [address] [place], [address] Urea nitrogen [Mass/Vol] 21 mg/dL High 4-19 [facility] Comment on above: Performed By: #### L 501.6710, L505.7010, L506.1001, L4600.0100, L101.9900, L3890.6102, L100.0100, L3890.6202, L500.4050, L3890.6301 #### [facility] [address] [place], [place], [id number] Cyclic citrullinated peptide IgG QnOrdered By: Allyson Soler on 11-29-2024 Cyclic Citrullinated Peptide IgG Ab 4 units 0-19 [facility] Comment on above: Negative <20 Weak po sitive 20 - 39 Moderate positive 40 - 59 Strong positive >59Performed at: [facility] [id number] Director: Renny Frankel PhD, Phone: [phone] Eosinophil percentageOrdered By: Allyson Soler on 11-29-2024 Eosinophils/100 WBC (Bld) 0.6 % 0-5 [facility] Erythrocyte Sed Rateon 11-29 SED RATE 1 mm/hr Normal 0-30 [facility] Comment on above: Performed By: #### L 501.6710, L505.7010, L506.1001, L4600.0100, L101.9900, L3890.6102, L100.0100, L3890.6202, L500.4050, L3890.6301 #### [facility] [address] [place], [address] Erythrocyte distribution wid th (RBC) [Ratio]Ordered By: Allyson Soler on 11-29-2024 Erythrocyte distribution width (RBC) [Entitic vol] 50.7 fL High 35.1-43.9 [facility] Erythrocyte distribution wid th ratioOrdered By: Allyson Soler on 11-29-2024 Erythrocyte distribution width (RBC) [Ratio] 15.1 % High 11.6-14.6 [facility] Erythrocyte distribution wid th standard deviationOrdered By: Allyson Soler on 11-29-2024 Erythrocyte distribution width (RBC) [Ratio] 50.7 fl High 35.1-43.9 [facility] Erythrocyte sedimentation ra teOrdered By: Allyson Soler on 11-29-2024 ESR (Bld) [Velocity] 1 mm/h 0-30 [facility] GFR/1.73 sq M.predicted adriana g non-blacks MDRD (S/P/Bld) [Vol rate/Area]Ordered By: Allyson Soler on 11-29-2024 Estimated GFR (MDRD) Non-Af Amer 80 >60 [facility] Comment on above: mL/min/1.73m2 CKD-EP I Creatinine Equation (2020) Glomerular filtration rate ( GFR) estimation/1.73 sq m using serum, plasma, or whole bOrdered By: Allyson Soler on 11-29-2024 GFR/1.73 sq M.predicted among non-blacks MDRD (S/P/Bld) [Vol rate/Area] 80 mL/min/{1.73_m2} >60 [facility] Comment on above: mL/min/1.73m2 CKD-EP I Creatinine Equation (2020) HBV surface Ab Ql (S)Ordered By: Allyson Soler on 11-29-2024 Hepatitis B Surface Antibody Non-Reactive [facility] Comment on above: <8.5 mIU/mL: Non-Tonica ctive8.5<= x <11.5 mIU/mL: Indeterminate>=11.5 mIU/mL: Reactive Non Reactive: Inconsistent with immunity less than <10 mIU/mL Reactive: Consistent with immunity greater than or equal to 10 mIU/mL HBV surface Ag Ql (S)Ordered By: Allyson Soler on 11-29-2024 Hepatitis B Surface Antigen Non-Reactive Nonreactive [facility] Comment on above: Reactive: Presumptiv e evidence of HBV. Repeatedly reactive samples must be confirmed using a neutralization test ([facility] HBsAg Confirmatory Test)Non-Reactive: HBsAg not detected; does not exclude the possibility of exposure to HBV Hematocrit Auto (Bld) [Volum e fraction]Ordered By: Allyson Soler on 11-29-2024 Hematocrit (Bld) [Volume fraction] 42.5 % 37-47 [facility] Hemoglobin measurementOrdere d By: Allyson Soler on 11-29-2024 Hemoglobin (Bld) [Mass/Vol] 14.1 g/dL 12.0-15.0 [facility] Hepatitis B Surface Antibody on 11-29-2024 HEP B Surf Ab Non-Reactive Normal [facility] Comment on above: Result Comment: <8.5 mIU/mL: Non-Reactive 8.5<= x <11.5 mIU/mL: Indeterminate >=11.5 mIU/mL: Reactive Non Reactive: Inconsistent with immunity less than <10 mIU/mL Reactive: Consistent with immunity greater than or equal to 10 mIU/mL Performed By: #### L 501.6710, L505.7010, L506.1001, L4600.0100, L101.9900, L3890.6102, L100.0100, L3890.6202, L500.4050, L3890.6301 #### [facility] [address] [place], [address] Hepatitis C Antibodyon 11-29 Hepatitis C Ab Non-Reactive Normal Nonreactive [facility] Comment on above: Result Comment: Reac tive: Presumptive evidence of antibodies to HCV. Follow CDC recommendations for supplemental testing. Non-Reactive: Antibodies to HCV were not detected; does not exclude the possibility of exposure to HCV Reactive Results are presumptive evidence of antibodies to HCV. Follow CDC recommendations for supplemental testing. Order confirmation testing: HCV Quant by PCR testing - HCVPCR #[id number] Non Reactive: < 0.8 Equivocal: >/= 0.8 to < 1.0 Reactive: >/= 1.0 The CDC requires that a reactive/equivocal HCV antibody result be sent out for confirmation. HCV Quant by PCR testing. Performed By: #### L 501.6710, L505.7010, L506.1001, L4600.0100, L101.9900, L3890.6102, L100.0100, L3890.6202, L500.4050, L3890.6301 #### [facility] [address] [facility] [place], [address] Hepatitis C antibodyOrdered By: Allyson Soler on 11-29-2024 Hepatitis C Antibody Non-Reactive Nonreactive [facility] Comment on above: Reactive: Presumptiv e evidence of antibodies to HCV. Follow CDC recommendations for supplemental testing.Non-Reactive: Antibodies to HCV were not detected; does not exclude the possibility of exposure to HCVReactive Results are presumptive evidence of antibodies to HCV. Follow CDC recommendations for supplemental testing.Order confirmation testing: HCV Quant by PCR testing - HCVPCR #[id number] Non Reactive: < 0.8 Equivocal: >/= 0.8 to < 1.0 Reactive: >/= 1.0The CDC requires that a reactive/equivocal HCV antibody result be sent out for confirmation. HCV Quant by PCR testing. Immature granulocytes/100 WB C Auto (Bld)Ordered By: Allyson Soler on 11-29-2024 Immature granulocytes/100 WBC (Bld) 2.000 % High 0.0-0.9 [facility] Comment on above: IG% - Immature Granu locytes (promyelocytes, myelocytes and metamyelocytes) > 1% indicates that a LEFT SHIFT is Present. L3890.6102on 11-29-2024 HEP B Surf Ag Non-Reactive Normal Nonreactive [facility] Comment on above: Result Comment: Reac tive: Presumptive evidence of HBV. Repeatedly reactive samples must be confirmed using a neutralization test ([facility] HBsAg Confirmatory Test) Non-Reactive: HBsAg not detected; does not exclude the possibility of exposure to HBV Performed By: #### L 501.6710, L505.7010, L506.1001, L4600.0100, L101.9900, L3890.6102, L100.0100, L3890.6202, L500.4050, L3890.6301 #### [facility] [address] [place], [address] Laboratory - Chemistry and C hemistry - challengeOrdered By: Allyson Soler on 11-29-2024 AST [Catalytic activity/Vol] 18 U/L <32 [facility] Laboratory - Microbiology an d Antimicrobial susceptibilityOrdered By: Allyson Soler on 11-29-2024 HBV surface Ag Ql (S) Non-Reactive Nonreactive [facility] Comment on above: Reactive: Presumptiv e evidence of HBV. Repeatedly reactive samples must be confirmed using a neutralization test ([facility] HBsAg Confirmatory Test)Non-Reactive: HBsAg not detected; does not exclude the possibility of exposure to HBV Lymphocytes Auto (Unsp spec) [#/Vol]Ordered By: Allyson Soler on 11-29-2024 Lymphocytes (Bld) [#/Vol] 1.39 10*3/uL 0.83-4.51 [facility] Lymphocytes/100 WBC Auto (Un sp spec)Ordered By: Allyson Soler on 11-29-2024 Lymphocytes/100 WBC (Bld) 10.4 % Low 19-41 [facility] MCV (mean corpuscular volume ) determinationOrdered By: Allyson Soler on 11-29-2024 MCV (RBC) [Entitic vol] 92.0 fL 81-99 [facility] Mean corpuscular hemoglobin (MCH) determinationOrdered By: Allyson Soler on 11-29-2024 MCH (RBC) [Entitic mass] 30.5 pg 27.0-32.0 [facility] Mean corpuscular hemoglobin concentration (MCHC) determinationOrdered By: Allyson Soler on 11-29-2024 MCHC (RBC) [Mass/Vol] 33.2 g/dL 32-36 [facility] Mean platelet volume determi nationOrdered By: Allyson Soler on 11-29-2024 Platelet mean volume (Bld) [Entitic vol] 11.6 fL 6.2-12.0 [facility] Monocyte percentageOrdered B y: Allyson Soler on 11-29-2024 Monocytes/100 WBC (Bld) 6.7 % 0-10 [facility] Neutrophil percentageOrdered By: Allyson Soler on 11-29-2024 Neutrophils/100 WBC (Bld) 79.9 % High 47-70 [facility] Nucleated red blood cell per centageOrdered By: Allyson Soler on 11-29-2024 Nucleated RBC/100 WBC (Bld) [Ratio] 0 % 0-5 [facility] Platelet countOrdered By: Terese Soler on 11-29-2024 Platelets (Bld) [#/Vol] 174 10*3/uL 150-450 [facility] Potassium (Unsp spec) [Mass/ Vol]Ordered By: Allyson Soler on 04-16-2025 Potassium [Moles/Vol] 3.7 mmol/L 3.3-5.1 [facility] Potassium measurement (mass/ volume)Ordered By: Allyson Soler on 11-29-2024 Potassium (Unsp spec) [Mass/Vol] 3.7 mmol/L 3.3-5.1 [facility] RBC Auto (Bld) [#/Vol]Ordere d By: Allyson Soler on 11-29-2024 RBC (Bld) [#/Vol] 4.62 10*6/uL 4.2-5.4 [facility] Rheumatoid Factoron 11-30-19 25 RHEUMATOID FAC < 10.0 Normal <15 [facility] Comment on above: Performed By: #### L 101.9900, L501.6710 #### [facility] [address] [place], [address] Rheumatoid factor Ql (S)Orde red By: Allyson Soler on 11-29-2024 Rheumatoid Factor < 10.0 IU/mL <15 [facility] Serum creatinine measurement (mass/volume)Ordered By: Allyson Soler on 11-29-2024 Creatinine [Mass/Vol] 0.77 mg/dL 0.70-1.20 [facility] Serum globulin measurementOr dered By: Allyson Soler on 11-29-2024 Globulin (S) [Mass/Vol] 1.8 g/dL Low 2.2-4.2 [facility] Serum glucose measurement (m ass/volume)Ordered By: Allyson Soler on 11-29-2024 Glucose [Mass/Vol] 96 mg/dL 70-99 [facility] Serum hepatitis B virus surf andrés antibody detectionOrdered By: Allyson Soler on 11-29-2024 HBV surface Ab Ql (S) Non-Reactive [facility] Comment on above: <8.5 mIU/mL: Non-Ashley ctive8.5<= x <11.5 mIU/mL: Indeterminate>=11.5 mIU/mL: Reactive Non Reactive: Inconsistent with immunity less than <10 mIU/mL Reactive: Consistent with immunity greater than or equal to 10 mIU/mL Serum or plasma C reactive p rotein measurement (mass/volume)Ordered By: Allyson Soler on 11-29-2024 CRP [Mass/Vol] mg/L 0.0-3.0 [facility] Serum or plasma alanine christianson otransferase (ALT) measurementOrdered By: Allyson Soler on 11-29-2024 ALT [Catalytic activity/Vol] 29 U/L <35 [facility] Serum or plasma albumin roalndo urement (mass/volume)Ordered By: Allyson Soler on 11-29-2024 Albumin [Mass/Vol] 3.9 g/dL 3.4-4.8 [facility] Serum or plasma albumin/glob ulin mass ratioOrdered By: Allyson Soler on 11-29-2024 Albumin/Globulin [Mass ratio] 2.1 {ratio} 0.9-2.4 [facility] Serum or plasma alkaline trudy sphatase measurementOrdered By: Allyson Soler on 11-29-2024 ALP [Catalytic activity/Vol] 67 U/L 35-104 [facility] Serum or plasma calcium rolando urement (mass/volume)Ordered By: Allyson Soler on 11-29-2024 Calcium [Mass/Vol] 8.8 mg/dL 7.6-11.0 [facility] Serum or plasma cyclic citru llinated peptide IgG antibody assay (units/volume)Ordered By: Allyson Soler on 11-29-2024 Cyclic citrullinated peptide IgG Qn 4 units 0-19 [facility] Comment on above: Negative <20 Weak po sitive 20 - 39 Moderate positive 40 - 59 Strong positive >59Performed at: [facility] [address] [id number] Director: Renny Frankel PhD, Phone: [phone] Serum or plasma urea nitroge n measurement (mass/volume)Ordered By: Allyson Soler on 11-29-2024 Urea nitrogen [Mass/Vol] 21 mg/dL High 4-19 [facility] Serum rheumatoid factor dete ctionOrdered By: Allyson Soler on 11-29-2024 Rheumatoid factor Ql (S) < 10.0 IU/mL <15 [facility] Sodium levelOrdered By: Jude Soler on 11-29-2024 Sodium [Moles/Vol] 142 mmol/L 133-145 [facility] Total proteinOrdered By: Justin Soler on 11-29-2024 Protein [Mass/Vol] 5.7 g/dL Low 5.9-8.4 [facility] Vitamin D, 25-hydroxyOrdered By: Allyson Soler on 11-29-2024 Vitamin D 25-Hydroxy 22.9 ng/mL Low 30-100 [facility] Comment on above: Vitamin D StatusDefi ciency: <20 ng/mL (50nmol/L)Insufficiency: 20-30 ng/mL (50-75 nmol/L)Sufficiency: 30-100 ng/mL (75-250 nmol/L)Toxicity: >100 ng/mL (>250 nmol/L) Vitamin D,25 Hydroxyon 11-29 Vitamin D 25-OH 22.9 ng/mL Low 30-100 [facility] Comment on above: Result Comment: Latricia min D Status Deficiency: <20 ng/mL (50nmol/L) Insufficiency: 20-30 ng/mL (50-75 nmol/L) Sufficiency: 30-100 ng/mL (75-250 nmol/L) Toxicity: >100 ng/mL (>250 nmol/L) Performed By: #### L 101.9900, L501.6710 #### [facility] [address] [facility] [place], [address] White blood cell (WBC) count Ordered By: Allyson Soler on 11-29-2024 WBC (Bld) [#/Vol] 13.3 10*3/uL High 4.4-11.0 [facility] Surgery Visit Reporton 11-23 Surgery Visit Report [facility] [address] [place] [address] OFFICE VISIT Date of Service: 11/23/24 MR#: [id number] Acct: [id number] Name: BATOOL ESTRELLA Rep #: [id number] : 1945 Provider: Dr. 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 Brandon Doll MD Pager: [facility] [address] [place] [address], [address] [place] [address] Office: 11/23/24 0904 Date Brandon Calabretta MD Cosigner Signature: Date (if applicable) CC: Normal [facility] CRPon 11-08-2024 C-REACTIVE PROT < 3.00 Normal 0.0-3.0 [facility] Comment on above: Performed By: #### L 101.9900, L501.6710 #### [facility] [address] [facility] [place], [place], [address] CRP [Mass/Vol]Ordered By: Yadira Muhammad on 11-08-2024 C-Reactive Protein Extended Range < 3.00 mg/L 0.0-3.0 [facility] Erythrocyte Sed Rateon 11-08 SED RATE 2 mm/hr Normal 0-30 [facility] Comment on above: Performed By: #### L 101.9900, L501.6710 #### [facility] [address] [facility] [place], [place], [address] Erythrocyte sedimentation ra teOrdered By: Kymberly Muhammad on 11-08-2024 ESR (Bld) [Velocity] 2 mm/h 0-30 [facility] Serum or plasma C reactive p rotein measurement (mass/volume)Ordered By: Kymberly Muhammad on 11-08-2024 CRP [Mass/Vol] mg/L 0.0-3.0 [facility] Discharge Instructionon 10-15 Discharge Instruction [facility] Medical Records Department [address] [place] [address] Instructions for Home/Discharge Instructions 11/06/24 0914 MR#: [id number] Acct: [id number] Name: ETHANBATOOL JEAN Rep #: [id number] : 1945 79 From: Brandon Doll MD PCP: Dr. Kymberly Muhammad, DO Status:REG [facility] Discharge Instructions Diet Discharge Diet: No restrictions [...] to schedule 2 week follow up appointment. [phone] Test Results: Test results from this visit will be discussed in further detail at your follow-up appointment, if applicable. Discharge Plan Admission Attending Provider: Brandon Doll Primary Care Provider: Kymberly Muhammad Instructions Print Language: Faroese Discharge Orders/Prescriptions Prescriptions: No Action One Daily [...] MD CC: Dr. Kymberly Muhammad DO Signed [facility] MR/POSTOP.[facility] 11-06-2024 MR/POSTOP.[facility] Medical Records Department [address] [place] [address] Anesthesia Postop Eval I 11/06/24906 MR#: [id number] Acct: [id number] Name: BATOOL ESTRELLA Rep #: [id number] : 1945 79 From: Enriqueta Light CRNA PCP: Dr. Kymberly Muhammad DO Status:REG SDC Y Race: C Location: [place] [address] Anesthesia: Postop Eval I Current Vital Signs [...] Postop Eval 1 completed: Yes 11/06/24 09 Date Enriqueta Light CHEMICAL EQUIPMENT SALES ENGINEER Cosigner Signature: Date CC: Signed Normal [facility] MR/[id number] 11-06-2024 MR/POSTOPAN2 [facility] Medical Records Department [address] [place] [address] Anesthesia Postop Eval II 11/06/24 1015 MR#: [id number] Acct: [id number] Name: BATOOL ESTRELLA Rep #: [id number] : 1945 79 From: Carmen Wallis PCP: Dr. Kymberly Muhammad, DO Status:REG SDC Y Race: C Location: [place] [address]- Anesthesia Postop Eval I Sum Postop Eval Completion status Anesthesia document: Postop Eval 1 completed: Yes Anesthesia Postop Eval I Summary Anesthesia Postop Eval I Summary: Anesthesia Postop Eval I: Assessment Summary Airway patent Yes 11/06/24 09:08 CHEMICAL EQUIPMENT SALES ENGINEER.LMIL Spontaneous unlabored Yes 11/06/24 09:08 CHEMICAL EQUIPMENT SALES ENGINEER.LMIL respirations Mental status Awake 11/06/24 09:08 CHEMICAL EQUIPMENT SALES ENGINEER.LMIL nausea No 11/06/24 09:08 CHEMICAL EQUIPMENT SALES ENGINEER.LMIL Vomiting No 11/06/24 09:08 CHEMICAL EQUIPMENT SALES ENGINEER.LMIL Anesthesia Postop Eval I: Fluid Summary Crystalloid volume administer 10 11/06/24 09:08 CHEMICAL EQUIPMENT SALES ENGINEER.LMIL (ml) Colloids volume administered ( ml) Blood Product volume administered (ml) Total IV fluid infused 10 11/06/24 09:08 CHEMICAL EQUIPMENT SALES ENGINEER.LMIL Anesthesia Postop Eval I: Summary Notes Anesthesia Complication No 11/06/24 09:08 CHEMICAL EQUIPMENT SALES ENGINEER.LMIL Anesthesia Complication Comment: Post-operative progress note Anesthesia: Postop Eval II Evaluation Mental status: Awake Pain Level: 1 nausea: No Vomiting: No 11/06/24 1015 Date Carmen Gregorio Signature: Date CC: Signed Normal [facility] Operative Reporton 5 Operative Report [facility] Medical Records Department [address] [place] [address] Operative Report 11/06/24910 MR#: [id number] Acct: [id number] Name: BATOOL ESTRELLA Rep #: [id number] : 1945 79 From: Brandon Doll MD PCP: Dr. Kymberly Muhammad, DO Status:[facility] Location: [place] [address] Operative Report (Standard) Operative Information Date of Procedure: 11/06/24 Pre-Operative Diagnosis: Right vision loss Post-Operative Diagnosis: Same Surgery/Procedure Performed: Right temporal artery biopsy contracting engineer: Yes Client Engagement Manager: Jeremie Sebastian Tasks completed by surgical first assistant: Retracting Type of Anesthesia: Local MAC [...] and MAC anesthesia was induced. The right mosque was inspected and the route of the artery was marked. The mosque was prepped and draped in usual sterile [...] appear to be artery into the right mosque. The area was irrigated and suctioned dry and it was continue to be explored but I did not find other tubular structures in the mosque. The incision was irrigated and suctioned dry once more and then closed with running 4-0 Monocryl suture. Dermabond was applied. Patient was taken to PACU in stable condition. Surgical Findings: Small temporal artery Complications Complications: No Admit VTE Documentation VTE Mechan Device Prophylaxis: SCD's 11/06/24 0914 Cosigner Signature (if applicable): CC: Dr. Brandon Doll MD; Dr. Kymberly Muhammad DO Signed Normal [facility] Surgery Specimen Level Aristeo 11-06-2024 Surgery Specimen Level IV Patient Age/Sex Location Account Attending Physician BATOOL ESTRELLA 79/F [facility] [id number] Dr. Brandon Doll MD Specimen: [id number] Received: 11/06/24 Status: WENDI Capps Num: [id number] Spec Type: TEMPORAL Subm Dr: Dr. Brandon [...] is unremarkable. Totally submitted in one cassette. CELIA 11/06/2024 CPT:81603, TC:3 Patient Age/Sex Location Account Attending Physician ETHANBATOOLGOLDEN PICKENS 79/F [facility] [id number] Dr. Brandon Doll MD Signed (signature on file) Dr. Lefty Valdez MD 11/08/24 1321 Normal [facility] Comment on above: Performed By: #### L 501.6710, L101.9900 #### [facility] [address] [place], [address] MR/PAT.ANEon 11-02-2024 MR/PAT.[facility] Medical Records Department [address] [place] [address] PAT - Anesthesia 11/02/24 1514 MR#: [id number] Acct: [id number] Name: BATOOL ESTRELLA SugarITZ) NELIA Rep #: [id number] : 1945 79 From: Chris Jang MD PCP: Dr. Kymberly Muhammad, DO Status:PRE [facility] Y Race: C Location: [facility] Pre-Assessment Diagnosis/Proposed Procedure Planned Operative Procedure(s): RIGHT TEMPORAL ARTERY BX Anesthesia History Anesthesia History - mucker operator: Anesthesia History - mucker operator Hx Hospitalization No 11/02/24 10:36 Any Problems [...] take am of surgery PONV PONV - mucker operator: PONV - mucker operator Female Yes 11/02/24 10:36 HX of Motion [...] 11/02/24 09:00 Respiratory Assessment Respiratory Assessment - mucker operator: Respiratory Tract Infection Hx - mucker operator Hx Respiratory Tract Infection No 11/02/24 10:36 STOP Sleep Apnea STOP Sleep Apnea - mucker operator: STOP Sleep Apnea - mucker operator Hx Hypertension No 11/02/24 10:36 Hx Sleep [...] Tobacco Use History Tobacco Use History - mucker operator: Tobacco Use History - mucker operator Tobacco Use Smoking Status Never smoker 11/02/24 10:36 Hx Tobacco Use No 11/02/24 10:36 Years Smoking Packs Smoked per Day Smoking Cessation Date was within the last 15 years Hx Smoking Cessation Date Hx Smoking Cessation Counseling Hematologic Medial History Hematologic Hx - mucker operator: Hematologic 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 Normal [facility] Surgery Visit Reporton 11-02 Surgery Visit Report [facility] [address] [place] [address] OFFICE VISIT Date of Service: 11/02/24 MR#: [id number] Acct: [id number] Name: BATOOL ESTRELLA (BETSY) Rep #: [id number] : 1945 Provider: Dr. Brandon buckley MD Age/Sex: 79/F Location: [facility] Status: Signed Intake Vital Signs 11/01/24 17:03 [...] willing to proceed. Brandon Doll MD Pager: [facility] [address] [place] [address] [address] [place] [address] Office: Coding Level of Care Code Off vis,new,level 3 Diagnoses Blurred vision, right eye H53.8 Clinical Quality Measures Falls Risk Screening/Assistive Devices Have you fallen in the past year?: No 11/02/24 0911 (more content not included)... Normal [facility] Absolute lymphocyte countOrd ered By: Enoc Armijo on 11-01-2024 Lymphocytes Auto (Unsp spec) [#/Vol] 1.50 10*3/uL 0.83-4.51 [facility] Absolute neutrophil countOrd ered By: Enoc Armijo on 11-01-2024 Neutrophils (Bld) [#/Vol] 8.2 10*3/uL High 2.0-7.7 [facility] Anion gap in Serum or Plasma Ordered By: Enoc Armijo on 11-01-2024 Anion gap [Moles/Vol] 13 mmol/L 5-15 [facility] Automated lymphocyte count a s percentage of total leukocytesOrdered By: Enoc Armijo on 11-01-2024 Lymphocytes/100 WBC Auto (Unsp spec) 13.8 % Low 19- [facility] BUN/creatinine ratioOrdered By: Enoc Armijo on 11-01-2024 Urea nitrogen/Creatinine [Mass ratio] 28.1 mg/mg High 10- [facility] Basic Metabolic Profile (BMP )on 11-01-2024 BUN/CRE 28.1 RATIO High 10- [facility] Comment on above: Performed By: #### L 501.6710, L101.9900 #### [facility] [address] [place], [address] Calcium [Mass/Vol] 8.8 mg/dL Normal 7.6-11.0 [facility] Comment on above: Performed By: #### L 501.6710, L101.9900 #### [facility] [address] [place], [address] Chloride [Moles/Vol] 104 mmol/L Normal 98-108 [facility] Comment on above: Performed By: #### L 501.6710, L101.9900 #### [facility] [address] [place], [address] CO2 [Moles/Vol] 23.1 mmol/L Normal 21.0-32.0 [facility] Comment on above: Performed By: #### L 501.6710, L101.9900 #### [facility] [address] [place], [address] Creatinine [Mass/Vol] 0.63 mg/dL Low 0.70-1.20 [facility] Comment on above: Performed By: #### L 501.6710, L101.9900 #### [facility] [address] [place], [address] ECRCL 50.85 ml/min Normal 50-250 [facility] Comment on above: Performed By: #### L 501.6710, L101.9900 #### [facility] [address] [place], [address] GAP 13 Normal 5-15 [facility] Comment on above: Performed By: #### L 501.6710, L101.9900 #### [facility] [address] [place], [address] GFR/1.73 sq M.predicted among non-blacks MDRD (S/P/Bld) [Vol rate/Area] 91 mL/min/{1.73_m2} Normal >60 [facility] Comment on above: Result Comment: mL/m in/1.73m2 CKD-EPI Creatinine Equation (2020) Performed By: #### L 501.6710, L101.9900 #### [facility] [address] [place], [address] Glucose [Mass/Vol] 110 mg/dL High 70-99 [facility] Comment on above: Performed By: #### L 501.6710, L101.9900 #### [facility] [address] [place], [address] Potassium [Moles/Vol] 4.2 mmol/L Normal 3.3-5.1 [facility] Comment on above: Performed By: #### L 501.6710, L101.9900 #### [facility] [address] [place], [address] Sodium [Moles/Vol] 140 mmol/L Normal 133-145 [facility] Comment on above: Performed By: #### L 501.6710, L101.9900 #### [facility] [address] [place], [address] Urea nitrogen [Mass/Vol] 18 mg/dL Normal 4-19 [facility] Comment on above: Performed By: #### L 501.6710, L101.9900 #### [facility] [address] [place], [address] Basophil percentageOrdered B y: Enoc Armijo on 11-01-2024 Basophils/100 WBC (Bld) 0.5 % 0-1 [facility] CBC W/Diff, Automatedon 10-14 Absolute Lymph 1.50 X10 3/uL Normal 0.83-4.51 [facility] Comment on above: Performed By: #### L 101.9900, L501.6710 #### [facility] [address] [place], [address] Absolute Neut 8.2 X10 3/uL High 2.0-7.7 [facility] Comment on above: Performed By: #### L 101.9900, L501.6710 #### [facility] [address] [place], [address] Basophils/100 WBC (Bld) 0.5 % Normal 0-1 [facility] Comment on above: Performed By: #### L 101.9900, L501.6710 #### [facility] [address] [place], [address] Eosinophils/100 WBC (Bld) 0.9 % Normal 0-5 [facility] Comment on above: Performed By: #### L 101.9900, L501.6710 #### [facility] [address] [place], [address] Erythrocyte distribution width (RBC) [Ratio] 12.4 % Normal 11.6-14.6 [facility] Comment on above: Performed By: #### L 101.9900, L501.6710 #### [facility] [address] [place], [address] Hematocrit (Bld) [Volume fraction] 39.9 % Normal 37-47 [facility] Comment on above: Performed By: #### L 101.9900, L501.6710 #### [facility] [address] [place], [address] Hemoglobin (Bld) [Mass/Vol] 13.0 g/dL Normal 12.0-15.0 [facility] Comment on above: Performed By: #### L 101.9900, L501.6710 #### [facility] [address] [place], [address] IG% 0.400 Normal 0.0-0.9 [facility] Comment on above: Result Comment: IG% - Immature Granulocytes (promyelocytes, myelocytes and metamyelocytes) > 1% indicates that a LEFT SHIFT is Present. Performed By: #### L 101.9900, L501.6710 #### [facility] [address] [place], [address] Lymphocytes/100 WBC (Bld) 13.8 % Low 19-41 [facility] Comment on above: Performed By: #### L 101.9900, L501.6710 #### [facility] [address] [place], [address] MCH (RBC) [Entitic mass] 30.2 pg Normal 27.0-32.0 [facility] Comment on above: Performed By: #### L 101.9900, L501.6710 #### [facility] [address] [place], [address] MCHC (RBC) [Mass/Vol] 32.6 g/dL Normal 32-36 [facility] Comment on above: Performed By: #### L 101.9900, L501.6710 #### [facility] [address] [place], [address] MCV (RBC) [Entitic vol] 92.8 fL Normal 81-99 [facility] Comment on above: Performed By: #### L 101.9900, L501.6710 #### [facility] [address] [place], [address] Monocytes/100 WBC (Bld) 8.6 % Normal 0-10 [facility] Comment on above: Performed By: #### L 101.9900, L501.6710 #### [facility] [address] [place], [address] Neutrophils/100 WBC (Bld) 75.8 % High 47-70 [facility] Comment on above: Performed By: #### L 101.9900, L501.6710 #### [facility] [address] [place], [address] Nucleated RBC (Bld) [#/Vol] 0 10*3/uL Normal 0-5 [facility] Comment on above: Performed By: #### L 101.9900, L501.6710 #### [facility] [address] [place], [address] Platelet mean volume (Bld) [Entitic vol] 11.4 fL Normal 6.2-12.0 [facility] Comment on above: Performed By: #### L 101.9900, L501.6710 #### [facility] [address] [place], [address] Platelets (Bld) [#/Vol] 265 10*3/uL Normal 150-450 [facility] Comment on above: Performed By: #### L 101.9900, L501.6710 #### [facility] [address] [place], [address] RBC (Bld) [#/Vol] 4.30 10*6/uL Normal 4.2-5.4 [facility] Comment on above: Performed By: #### L 101.9900, L501.6710 #### [facility] [address] [place], [address] RDW SD 42.5 fl Normal 35.1-43.9 [facility] Comment on above: Performed By: #### L 101.9900, L501.6710 #### [facility] [address] [place], [address] WBC (Bld) [#/Vol] 10.9 10*3/uL Normal 4.4-11.0 [facility] Comment on above: Performed By: #### L 101.9900, L501.6710 #### [facility] [address] [place], [address] CRPon 11-01-2024 C-REACTIVE PROT 15.90 mg/L High 0.0-3.0 [facility] Comment on above: Performed By: #### L 501.6710, L101.9900 #### [facility] [address] [place], [address] CRP [Mass/Vol]Ordered By: Luis Alberto Armijo on 11-01-2024 C-Reactive Protein Extended Range 15.90 mg/L High 0.0-3.0 [facility] Carbon dioxide, total [Moles /volume] in Central venous bloodOrdered By: Enoc Armijo on 11-01-2024 CO2 [Moles/Vol] 23.1 mmol/L 21.0-32.0 [facility] Chloride assayOrdered By: Luis Alberto Armijo on 11-01-2024 Chloride [Moles/Vol] 104 mmol/L 98-108 [facility] Emergency Department Summary on 11-01-2024 Emergency Department Summary [facility] Medical Records Department [address] [place] [address] Emergency Department Summary 11/01/24 MR#: [id number] Acct: [id number] Name: BATOOL ESTRELLA Rep #: [id number] : 1945 79 From: Enoc Watkins PCP: [...] office for patient to call tomorrow. 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 Normal [facility] Eosinophil percentageOrdered By: Enoc Armijo on 11-01-2024 Eosinophils/100 WBC (Bld) 0.9 % 0-5 [facility] Erythrocyte Sed Rateon 11-01 SED RATE 17 mm/hr Normal 0-30 [facility] Comment on above: Performed By: #### L 501.6710, L101.9900 #### [facility] [place], [address] Erythrocyte distribution wid th ratioOrdered By: Enoc Armijo on 11-01-2024 Erythrocyte distribution width (RBC) [Ratio] 12.4 % 11.6-14.6 [facility] Erythrocyte distribution wid th standard deviationOrdered By: Enoc Armijo on 11-01-2024 Erythrocyte distribution width (RBC) [Entitic vol] 42.5 fL 35.1-43.9 [facility] Erythrocyte distribution width (RBC) [Ratio] 42.5 fl 35.1-43.9 [facility] Erythrocyte sedimentation ra teOrdered By: Enoc Armijo on 11-01-2024 ESR (Bld) [Velocity] 17 mm/h 0-30 [facility] Estimation of creatinine faviola aranceOrdered By: Enoc Armijo on 11-01-2024 Estimated Creatinine Clearance Calc 50.85 ml/min 50-250 [facility] GFR/1.73 sq M.predicted adriana g non-blacks MDRD (S/P/Bld) [Vol rate/Area]Ordered By: Enoc Armijo on 11-01-2024 Estimated GFR (MDRD) Non-Af Amer 91 >60 [facility] Comment on above: mL/min/1.73m2 CKD-EP I Creatinine Equation (2020) Glomerular filtration rate ( GFR) estimation/1.73 sq m using serum, plasma, or whole bOrdered By: Enoc Armijo on 11-01-2024 GFR/1.73 sq M.predicted among non-blacks MDRD (S/P/Bld) [Vol rate/Area] 91 mL/min/{1.73_m2} >60 [facility] Comment on above: mL/min/1.73m2 CKD-EP I Creatinine Equation (2020) Hematocrit Auto (Bld) [Volum e fraction]Ordered By: Enoc Armijo on 11-01-2024 Hematocrit (Bld) [Volume fraction] 39.9 % 37-47 [facility] Hemoglobin measurementOrdere d By: Enoc Armijo on 11-01-2024 Hemoglobin (Bld) [Mass/Vol] 13.0 g/dL 12.0-15.0 [facility] Immature granulocytes/100 WB C Auto (Bld)Ordered By: Enoc Armijo on 11-01-2024 Immature granulocytes/100 WBC (Bld) 0.400 % 0.0-0.9 [facility] Comment on above: IG% - Immature Granu locytes (promyelocytes, myelocytes and metamyelocytes) > 1% indicates that a LEFT SHIFT is Present. Lymphocytes Auto (Unsp spec) [#/Vol]Ordered By: Enoc Armijo on 11-01-2024 Lymphocytes (Bld) [#/Vol] 1.50 10*3/uL 0.83-4.51 [facility] Lymphocytes/100 WBC Auto (Un sp spec)Ordered By: Enoc Armijo on 11-01-2024 Lymphocytes/100 WBC (Bld) 13.8 % Low 19-41 [facility] MCV (mean corpuscular volume ) determinationOrdered By: Enoc Armijo on 11-01-2024 MCV (RBC) [Entitic vol] 92.8 fL 81-99 [facility] Mean corpuscular hemoglobin (MCH) determinationOrdered By: Enoc Armijo on 11-01-2024 MCH (RBC) [Entitic mass] 30.2 pg 27.0-32.0 [facility] Mean corpuscular hemoglobin concentration (MCHC) determinationOrdered By: Enoc Armijo on 11-01-2024 MCHC (RBC) [Mass/Vol] 32.6 g/dL 32-36 [facility] Mean platelet volume determi nationOrdered By: Enoc Le on 11-01-2024 Platelet mean volume (Bld) [Entitic vol] 11.4 fL 6.2-12.0 [facility] Monocyte percentageOrdered B y: Enoc Armijo on 11-01-2024 Monocytes/100 WBC (Bld) 8.6 % 0-10 [facility] Neutrophil percentageOrdered By: Enoc Armioj on 11-01-2024 Neutrophils/100 WBC (Bld) 75.8 % High 47-70 [facility] Nucleated red blood cell per centageOrdered By: Enoc Le on 11-01-2024 Nucleated RBC/100 WBC (Bld) [Ratio] 0 % 0-5 [facility] Platelet countOrdered By: Luis Alberto Armijo on 11-01-2024 Platelets (Bld) [#/Vol] 265 10*3/uL 150-450 [facility] Potassium (Unsp spec) [Mass/ Vol]Ordered By: Enoc Armijo on 11-01-2024 Potassium [Moles/Vol] 4.2 mmol/L 3.3-5.1 [facility] Potassium measurement (mass/ volume)Ordered By: Enoc Armijo on 11-01-2024 Potassium (Unsp spec) [Mass/Vol] 4.2 mmol/L 3.3-5.1 [facility] RBC Auto (Bld) [#/Vol]Ordere d By: Enoc Armijo on 11-01-2024 RBC (Bld) [#/Vol] 4.30 10*6/uL 4.2-5.4 [facility] Serum creatinine measurement (mass/volume)Ordered By: Enoc Armijo on 11-01-2024 Creatinine [Mass/Vol] 0.63 mg/dL Low 0.70-1.20 [facility] Serum glucose measurement (m ass/volume)Ordered By: Enoc Armijo on 11-01-2024 Glucose [Mass/Vol] 110 mg/dL High 70-99 [facility] Serum or plasma C reactive p rotein measurement (mass/volume)Ordered By: Enoc Armijo on 11-01-2024 CRP [Mass/Vol] 15.90 mg/L High 0.0-3.0 [facility] Serum or plasma calcium rolando urement (mass/volume)Ordered By: Enoc Armijo on 11-01-2024 Calcium [Mass/Vol] 8.8 mg/dL 7.6-11.0 [facility] Serum or plasma urea nitroge n measurement (mass/volume)Ordered By: Enoc Armijo on 11-01-2024 Urea nitrogen [Mass/Vol] 18 mg/dL 4-19 [facility] Sodium levelOrdered By: Enoc Armijo on 11-01-2024 Sodium [Moles/Vol] 140 mmol/L 133-145 [facility] White blood cell (WBC) count Ordered By: Enoc Armijo on 11-01-2024 WBC (Bld) [#/Vol] 10.9 10*3/uL 4.4-11.0 [facility] Urine Cultureon 05-26-2024 [facility] Klebsiella pneumonia e sp pneum [place] Count 80,000-100,000 Klebsiella pneumoniae sp pneum: REACTION [...] TMP SMX Islt SUNNY <=20 S Normal [facility] Comment on above: Performed By: #### L 501.6710, L101.9900 #### [facility] [address] [place], [address] Urgent Care Visit Reporton 1 Urgent Care Visit Report [facility] [address], [address] [place], [place] [address] OFFICE VISIT Date of Service: 05/24/24 MR#: [id number] Acct: [id number] Name: BATOOL ESTRELLA Rep #: [id number] : 1945 Provider: TERESE Murillo Age/Sex: 79/F Location: [facility] Status: Signed Intake Vital Signs 10/05/19 08:13 [...] FOR UTI Chief Complaint: DYSURIA sx yesterday [employer] Required: No Accompanied by: Self Is patient in pain?: No Allergies Sulfa (Sulfonamide Antibiotics) Allergy (Verified 05/24/24 15:50) Rash Medications ???Medication ???Instructions ???Recorded ???Confirmed ???Type nitrofurantoin 1 cap PO Q12H 7 days #14 caps 05/24/24 05/24/24 Rx monohydrate/macrocrystals 100 mg capsule Have you fallen in the past year?: No Nurse's Note: pt states she has discomfort, nausous and fregency with urination [facility] Social History Smoking Status: Never smoker alcohol [...] MA on 05/24/24 16:01 Off Ur Spec Timpson 1.015 Last Edit by Christine Roque MA [...] 0838 Date (more content not included)... Normal [facility] Urinalysis, Completeon 05-24 BACTERIA 2+ /hpf Normal None Seen [facility] Comment on above: Order Comment: BRADFORD CTOR TO SPECIFY Performed By: #### L 501.6710, L101.9900 #### [facility] [address] [place], [address] EPI,SQUAMOUS 0-5 SEEN Normal 5-10 [facility] Comment on above: Order Comment: BRADFORD CTOR TO SPECIFY Performed By: #### L 501.6710, L101.9900 #### [facility] [address] [place], [address] WBC >100 SEEN Normal 0-5 [facility] Comment on above: Order Comment: BRADFORD CTOR TO SPECIFY Performed By: #### L [id number], L101.9900 #### [facility] [address] [place], [address] RBC 10-25 SEEN Normal 0-5 [facility] Comment on above: Order Comment: BRADFORD CTOR TO SPECIFY Performed By: #### L [id number], L101.9900 #### [facility] [address] [place], [address] Mucus Ql (Urine sed) 0 SEEN Normal [facility] Comment on above: Order Comment: COLLE CTOR TO SPECIFY Performed By: #### L 501.6710, L101.9900 #### [facility] [address] [place], [address] CBC W/Diff, Automatedon 04-16 0-2023 Absolute Lymph 1.44 X10 3/uL Normal 0.83-4.51 [facility] Comment on above: Performed By: #### L [id number], L101.9900 #### [facility] [address] [place], [address] Absolute Neut 7.1 X10 3/uL Normal 2.0-7.7 [facility] Comment on above: Performed By: #### L [id number], L101.9900 #### [facility] [address] [place], [address] Basophils/100 WBC (Bld) 0.5 % Normal 0-1 [facility] Comment on above: Performed By: #### L 501.6710, L101.9900 #### [facility] [address] [place], [address] Eosinophils/100 WBC (Bld) 0.2 % Normal 0-5 [facility] Comment on above: Performed By: #### L 501.6710, L101.9900 #### [facility] [address] [place], [address] Erythrocyte distribution width (RBC) [Ratio] 12.8 % Normal 11.6-14.6 [facility] Comment on above: Performed By: #### L 501.6710, L101.9900 #### [facility] [address] [place], [address] Hematocrit (Bld) [Volume fraction] 42.4 % Normal 37-47 [facility] Comment on above: Performed By: #### L 501.6710, L101.9900 #### [facility] [address], [address] Hemoglobin (Bld) [Mass/Vol] 13.7 g/dL Normal 12.0-15.0 [facility] Comment on above: Performed By: #### L 501.6710, L101.9900 #### [facility] [address], [address] IG% 0.300 Normal 0.0-0.9 [facility] Comment on above: Result Comment: IG% - Immature Granulocytes (promyelocytes, myelocytes and metamyelocytes) > 1% indicates that a LEFT SHIFT is Present. Performed By: #### L 501.6710, L101.9900 #### [facility] [address] [place], [address] Lymphocytes/100 WBC (Bld) 15.6 % Low 19-41 [facility] Comment on above: Performed By: #### L 501.6710, L101.9900 #### [facility] [address] [place], [address] MCH (RBC) [Entitic mass] 30.2 pg Normal 27.0-32.0 [facility] Comment on above: Performed By: #### L 501.6710, L101.9900 #### [facility] [address] [place], [address] MCHC (RBC) [Mass/Vol] 32.3 g/dL Normal 32-36 [facility] Comment on above: Performed By: #### L 501.6710, L101.9900 #### [facility] [address] [place], [address] MCV (RBC) [Entitic vol] 93.6 fL Normal 81-99 [facility] Comment on above: Performed By: #### L 501.6710, L101.9900 #### [facility] [address] [place], [address] Monocytes/100 WBC (Bld) 6.4 % Normal 0-10 [facility] Comment on above: Performed By: #### L 501.6710, L101.9900 #### [facility] [address] [place], [address] Neutrophils/100 WBC (Bld) 77.0 % High 47-70 [facility] Comment on above: Performed By: #### L 501.6710, L101.9900 #### [facility] [address] [place], [address] Nucleated RBC (Bld) [#/Vol] 0 10*3/uL Normal 0-5 [facility] Comment on above: Performed By: #### L 501.6710, L101.9900 #### [facility] [address] [place], [address] Platelet mean volume (Bld) [Entitic vol] 12.6 fL High 6.2-12.0 [facility] Comment on above: Performed By: #### L 501.6710, L101.9900 #### [facility] [address] [place], [address] Platelets (Bld) [#/Vol] 202 10*3/uL Normal 150-450 [facility] Comment on above: Performed By: #### L 501.6710, L101.9900 #### [facility] [address] [place], [address] RBC (Bld) [#/Vol] 4.53 10*6/uL Normal 4.2-5.4 [facility] Comment on above: Performed By: #### L 501.6710, L101.9900 #### [facility] [address] [place], [address] RDW SD 44.0 fl High 35.1-43.9 [facility] Comment on above: Performed By: #### L 501.6710, L101.9900 #### [facility] [address] [place], [address] WBC (Bld) [#/Vol] 9.2 10*3/uL Normal 4.4-11.0 [facility] Comment on above: Performed By: #### L 501.6710, L101.9900 #### [facility] [address] [place], [address] Comprehensive Metabolic Prof ilon 04-25-2024 Albumin [Mass/Vol] 3.4 g/dL Normal 3.2-5.0 [facility] Comment on above: Performed By: #### L 501.6710, L101.9900 #### [facility] [address] [place], [address] Albumin/Globulin [Mass ratio] 1.0 {ratio} Normal 0.9-2.4 [facility] Comment on above: Performed By: #### L 501.6710, L101.9900 #### [facility] [address] [place], [address] ALK P 77 U/L Normal 45-117 [facility] Comment on above: Performed By: #### L 501.6710, L101.9900 #### [facility] [address] [place], [address] ALT [Catalytic activity/Vol] 21 U/L Normal 13-56 [facility] Comment on above: Performed By: #### L 501.6710, L101.9900 #### [facility] [address] [place], [address] AST [Catalytic activity/Vol] 13 U/L Low 15-37 [facility] Comment on above: Performed By: #### L 501.6710, L101.9900 #### [facility] [address] [place], [address] Bilirubin [Mass/Vol] 0.40 mg/dL Normal 0.20-1.00 [facility] Comment on above: Result Comment: For patients on eltrombopag therapy, use of Dimension Carriere TBIL is not recommended. Performed By: #### L 501.6710, L101.9900 #### [facility] [address] [place], [address] BUN/CRE 22.8 RATIO High 10-20 [facility] Comment on above: Performed By: #### L 501.6710, L101.9900 #### [facility] [address] [place], [address] CA,Total 8.7 mg/dL Normal 8.5-10.1 [facility] Comment on above: Performed By: #### L 501.6710, L101.9900 #### [facility] [address] [place], [address] Chloride [Moles/Vol] 105 mmol/L Normal 98-107 [facility] Comment on above: Performed By: #### L 501.6710, L101.9900 #### [facility] [address] [place], [address] CO2 [Moles/Vol] 29.0 mmol/L Normal 21.0-32.0 [facility] Comment on above: Performed By: #### L 501.6710, L101.9900 #### [facility] [address] [place], [address] Creatinine [Mass/Vol] 0.79 mg/dL Normal 0.55-1.02 [facility] Comment on above: Result Comment: The validity of the calculated GFR GFRAA in patients over 70 years has not been determined. Clinical correlation is essential. Performed By: #### L 501.6710, L101.9900 #### [facility] [address] [place], [address] EST GFR - AA 91 mL/min Normal >60 [facility] Comment on above: Result Comment: Afri can [place] GFR Calc Performed By: #### L 501.6710, L101.9900 #### [facility] [address] [place], [address] GAP 5 Normal 5-15 [facility] Comment on above: Performed By: #### L 501.6710, L101.9900 #### [facility] [address] [place], [address] GFR/1.73 sq M.predicted among non-blacks MDRD (S/P/Bld) [Vol rate/Area] 75 mL/min/{1.73_m2} Normal >60 [facility] Comment on above: Result Comment: Non- GFR Calc Performed By: #### L 501.6710, L101.9900 #### [facility] [address] [place], [address] Globulin (S) [Mass/Vol] 3.5 g/dL Normal 2.2-4.2 [facility] Comment on above: Performed By: #### L 501.10, L101.9900 #### [facility] [address] [place], [address] Glucose [Mass/Vol] 102 mg/dL Normal 74-106 [facility] Comment on above: Result Comment: Fast ing Glucose result from 100 to 125 mg/dL suggests IMPAIRED HOMEOSTASIS per A.D.A. criteria. Performed By: #### L 501.6710, L101.9900 #### [facility] [address] [place], [address] Potassium [Moles/Vol] 4.0 mmol/L Normal 3.5-5.1 [facility] Comment on above: Performed By: #### L 501.6710, L101.9900 #### [facility] [address] [place], [address] Sodium [Moles/Vol] 139 mmol/L Normal 136-145 [facility] Comment on above: Performed By: #### L 501.6710, L101.9900 #### [facility] [address] [place], [address] T PROT 6.9 g/dL Normal 6.4-8.2 [facility] Comment on above: Performed By: #### L 501.6710, L101.9900 #### [facility] [address] [place], [address] Urea nitrogen [Mass/Vol] 18 mg/dL Normal 7-18 [facility] Comment on above: Performed By: #### L 501.6710, L101.9900 #### [facility] [address] [place], [address] Ferritinon 04-25-2024 Ferritin [Mass/Vol] 77 ng/mL Normal 8-252 [facility] Comment on above: Performed By: #### L 501.6710, L101.9900 #### [facility] [address] [place], [address] Ironon 04-25-2024 Iron [Mass/Vol] 57 ug/dL Normal 50-170 [facility] Comment on above: Performed By: #### L 501.6710, L101.9900 #### [facility] [address] [place], [address] T4 Free Directon 04-25-2024 T4 FREE DIRECT 0.99 ng/dL Normal 0.76-1.46 [facility] Comment on above: Performed By: #### L [id number], L101.9900 #### [facility] [address] [place], [address] Thyroid Stim Hormone (TSH)on 04-25-2024 TSH 2.120 uIU/mL Normal 0.358-3.740 [facility] Comment on above: Performed By: #### L 501.6710, L101.9900 #### [facility] [address] [place], [address] Vitamin B12on 04-25-2024 Cobalamin (Vitamin B12) [Mass/Vol] 583 pg/mL Normal 211-911 [facility] Comment on above: Performed By: #### L 501.6710, L101.9900 #### [facility] [address] [place], [address] Vitamin D,25 Hydroxyon 04-25 Vitamin D 25-OH 36.6 ng/mL Normal [facility] Comment on above: Result Comment: Latricia min D 25(OH) Status Range Deficiency <20 ng/mL (50nmol/L) Insufficiency 20 - 30 ng/mL (50 - 75 nmol/L) Sufficiency 30 - 100 ng/mL (75 - 250 nmol/L) Toxicity >100 ng/mL (>250 nmol/L) Performed By: #### L 501.6710, L101.9900 #### [facility] [address] [place], [address] Absolute lymphocyte countOrd ered By: Kymberly Muhammad on 12-13-2023 Lymphocytes Auto (Unsp spec) [#/Vol] 1.21 10*3/uL 0.83-4.51 [facility] Automated lymphocyte count a s percentage of total leukocytesOrdered By: Kymberly Muhammad on 12-13-2023 Lymphocytes/100 WBC Auto (Unsp spec) 10.7 % 19-41 [facility] Basophil percentageOrdered B y: Kymberly Muhammad on 12-13-2023 Basophils/100 WBC (Bld) 0.5 % 0-1 [facility] Bilirubin [Mass/Vol] 0.30 mg/dL 0.20-1.00 [facility] Comment on above: For patients on eltr ombopag therapy, use of Dimension Carriere TBIL is not recommended. Chloride [Moles/Vol] 105 mmol/L 98-107 [facility] Eosinophils/100 WBC (Bld) 0.2 % 0-5 [facility] Glucose [Mass/Vol] 132 mg/dL 74-106 [facility] Comment on above: Fasting Glucose resu lt greater than or equal to 126 mg/dL suggests DIABETES MELLITUS per A.D.A. criteria. Hemoglobin (Bld) [Mass/Vol] 14.0 g/dL 12.0-15.0 [facility] Monocytes/100 WBC (Bld) 7.0 % 0-10 [facility] Neutrophils (Bld) [#/Vol] 9.2 10*3/uL 2.0-7.7 [facility] Neutrophils/100 WBC (Bld) 81.3 % 47-70 [facility] Potassium [Moles/Vol] 3.7 mmol/L 3.5-5.1 [facility] Protein [Mass/Vol] 7.1 g/dL 6.4-8.2 [facility] Sodium [Moles/Vol] 140 mmol/L 136-145 [facility] WBC (Bld) [#/Vol] 11.3 10*3/uL 4.4-11.0 [facility] Determination of erythrocyte mean corpuscular volume (MCV)Ordered By: Kymberly Muhammad on 12-13-2023 MCV (RBC) [Entitic vol] 93.4 fL 81-99 [facility] Erythrocyte distribution wid th ratioOrdered By: Kymberly Muhammad on 12-13-2023 Erythrocyte distribution width (RBC) [Ratio] 13.1 % 11.6-14.6 [facility] Erythrocyte distribution wid th standard deviationOrdered By: Kymberly Muhammad on 12-13-2023 Erythrocyte distribution width (RBC) [Entitic vol] 44.3 fL 35.1-43.9 [facility] Erythrocyte sedimentation ra teOrdered By: Kymberly Muhammad on 12-13-2023 ESR (Bld) [Velocity] 4 mm/h 0-30 [facility] Hematocrit Auto (Bld) [Volum e fraction]Ordered By: Kymberly Muhammad on 12-13-2023 Hematocrit (Bld) [Volume fraction] 43.8 % 37-47 [facility] Immature granulocytes/100 WB C Auto (Bld)Ordered By: Kymberly Muhammad on 12-13-2023 Immature granulocytes/100 WBC (Bld) 0.300 % 0.0-0.9 [facility] Comment on above: IG% - Immature Granu locytes (promyelocytes, myelocytes and metamyelocytes) > 1% indicates that a LEFT SHIFT is Present. Laboratory - Chemistry and C hemistry - challengeOrdered By: Kymberly Jb on 12-13-2023 Albumin/Globulin [Mass ratio] 1.0 {ratio} 0.9-2.4 [facility] ALP [Catalytic activity/Vol] 83 U/L 45-117 [facility] ALT [Catalytic activity/Vol] 21 U/L 13-56 [facility] CO2 [Moles/Vol] 31.0 mmol/L 21.0-32.0 [facility] Cobalamin (Vitamin B12) [Mass/Vol] 556 pg/mL 211-911 [facility] Globulin (S) [Mass/Vol] 3.5 g/dL 2.2-4.2 [facility] Urea nitrogen/Creatinine [Mass ratio] 28.4 mg/mg 10-20 [facility] Laboratory - Hematology and Cell countsOrdered By: Kymberly Muhammad on 12-13-2023 MCH (RBC) [Entitic mass] 29.9 pg 27.0-32.0 [facility] MCHC (RBC) [Mass/Vol] 32.0 g/dL 32-36 [facility] Nucleated RBC/100 WBC (Bld) [Ratio] 0 % 0-5 [facility] Platelet mean volume (Bld) [Entitic vol] 12.5 fL 6.2-12.0 [facility] Platelets (Bld) [#/Vol] 209 10*3/uL 150-450 [facility] No Panel InformationOrdered By: Kymberly Armandoliya on 12-13-2023 Anti-Nuclear Antibody Screen Negative Negative [facility] Comment on above: Performed at: [address] [id number] Director: Renny Frankel PhD, Phone: [phone] C-Reactive Protein Extended Range < 2.90 mg/L 0.0-3.0 [facility] Comment on above: C-Reactive Protein ( CRP) provides useful information for thediagnosis, therapy and monitoring of inflammatory processesand associated diseases. For the evaluation of Relative Riskfor Cardiovascular Disease, a High Sensitivity CRP (HSCRP)should be ordered. Centromere B Antibody Not Reportable [facility] Estimated GFR (MDRD) Amer 98 mL/min >60 [facility] Comment on above: GFR Calc Estimated GFR (MDRD) Non-Af Amer 81 mL/min >60 [facility] Comment on above: Non- GFR Calc LADONNA-1 Antibody Not Reportable [facility] Lyme Disease IgG Ab 18 kDa Band Absent . [facility] Lyme Disease IgG Ab 23 kDa Band Absent . [facility] Lyme Disease IgG Ab 28 kDa Band Absent . [facility] Lyme Disease IgG Ab 30 kDa Band Absent . [facility] Lyme Disease IgG Ab 39 kDa Band Absent . [facility] Lyme Disease IgG Ab 41 kDa Band Present . [facility] Lyme Disease IgG Ab 45 kDa Band Absent . [facility] Lyme Disease IgG Ab 58 kDa Band Present . [facility] Lyme Disease IgG Ab 66 kDa Band Absent . [facility] Lyme Disease IgG Ab 93 kDa Band Absent . [facility] Lyme Disease IgG West Blot Interp Negative . [facility] Comment on above: Positive: 5 of the f ollowing Borrelia-specific bands: 18,23,28,30,39,41,45,58, 66, and 93. Negative: No bands or banding patterns which do not meet positive criteria. Lyme Disease IgM Ab (Western Blot) Negative . [facility] Comment on above: Note: An equivocal o r positive EIA result followed by anegative Line Blot result is considered NEGATIVE. Anequivocal or positive EIA result followed by a positiveLine Blot is considered POSITIVE by the CDC.Positive: 2 of the following bands: 23,39 or 41Negative: No bands or banding patterns which do not meetpositive criteria.Criteria for positivity are those recommended byCDC/ASTPHLD. p23=Osp C, c53=qfbnbaxgsFujh:Sera from individuals with the following may cross [...] testingto improve the sensitivity and specificity of testing.[facility] offers test code 041213 Lyme Disease Serology withReflex to aid in the diagnosis of Lyme Disease.Performed at: [address] [id number] Director: Solo Kaiser MD, Phone: [phone] Lyme Disease IgM Ab 23 kDa Band Absent . [facility] Lyme Disease IgM Ab 39 kDa Band Absent . [facility] Lyme Disease IgM Ab 41 kDa Band Absent . [facility] PROFESSOR OF PHYSICAL EDUCATION Antibody Not Reportable [facility] SM Antibody Not Reportable [facility] SS-A/Ro IgG Antibody Not Reportable [facility] SS-B/La IgG Antibody Not Reportable [facility] RBC Auto (Bld) [#/Vol]Ordere d By: Kymberly Muhammad on 12-13-2023 RBC (Bld) [#/Vol] 4.69 10*6/uL 4.2-5.4 [facility] Serum DNA double strand anti body assay (units/volume)Ordered By: Kymberly Muhammad on 12-13-2023 DNA double strand Ab Qn (S) Not Reportable [facility] Serum Scl-70 antibody assay (units/volume)Ordered By: Kymberly Muhammad on 12-13-2023 SCL-70 extractable nuclear Ab Qn (S) Not Reportable [facility] Serum or plasma calcium rolando urement (mass/volume)Ordered By: Kymberly Muhammad on 12-13-2023 Calcium [Mass/Vol] 9.0 mg/dL 8.5-10.1 [facility] Serum or plasma creatinine m easurement (mass/volume)Ordered By: Kymberly Muhammad on 12-13-2023 Creatinine [Mass/Vol] 0.74 mg/dL 0.55-1.02 [facility] Comment on above: The validity of the calculated GFR & GFRAA in patients over 70 years has not been determined. Clinical correlation is essential. Serum or plasma urea nitroge n measurement (mass/volume)Ordered By: Kymberly Muhammad on 12-13-2023 Urea nitrogen [Mass/Vol] 21 mg/dL 7-18 [facility] Thin prep Papanicolaou smear with manual screeningOrdered By: Kymberly Muhammad on 12-13-2023 Thin prep Papanicolaou smear with manual screening 3.6 g/dL 3.2-5.0 [facility] Thin prep Papanicolaou smear with manual screening 19 U/L 15-37 [facility] Thin prep Papanicolaou smear with manual screening 4 5-15 [facility] Absolute lymphocyte countOrd ered By: Kymberly Muhammad on 06-09-2023 Lymphocytes Auto (Unsp spec) [#/Vol] 1.07 10*3/uL 0.83-4.51 [facility] Basophil percentageOrdered B y: Kymberly Muhammad on 06-09-2023 Basophils/100 WBC (Bld) 0.4 % 0-1 [facility] Bilirubin [Mass/Vol] 0.30 mg/dL 0.20-1.00 [facility] Comment on above: For patients on eltr ombopag therapy, use of Dimension Carriere TBIL is not recommended. Chloride [Moles/Vol] 104 mmol/L 98-107 [facility] Eosinophils/100 WBC (Bld) 0.2 % 0-5 [facility] Glucose [Mass/Vol] 90 mg/dL 74-106 [facility] Neutrophils (Bld) [#/Vol] 14.0 10*3/uL 2.0-7.7 [facility] Neutrophils/100 WBC (Bld) 85.8 % 47-70 [facility] System Potassium [Moles/Vol] 4.6 mmol/L 3.5-5.1 [facility] Protein [Mass/Vol] 7.3 g/dL 6.4-8.2 [facility] Sodium [Moles/Vol] 139 mmol/L 136-145 [facility] WBC (Bld) [#/Vol] 16.3 10*3/uL 4.4-11.0 [facility] Blood erythrocytes count (nu mber/volume)Ordered By: Kymberly Armandoliya on 06-09-2023 RBC (Bld) [#/Vol] 4.53 10*6/uL 4.2-5.4 [facility] Blood hemoglobin measurement (mass/volume)Ordered By: Kymberly Muhammad on 06-09-2023 Hemoglobin (Bld) [Mass/Vol] 13.8 g/dL 12.0-15.0 [facility] Blood lymphocytes/100 leukoc ytesOrdered By: Kymberly Muhammad on 06-09-2023 Lymphocytes/100 WBC (Bld) 6.6 % 19-41 [facility] Blood monocytes/100 leukocyt esOrdered By: Kymbelry Muhammad on 06-09-2023 Monocytes/100 WBC (Bld) 6.4 % 0-10 [facility] Blood platelet mean volumeOr dered By: Kymberly Muhammad on 06-09-2023 Platelet mean volume (Bld) [Entitic vol] 11.9 fL 6.2-12.0 [facility] Determination of erythrocyte mean corpuscular volume (MCV)Ordered By: Kymberly Muhammad on 06-09-2023 MCV (RBC) [Entitic vol] 93.6 fL 81-99 [facility] Erythrocyte sedimentation ra teOrdered By: Kymberly Muhammad on 06-09-2023 ESR (Bld) [Velocity] 6 mm/h 0-30 [facility] Hematocrit Auto (Bld) [Volum e fraction]Ordered By: Kymberly Muhammad on 06-09-2023 Hematocrit (Bld) [Volume fraction] 42.4 % 37-47 [facility] Laboratory - Chemistry and C hemistry - challengeOrdered By: Kymberly Muhammad on 06-09-2023 ALP [Catalytic activity/Vol] 87 U/L 45-117 [facility] ALT [Catalytic activity/Vol] 16 U/L 13-56 [facility] CO2 [Moles/Vol] 30.0 mmol/L 21.0-32.0 [facility] Globulin (S) [Mass/Vol] 3.5 g/dL 2.2-4.2 [facility] Urea nitrogen/Creatinine [Mass ratio] 29.2 mg/mg 10-20 [facility] Laboratory - Hematology and Cell countsOrdered By: Kymberly Muhammad on 06-09-2023 Erythrocyte distribution width (RBC) [Entitic vol] 43.3 fL 35.1-43.9 [facility] Erythrocyte distribution width (RBC) [Ratio] 12.6 % 11.6-14.6 [facility] Immature granulocytes/100 WBC (Bld) 0.600 % 0.0-0.9 [facility] Comment on above: IG% - Immature Granu locytes (promyelocytes, myelocytes and metamyelocytes) > 1% indicates that a LEFT SHIFT is Present. MCH (RBC) [Entitic mass] 30.5 pg 27.0-32.0 [facility] Nucleated RBC/100 WBC (Bld) [Ratio] 0 % 0-5 [facility] MCHC Auto (RBC) [Mass/Vol]Or dered By: Kymberly Muhammad on 06-09-2023 MCHC (RBC) [Mass/Vol] 32.5 g/dL 32-36 [facility] No Panel InformationOrdered By: Kymberly Muhammad on 06-09-2023 Anti-Nuclear Antibody Screen Negative Negative [facility] Comment on above: Performed at: [facility] [address] Director: Renny Frankel PhD, Phone: [phone] Estimated GFR (MDRD) Amer 114 mL/min >60 [facility] Comment on above: GFR Calc Estimated GFR (MDRD) Non-Af Amer 94 mL/min >60 [facility] Comment on above: Non- GFR Calc Platelets bldOrdered By: Dorene Muhammad on 06-09-2023 Platelets (Bld) [#/Vol] 246 10*3/uL 150-450 [facility] Serum or plasma C reactive p rotein measurement (mass/volume)Ordered By: Kymberly Muhammad on 06-09-2023 CRP [Mass/Vol] 6.23 mg/L 0.0-3.0 [facility] Comment on above: C-Reactive Protein ( CRP) provides useful information for thediagnosis, therapy and monitoring of inflammatory processesand associated diseases. For the evaluation of Relative Riskfor Cardiovascular Disease, a High Sensitivity CRP (HSCRP)should be ordered. Serum or plasma albumin rolando urement (mass/volume)Ordered By: Kymberly Muhammad on 06-09-2023 Albumin [Mass/Vol] 3.8 g/dL 3.2-5.0 [facility] Serum or plasma albumin/glob ulin mass ratioOrdered By: Kymberly Muhammad on 06-09-2023 Albumin/Globulin [Mass ratio] 1.1 {ratio} 0.9-2.4 [facility] Serum or plasma calcium rolando urement (mass/volume)Ordered By: Kymberly Muhammad on 06-09-2023 Calcium [Mass/Vol] 9.0 mg/dL 8.5-10.1 [facility] Serum or plasma creatinine m easurement (mass/volume)Ordered By: Kymberly Muhammad on 06-09-2023 Creatinine [Mass/Vol] 0.65 mg/dL 0.55-1.02 [facility] Comment on above: The validity of the calculated GFR & GFRAA in patients over 70 years has not been determined. Clinical correlation is essential. Serum or plasma urea nitroge n measurement (mass/volume)Ordered By: Kymberly Muhammad on 06-09-2023 Urea nitrogen [Mass/Vol] 19 mg/dL 7-18 [facility] Thin prep Papanicolaou smear with manual screeningOrdered By: Kymberly Muhammad on 06-09-2023 Thin prep Papanicolaou smear with manual screening 14 U/L 15-37 [facility] Thin prep Papanicolaou smear with manual screening 5 5-15 [facility] Basophil percentageon 2021 Basophil percentage 0-5 SEEN /hpf 0-5 [facility] Work Phone: Laboratory - Chemistry and C hemistry - challengeon 04-24-2022 Glucose Ql (U) Negative [facility] Work Phone: pH (U) 5.0 [pH] [facility] Work Phone: Specific gravity (U) [Rel density] 1.010 [facility] Work Phone: Urobilinogen (U) [Mass/Vol] Negative [facility] Work Phone: Laboratory - Hematology and Cell countson 04-24-2022 Hemoglobin Ql (U) Negative [facility] Work Phone: Laboratory - Specimen inform ationon 04-24-2022 Clarity (U) Clear [facility] Work Phone: Mucus LM Ql (Urine sed)on Mucus Ql (Urine sed) 0 SEEN /hpf [facility] Work Phone: [phone] Nitrite ur dipstickon 2021 Nitrite Ql (U) Negative [facility] Work Phone: [phone] No Panel Informationon 04-24 Urine Leukocytes Positive [facility] Work Phone: [phone] Urine Non-Hemolyzed Blood Negative [facility] Work Phone: [phone] Squamous epithelial cells de tection in urine sediment by light microscopyon 04-24-2022 Epithelial cells.squamous LM Ql (Urine sed) 0-5 SEEN /hpf 5-10 [facility] Work Phone: [phone] Urine blood detectionon RBC Ql (U) Negative Negative [facility] Work Phone: [phone] RBC Ql (U) 0 SEEN /hpf 0-5 [facility] Work Phone: Urine clarityon 04-24-2022 Clarity (U) Sl. Cloudy Clear [facility] Work Phone: [phone] Urine color determinationon 04-24-2022 Color (U) Yellow [facility] Work Phone: [phone] Urine glucose detectionon Glucose Ql (U) Normal mg/dl Normal [facility] Work Phone: [phone] Urine ketones detection by t est stripon 04-24-2022 Ketones Ql (U) Negative [facility] Work Phone: Urine leukocyte esterase det ection by dipstickon 04-24-2022 Leukocyte esterase Test strip Ql (U) 25 /ul Negative [facility] Work Phone: Urine pHon 04-24-2022 pH (U) 6.5 [pH] 5.0 - 8.0 [facility] Work Phone: Urine protein assay by test strip, semi-quantitativeon 04-24-2022 Protein Ql (U) Negative [facility] Work Phone: [phone] Urine sediment bacteria coun t by microscopy (number/high power field)on 04-24-2022 Bacteria LM.HPF (Urine sed) [#/Area] 0 /[HPF] None Seen [facility] Work Phone: Urine specific gravity measu rementon 04-24-2022 Specific gravity (U) [Rel density] 1.005 1.002-1.030 [facility] Work Phone: Urine total bilirubin detect ion by test stripon 04-24-2022 Bilirubin Ql (U) Negative [facility] Work Phone: Urobilinogen Auto test strip Ql (U)on 04-24-2022 Urobilinogen Ql (U) Normal mg/dl Normal [facility] Work Phone: Culture, urine Bacteria identified Cx Nom (U) Mixed Gram Pos & Gram Neg Org [facility] Work Phone: Vital Signs Date Time Vital Sign Value Performing Clinician Faci lity 12-27-2024 01:05-0400 Body temperature 97.9 [degF] Dr. Kymberly Muhammad DO Work Phone: [facility] 12-27-2024 01:05-0400 Diastolic blood pressure 84 mm[Hg] Dr. Kymberly Muhammad DO Work Phone: [facility] 12-27-2024 01:05-0400 Heart rate 56 /min Dr. Kymberly Muhammad DO Work Phone: [facility] 12-27-2024 01:05-0400 Respiratory rate 18 /min Dr. Kymberly Muhammad DO Work Phone: [facility] 12-27-2024 01:05-0400 SaO2% (BldA) [Mass fraction] 97 % Dr. Kymberly Muhammad DO Work Phone: [facility] 12-27-2024 01:05-0400 Systolic blood pressure 131 mm[Hg] Dr. Kymberly Muhammad DO Work Phone: [facility] 12-26-2024 21:57-0400 Body height 162.[address] Kymberly Muhammad DO Work Phone: [facility] 12-26-2024 21:57-0400 Body mass index (BMI) [Ratio] 23 kg/m2 Dr. Kymberly Muhammad DO Work Phone: [facility] 12-26-2024 21:57-0400 Body weight 60.[address] Kymberly Muhammad DO Work Phone: [facility] 11-06-2024 09:45-0400 Body temperature 97.2 [degF] Dr. Kymberly Muhammad DO Work Phone: [facility] 11-06-2024 09:45-0400 Diastolic blood pressure 72 mm[Hg] Dr. Kymberly Muhammad DO Work Phone: [facility] 11-06-2024 09:45-0400 Heart rate 77 /min Dr. Kymberly Muhammad DO Work Phone: [facility] 11-06-2024 09:45-0400 Respiratory rate 16 /min Dr. Kymberly Muhammad DO Work Phone: [facility] 11-06-2024 09:45-0400 SaO2% (BldA) [Mass fraction] 96 % Dr. Kymberly Muhammad DO Work Phone: [facility] 11-06-2024 09:45-0400 Systolic blood pressure 133 mm[Hg] Dr. Kymberly Muhammad DO Work Phone: [facility] 11-06-2024 06:22-0400 Body height 162.[address] Kymberly Muhammad DO Work Phone: [facility] 11-06-2024 06:22-0400 Body mass index (BMI) [Ratio] 22.3 kg/m2 Dr. Kymberly Muhammad DO Work Phone: [facility] 11-06-2024 06:22-0400 Body weight [address] Kymberly Muhammad DO Work Phone: [facility] 11-03-2024 13:05-0400 Body temperature 96.8 [degF] Dr. Kymberly Muhammad DO Work Phone: [facility] 11-03-2024 13:05-0400 Diastolic blood pressure 64 mm[Hg] Dr. Kymberly Muhammad DO Work Phone: [facility] 11-03-2024 13:05-0400 Heart rate 55 /min Dr. Kymberly Muhammad DO Work Phone: [facility] 11-03-2024 13:05-0400 Respiratory rate 16 /min Dr. Kymberly Muhammad DO Work Phone: [facility] 11-03-2024 13:05-0400 SaO2% (BldA) [Mass fraction] 98 % Dr. Kymberly Muhammad DO Work Phone: [facility] 11-03-2024 13:05-0400 Systolic blood pressure 122 mm[Hg] Dr. Kymberly Muhammad DO Work Phone: [facility] 11-03-2024 11:20-0400 Body height 162.[address] Kymberly Muhammad DO Work Phone: [facility] 11-02-2024 16:21-0400 Body temperature 97.5 [degF] Dr. Kymberly Muhammad DO Work Phone: [facility] 11-02-2024 16:21-0400 Diastolic blood pressure 62 mm[Hg] Dr. Kymberly Muhammad DO Work Phone: [facility] 11-02-2024 16:21-0400 Heart rate 63 /min Dr. Kymberly Muhammad DO Work Phone: [facility] 11-02-2024 16:21-0400 Respiratory rate 16 /min Dr. Kymberly Muhammad DO Work Phone: [facility] 11-02-2024 16:21-0400 SaO2% (BldA) [Mass fraction] 98 % Dr. Kymberly Muhammad DO Work Phone: [facility] 11-02-2024 16:21-0400 Systolic blood pressure 131 mm[Hg] Dr. Kymberly Muhammad DO Work Phone: [facility] 11-02-2024 14:26-0400 Body height 162.[address] Kymberly Muhammad DO Work Phone: [facility] 11-02-2024 09:00-0400 Body mass index (BMI) [Ratio] 21.6 kg/m2 Dr. Kymberly Muhammad DO Work Phone: [facility] 11-02-2024 09:00-0400 Body temperature 96 [degF] Dr. Kymberly Muhammad DO Work Phone: [facility] 11-02-2024 09:00-0400 Body weight 57.[address] Kymberly Muhammad DO Work Phone: [facility] 11-02-2024 09:00-0400 Diastolic blood pressure 70 mm[Hg] Dr. Kymberly Muhammad DO Work Phone: [facility] 11-02-2024 09:00-0400 Heart rate 70 /min Dr. Kymberly Muhammad DO Work Phone: [facility] 11-02-2024 09:00-0400 Respiratory rate 17 /min Dr. Kymberly Muhammad DO Work Phone: [facility] 11-02-2024 09:00-0400 SaO2% (BldA) [Mass fraction] 97 % Dr. Kymberly Muhammad DO Work Phone: [facility] 11-02-2024 09:00-0400 Systolic blood pressure 111 mm[Hg] Dr. Kymberly Muhammad DO Work Phone: [facility] 11-01-2024 19:13-0400 Body temperature 98.2 [degF] Dr. Kymberly Muhammad DO Work Phone: [facility] 11-01-2024 19:13-0400 Diastolic blood pressure 68 mm[Hg] Dr. Kymberly Muhammad DO Work Phone: [facility] 11-01-2024 19:13-0400 Heart rate 57 /min Dr. Kymberly Muhammad DO Work Phone: [facility] 11-01-2024 19:13-0400 Respiratory rate 16 /min Dr. Kymberly Muhammad DO Work Phone: [facility] 11-01-2024 19:13-0400 SaO2% (BldA) [Mass fraction] 99 % Dr. Kymberly Muhammad DO Work Phone: [facility] 11-01-2024 19:13-0400 Systolic blood pressure 165 mm[Hg] Dr. Kymberly Muhammad DO Work Phone: [facility] 11-01-2024 17:03-0400 Body height 162.[address] Kymberly Muhammad DO Work Phone: [facility] 11-01-2024 17:03-0400 Body mass index (BMI) [Ratio] 22.1 kg/m2 Dr. Kymberly Muhammad DO Work Phone: [facility] 11-01-2024 17:03-0400 Body weight 58.[address] Kymberly Muhammad DO Work Phone: [facility] 04-24-2022 08:58-0400 Body temperature 98 [degF] Dr. Kymberly Muhammad Work Phone: [facility] Work Phone: 04-24-2022 08:58-0400 Diastolic blood pressure 74 mm[Hg] Dr. Kymberly Muhammad Work Phone: [facility] Work Phone: 04-24-2022 08:58-0400 Heart rate 60 /min Dr. Kymberly Muhammad Work Phone: [facility] Work Phone: 04-24-2022 08:58-0400 Respiratory rate 16 /min Dr. Kymberly Muhammad Work Phone: [facility] Work Phone: 04-24-2022 08:58-0400 SaO2% (BldA) [Mass fraction] 97 % Dr. Kymberly Muhammad Work Phone: [facility] Work Phone: 04-24-2022 08:58-0400 Systolic blood pressure 132 mm[Hg] Dr. Kymberly Muhammad Work Phone: [facility] Work Phone: Encounters Encounter Date Encounter Type Care Provider Facility Start: 01-30-2025 End: 01-30-[address] Kymberly Muhammad DO Work Phone: [facility] Work Phone: Start: 01-30-2025 End: 01-30-[address] Kymberly [facility] Work Phone: Start: 01-30-2025 End: 01-30-2025 ambulatory Kymberly Muhammad Facility:[facility] Start: 01-27-2025 End: 01-27-[address] Kymberly Muhammad DO Work Phone: [facility] Work Phone: Start: 01-27-2025 End: 01-27-[address] Allyson Soler MD -Laboratory Work Phone: Start: 01-27-2025 End: 01-27-2025 ambulatory Kymberly Muhammad Facility:[facility] Start: 12-29-2024 End: 12-29-[address] Kymberly Muhammad DO Work Phone: [facility] Work Phone: Start: 12-29-2024 End: 12-29-[address] Allyson Soler MD -Laboratory [place] Work Phone: Start: 12-29-2024 End: 12-29-2024 ambulatory [facility] Facility:[facility] Start: 12-26-2024 End: 12-27-2024 Emergency department patient visit Dr. Kymberly Muhammad DO Work Phone: -Emergency Department Work Phone: Start: 12-01-2024 End: 12-01-[address] Allyson Soler MD -Laboratory, [place] Work Phone: Start: 12-01-2024 End: 12-01-2024 ambulatory [facility] Facility:[facility] Start: 11-29-2024 End: 11-29-[address] Kymberly Muhammad DO Work Phone: [facility] Work Phone: Start: 11-29-2024 End: 11-29-[address] Allyson Solre MD -Laboratory, [place] Work Phone: Start: 11-29-2024 End: 11-29-20[facility] Start: 11-23-2024 End: 11-23-[address] Brandon Doll MD -[facility] Work Phone: Start: 11-23-2024 End: 11-23-2024 ambulatory Brandon Doll Facility:[facility] Start: 11-08-2024 End: 11-08-[address] Kymberly Muhammad DO Work Phone: [facility] Work Phone: Start: 11-08-2024 End: 11-08-[address] Kymberly Muhammad DO -[facility] Start: 11-08-2024 End: 11-08-2024 ambulatory Kymberly Muhammad Facility:[facility] Start: 11-06-2024 ambulatory Brandon Malone lity:[facility] Start: 11-06-2024 Non-patient / Non-visit Dr. Heidi Doll MD -[facility] Start: 11-06-2024 End: 11-06-2024 Admission to same day surgery center Dr. Brandon Doll MD -[facility] Start: 11-06-2024 End: 11-06-[address] Kymberyl Muhammad DO Work Phone: [facility] Work Phone: Start: 11-03-2024 End: 11-03-[address] Enoc Watkins -[facility] Work Phone: Start: 11-03-2024 End: 11-03-[address] Kymberly Muhammad DO Work Phone: [facility] Work Phone: Start: 11-02-2024 End: 11-02-[address] Enoc Watkins -[facility] Work Phone: Start: 11-02-2024 End: 11-02-[address] Kymberly Muhammad DO Work Phone: [facility] Work Phone: Start: 11-02-2024 End: 11-02-[address] Brandon Doll MD -[facility] Work Phone: Start: 11-02-2024 End: 11-02-2024 ambulatory Kymberly Muhammad Facility:[facility] Start: 11-01-2024 End: 11-01-2024 Emergency department patient visit Dr. Kymberly Muhammad DO Work Phone: -Emergency Department Work Phone: Start: 05-24-2024 End: 05-24-2024 ambulatory Kymberly Malys Facility:[facility] Start: 05-24-2024 End: 05-24-2024 ambulatory Kymberly Malys Facility:[facility] Start: 04-25-2024 End: 04-25-2024 ambulatory Kymberly Malys Facility:[facility] Start: 12-13-2023 End: 12-13-2023 ambulatory [facility] Work Phone: Start: 12-13-2023 End: 12-13-2023 [facility] Start: 06-09-2023 End: 06-09-2023 ambulatory [facility] Work Phone: Start: 06-09-2023 End: 06-09-2023 Patient encounter procedure [facility], [facility] Start: 05-30-2022 End: 05-30-[address] Kymberly Muhammad Work Phone: [facility] Work Phone: Start: 05-30-2022 End: 05-30-[address] Kymberly Muhammad Work Phone: [facility] Start: 05-07-2022 End: 05-07-[address] Kymberly Muhammad Work Phone: [facility] Work Phone: Start: 05-07-2022 End: 05-07-[address] Kymberly Muhammad Work Phone: [facility] Start: 04-24-2022 End: 04-24-[address] Kymberly Muhammad Work Phone: [facility] Work Phone: Start: 04-24-2022 End: 04-24-[address] [facility]ymberly Muhammad [facility] Start: 04-24-2022 End: 04-24-[address] Kymberly Muhammad Work Phone: [facility] Start: 04-17-2022 End: 04-17-2022 ambulatory [facility] Work Phone: Start: 04-17-2022 End: 04-17-2022 [facility] Procedures Date Procedure Procedure Detail Performing Clinician Start: 01-30-2025 MRI of brain with contrast Dr. Kymberly ellis DO Work Phone: Start: 12-26-2024 Plain chest X-ray Dr. Kymberly [...] the productionof interferon gamma. Chemiluminescence immunoassaymethodologyPerformed at: [facility] [id number] Director: Renny Frankel PhD, Phone: [phone] Start: 11-29-2024 Hepatitis C antibody measurement Dr. [...] HCV Quant by PCR testing - HCVPCR #[id number] Non Reactive: < 0.8 Equivocal: >/= 0.8 [...] Activity Detail Author Start: 12-26-2024 End: 12-27-2024 [facility] Start: 11-06-2024 Anesthesia major ves sels neck simple ligation ANESTH NECK VESSEL SURGERY [facility] Start: 11-06-2024 Ligation/biopsy temp oral artery LIGATION/BX TEMPORAL ARTERY [facility] Start: 11-06-2024 Patient discharge [facility] Start: 11-03-2024 Iv infusion therapy/prophylaxis /dx 1st to 1 hr THER/PROPH/DIAG IV INF INIT [facility] Start: 11-01-2024 [facility] Start: 05-07-2022 US Kidney - bilatera l and Urinary bladder [facility] Work Phone: Start: 05-07-2022 US urinary tract Kidney and Bladder [facility] Work Phone: Antibody to lupus La protein measurement [facility] Antibody to SS-A measurement [facility] Centromere protein B Ab [Units/volume] in Serum [facility] Chromatin Ab [Units/volume] in Serum or Plasma [facility] DNA double strand Ab [Units/volume] in Serum [facility] Ladonna-1 extractable nuc lear Ab [Units/volume] in Serum [facility] Patient Education [facility] Work Phone: Patient referral [facility] Work Phone: SCL-[id number] extractable nuclear Ab [Units/volume] in Serum by Immunoassay [facility] Majano extractable nuclear Ab [Presence] in Serum [facility] Immunizations Immunization Date Immunization Notes Care Provider Scott sanchez 06-26-2017 tetanus toxoid, redu suzanne diphtheria toxoid, and acellular pertussis vaccine, adsorbed [facility] Payers Date Payer Category Payer Self-pay [id number] 2013 Medicare [id number] Unknown [id number] Unknown [id number] 2.16.8 [id number] Unknown [id number] 2.16.8 [id number] Unknown [id number] 2.16.8 [id number] Unknown [id number] 2.16.8 [id number] Unknown [id number] 2.16.8 [id number] Unknown [id number] 2.16.8 [id number] Unknown [id number] 2.16.8 [id number] Unknown [id number] 2.16.8 [id number] Unknown [id number] 2.16.8 [id number] Unknown [id number] 2.16.8 [id number] Unknown [id number] 2.16.8 [id number] Unknown [id number] 2.16.8 [id number] Unknown [id number] 2.16.8 [id number] Unknown [id number] 2.16.8 [id number] Unknown [id number] 2.16.8 [id number] Unknown [id number] 2.16.8 [id number] Unknown [id number] 2.16.8 [id number] Unknown [id number] 2.16.8 [id number] Social History Date Type Detail Facility Start: 10-05-2019 End: 04-24-2022 Tobacco smoking status NHIS Unknown if ever smoked [facility] Start: 08-21-2019 None [facility] Start: 08-21-2019 Alone [facility] Start: 1945 Sex Assigned At Female [facility] Start: 11-01-2024 End: 12-26-2024 Tobacco smoking status NHIS Never smoked tobacco (finding) [facility] Start: 11-01-2024 End: 12-06-2024 Sex Female (finding) [facility] NEGATED: Highlighted row Not [facility] Medical Equipment Procedure Code Equipment Code Equipment Origin al Text Equipment Identifier Dates Biopsy, artery, temporal Ligation clip, metallic ([id number] FDA Start: 11-06-2024 Biopsy, artery, temporal Ligation clip, metallic [id number] FDA Start: 11-06-2024 Goals Date Patient Goal Desired Activity /State Mental Status Date Assessment Result Facility 12-26-2024 Cognitive function Voice/Name [facility] Work Phone: 11-06-2024 Cognitive function Voice/Name [facility] Work Phone: 11-03-2024 Cognitive function Awake;Alert;A ppropriate;Fol lows Commands [facility] Work Phone: 11-02-2024 Cognitive function Awake;Appropr iate;Follows Commands [facility] Work Phone: Clinical Notes 11-01-2024 to 12-26-2024 Note Date & Type Note Facility 12-26-2024 Radiology Diagnostic study note [facility] Imaging Services [address] [place] [address] Chest 1 View (Portable) MR#: [id number] Acct: [id number] Name: BATOOL ESTRELLA Rep #: [id number] : 1945 F 79 From: Loretta Partida MD PCP: Dr. Kymberly Muhammad DO Status: REG ER Study:Chest 1 View (Portable) Date of Exam: 12/26/24 Exam# [id number] Ordering Dr: Rolando More DO PROCEDURE: CHEST 1 VIEW (PORTABLE) 12/26/2024 REASON FOR EXAM: CHEST PAIN TECHNIQUE: Frontal view of the chest. COMPARISON: 11/30/2019 FINDINGS: Hardware: None Heart: Cardiac and mediastinal contours are stable. Lungs: No focal consolidation. No pneumothorax. No pleural effusion. Bones: The bones are unremarkable. Other: RAD/Chest 1 View (Portable) IMPRESSION: No Acute Findings. Reading Location: [facility] CC: Dr. Fernie More DO; Dr. Kymberly Muhammad DO ~ Equipment Cleaner: Signed [facility] 11-29-2024 Radiology Diagnostic study note [facility] Imaging Services [address] [place] [address] Chest PA and Lateral MR#: [id number] Acct: [id number] Name: BATOOL ESTRELLA Rep #: [id number] : 1945 F 79 From: Veena Motley MD PCP: Dr. Kymberly Muhammad DO Status: REG CLI Study:Chest PA and Lateral Date of Exam: 11/29/24 Exam# [id number] Ordering Dr: Allyson Soler MD PROCEDURE: CHEST [...] 2. Additional description as above. Reading Location: [facility] CC: Dr. Kymberly Muhammad DO; Dr. Allyson Soler MD ~ Equipment Cleaner: Signed [facility] 11-06-2024 Discharge summary Note Date/Time November 06, 2024 9:15am [facility] Medical Records Department [address] [place] [address] Instructions for Home/Discharge Instructions 11/06/24 0914 MR#: [id number] Acct: [id number] Name: BATOOL ESTRELLA Rep #:[id number] : 1945 79 From: Brandon ayon MD PCP: Dr. Kymberly Muhammad DO Status:REG SDC Discharge Instructions Diet Discharge Diet: No restrictions [...] to schedule 2 week follow up appointment. [phone] Test Results: Test results from this visit will be discussed in further detail at your follow-up appointment, if applicable. Discharge Plan Admission Attending Provider: Brandon Doll Primary Care Provider: Kymberly Muhammad Instructions Print Language: Faroese Discharge Orders/Prescriptions Prescriptions: No Action One Daily Multi-Vit w-Mineral 4.5 mg iron tablet 1 tab PO DAILY prednisone 20 mg tablet 80 mg PO DAILY Qty: 28 0RF Rx Instructions: Next dose 11/04/2024 Referrals / Follow Up: Kymberly Muhammad DO [Primary Care Provider] - Disposition Disposition (needs filled in before D/C Order can be placed): Home, Self Care 11/06/2415<Electronically signed by Brandon Doll MD>Brandon Doll MD CC: Dr. Kymberly Muhammad DO ~ Signed [facility] Work Phone: 1(926) 948-682103-24-2025 Consult note [facility] Medical Records Department [address] [place] [address] Anesthesia Postop Eval II 11/06/24 1015 MR#: [id number] Acct: [id number] Name: BATOOL ESTRELLA Rep #:[id number] : 1945 79 From: Carmen Wallis PCP: Dr. Kymberly Muhammad DO Status:REG SDC Y Race: C Location: [place] [address]- Anesthesia Postop Eval I Sum Postop Eval Completion status Anesthesia document: Postop Eval 1 completed: Yes Anesthesia Postop Eval I Summary Anesthesia Postop Eval I Summary: Anesthesia Postop Eval I: Assessment Summary Airway patent Yes 11/06/24 09:08 CHEMICAL EQUIPMENT SALES ENGINEER.LMIL Spontaneous unlabored Yes 11/06/24 09:08 CHEMICAL EQUIPMENT SALES ENGINEER.LMIL respirations Mental status Awake 11/06/24 09:08 CHEMICAL EQUIPMENT SALES ENGINEER.LMIL nausea No 11/06/24 09:08 CHEMICAL EQUIPMENT SALES ENGINEER.LMIL Vomiting No 11/06/24 09:08 CHEMICAL EQUIPMENT SALES ENGINEER.LMIL Anesthesia Postop Eval I: Fluid Summary Crystalloid volume administer 10 11/06/24 09:08 CHEMICAL EQUIPMENT SALES ENGINEER.LMIL (ml) Colloids volume administered ( ml) Blood Product volume administered (ml) Total IV fluid infused 10 11/06/24 09:08 CHEMICAL EQUIPMENT SALES ENGINEER.LMIL Anesthesia Postop Eval I: Summary Notes Anesthesia Complication No 11/06/24 09:08 CHEMICAL EQUIPMENT SALES ENGINEER.LMIL Anesthesia Complication Comment: Post-operative progress note Anesthesia: Postop Eval II Evaluation Mental status: Awake Pain Level: 1 nausea: No Vomiting: No 11/06/24 1015 a> Date _ Carmen Gregorio Signature: Date CC: ~ Signed [facility]03-24-2025 History and physical note [facility] Medical Records Department [address] [place] [address] History & Physical Exam 11/06/24 0659 MR#: [id number] Acct: [id number] Name: BATOOL ESTRELLA Rep #:[id number] : 1945 79 From: Brandon ayon MD PCP: Dr. Kymberly Muhammad, DO Status:REG [facility] Location: [place] [address] History and Physical Date of Admission: 11/06/24 Intake Vital Signs 11/01/2516:11/03/2507:11/02/2508:00 Height 5 ft 4 in 5 ft [...] willing to proceed. Brandon Doll MD Pager: [facility] [address] [place] [address], [address] [place] [address] Office: I have examined the patient and the H&P has been reviewed. There are no clinicalchanges since date of exam. 11/06/24 0659 Cosigner Signature (if applicable): CC: Dr. Brandon Doll MD; Dr. Kymberly Muhammad DO~ Signed [facility]03-24-2025 Consult note Author Enriqueta Light [facility] Note Date/Time November 06, 2024 9:0 8am [facility] Medical Records Department [address] [place] [address] Anesthesia Postop Eval I 11/06/24 0907 MR#: [id number] Acct: [id number] Name: BATOOL ESTRELLA Rep #:[id number] : 1945 79 From: Enriqueta Light CRNA PCP: Dr. Kymberly Muhammad DO Status:REG SDC Y Race: C Location: [place] [address] Anesthesia: Postop Eval I Current Vital Signs [...] document: Postop Eval 1 completed: Yes 11/06/24 0908 <Electronically signed by Enriqueta castaneda CRNA> Date _ Enriqueta Light CHEMICAL EQUIPMENT SALES ENGINEER Cosigner Signature: Date CC: ~ Signed [facility] Work Phone: 1(234) 180-884703-24-2025 Consult note [facility] Note Date/Time November 06, 2024 7:2 0[facility] Medical Records Department [address] [place] [address] Pre-Anesthesia Evaluation 11/06/2414 MR#: [id number] Acct: [id number] Name: BATOOL ESTRELLA Rep #:[id number] : 1945 79 From: Chris Jang MD PCP: Dr. Kymberly Muhammad, DO Status:REG SDC Y Race: C Location: [place] [address] ASA Classification* ASA Classification ASA Classification: 2 [...] ARTERY BX Anesthesia History Anesthesia History - mucker operator: Anesthesia History - mucker operator Hx Hospitalization No 11/02/24 10:36 Any Problems [...] take am of surgery PONV PONV - mucker operator: PONV - mucker operator Female Yes 11/02/24 10:36 HX of Motion [...] 11/06/24 06:22 Respiratory Assessment Respiratory Assessment - mucker operator: Respiratory Tract Infection Hx - mucker operator Hx Respiratory Tract Infection No 11/02/24 10:36 STOP Sleep Apnea STOP Sleep Apnea - mucker operator: STOP Sleep Apnea - mucker operator Hx Hypertension No 11/03/24 11:20 Hx Sleep [...] Tobacco Use History Tobacco Use History - mucker operator: Tobacco Use History - mucker operator Tobacco Use Smoking Status Never smoker 11/02/24 10:36 Hx Tobacco Use No 11/02/24 10:36 Years Smoking Packs Smoked per Day Smoking Cessation Date was within the last 15 years Hx Smoking Cessation Date Hx Smoking Cessation Counseling Hematologic Medial History Hematologic Hx - mucker operator: 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 Hx of Blood Transfusion No 11/02/24 10:36 [...] confused, unrespo /Reproduction History /Reproductive History - mucker operator: /Reproductive Hx- mucker operator Hx Now No 11/02/24 10:36 Gestational Age [...] MD Cosigner Signature: Date CC: ~ Signed [facility] Work Phone: 1(152) 167-936303-24-2025 Discharge summary [facility] Medical Records Department [address] [place] [address] Instructions for Home/Discharge Instructions 11/06/2414 MR#: [id number] Acct: [id number] Name: BATOOL ESTRELLA Rep #:[id number] : 1945 79 From: Brandon ayon MD PCP: Dr. Kymberly Muhammad, Status:REG [facility] Discharge Instructions Diet Discharge Diet: No restrictions [...] to schedule 2 week follow up appointment. [phone] Test Results: Test results from this visit will be discussed in further detail at your follow- up appointment, if applicable. Discharge Plan Admission Attending Provider: Brandon Doll Primary Care Provider: Kymberly Muhammad Instructions Print Language: Faroese Discharge Orders/Prescriptions Prescriptions: No Action One Daily Multi-Vit w-Mineral 4.5 mg iron tablet 1 tab PO DAILY prednisone 20 mg tablet 80 mg PO DAILY Qty: 28 0RF Rx Instructions: Next dose 11/04/2024 Referrals / Follow Up: Kymberly Muhammad DO [Primary Care Provider] - Disposition Disposition (needs filled in before D/C Order can be placed): Home, Self Care 11/06/24 0915Brandon Doll MD CC: Dr. Kymberly Muhammad DO ~ Signed [facility]03-24-2025 Procedure note [facility] Medical Records Department [address] [place] [address] Operative Report 11/06/24910 MR#: [id number] Acct: [id number] Name: BATOOL ESTRELLA Rep #:[id number] : 1945 79 From: Brandon ayon MD PCP: Dr. Kymberly Muhammad DO Status:[facility] Location: [place] [address] Operative Report (Standard) Operative Information Date of Procedure: 11/06/24 Pre-Operative Diagnosis: Right vision loss Post-Operative Diagnosis: Same Surgery/Procedure Performed: Right temporal artery biopsy contracting engineer: Yes Client Engagement Manager: Jeremie Sebastian Tasks completed by surgical first assistant: Retracting Type of Anesthesia: Local MAC [...] and MAC anesthesia was induced. The right mosque was inspected and the route of the artery was marked. The mosque was prepped and draped in usual sterile [...] that appearto be artery into the right mosque. The area was irrigated and suctioned dry and it was continue to be explored but I did not find other tubular structures in the mosque. The incision was irrigated and suctioned dry once more and then closed with running 4-0 Monocryl suture. Dermabond was applied. Patient was taken to PACUin stable condition. Surgical Findings: Small temporal artery Complications Complications: No Admit VTE Documentation VTE Mechan Device Prophylaxis: SCD's 11/06/24913 Cosigner Signature (if applicable): CC: Dr. Brandon Doll MD; Dr. Kymberly Muhammad, DO~ Signed [facility]03-24-2025 Consult note [facility] Medical Records Department [address] [place] [address] Anesthesia Postop Eval I 11/06/24906 MR#: [id number] Acct: [id number] Name: BATOOL ESTRELLA Rep #:[id number] : 1945 79 From: Enriqueta Light CRNA PCP: Dr. Kymberly Muhammad, DO Status:REG SDC Y Race: C Location: [place] [address] Anesthesia: Postop Eval I Current Vital Signs [...] Postop Eval 1 completed: Yes 11/06/24 09 c CHEMICAL EQUIPMENT SALES ENGINEER> Date _ Enriqueta Light CRNA Cosigner Signature: Date CC: ~ Signed [facility]03-24-2025 History and physical note Author Brandon Doll [facility] Note Date/Time November 06, 2024 11: 14am [facility] Medical Records Department [address] [place] [address] History & Physical Exam 11/06/24 0659 MR#: [id number] Acct: [id number] Name: BATOOL ESTRELLA Rep #:[id number] : 1945 79 From: Brandon ayon MD PCP: Dr. Kymberly Muhammad, DO Status:[facility] Location: [place] [address] History and Physical Date of Admission: 11/06/24 [...] willing to proceed. Brandon Doll MD Pager: [facility] [address] [place] [address], [address] [place] [phone] Office: I have examined the patient and the H&P has been reviewed. There are no clinicalchanges since date of exam. 11/06/2459 <Electronically signed by Brandon Doll MD> Cosigner Signature (if applicable): CC: Dr. Brandon Doll MD; Dr. Kymberly Muhammad DO~ Signed [facility] Work Phone: 1(874) 743-775903-24-2025 Consult note [facility] Medical Records Department [address] [place] [address] Pre-Anesthesia Evaluation 11/06/24713 MR#: [id number] Acct: [id number] Name: BATOOL ESTRELLA Rep #:[id number] : 1945 79 From: Chris Jang MD PCP: Dr. Kymberly Muhammad DO Status:REG SDC Y Race: C Location: [place] [address] ASA Classification* ASA Classification ASA Classification: 2 [...] ARTERY BX Anesthesia History Anesthesia History - mucker operator: Anesthesia History - mucker operator Hx Hospitalization No 11/02/24 10:36 Any Problems [...] take am of surgery PONV PONV - mucker operator: PONV - mucker operator Female Yes 11/02/24 10:36 HX of Motion [...] 11/06/24 06:22 Respiratory Assessment Respiratory Assessment - mucker operator: Respiratory Tract Infection Hx - mucker operator Hx Respiratory Tract Infection No 11/02/24 10:36 STOP Sleep Apnea STOP Sleep Apnea - mucker operator: STOP Sleep Apnea - mucker operator Hx Hypertension No 11/03/24 11:20 Hx Sleep [...] Tobacco Use History Tobacco Use History - mucker operator: Tobacco Use History - mucker operator Tobacco Use Smoking Status Never smoker 11/02/24 10:36 Hx Tobacco Use No 11/02/24 10:36 Years Smoking Packs Smoked per Day Smoking Cessation Date was within the last 15 years Hx Smoking Cessation Date Hx Smoking Cessation Counseling Hematologic Medial History Hematologic Hx - mucker operator: 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 11/06/24 0720 ann-marie TINEO> Date _ Chris Jang MD [facility] Signature: Date CC: ~ Signed [facility]03-24-2025 [facility] Medical Records Department [address] [facility] [place] [address] History Physical Exam 11/06/2459 MR#: [id number] Acct: [id number] Name: BATOOL ESTRELLA Rep #: [id number] : 1945 79 From: Brandon Doll MD PCP: Dr. Kymberly Muhammad, DO Status:[facility] Location: [place] [address] History and Physical Date of Admission: 11/06/24 [...] willing to proceed. Brandon Doll MD Pager: [facility] [address] [place] [address], [address] [place] [address] Office: I have examined the patient and the H P has been reviewed. There are no clinical changes since date of exam. 11/06/24 0659 Cosigner Signature (if applicable): CC: Dr. Brandon Doll MD; Dr. Kymberly Weir (more content not included)... [facility]03-20-2025 Evaluation note* Diagnosis Onset Date Resolution Status Admit Date Blurred vision, right eye acute November 02, 2024 8:48am [facility] Work Phone: 1(582) 668-510503-20-2025 Evaluation note* Diagnosis Onset Date Resolution Status Admit Date Blurred vision, right eye inactive November 02, 2024 8:48am [facility] Work Phone: 1(591) 169-140903-20-2025 Evaluation note* Diagnosis Onset Date Resolution Status Admit Date Blurred vision, right eye inactive November 02, 2024 8:48am Blurred vision, right eye inactive November 23, 2024 8:38am [facility] Work Phone: 1(217) 259-835503-19-2025 Discharge summary [facility] Medical Records Department [address] [place] [address] Emergency Department Summary 11/01/24 MR#: [id number] Acct: [id number] Name: BATOOL ESTRELLA Rep #:[id number] : 1945 79 From: Enoc Watkins PCP: [...] Ordered for 1 g of IV Solu-Medrol. 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 It may contain incorrectwords, spelling, [...] ophthalmology Dr. Murphy next week. Print Language: Faroese Disposition Disposition: Home, Self Care What to do if you have Problems For any increased pain, shortness of breath, bleeding, nausea or vomiting, chestpain, or any unexpected problems, contact your Primary Care Provider. Call [facility] ([phone]) or report tothe closest Emergency Room. Call 911 if necessary. 11/01/241925 Cosigner Signature (if applicable): CC: Dr. Carlos Murphy MD; Dr. Kymberly Muhammad DO; Dr. Kashmir Ramirez MD ~ Signed [facility]03-19-2025 Discharge summary Author Enoc Armijo [facility] Note Date/Time November 01, 2024 7:2 6pm [facility] Medical Records Department [address] [facility] [place] [address] Emergency Department Summary 11/01/24 MR#: [id number] Acct: [id number] Name: BATOOL ESTRELLA Rep #:[id number] : 1945 79 From: Enoc Watkins PCP: [...] Ordered for 1 g of IV Solu-Medrol. 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 It may contain incorrectwords, spelling, and [...] ophthalmology Dr. Murphy next week. Print Language: Faroese Disposition Disposition: Home, Self Care What to do if you have Problems For any increased pain, shortness of breath, bleeding, nausea or vomiting, chestpain, or any unexpected problems, contact your Primary Care Provider. Call [facility] ([phone]) or report to the closest Emergency Room. Call 911 if necessary. 11/01/241925 <Electronically signed by Enoc Watkins> Cosigner Signature (if applicable): CC: Dr. Carlos Murphy MD; Dr. Kymberly Muhammad DO; Dr. Kashmir Ramirez MD ~ Signed [facility] Work Phone: Consult note Author Carmen Wallis [facility] Note Date/Time November 06, 2024 11: 14am [facility] Medical Records Department [address] [place] [address] Anesthesia Postop Eval II 11/06/24 1015 MR#: [id number] Acct: [id number] Name: BATOOL ESTRELLA Rep #:[id number] : 1945 79 From: Carmen Wallis PCP: Dr. 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.LMIL Spontaneous unlabored Yes 11/06/24 09:08 CHEMICAL EQUIPMENT SALES ENGINEER.LMIL respirations Mental status Awake 11/06/24 09:08 CHEMICAL EQUIPMENT SALES ENGINEER.LMIL nausea No 11/06/24 09:08 CHEMICAL EQUIPMENT SALES ENGINEER.LMIL Vomiting No 11/06/24 09:08 CHEMICAL EQUIPMENT SALES ENGINEER.LMIL Anesthesia Postop Eval I: Fluid Summary Crystalloid volume administer 10 11/06/24 09:08 CHEMICAL EQUIPMENT SALES ENGINEER.LMIL (ml) Colloids volume administered ( ml) Blood Product volume administered (ml) Total IV fluid infused 10 11/06/24 09:08 CHEMICAL EQUIPMENT SALES ENGINEER.LMIL Anesthesia Postop Eval I: Summary Notes Anesthesia Complication No 11/06/24 09:08 CHEMICAL EQUIPMENT SALES ENGINEER.LMIL Anesthesia Complication Comment: Post-operative progress note Anesthesia: Postop Eval II Evaluation Mental status: Awake Pain Level: 1 nausea: No Vomiting: No 11/06/24 1015 <Electronically signed by Carmen chacko> Date _ Carmen Gregorio Signature: Date CC: ~ Signed [facility] Work Phone: Evaluation noteNo assessment information available [facility] Work Phone: Evaluation note* Diagnosis Onset Date Resolution Status Urinary tract infection acut e [facility] Work Phone: Hospital Discharge instructions Additional Instructions [...] your follow-up with ophthalmology Dr. Murphy next week.[facility] Work Phone: Hospital Discharge instructions Additional Instructions If symptoms return or have you any concerns please return to the emergency. Please discuss your ED visit with your doctor and the possibility of going on for cardiac stress testing. As we discussed both sets of cardiac enzymes were negative and your EKG did not show an obvious heart attack.[facility] Work Phone: Reason for referral (narrative)No reason for referral information [facility] Work Phone: Chief Complaint and Reason for [...] COPY PCP December 29, 2024 3:59p m Chief Complaint Admit Date R EYE [...] COPY PCP December 29, 2024 3:59p m VISUAL LOSS January 30, 2025 7:58 am Advance Directives No Advanced Directives Records Found Advance Directive Response Recorded Date/ Time Advance Directives Yes December 06, 014 10:04am Living Will Yes October 05 9:13am Power of Flight Operations Specialist Yes October 05, 2019 9:13am Advance Directive Response Recorded Date/ Time Living Will Yes November 01, 2024 5:17pm Do you have a Healthcare Power of Flight Operations Specialist? Yes November 01, 2024 5:17pm Name of Medical Power of Flight Operations Specialist child November 01, 2024 5:17pm Advance Directives Yes December 06 10:04am Advance Directive Response Recorded Date/ Time Advance Directives Yes November 02 8:04am Living Will Yes November 01, 2024 5:17pm Do you have a Healthcare Power of Flight Operations Specialist? Yes November 01, 2024 5:17pm Name of Medical Power of Flight Operations Specialist child November 01, 2024 5:17pm Advance Directive Response Recorded Date/ Time Advance Directives Yes November 02 025 8:04am Living Will Yes November 01, 2024 5:17pm Do you have a Healthcare Power of Flight Operations Specialist? Yes November 01, 2024 5:17pm Name of Medical Power of Flight Operations Specialist child November 01, 2024 5:17pm Living Will Yes November 02, 2024 10:36am Do you have a Healthcare Power of Flight Operations Specialist? Yes November 02, 2024 10:36am Name of Medical Power of Flight Operations Specialist CARLOS ESTRELLA November 02, 2024 10:36am Advance Directive Response Recorded Date/ Time Advance Directives Yes November 02 8:04am Living Will Yes November 01, 2024 5:17pm Do you have a Healthcare Power of Flight Operations Specialist? Yes November 01, 2024 5:17pm Name of Medical Power of Flight Operations Specialist child November 01, 2024 5:17pm Living Will Yes November 02, 2024 10:36am Do you have a Healthcare Power of Flight Operations Specialist? Yes November 02, 2024 10:36am Name of Medical Power of Flight Operations Specialist CARLOS ESTRELLA November 02, 2024 10:36am Do you have a Healthcare Power of Flight Operations Specialist? Yes December 26, 2024 9:57pm Summary [...] November 01, 2024 Dr. Enoc Armijo DO Attending Provider [...] November 06, 2024 Dr. Lefty Valdez MD Referring Provider Active Start: November 06, [...] December 29, 2024 End: December 29, 2024 Team Status: Inactive Member Role Status Dates Dr. Kymberly Muhammad DO Primary Care Provider Active Start: January 27, 2025 End: January 27, 2025 Dr. Allyson Soler MD Attending Provider Active Start: January 27, 2025 End: January 27, 2025 Dr. Allyson Soler MD Referring Provider Active Start: January 27, 2025 End: January 27, 2025 Team Status: Active Member Role Status Dates Dr. Kymberly Muhammad DO Primary Care Provider Active Start: January 30, 2025 Dr. Kymberly Muhammad DO Attending Provider Active St art: January 30, 2025 Dr. Kymberly Muhammad DO Referring Provider Active St art: January 30, 2025 Team Status: Inactive Member Role Status Dates Dr. Kymberly Muhammad DO Primary Care Provider Active Start: January 30, 2025 End: January 30, 2025 Dr. Kymberly Muhammad DO Attending Provider Active St art: January 30, 2025 End: January 30, 2025 Dr. Kymberly Muhammad DO Referring Provider Active St art: January 30, 2025 End: January 30, 2025 INFORMATION SOURCE (unrecogn ized section and content) DATE CREATED AUTHOR 02/07/2025 [facility] FOR RECORDS PERTAINING TO PATIENTS WHO ARE [...] BE BASED ON THE PRIMARY CLINICAL RECORDS. [facility]. provides no warranty or guarantee of the accuracy or completeness of information in this document.
[2025-03-05 10:50] LABS: Hematocrit 39.1 % (37-47); Hemoglobin 13.1 g/dL (12.0-15.0); Mean Corp Hgb Conc 33.5 g/dL (32-36); Mean Corpuscular Volume 97.5 fL (81-99); Mean Platelet Vol. 11.2 fl (6.2-12.0); POSITIVE COUNT YES; POSITIVE MORPHOLOGY YES; Platelet Count 147 K/mm3 (150-450); RBC Distribution Width CV 14.5 % (11.6-14.6); RBC Distribution Width SD 52.4 fl (35.1-43.9); Red Blood Count 4.01 M/mm3 (4.2-5.4); White Blood Count 14.4 K/mm3 (4.4-11.0)
[2025-03-05 10:52] LABS: Differential Indicated MANUAL DIFF
[2025-03-05 11:44] LABS: Neutrophil-Band 1 % (0-5); Neutrophil-Segmented 80 % (47-70); Total Cells Counted 100 (MANUAL DIFF)
[2025-03-05 11:45] LABS: Red Cell Morphology NORM C+C NORMAL (NORM C&C)
[2025-03-05 11:46] LABS: Reactive Lymphocyte 1+
[2025-03-05 11:55] LABS: AST(SGOT) 20 U/L (<=31); Alanine Aminotransfer ALT/SGPT 31 U/L (<=34); Albumin, Serum 3.7 g/dL (3.4-4.8); Alkaline Phosphatase 60 U/L (35-104); Anion Gap 12 (5-15); BUN 26 mg/dL (4-19); BUN/Creat Ratio 40.5 RATIO (10-20); Calcium,Total 8.5 mg/dL (7.6-11.0); Carbon Dioxide 24.9 mmol/L (21.0-32.0); Chloride 102 mmol/L (98-108); Globulin 1.5 g/dL (2.2-4.2); Glucose 170 mg/dL (70-99); Potassium 3.9 mmol/L (3.3-5.1)
[2025-03-05 12:00] LABS: CRP < 3.00 mg/L (0.0-3.0)
== END | disposition home or self-care (01) ==
LOC: MTLAB 08:12
PROVIDERS: PCP Family Medicine; Referring Provider Internal Medicine Rheumatology; Visit Provider Internal Medicine Rheumatology
DX: M31.6 Other giant cell arteritis (principal); H47.011 Ischemic optic neuropathy, right eye; Z79.899 Other long term (current) drug therapy
CPT/HCPCS: 36415; 80053; 85025; 85652; 86140

== ENCOUNTER → 2025-03-16 | Outpatient (CLI) | payer MEDICARE, SELFPAY ==
[2025-03-16 16:23] LABS: AST(SGOT) 16 U/L (<=31); Alanine Aminotransfer ALT/SGPT 31 U/L (<=34); Albumin, Serum 4.0 g/dL (3.4-4.8); Alkaline Phosphatase 65 U/L (35-104); Anion Gap 12 (5-15); BUN 31 mg/dL (4-19); BUN/Creat Ratio 39.9 RATIO (10-20); Calcium,Total 8.8 mg/dL (7.6-11.0); Carbon Dioxide 27.0 mmol/L (21.0-32.0); Chloride 99 mmol/L (98-108); Globulin 1.6 g/dL (2.2-4.2); Glucose 204 mg/dL (70-99); Potassium 4.3 mmol/L (3.3-5.1); Pro- Brain NATRIURETIC PEPTIDE 86 pg/mL (<=1800)
== END | disposition home or self-care (01) ==
LOC: MTLAB 13:06
PROVIDERS: PCP Family Medicine; Referring Provider Family Medicine; Visit Provider Family Medicine
DX: Z51.81 Encounter for therapeutic drug level monitoring (principal); I50.21 Acute systolic (congestive) heart failure
CPT/HCPCS: 36415; 80053; 83880

== ENCOUNTER → 2025-04-05 | Outpatient (CLI) | payer MEDICARE, SELFPAY ==
[2025-04-05 13:28] LABS: CRP < 3.00 mg/L (0.0-3.0)
== END | disposition home or self-care (01) ==
PROVIDERS: PCP Family Medicine; Referring Provider Internal Medicine Rheumatology; Visit Provider Internal Medicine Rheumatology
DX: M31.6 Other giant cell arteritis (principal); H47.011 Ischemic optic neuropathy, right eye
CPT/HCPCS: 36415; 85652; 86140

== ENCOUNTER → 2025-04-18 | Outpatient (CLI) | payer MEDICARE, SELFPAY ==
--- NOTE | 2025-04-18 08:00 | VDLE_ITS ---
Reason For Study Reason For Study: PVD RIGHT LEFT CFV is compressible, spontaneous, phasic, competent GSV is normal. and demonstrates normal augmentation. CFV is compressible, spontaneous, phasic, competent, FV is compressible, spontaneous, phasic, competent and demonstrates normal augmentation. and demonstrates normal augmentation. FV is compressible, spontaneous, phasic, competent POP V is compressible, spontaneous, phasic, competent and demonstrates normal augmentation. and demonstrates normal augmentation. POP V is compressible, spontaneous, phasic, competent T/P Trunk is compressible. and demonstrates normal augmentation. PTV is compressible. T/P Trunk is compressible. RT PerV is compressible. PTV is compressible. Acute deep vein thrombosis is noted in the Soleus V. Acute deep vein thrombosis is noted in the Per V. It It is dilated and NONCOMPRESSIBLE. is dilated and NONCOMPRESSIBLE. SFJ is competent and measures 0.67 cm. GSV proximal thigh measures 0.35x0.35 cm. GSV at knee measures 0.21x0.26 cm. GSV is competent throughout. SSV mid calf is competent and measures 0.20x0.15 cm. Procedure Exam performed in department. This is a venous duplex using B-mode, color flow and spectral Doppler. The exam was diagnostic. Patient was scanned in reverse Trendelenburg position during reflux assessment. A preliminary report was called and/or faxed to [facility]. VL/Venous Duplex US - Robin Extrem Interpretation Summary Acute deep vein thrombosis is noted in the right soleus vein. Acute deep vein thrombosis is noted in the left peroneal vein. Ordering Physician: Kymberly Muhammad Referring Physician: Kymberly Muhammad Performed By: Erica Roberts RVT
== END | disposition home or self-care (01) ==
LOC: CVS 07:58
PROVIDERS: PCP Family Medicine; Referring Provider Family Medicine; Visit Provider Family Medicine
DX: R60.0 Localized edema (principal); I73.9 Peripheral vascular disease, unspecified
CPT/HCPCS: 93970

== ENCOUNTER → 2025-05-02 | Outpatient (CLI) | payer MEDICARE, SELFPAY ==
--- NOTE | 2025-05-02 13:02 | ECHOD_ITS ---
Reason For Study Reason For Study: EDEMA/ SOB Procedure This was a 2D Doppler, Color Flow transthoracic echocardiogram. Exam performed in department. Left Ventricle Normal LV size. Left ventricular systolic function is normal. The left ventricular ejection fraction is 65 %. Stage 1 diastolic dysfunction. No regional wall motion abnormalities noted. Right Ventricle Normal RV size. Normal systolic function. Atria Normal left atrium. Normal right atrium. Mitral Valve There is mild to moderate mitral annular calcification. Tricuspid Valve Normal tricuspid valve. Mild (1+) tricuspid valve insufficiency. Pulmonary artery systolic pressure is 34 mmHg. Aortic Valve Trisinus/trileaflet aortic valve. Pulmonic Valve Normal pulmonic valve. Great Vessels Normal aortic root. The pulmonary artery is normal size. Inferior vena cava collapse with respiration. Pericardium/Pleural No pericardial effusion. MMode/2D Measurements & Calculations LVIDd: 3.6 cm IVSd: 1.1 cm LVOT diam: 1.9 cm LVIDs: 2.1 cm LVPWd: 0.95 cm LVOT area: 2.8 cm2 RVDd: 2.9 cm FS: 40.4 % asc Aorta Diam: 3.1 cm LAV(MOD-bp): 33.5 ml LVAd ap4: 18.7 cm2 LAV(MOD-bp) Indexed: 20.4 ml/m2 LVLd ap4: 6.6 cm LAV(MOD-sp2): 40.9 ml EDV(MOD-sp4): 43.6 ml LAV(MOD-sp4): 25.1 ml EDV(sp4-el): 45.2 ml LVAs ap4: 9.2 cm2 LVLs ap4: 5.6 cm ESV(MOD-sp4): 13.1 ml ESV(sp4-el): 12.9 ml EF(MOD-sp4): 70.0 % EF(sp4-el): 71.5 % LVAd ap2: 15.4 cm2 SV(MOD-sp4): 30.5 ml SV(MOD-sp2): 24.5 ml LVLd ap2: 6.1 cm SI(MOD-sp4): 18.6 ml/m2 SI(MOD-sp2): 14.9 ml/m2 EDV(MOD-sp2): 34.4 ml EDV(sp2-el): 32.7 ml LVAs ap2: 7.5 cm2 LVLs ap2: 5.1 cm ESV(MOD-sp2): 9.9 ml ESV(sp2-el): 9.4 ml EF(MOD-sp2): 71.3 % SV(sp4-el): 32.3 ml Ao sinus diam: 3.[address] Junction: 2.6 cm LA dimension(2D): 3.1 cm LA A4 area: 11.2 cm2 RA A4 area: 9.9 cm2 TAPSE: 2.2 cm Time Measurements MV dec time: 0.20 sec Doppler Measurements & Calculations MV E max óscar: 82.7 cm/sec Lat Peak E' Óscar: 8.6 cm/sec Med Peak E' Óscar: 9.9 cm/sec MV A max óscar: 110.5 cm/sec E/E' lat: 9.7 E/E' med: 8.4 MV E/A: 0.75 MV dec slope: 423.9 cm/sec2 Ao V2 max: 171.2 cm/sec LV V1 max: 149.3 cm/sec Ao max P.8 mmHg LV V1 max P.9 mmHg Ao V2 mean: 126.5 cm/sec LV V1 mean P.6 mmHg Ao mean P.0 mmHg LV V1 mean: 101.5 cm/sec Ao V2 VTI: 37.4 cm LV V1 VTI: 31.0 cm AV (velocity ratio): 0.83 KOTA(I,D): 2.3 cm2 KOTA(V,D): 2.4 cm2 SV(LVOT): 86.1 ml PA V2 max: 116.6 cm/sec TR max óscar: 272.0 cm/sec TR max P.7 mmHg ECHO/Echo Complete Interpretation Summary Normal LV size. Left ventricular systolic function is normal. The left ventricular ejection fraction is 65 %. There is mild to moderate mitral annular calcification. Stage 1 diastolic dysfunction. Ordering Physician: Kymberly Muhammad Referring Physician: Kymberly Muhammad Performed By: Vanessa Carlson RDCS
== END | disposition home or self-care (01) ==
LOC: CVS 13:00
PROVIDERS: PCP Family Medicine; Referring Provider Family Medicine; Visit Provider Family Medicine
DX: R60.9 Edema, unspecified (principal); R06.02 Shortness of breath
CPT/HCPCS: 93306

== ENCOUNTER → 2025-05-09 | Outpatient (CLI) | payer MEDICARE, SELFPAY ==
--- NOTE | 2025-05-09 16:22 | RAD_ITS ---
EXAM: XR Lumbosacral Spine, 2 or 3 Views CLINICAL INDICATION: RIGHT HIP PAIN, LOW BACK PAIN TECHNIQUE: Frontal and lateral views of the lumbar spine and sacrum. COMPARISON: No relevant prior studies available. FINDINGS: VERTEBRAE: Mild dextroconvex curvature of the lumbar spine sending around L3. Degenerative facet arthropathy throughout the lumbar spine, most prominent in the lower lumbar spine. No acute fracture. SACRUM/COCCYX: Unremarkable as visualized. No acute fracture. DISC SPACES: Degenerative disc disease throughout the lumbar spine. SOFT TISSUES: Unremarkable. RAD/Lumbar Spine 2 or 3 Views IMPRESSION: 1. No acute fracture. 2. If symptoms persist, further evaluation with MRI is recommended. 3. Degenerative changes lumbar spine as described. Reading Location: [id number]
--- NOTE | 2025-05-09 16:22 | RAD_ITS ---
EXAM: XR Right Hip With Pelvis When Performed, 2 or 3 Views CLINICAL INDICATION: RIGHT HIP PAIN, LOW BACK PAIN TECHNIQUE: Two or three views of the right hip with pelvis when performed. COMPARISON: No relevant prior studies available. FINDINGS: BONES/JOINTS: Unremarkable. No acute fracture. No dislocation. SOFT TISSUES: Unremarkable. RAD/HIP, UNI W/ Pelvis 2-3 Views IMPRESSION: Normal right hip x-rays. Reading Location: [id number]
--- OUTSIDE RECORDS SUMMARY | 2025-05-09 19:02 | XMS RPT_ITS | CCD ---
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 Kymberly Muhammad Primary Care Provider Dr. Kymberly Muhammad Referring Provider [phone] TERESE Vyas Attending Provider [phone] Dr. Kymberly Muhammad DO Primary Care Provider Dr. Enoc Armijo DO Emergency Provider Dr. Kymberly Muhammad DO Referring Provider Lavon TINEO, Dr. Taylor Attending Provider Dr. Enoc Armijo DO Attending Provider [phone] Enoc Armijo DO Referring Provider Dr. Brandon Doll MD Referring Provider [phone] Dr. Brandon Doll MD Other Provider Dr. Enoc Armijo DO Attending Provider Dr. Kymberly Muhammad DO Attending Provider [phone] Dr. Lefty Valdez MD Attending Provider Dr. Lefty Valdez MD Referring Provider Karlene TINEO, Dr. Valadez Attending Provider Karlene TINEO, Dr. Valadez Referring Provider Dr. Fernie More DO Emergency Provider Dr. Fernie More DO Attending Provider Dr. Kymberly Muhammad DO Primary Care Provider [phone] Malys DO, Dr. Traylor Referring Provider Lavon TINEO, Dr. Taylor Attending Provider Gurpreet TINEO, Dr. Tse Attending Provider Malys DO, Dr. Traylor Primary Care Provider [phone] Karlene TINEO, Dr. Valadez Attending Provider Karlene TINEO, Dr. Valadez Referring Provider Jb DO, Dr. Traylor Attending Provider Malys DO, Dr. Traylor Referring Provider Gurpreet TINEO, Dr. Tse Attending Provider Malys DO, Dr. Traylor Primary Care Provider [phone] Karlene TINEO, Dr. Valadez Attending Provider Karlene TINEO, Dr. Valadez Referring Provider Smiley TINEO, Dr. Schrader Attending Provider Vellanki, Allyson Referring Unavailable Malys, Kymberly Primary Care Unavailable Vellanki, Allyson Attending Unavailable Brandon Doll Referring Unavailable Brandon Doll Attending Unavailable Malys, Kymberly Primary Care Unavailable Malys, Kymberly Primary Care Unavailable Le, Enoc Referring Unavailable Le, Enoc Attending Unavailable Malys, Kymberly Attending Unavailable Malys, Kymberly Primary Care Unavailable Malys, Kymberly Referring Unavailable Malys, Kymberly Attending Unavailable Malys, Kymberly Primary Care Unavailable Malys, Kymberly Referring Unavailable Vellanki, Allyson Attending Unavailable Vellanki, Allyson Referring Unavailable Malys, Kymberly Primary Care Unavailable Malys, Kymberly Primary Care Unavailable Malys, Kymberly Attending Unavailable Le, Enoc Attending Unavailable Malys, Kymberly Primary Care Unavailable Le, Enoc Referring Unavailable Vellanki, Allyson Attending Unavailable Vellanki, Allyson Referring Unavailable Malys, Kymberly Primary Care Unavailable Malys, Kymberly Referring Unavailable Malys, Kymberly Attending Unavailable Malys, Kymberly Primary Care Unavailable Fernie More Attending Unavailable Malys, Kymberly Primary Care Unavailable Malys, Kymberly Primary Care Unavailable Le, Enoc Attending Unavailable Vellanki, Allyson Attending Unavailable Vellanki, Allyson Referring Unavailable Malys, Kymberly Primary Care Unavailable Raciel Reis Attending Unavailable Malys, Kymberly Primary Care Unavailable Malys, Kymberly Referring Unavailable Malys, Kymberly Primary Care Unavailable Shruthi, Erasmo Attending Unavailable Malys, Kymberly Referring Unavailable Calabretta, Brandon Attending Unavailable Malys, Kymberly Primary Care Unavailable Malys, Kymberly Primary Care Unavailable Malys, Kymberly Attending Unavailable Malys, Kymberly Referring Unavailable Azael, Uche Referring Unavailable Azael, Uche Attending Unavailable Malys, Kymberly Primary Care Unavailable Vellanki, Allyson Attending Unavailable Vellanki, Allyson Referring Unavailable Malys, Kymberly Primary Care Unavailable Calabretta, Brandon Referring Unavailable Calabretta, Brandon Attending Unavailable Calabretta, Brandon Consulting Unavailable Malys, Kymberly Primary Care Unavailable Azael, Uche Attending Unavailable Malys, Kymberly Primary Care Unavailable Malys, Kymberly Referring Unavailable Malys, Kymberly Primary Care Unavailable Calabretta, Brandon Attending Unavailable Malys, Kymberly Referring Unavailable Sailors, Lefty Referring Unavailable Sailors, Lefty Attending Unavailable Malys, Kymberly Primary Care Unavailable Vellanki, Allyson Attending Unavailable Vellanki, Allyson Referring Unavailable Malys, Kymberly Primary Care Unavailable Vellanki, Allyson Referring Unavailable Malys, Kymberly Primary Care Unavailable Vellanki, Allyson Attending Unavailable Allergies Allergy Classification Reported Allergen(s) Allergy Type Date of Onset Reaction(s) Facility (20 sources) Sulfonamides (Antibiotic) Allergy to substance 0 Rash [facility] (1 source) Sulfonamides (Antibiotic) Drug allergy (disorder) 5 [facility] Repository Medications Current Medications Medication Drug Class(es) Dates Sig (Normalized) Sig (Original) Otbhnbog-Fzv-Pziosy s Sulfate (One Daily Multi-Vit W-Mineral) 4.5 mg iron tablet (13 sources) Start: 11-02-2024 take 1 tablet by mouth once daily Miqxlbiu-Mje-Ajoed us Sulfate (One Daily Multi-Vit W-Mineral) 4.5 mg iron tablet Active 1 {tbl} PO DAILY November 02, 2024 12:00am Staley (Nk) (1 source) Start: 08-21-2019 Staley (Nk) Active August 21, 2019 1:00am predniSONE [...] Drug Class(es) Dates Sig (Normalized) Sig (Original) [id number] 200 actuat albuterol 0.09 mg/actuat metered dose inhaler (20 sources) beta2-Adrenergic Agonist Start: 09-12-2017 End: 12-05-2017 Albuterol Sulfate 90 mcg/actuation HFA aerosol inhaler Discontinued 2 NMA INHALATION EVERY 6 HOURS as needed for shortness of breath or wheezing 6.7 0 September 12, 2017 1:00am December 05, 2017 [...] tablet Discontinued 1 {tbl} PO Q12H 20 10 July 26, 2018 1:00am August 04, 2018 1:00am August 05, 2018 1:12am Acute sinusitis, unspecified Start: 06-28-2017 End: 09-12-2017 take 1 tablet by mouth twice daily Amoxicillin-Pot Clavulanate Discontinued 1 TABLET PO TWICE A DAY June 28, 2017 10:28am September 12, 2017 10:35am Start: 06-26-2017 End: 09-12-2017 Amoxicillin-Pot Clavulanate 1 EACH tablet Discontinued 1 {tbl} PO TWICE A DAY 10 June 28, 2017 10:28am September 12, 2017 10:35am cephalexin 500 mg oral capsule (20 sources) Cephalosporin Antibacterial Start: 04-24-2022 End: 05-04-2022 take 1 capsule by mouth every twelve hours Cephalexin 500 mg capsule Discontinued 500 mg PO Q12H 20 10 0 April 24, 2022 12:00am May 03, 2022 12:00am May 04, 2022 12:03am Start: 10-07-2018 End: 10-17-2018 take 1 capsule by mouth every twelve hours Cephalexin 500 mg capsule Discontinued 500 mg PO Q12H 20 10 0 October 07, 2018 1:00am October 16, 2018 1:00am October 17, 2018 1:10am Start: 09-12-2017 End: 09-22-2017 take 1 capsule by mouth every twelve hours Cephalexin 500 mg capsule Discontinued 500 mg PO Q12H 20 10 0 September 12, 2017 1:00am September 21, 2017 1:00am September 22, 2017 1:05am ciprofloxacin 500 mg oral tablet (20 sources) Quinolone Antimicrobial Start: 05-26-2024 End: 06-02-2024 take 1 tablet by mouth twice daily Ciprofloxacin Hcl 500 mg tablet Discontinued 500 mg PO TWICE A DAY 14 7 0 May 26, 2024 12:00am June 01, 2024 12:00am June 02, 2024 12:07am Start: 12-05-2017 End: 02-01-2018 take 1 tablet by mouth every twelve hours Ciprofloxacin Hcl (Cipro) 500 mg tablet Discontinued 500 mg PO Q12H 20 0 December 05, 2017 12:00am February 01, 2018 9:39am nitrofurantoin, macrocrystals 25 mg / nitrofurantoin, monohydrate 75 mg oral capsule (20 sources) Nitrofuran Antibacterial Start: 05-24-2024 End: 05-26-2024 take 1 capsule by mouth every twelve hours at mealtime Nitrofurantoin Monohyd/M-Cryst 100 mg capsule Discontinued 1 NMA PO Q12H 14 7 0 May 24, 2024 12:00am May 30, 2024 12:00am May 26, 2024 12:39pm administer with a meal/food; swallow whole; do not open, crush, dissolve , or chew Start: 10-07-2018 End: 10-07-2018 take 1 capsule by mouth every twelve hours at mealtime Nitrofurantoin Monohyd/M-Cryst 100 mg capsule Discontinued 1 NMA PO Q12H 14 7 0 October 07, 2018 1:00am October 13, 2018 1:00am October 07, 2018 9:43am administer with a meal/food; swallow whole; do not open, crush, dissolve , or chew Start: 02-01-2018 End: 02-08-2018 take 1 capsule by mouth every twelve hours at mealtime Nitrofurantoin Monohyd/M-Cryst 100 mg capsule Discontinued 1 NMA PO Q12H 14 7 0 February 01, 2018 12:00am February 07, 2018 12:00am February 08, 2018 12:06am administer with a meal/food; swallow whole; do not open, crush, dissolve , or chew traMADol hydrochloride 50 mg oral tablet (20 sources) Opioid Agonist Start: 06-28-2017 End: 09-12-2017 take 1 tablet by mouth every six hours as needed for pain Tramadol 50 MG tablet Discontinued 50 mg PO EVERY 6 HOURS NEEDED as needed for Pain 20 0 June 28, 2017 1:00am September 12, 2017 10:35am Problems Active Problems Problem Classification Problem Date Documented Da te Episodic/Chronic E Codes: Natural/environment (20 sources) Cat scratch - wound; Translations: [Scratched by cat, initial encounter] 07-26-2018 Episodic Open wounds of extremities (20 sources) Cat bite - wound; Translations: [Open bite of unspecified hand, initial encounter] 08-21-2019 Episodic Other aftercare (1 source) Encounter for therapeutic drug level monitoring; Translations: [Encounter for therapeutic drug level monitoring] Onset: 03-31-2025 Episodic Other eye disorders (14 sources) Swelling of structure of eye; Translations: [Unspecified papilledema] 11-01-2024 Chronic Other eye disorders (1 source) Ischemic optic neuropathy, right eye; Translations: [Ischemic optic neuropathy, right eye] Onset: 04-06-2025 Chronic Residual codes; unclassified (1 source) Edema, unspecified; Translations: [Edema, unspecified] Onset: 05-08-2025 Episodic Residual codes; unclassified (1 source) Localized edema; Translations: [Localized edema] Onset: 04-25-2025 Episodic Skin and subcutaneous tissue infections (20 sources) Cellulitis; Translations: [Cellulitis, unspecified] 08-21-2019 Episodic Systemic lupus erythematosus and connective tissue disorders (16 sources) Temporal arteritis; Translations: [Other giant cell arteritis] Onset: 04-06-2025 11-01-2024 Chronic Unclassified (20 sources) No history of clinical finding in subject; Translations: [No significant past medical history] 10-05-2019 Unclassified (8 sources) discuss cardiac testing with your doctor Urinary tract infections (20 sources) Urinary tract infectious disease; Translations: [Urinary tract infection, site not specified] Episodic Past or Other Problems Problem Classification Problem Date Documented Da te Episodic/Chronic Blindness and vision defects (20 sources) Blurring of visual image; Translations: [Other visual disturbances] Onset: 11-22-2024 11-01-2024 Episodic Genitourinary symptoms and ill-defined conditions (1 source) Dysuria; Translations: [Dysuria] Onset: 06-19-2024 Episodic Nonspecific chest pain (9 sources) Chest pain; Translations: [Chest pain, unspecified] Onset: 01-01-2025 12-27-2024 Episodic Other ear and sense organ disorders (1 source) Unspecified disorder of ear, unspecified ear; Translations: [Unspecified disorder of ear, unspecified ear] Onset: 11-07-2024 Episodic Residual codes; unclassified (1 source) Disorientation, unspecified; Translations: [Disorientation, unspecified] Onset: 02-05-2025 Episodic Results Test Name Value Interpretation Reference Range Facility [facility] 05-02-2025 Echo [facility] Cardiovascular Services [address] [place] [address] Echo Complete 05/02/25 1306 MR#: [id number] Acct: [id number] Name: BATOOL ESTRELLA Rep #: [id number] : 1945 80 From: Erasmo Hawkins MD Attending Dr: Dr. Kymberly Muhammad DO Status: REG CL I Ordering Dr: Kymberly Muhammad DO Date: 05/02/25 Location: CVS Sex: F C Admitted: Reason For Study Reason For Study: EDEMA/ SOB Procedure This was a 2D Doppler, Color Flow transthoracic echocardiogram. Exam performed in department. Left Ventricle Normal LV size. Left ventricular systolic function is normal. The left ventricular ejection fraction is 65 %. Stage 1 diastolic dysfunction. No regional wall motion abnormalities noted. Right Ventricle Normal RV size. Normal systolic function. Atria Normal left atrium. Normal right atrium. Mitral Valve There is mild to moderate mitral annular calcification. Tricuspid Valve Normal tricuspid valve. Mild (1+) tricuspid valve insufficiency. Pulmonary artery systolic pressure is 34 mmHg. Aortic Valve Trisinus/trileaflet aortic valve. Pulmonic Valve Normal pulmonic valve. Great Vessels Normal aortic root. The pulmonary artery is normal size. Inferior vena cava collapse with respiration. Pericardium/Pleural No pericardial effusion. MMode/2D Measurements Calculations LVIDd: 3.6 cm IVSd: 1.1 cm LVOT diam: 1.9 cm LVIDs: 2.1 cm LVPWd: 0.95 cm LVOT area: 2.8 cm2 RVDd: 2.9 cm FS: 40.4 % asc Aorta Diam: 3.1 cm LAV(MOD-bp): 33.5 ml LVAd ap4: 18.7 cm2 LAV(MOD-bp) Indexed: 20.4 ml/m2 LVLd ap4: 6.6 cm LAV(MOD-sp2): 40.9 ml EDV(MOD-sp4): 43.6 ml LAV(MOD-sp4): 25.1 ml EDV(sp4-el): 45.2 ml LVAs ap4: 9.2 cm2 LVLs ap4: 5.6 cm ESV(MOD-sp4): 13.1 ml ESV(sp4-el): 12.9 ml EF(MOD-sp4): 70.0 % EF(sp4-el): 71.5 % LVAd ap2: 15.4 cm2 SV(MOD-sp4): 30.5 ml SV(MOD-sp2): 24.5 ml LVLd ap2: 6.1 cm SI(MOD-sp4): 18.6 ml/m2 SI(MOD-sp2): 14.9 ml/m2 EDV(MOD-sp2): 34.4 ml EDV(sp2-el): 32.7 ml LVAs ap2: 7.5 cm2 LVLs ap2: 5.1 cm ESV(MOD-sp2): 9.9 ml ESV(sp2-el): 9.4 ml EF(MOD-sp2): 71.3 % SV(sp4-el): 32.3 ml Ao sinus diam: 3.[address] Junction: 2.6 cm LA dimension(2D): 3.1 cm LA A4 area: 11.2 cm2 RA A4 area: 9.9 cm2 TAPSE: 2.2 cm Time Measurements MV dec time: 0.20 sec Doppler Measurements Calculations MV E max vivien: 82.7 cm/sec Lat Peak E' Vivien: 8.6 cm/sec Med Peak E' Vivien: 9.9 cm/sec MV A max vivien: 110.5 cm/sec E/E' lat: 9.7 E/E' med: 8.4 MV E/A: 0.75 MV dec slope: 423.9 cm/sec2 Ao V2 max: 171.2 cm/sec LV V1 max: 149.3 cm/sec Ao max P.8 mmHg LV V1 max P.9 mmHg Ao V2 mean: 126.5 cm/sec LV V1 mean P.6 mmHg Ao mean P.0 mmHg LV V1 mean: 101.5 cm/sec Ao V2 VTI: 37.4 cm LV V1 VTI: 31.0 cm AV (velocity ratio): 0.83 KOTA(I,D): 2.3 cm2 KOTA(V,D): 2.4 cm2 SV(LVOT): 86.1 ml PA V2 max: 116.6 cm/sec TR max vivien: 272.0 cm/sec TR max P.7 mmHg ECHO/Echo Complete Interpretation Summary Normal LV size. Left ventricular systolic function is normal. The left ventricular ejection fraction is 65 %. There is mild to moderate mitral annular calcification. Stage 1 diastolic dysfunction. Ordering Physician: Kymberly Muhammad Referring Physician: Kymberly Muhammad Performed By: Vanessa Carlson RDCS 05/02/25 1525 Date Erasmo Hawkins MD CC: Dr. Kymberly Muahmmad DO Date Dictated: 05/02/25 1306 Date Transcribed: 05/02/25 1525 Wire Rope Sling Maker: Signed Normal [facility] Venous Duplex US - Robin [facility] 04-18-2025 Venous Duplex US - Robin [facility] Cardiovascular Services [address] [place] [address] Venous Duplex US - Robin Extrem 04/18/25 0812 MR#: [id number] Acct: [id number] Name: BATOOL ESTRELLA Rep #: [id number] : 1945 80 From: Raciel Reis MD Attending Dr: Dr. Kymberly Muhammad, Status: REG CL I Ordering Dr: Kymberly Muhammad DO Date: 04/18/25 Location: CVS Sex: F C Admitted: Reason For Study Reason For Study: PVD RIGHT LEFT CFV is compressible, spontaneous, phasic, competent GSV is normal. and demonstrates normal augmentation. CFV is compressible, spontaneous, phasic, competent, FV is compressible, spontaneous, phasic, competent and demonstrates normal augmentation. and demonstrates normal augmentation. FV is compressible, spontaneous, phasic, competent POP V is compressible, spontaneous, phasic, competent and demonstrates normal augmentation. and demonstrates normal augmentation. POP V is compressible, spontaneous, phasic, competent T/P Trunk is compressible. and demonstrates normal augmentation. PTV is compressible. T/P Trunk is compressible. RT PerV is compressible. PTV is compressible. Acute deep vein thrombosis is noted in the Soleus V. Acute deep vein thrombosis is noted in the Per V. It It is dilated and NONCOMPRESSIBLE. is dilated and NONCOMPRESSIBLE. SFJ is competent and measures 0.67 cm. GSV proximal thigh measures 0.35x0.35 cm. GSV at knee measures 0.21x0.26 cm. GSV is competent throughout. SSV mid calf is competent and measures 0.20x0.15 cm. Procedure Exam performed in department. This is a venous duplex using B-mode, color flow and spectral Doppler. The exam was diagnostic. Patient was scanned in reverse Trendelenburg position during reflux assessment. A preliminary report was called and/or faxed to [facility]. VL/Venous Duplex US - Robin Extrem Interpretation Summary Acute deep vein thrombosis is noted in the right soleus vein. Acute deep vein thrombosis is noted in the left peroneal vein. Ordering Physician: Kymberly Muhammad Referring Physician: Kymberly Muhammad Performed By: Erica Roberts RVT 04/18/25 1537 Date Raciel Reis MD CC: Dr. Kymberly Muhammad, Date Dictated: 04/18/2512 Date Transcribed: 04/18/25 153 Wire Rope Sling Maker: Signed Normal [facility] Venous duplex ultrasound rep ortOrdered By: Raciel Reis on 04-18-2025 US Vein [facility] Cardiovascular Services [address] [place] [address] Venous Duplex US - Robin Extrem 04/18/25811 MR#: [id number] Acct: [id number] Name: BATOOL ESTRELLA Rep #:[id number] : 1945 80 From: Raciel Marshall Attending Dr: Dr. Kymberly Muhammad DO atus: REG CLI Ordering Dr: Kymberly Muhammad DO Date: 11/07 Location: CVS Sex: F C Admitted: Reason For Study Reason For Study: PVD RIGHT LEFT CFV is compressible, spontaneous, phasic, competent GSV is normal. and demonstrates normal augmentation. CFV is compressible, spontaneous, phasic, competent, FV is compressible, spontaneous, phasic, competent and demonstrates normal augmentation. and demonstrates normal augmentation. FV is compressible, spontaneous, phasic, competent POP V is compressible, spontaneous, phasic, competent and demonstrates normal augmentation. and demonstrates normal augmentation. POP V is compressible, spontaneous, phasic, competent T/P Trunk is compressible. and demonstrates normal augmentation. PTV is compressible. T/P Trunk is compressible. RT PerV is compressible. PTV is compressible. Acute deep vein thrombosis is noted in the Soleus V. Acute deep vein thrombosis is noted in the Per V. It It is dilated and NONCOMPRESSIBLE. is dilated andNONCOMPRESSIBLE. SFJ is competent and measures 0.67 cm. GSV proximal thigh measures 0.35x0.35 cm. GSV at knee measures 0.21x0.26 cm. GSV is competent throughout. SSV mid calf is competent and measures 0.20x0.15 cm. Procedure Exam performed in department. This is a venous duplex using B-mode, color flow and spectral Doppler. The exam was diagnostic. Patient was scanned in reverse Trendelenburg position during reflux assessment. A preliminary report was called and/or faxed to [facility]. VL/Venous Duplex US - Robin Extrem Interpretation Summary Acute deep vein thrombosis is noted in the right soleus vein. Acute deep vein thrombosis is noted in the left peroneal vein. Ordering Physician: Kymberly Muhammad Referring Physician: Kymberly Muhammad Performed By: Erica Roberts, RVT 04/18/25 1537 Date _ Raciel Reis MD CC: Dr. Kymberly Muhammad, DO ~ Date Dictated: 04/18/25811 Date Transcribed: 04/18/251536 Wire Rope Sling Maker: Signed [facility] Work Phone: CRPon 04-05-2025 C-REACTIVE PROT < 3.00 Normal 0.0-3.0 [facility] Comment on above: Performed By: #### L 101.9900, L501.6710 ####[facility] [address] [place], [place], [address] Erythrocyte Sed Rateon 04-05 SED RATE < 1 Normal 0-30 [facility] Comment on above: Performed By: #### L 101.9900, L501.6710 ####[facility] [address] [place], [place], [address] Erythrocyte sedimentation ra teOrdered By: Allyson Soler on 04-05-2025 ESR (Bld) [Velocity] mm/h 0-30 [facility] Serum or plasma C reactive p rotein measurement (mass/volume)Ordered By: Allyson Soler on 04-05-2025 CRP [Mass/Vol] mg/L 0.0-3.0 [facility] CBC W/Diff, Automatedon PATH REV Reviewed Normal [facility] Comment on above: Result Comment: SEE REPORT IN PATIENT'S EMR AMENDED REPORT 03/19/25 1600 PATH REV previously reported as: December Performed By: #### L 101.9900, L500.4050, L501.6710, L100.0100 ####[facility] [address] [place], [address] Anion gap in Serum or Plasma Ordered By: Kymberly Muhammad on 03-16-2025 Anion gap [Moles/Vol] 12 mmol/L 5-15 [facility] BUN/creatinine ratioOrdered By: Kymberly Muhammad on 03-16-2025 Urea nitrogen/Creatinine [Mass ratio] 39.9 mg/mg High 10-20 [facility] Bilirubin, totalOrdered By: Kymberly Muhammad on 03-16-2025 Bilirubin [Mass/Vol] 0.47 mg/dL 0.00-1.30 [facility] Carbon dioxide, total [Moles /volume] in Central venous bloodOrdered By: Kymberly Muhammad on 03-16-2025 CO2 [Moles/Vol] 27.0 mmol/L 21.0-32.0 [facility] Chloride assayOrdered By: Yadira Mhuammad on 03-16-2025 Chloride [Moles/Vol] 99 mmol/L 98-108 [facility] Comprehensive Metabolic Prof ilon 03-16-2025 Albumin [Mass/Vol] 4.0 g/dL Normal 3.4-4.8 [facility] Comment on above: Performed By: #### L 503.7505, L500.4050 ####[facility] [address] [place], [address] Albumin/Globulin [Mass ratio] 2.6 {ratio} High 0.9-2.4 [facility] Comment on above: Performed By: #### L 503.7505, L500.4050 ####[facility] [address] [place], [address] ALK PHOS 65 U/L Normal 35-104 [facility] Comment on above: Performed By: #### L 503.7505, L500.4050 ####[facility] [address] [place], [address] ALT [Catalytic activity/Vol] 31 U/L Normal <=34 [facility] Comment on above: Performed By: #### L 503.7505, L500.4050 ####[facility] [address] [place], [address] AST [Catalytic activity/Vol] 16 U/L Normal <=31 [facility] Comment on above: Performed By: #### L 503.7505, L500.4050 ####[facility] [address] [place], [address] Bilirubin [Mass/Vol] 0.47 mg/dL Normal 0.00-1.30 [facility] Comment on above: Performed By: #### L 503.7505, L500.4050 ####[facility] [address] [place], [address] BUN/CRE 39.9 RATIO High 10-20 [facility] Comment on above: Performed By: #### L 503.7505, L500.4050 ####[facility] [address] [place], [address] Calcium [Mass/Vol] 8.8 mg/dL Normal 7.6-11.0 [facility] Comment on above: Performed By: #### L 503.7505, L500.4050 ####[facility] [address] [place], [address] Chloride [Moles/Vol] 99 mmol/L Normal 98-108 [facility] Comment on above: Performed By: #### L 503.7505, L500.4050 ####[facility] [address] [place], [address] CO2 [Moles/Vol] 27.0 mmol/L Normal 21.0-32.0 [facility] Comment on above: Performed By: #### L 503.7505, L500.4050 ####[facility] [address] [place], [address] Creatinine [Mass/Vol] 0.79 mg/dL Normal 0.70-1.20 [facility] Comment on above: Performed By: #### L 503.7505, L500.4050 ####[facility] [address] [place], [address] GAP 12 Normal 5-15 [facility] Comment on above: Performed By: #### L 503.7505, L500.4050 ####[facility] [address] [place], [address] GFR/1.73 sq M.predicted among non-blacks MDRD (S/P/Bld) [Vol rate/Area] 77 mL/min/{1.73_m2} Normal >60 [facility] Comment on above: Result Comment: mL/m in/1.73m2 CKD-EPI Creatinine Equation (2020) Performed By: #### L 503.7505, L500.4050 ####[facility] [address] [place], [address] Globulin (S) [Mass/Vol] 1.6 g/dL Low 2.2-4.2 [facility] Comment on above: Performed By: #### L 503.7505, L500.4050 ####[facility] [address] [place], [address] Glucose [Mass/Vol] 204 mg/dL High 70-99 [facility] [facility] Comment on above: Performed By: #### L 503.7505, L500.4050 ####[facility] [address] [place], [address] Potassium [Moles/Vol] 4.3 mmol/L Normal 3.3-5.1 [facility] Comment on above: Performed By: #### L 503.7505, L500.4050 ####[facility] [address] [place], [address] Sodium [Moles/Vol] 138 mmol/L Normal 133-145 [facility] Comment on above: Performed By: #### L 503.7505, L500.4050 ####[facility] [address] [place], [address] T PROT 5.6 g/dL Low 5.9-8.4 [facility] Comment on above: Performed By: #### L 503.7505, L500.4050 ####[facility] [address] [place], [address] Urea nitrogen [Mass/Vol] 31 mg/dL High 4-19 [facility] Comment on above: Performed By: #### L 503.7505, L500.4050 ####[facility] [address] [place], [address] Glomerular filtration rate ( GFR) estimation/1.73 sq m using serum, plasma, or whole bOrdered By: Kymberly Muhammad on 03-16-2025 GFR/1.73 sq M.predicted among non-blacks MDRD (S/P/Bld) [Vol rate/Area] 77 mL/min/{1.73_m2} >60 [facility] Comment on above: mL/min/1.73m2 CKD-EP I Creatinine Equation (2020) Laboratory - Chemistry and C hemistry - challengeOrdered By: Kymberly Muhammad on 03-16-2025 AST [Catalytic activity/Vol] 16 U/L <32 [facility] Natriuretic peptide.B prohor ruthann N-Terminal [Mass/volume] in Serum or PlasmaOrdered By: Kymberly Muhammad on 03-16-2025 Natriuretic peptide.B prohormone N-Terminal [Mass/Vol] 86 pg/mL <1800 [facility] Comment on above: Heart Failure Unlike ly: < 300 pg/mLHeart Failure Likely< 50 Years: > 450 pg/mL50-75 Years: > 900 pg/mL>75 Years: > 1800 pg/mL Potassium measurement (mass/ volume)Ordered By: Kymberly Muhammad on 03-16-2025 Potassium (Unsp spec) [Mass/Vol] 4.3 mmol/L 3.3-5.1 [facility] Pro- Brain NATRIURETIC PEPTI Chepe 03-16-2025 Natriuretic peptide B (Bld) [Mass/Vol] 86 pg/mL Normal <=1800 [facility] Comment on above: Result Comment: Hear t Failure Unlikely: < 300 pg/mL Heart Failure Likely < 50 Years: > 450 pg/mL 50-75 Years: > 900 pg/mL >75 Years: > 1800 pg/mL Performed By: #### L 503.7505, L500.4050 ####[facility] [address] [place], [place], [address] Serum creatinine measurement (mass/volume)Ordered By: Kymberly Muhammad on 03-16-2025 Creatinine [Mass/Vol] 0.79 mg/dL 0.70-1.20 [facility] Serum globulin measurementOr dered By: Kymberly Muhammad on 03-16-2025 Globulin (S) [Mass/Vol] 1.6 g/dL Low 2.2-4.2 [facility] Serum glucose measurement (m ass/volume)Ordered By: Kymberly Muhammad on 03-16-2025 Glucose [Mass/Vol] 204 mg/dL High 70-99 [facility] Serum or plasma alanine christianson otransferase (ALT) measurementOrdered By: Kymbrely Muhammad on 03-16-2025 ALT [Catalytic activity/Vol] 31 U/L <35 [facility] Serum or plasma albumin rolando urement (mass/volume)Ordered By: Kymberly Muhammad on 03-16-2025 Albumin [Mass/Vol] 4.0 g/dL 3.4-4.8 [facility] Serum or plasma albumin/glob ulin mass ratioOrdered By: Kymberly Muhammad on 03-16-2025 Albumin/Globulin [Mass ratio] 2.6 {ratio} High 0.9-2.4 [facility] Serum or plasma alkaline trudy sphatase measurementOrdered By: Kymberly Muhammad on 03-16-2025 ALP [Catalytic activity/Vol] 65 U/L 35-104 [facility] Serum or plasma calcium rolando urement (mass/volume)Ordered By: Kymberly Muhammad on 03-16-2025 Calcium [Mass/Vol] 8.8 mg/dL 7.6-11.0 [facility] Serum or plasma urea nitroge n measurement (mass/volume)Ordered By: Kymberly Muhammad on 03-16-2025 Urea nitrogen [Mass/Vol] 31 mg/dL High 4-19 [facility] Sodium levelOrdered By: Kymberly Muhammad on 03-16-2025 Sodium [Moles/Vol] 138 mmol/L 133-145 [facility] Total proteinOrdered By: Dorene Muhammad on 03-16-2025 Protein [Mass/Vol] 5.6 g/dL Low 5.9-8.4 [facility] Absolute lymphocyte countOrd ered By: Allyson Soler on 03-05-2025 Lymphocytes Auto (Unsp spec) [#/Vol] 1.90 10*3/uL 0.83-4.51 [facility] Absolute neutrophil countOrd ered By: Allyson Soler on 03-05-2025 Neutrophils (Bld) [#/Vol] 11.7 10*3/uL High 2.0-7.7 [facility] Anion gap in Serum or Plasma Ordered By: Allyson Soler on 03-05-2025 Anion gap [Moles/Vol] 12 mmol/L 5-15 [facility] BUN/creatinine ratioOrdered By: Allyson Soler on 03-05-2025 Urea nitrogen/Creatinine [Mass ratio] 40.5 mg/mg High 10-20 [facility] Bilirubin, totalOrdered By: Allyosn Soler on 03-05-2025 Bilirubin [Mass/Vol] 0.51 mg/dL 0.00-1.30 [facility] Blood band neutrophil count as percentage of total leukocytesOrdered By: Allyson Soler on 03-05-2025 Band form neutrophils/100 WBC (Bld) 1 % 0-5 [facility] Blood lymphocytes/100 leukoc ytesOrdered By: Allyson Soler on 03-05-2025 Lymphocytes/100 WBC (Bld) 13 % Low 19-41 [facility] Blood monocytes/100 leukocyt esOrdered By: Allyson Soler on 03-05-2025 Monocytes/100 WBC (Bld) 4 % 0-10 [facility] Blood segmented neutrophils/ 100 leukocytesOrdered By: Allyson Soler on 03-05-2025 Segmented neutrophils/100 WBC (Bld) 80 % High 47-70 [facility] CRPon 03-05-2025 C-REACTIVE PROT < 3.00 Normal 0.0-3.0 [facility] Comment on above: Performed By: #### L 101.9900, L500.4050, L501.6710, L100.0100 ####[facility] [address] [place], [address] Carbon dioxide, total [Moles /volume] in Central venous bloodOrdered By: Allyson Soler on 03-05-2025 CO2 [Moles/Vol] 24.9 mmol/L 21.0-32.0 [facility] Chloride assayOrdered By: Terese Soler on 03-05-2025 Chloride [Moles/Vol] 102 mmol/L 98-108 [facility] Comprehensive Metabolic Prof ilon 03-05-2025 Albumin [Mass/Vol] 3.7 g/dL Normal 3.4-4.8 [facility] Comment on above: Performed By: #### L 101.9900, L500.4050, L501.6710, L100.0100 ####[facility] [address] [place], [address] Albumin/Globulin [Mass ratio] 2.4 {ratio} Normal 0.9-2.4 [facility] Comment on above: Performed By: #### L 101.9900, L500.4050, L501.6710, L100.0100 ####[facility] [address] [place], [address] ALK PHOS 60 U/L Normal 35-104 [facility] Comment on above: Performed By: #### L 101.9900, L500.4050, L501.6710, L100.0100 ####[facility] [address] [place], [address] ALT [Catalytic activity/Vol] 31 U/L Normal <=34 [facility] Comment on above: Performed By: #### L 101.9900, L500.4050, L501.6710, L100.0100 ####[facility] [address] [place], [address] AST [Catalytic activity/Vol] 20 U/L Normal <=31 [facility] Comment on above: Performed By: #### L 101.9900, L500.4050, L501.6710, L100.0100 ####[facility] [address] [place], [address] Bilirubin [Mass/Vol] 0.51 mg/dL Normal 0.00-1.30 [facility] Comment on above: Performed By: #### L 101.9900, L500.4050, L501.6710, L100.0100 ####[facility] [address] [place], [address] BUN/CRE 40.5 RATIO High 10-20 [facility] Comment on above: Performed By: #### L 101.9900, L500.4050, L501.6710, L100.0100 ####[facility] [address] [place], [address] Calcium [Mass/Vol] 8.5 mg/dL Normal 7.6-11.0 [facility] Comment on above: Performed By: #### L 101.9900, L500.4050, L501.6710, L100.0100 ####[facility] [address] [place], [address] Chloride [Moles/Vol] 102 mmol/L Normal 98-108 [facility] Comment on above: Performed By: #### L 101.9900, L500.4050, L501.6710, L100.0100 ####[facility] [address] [place], [address] CO2 [Moles/Vol] 24.9 mmol/L Normal 21.0-32.0 [facility] Comment on above: Performed By: #### L 101.9900, L500.4050, L501.6710, L100.0100 ####[facility] [address] [place], [address] Creatinine [Mass/Vol] 0.64 mg/dL Low 0.70-1.20 [facility] Comment on above: Performed By: #### L 101.9900, L500.4050, L501.6710, L100.0100 ####[facility] [address] [place], [address] GAP 12 Normal 5-15 [facility] Comment on above: Performed By: #### L 101.9900, L500.4050, L501.6710, L100.0100 ####[facility] [address] [place], [address] GFR/1.73 sq M.predicted among non-blacks MDRD (S/P/Bld) [Vol rate/Area] 91 mL/min/{1.73_m2} Normal >60 [facility] Comment on above: Result Comment: mL/m in/1.73m2 CKD-EPI Creatinine Equation (2020) Performed By: #### L 101.9900, L500.4050, L501.6710, L100.0100 ####[facility] [address] [place], [address] Globulin (S) [Mass/Vol] 1.5 g/dL Low 2.2-4.2 [facility] Comment on above: Performed By: #### L 101.9900, L500.4050, L501.6710, L100.0100 ####[facility] [address] [place], [address] Glucose [Mass/Vol] 170 mg/dL High 70-99 [facility] Comment on above: Performed By: #### L 101.9900, L500.4050, L501.6710, L100.0100 ####[facility] [address] [place], [address] Potassium [Moles/Vol] 3.9 mmol/L Normal 3.3-5.1 [facility] Comment on above: Performed By: #### L 101.9900, L500.4050, L501.6710, L100.0100 ####[facility] [address] [place], [address] Sodium [Moles/Vol] 139 mmol/L Normal 133-145 [facility] Comment on above: Performed By: #### L 101.9900, L500.4050, L501.6710, L100.0100 ####[facility] [address] [place], [address] T PROT 5.3 g/dL Low 5.9-8.4 [facility] Comment on above: Performed By: #### L 101.9900, L500.4050, L501.6710, L100.0100 ####[facility] [address] [place], [address] Urea nitrogen [Mass/Vol] 26 mg/dL High 4-19 [facility] Comment on above: Performed By: #### L 101.9900, L500.4050, L501.6710, L100.0100 ####[facility] [address] [place], [address] Erythrocyte Sed Rateon 03-05 SED RATE < 1 Normal 0-30 [facility] Comment on above: Performed By: #### L 101.9900, L500.4050, L501.6710, L100.0100 ####[facility] [address] [place], [address] Erythrocyte distribution wid th ratioOrdered By: Allyson Soler on 03-05-2025 Erythrocyte distribution width (RBC) [Ratio] 14.5 % 11.6-14.6 [facility] Erythrocyte distribution wid th standard deviationOrdered By: Allyson Soler on 03-05-2025 Erythrocyte distribution width (RBC) [Ratio] 52.4 fl High 35.1-43.9 [facility] Erythrocyte morphology asses smentOrdered By: Allyson Soler on 03-05-2025 RBC morphology finding Nom (Bld) NORM C+C NORMAL NORM C&C [facility] Erythrocyte sedimentation ra teOrdered By: Allyson Soler on 03-05-2025 ESR (Bld) [Velocity] mm/h 0-30 [facility] Glomerular filtration rate ( GFR) estimation/1.73 sq m using serum, plasma, or whole bOrdered By: Allyson Soler on 03-05-2025 GFR/1.73 sq M.predicted among non-blacks MDRD (S/P/Bld) [Vol rate/Area] 91 mL/min/{1.73_m2} >60 [facility] Comment on above: mL/min/1.73m2 CKD-EP I Creatinine Equation (2020) Hematocrit Auto (Bld) [Volum e fraction]Ordered By: Allyson Soler on 03-05-2025 Hematocrit (Bld) [Volume fraction] 39.1 % 37-47 [facility] Hemoglobin measurementOrdere d By: Allyson Soler on 03-05-2025 Hemoglobin (Bld) [Mass/Vol] 13.1 g/dL 12.0-15.0 [facility] Laboratory - Chemistry and C hemistry - challengeOrdered By: Allyson Soler on 03-05-2025 AST [Catalytic activity/Vol] 20 U/L <32 [facility] MCV (mean corpuscular volume ) determinationOrdered By: Allyson Soler on 03-05-2025 MCV (RBC) [Entitic vol] 97.5 fL 81-99 [facility] Mean corpuscular hemoglobin (MCH) determinationOrdered By: Allyson Soler on 03-05-2025 MCH (RBC) [Entitic mass] 32.7 pg High 27.0-32.0 [facility] Mean corpuscular hemoglobin concentration (MCHC) determinationOrdered By: Allyson Soler on 03-05-2025 MCHC (RBC) [Mass/Vol] 33.5 g/dL 32-36 [facility] Mean platelet volume determi nationOrdered By: Allyson Soler on 03-05-2025 Platelet mean volume (Bld) [Entitic vol] 11.2 fL 6.2-12.0 [facility] Myelocyte %Ordered By: Allyson Soler on 03-05-2025 Myelocytes/100 WBC (Bld) 2 % High 0-0 [facility] Platelet countOrdered By: Terese Soler on 03-05-2025 Platelets (Bld) [#/Vol] 147 10*3/uL Low 150-450 [facility] Platelet estimateOrdered By: Allyson Soler on 03-05-2025 Platelets LM Ql (Bld) ADEQUATE ADEQ [facility] Potassium measurement (mass/ volume)Ordered By: Allyson Soler on 03-05-2025 Potassium (Unsp spec) [Mass/Vol] 3.9 mmol/L 3.3-5.1 [facility] RBC Auto (Bld) [#/Vol]Ordere d By: Allyson Soler on 03-05-2025 RBC (Bld) [#/Vol] 4.01 10*6/uL Low 4.2-5.4 [facility] Review by pathologistOrdered By: Allyson Soler on 03-05-2025 Pathologist review Andrew (Unsp spec) [Interp] Leslie corona [facility] Pathologist review Andrew (Unsp spec) [Interp] Reviewed [facility] Comment on above: Previous reported re sult: Leslie corona Edited by: CATARINO on 03/19/25:1600SEE REPORT IN PATIENT'S EMR AMENDED REPORT 03/19/25 1600 PATH REV previously reported as: December Serum creatinine measurement (mass/volume)Ordered By: Allyson Soler on 03-05-2025 Creatinine [Mass/Vol] 0.64 mg/dL Low 0.70-1.20 [facility] Serum globulin measurementOr dered By: Allyson Soler on 03-05-2025 Globulin (S) [Mass/Vol] 1.5 g/dL Low 2.2-4.2 [facility] Serum glucose measurement (m ass/volume)Ordered By: Allyson Soler on 03-05-2025 Glucose [Mass/Vol] 170 mg/dL High 70-99 [facility] Serum or plasma C reactive p rotein measurement (mass/volume)Ordered By: Allyson Soler on 03-05-2025 CRP [Mass/Vol] mg/L 0.0-3.0 [facility] Serum or plasma alanine christianson otransferase (ALT) measurementOrdered By: Allyson Soler on 03-05-2025 ALT [Catalytic activity/Vol] 31 U/L <35 [facility] Serum or plasma albumin rolando urement (mass/volume)Ordered By: Allyson Soler on 03-05-2025 Albumin [Mass/Vol] 3.7 g/dL 3.4-4.8 [facility] Serum or plasma albumin/glob ulin mass ratioOrdered By: Allyson Soler on 03-05-2025 Albumin/Globulin [Mass ratio] 2.4 {ratio} 0.9-2.4 [facility] Serum or plasma alkaline trudy sphatase measurementOrdered By: Allyson Soler on 03-05-2025 ALP [Catalytic activity/Vol] 60 U/L 35-104 [facility] Serum or plasma calcium rolando urement (mass/volume)Ordered By: Allyson Soler on 03-05-2025 Calcium [Mass/Vol] 8.5 mg/dL 7.6-11.0 [facility] Serum or plasma urea nitroge n measurement (mass/volume)Ordered By: Allyson Soler on 03-05-2025 Urea nitrogen [Mass/Vol] 26 mg/dL High 4-19 [facility] Sodium levelOrdered By: Jude Soler on 03-05-2025 Sodium [Moles/Vol] 139 mmol/L 133-145 [facility] Total cell countOrdered By: Allyson Karlene on 03-05-2025 Cells counted Molgen (Bld/Tiss) [#] 100 MANUAL DIFF [facility] Total proteinOrdered By: Justin danial Soler on 03-05-2025 Protein [Mass/Vol] 5.3 g/dL Low 5.9-8.4 [facility] White blood cell (WBC) count Ordered By: Allyson Karlene on 03-05-2025 WBC (Bld) [#/Vol] 14.4 10*3/uL High 4.4-11.0 [facility] Brain W/WO Contraston 2024 Brain W/WO Contrast [facility] Imaging Services [address] [place] [address] Brain W/WO Contrast MR#: [id number] Acct: [id number] Name: BATOOL ESTRELLA Rep #: [id number] : 1945 F 79 From: Pipo Daily MD PCP: Dr. Kymberly Muhammad DO Status: REG CLI Study: Brain W/WO Contrast Date of Exam: 01/30/25 Exam# [id number] Ordering Dr: Kymberly Muhammad DO PROCEDURE: BRAIN [...] IMPRESSION: No acute intracranial abnormalities. Reading Location: [id number] CC: Dr. Kymberly Muhammad DO Wire Rope Sling Maker: Signed Normal [facility] Magnetic resonance imaging r eportOrdered By: Pipo Daily on 01-30-2025 Study report [facility] Imaging Services [address] [place], [place] [address] Brain W/WO Contrast MR#: [id number] Acct: [id number] Name: BATOOL ESTRELLA Rep #: [id number] : 1945 F 79 From: Zelalem Daily MD PCP: Dr. Kymberly Muhammad DO Status: REG CLI Study:Brain W/WO Contrast Date of Exam: 01/30/25 Exam# [id number] Ordering Dr: Yadira Muhammad sa, DO PROCEDURE: [...] IMPRESSION: No acute intracranial abnormalities. Reading Location: [place] [address] CC: Dr. Kymberly Muhammad DO ~ Wire Rope Sling Maker: Signed [facility] CRPon 01-27-2025 C-REACTIVE PROT < 3.00 Normal 0.0-3.0 [facility] Comment on above: Performed By: #### L 501.6710, L101.9900 ####[facility] [address] [place], [place], [address] Erythrocyte Sed Rateon 01-27 SED RATE < 1 Normal 0-30 [facility] Comment on above: Performed By: #### L 501.6710, L101.9900 ####[facility] [address] [place], [address] Erythrocyte sedimentation ra teOrdered By: Allyson Soler on 01-27-2025 ESR (Bld) [Velocity] mm/h 0-30 [facility] Serum or plasma C reactive p rotein measurement (mass/volume)Ordered By: Allyson Soler on 01-27-2025 CRP [Mass/Vol] mg/L 0.0-3.0 [facility] CRPon 12-29-2024 C-REACTIVE PROT < 3.00 Normal 0.0-3.0 [facility] Comment on above: Performed By: #### L 501.6710, L101.9900 ####[facility] [address] [place], [place], [address] Erythrocyte Sed Rateon 12-29 SED RATE 5 mm/hr Normal 0-30 [facility] Comment on above: Performed By: #### L 501.6710, L101.9900 ####[facility] [address] [place], [place], [address] Erythrocyte sedimentation ra teOrdered By: Allyson Soler on 12-29-2024 ESR (Bld) [Velocity] 5 mm/h 0-30 [facility] Serum or plasma C reactive p rotein measurement (mass/volume)Ordered By: Allyson Soler on 12-29-2024 CRP [Mass/Vol] mg/L 0.0-3.0 [facility] L499.0042on 12-27-2024 Trop T High Sen 10 ng/L Normal <=14 [facility] Comment on above: Performed By: #### L 499.0042 ####[facility] [address] [place], [address] L499.0043on 12-27-2024 Trop T High Sen Normal <=14 [facility] Comment on above: Result Comment: Canc elled via OM: Order cancelled - Patient discharged Performed By: #### L 499.0043 ####[facility] [address] [place], [address] 12 Lead EKGon 12-26-2024 12 Lead EKG [facility] Cardiovascular Services [address] [place] [address] 12 Lead EKG 12/26/24 2201 MR#: [id number] Acct: [id number] Name: BATOOL ESTRELLA Rep #: [id number] : 1945 79 From: Kashmir Morfin MD [...] Otherwise normal ECG Confirmed by Kashmir Morfin ([id number]), editor newspaper ROMA WARNER ([id number]) on 12/28/2024 10:04:47 AM Referred By: Confirmed By: Kashmir Morfin 12/28/24 1004 Date Kashmir Morfin MD CC: Dr. Fernie More DO; Dr. Kymberly Muhammad DO Signed Normal [facility] Absolute lymphocyte countOrd ered By: Fernie More on 12-26-2024 Lymphocytes Auto (Unsp spec) [#/Vol] 0.47 10*3/uL Low 0.83-4.51 [facility] Absolute neutrophil countOrd ered By: Fernie More on 12-26-2024 Neutrophils (Bld) [#/Vol] 13.1 10*3/uL High 2.0-7.7 [facility] Anion gap in Serum or Plasma Ordered By: Fernie More on 12-26-2024 Anion gap [Moles/Vol] 12 mmol/L 12-28 [facility] Automated lymphocyte count a s percentage of total leukocytesOrdered By: Fernie More on 12-26-2024 Lymphocytes/100 WBC Auto (Unsp spec) 3.1 % Low 19-41 [facility] BUN/creatinine ratioOrdered By: Fernie Foremanehne on 12-26-2024 Urea nitrogen/Creatinine [Mass ratio] 37.1 mg/mg High 10-20 [facility] Basic Metabolic Profile (BMP )on 12-26-2024 BUN/CRE 37.1 RATIO High 10-20 [facility] Comment on above: Performed By: #### L 100.0100, L501.4021, L500.2500 ####[facility] [address] [place], [address] ECRCL 50.85 ml/min Normal 50-250 [facility] Comment on above: Performed By: #### L 100.0100, L501.4021, L500.2500 ####[facility] [address] [place], [address] GAP 12 Normal 5-15 [facility] Comment on above: Performed By: #### L 100.0100, L501.4021, L500.2500 ####[facility] [address] [place], [address] Potassium [Moles/Vol] 4.1 mmol/L Normal 3.3-5.1 [facility] Comment on above: Performed By: #### L 100.0100, L501.4021, L500.2500 ####[facility] [address] [place], [address] Basophil percentageOrdered B y: Fernie More on 12-26-2024 Basophils/100 WBC (Bld) 0.1 % 0-1 [facility] Blood manual differential co mment interpretation (narrative result)Ordered By: Fernie More on 12-26-2024 Manual differential comment Andrew (Bld) [Interp] SCANNED [facility] CBC W/Diff, Automatedon - SMEAR COMMENT SCANNED Normal [facility] Comment on above: Performed By: #### L 100.0100, L501.4021, L500.2500 ####[facility] [address] [place], [address] Carbon dioxide, total [Moles /volume] in Central venous bloodOrdered By: Fernie More on 12-26-2024 CO2 [Moles/Vol] 25.3 mmol/L Normal 21.0-32.0 [facility] Comment on above: Performed By: #### L 100.0100, L501.4021, L500.2500 ####[facility] [address] [place], [address] Chest 1 View (Portable)on Chest 1 View (Portable) [facility] Imaging Services [address] [place] [address] Chest 1 View (Portable) MR#: [id number] Acct: [id number] Name: BATOOL ESTRELLA Rep #: [id number] : 1945 F 79 From: De belcher MD PCP: Dr. Kymberly Muhammad DO Status: REG ER Study: Chest 1 View (Portable) Date of Exam: 12/26/24 Exam# [id number] Ordering Dr: Fernie More DO PROCEDURE: CHEST [...] Fernie More DO; Dr. Kymberly Muhammad DO Wire Rope Sling Maker: Signed Normal [facility] Chloride assayOrdered By: Peter More on 12-26-2024 Chloride [Moles/Vol] 99 mmol/L Normal 98-108 [facility] Comment on above: Performed By: #### L 100.0100, L501.4021, L500.2500 ####[facility] [address] [place], [address] Emergency Department Summary on 12-26-2024 Emergency Department Summary [facility] Medical Records Department [address] [place] [address] Emergency Department Summary 12/26/24 MR#: [id number] Acct: [id number] Name: BATOOL ESTRELLA Rep #: [id number] : 1945 79 From: Fernie More DO [...] in exercise tolerance. No leg swelling. PFSH PFS Medical History Wears dentures Wears glasses History [...] count 1 (more content not included)... Normal [facility] Eosinophil percentageOrdered By: Fernie More on 12-26-2024 Eosinophils/100 WBC (Bld) 0.0 % 0-5 [facility] Erythrocyte distribution wid th ratioOrdered By: Fernie More on 12-26-2024 Erythrocyte distribution width (RBC) [Ratio] 15.5 % High 11.6-14.6 [facility] Erythrocyte distribution wid th standard deviationOrdered By: Fernie More on 12-26-2024 Erythrocyte distribution width (RBC) [Ratio] 52.3 fl High 35.1-43.9 [facility] Glomerular filtration rate ( GFR) estimation/1.73 sq m using serum, plasma, or whole bOrdered By: Fernie More on 12-26-2024 GFR/1.73 sq M.predicted among non-blacks MDRD (S/P/Bld) [Vol rate/Area] 91 mL/min/{1.73_m2} Normal >60 [facility] Comment on above: mL/min/1.73m2 CKD-EP I Creatinine Equation (2020) Result Comment: mL/m in/1.73m2 CKD-EPI Creatinine Equation (2020) Performed By: #### L 100.0100, L501.4021, L500.2500 ####[facility] [address] [place], [place], [address] Hematocrit Auto (Bld) [Volum e fraction]Ordered By: Fernie More on 12-26-2024 Hematocrit (Bld) [Volume fraction] 39.7 % 37-47 [facility] Hemoglobin measurementOrdere d By: Fernie More on 12-26-2024 Hemoglobin (Bld) [Mass/Vol] 13.5 g/dL 12.0-15.0 [facility] Immature granulocytes/100 WB C Auto (Bld)Ordered By: Fernie More on 12-26-2024 Immature granulocytes/100 WBC (Bld) 9.000 % High 0.0-0.9 [facility] Comment on above: IG% - Immature Granu locytes (promyelocytes, myelocytes and metamyelocytes) > 1% indicates that a LEFT SHIFT is Present. L501.4021on 12-26-2024 Trop T High Sen 8 ng/L Normal <=14 [facility] Comment on above: Performed By: #### L 100.0100, L501.4021, L500.2500 ####[facility] [address] [place], [address] MCV (mean corpuscular volume ) determinationOrdered By: Fernie More on 12-26-2024 MCV (RBC) [Entitic vol] 91.9 fL 81-99 [facility] Mean corpuscular hemoglobin (MCH) determinationOrdered By: Fernie More on 12-26-2024 MCH (RBC) [Entitic mass] 31.3 pg 27.0-32.0 [facility] Mean corpuscular hemoglobin concentration (MCHC) determinationOrdered By: Fernie oMre on 12-26-2024 MCHC (RBC) [Mass/Vol] 34.0 g/dL 32-36 [facility] Mean platelet volume determi nationOrdered By: Fernie More on 12-26-2024 Platelet mean volume (Bld) [Entitic vol] 10.8 fL 6.2-12.0 [facility] Monocyte percentageOrdered B y: Fernie More on 12-26-2024 Monocytes/100 WBC (Bld) 2.3 % 0-10 [facility] Neutrophil percentageOrdered By: Fernie More on 12-26-2024 Neutrophils/100 WBC (Bld) 85.5 % High 47-70 [facility] Nucleated red blood cell per centageOrdered By: Fernie More on 12-26-2024 Nucleated RBC/100 WBC (Bld) [Ratio] 0 % 0-5 [facility] Platelet countOrdered By: Peter More on 12-26-2024 Platelets (Bld) [#/Vol] 212 10*3/uL 150-450 [facility] Potassium measurement (mass/ volume)Ordered By: Fernie More on 12-26-2024 Potassium (Unsp spec) [Mass/Vol] 4.1 mmol/L 3.3-5.1 [facility] RBC Auto (Bld) [#/Vol]Ordere d By: Fernie More on 12-26-2024 RBC (Bld) [#/Vol] 4.32 10*6/uL 4.2-5.4 [facility] Serum creatinine measurement (mass/volume)Ordered By: Fernie More on 12-26-2024 Creatinine [Mass/Vol] 0.65 mg/dL Low 0.70-1.20 [facility] Comment on above: Performed By: #### L 100.0100, L501.4021, L500.2500 ####[facility] [address] [place], [address] Serum glucose measurement (m ass/volume)Ordered By: Fernie More on 12-26-2024 Glucose [Mass/Vol] 243 mg/dL High 70-99 [facility] Comment on above: Performed By: #### L 100.0100, L501.4021, L500.2500 ####[facility] [address] [place], [address] Serum or plasma calcium rolando urement (mass/volume)Ordered By: Fernie More on 12-26-2024 Calcium [Mass/Vol] 8.4 mg/dL Normal 7.6-11.0 [facility] Comment on above: Performed By: #### L 100.0100, L501.4021, L500.2500 ####[facility] [address] [place], [address] Serum or plasma urea nitroge n measurement (mass/volume)Ordered By: Fernie More on 12-26-2024 Urea nitrogen [Mass/Vol] 24 mg/dL High 4-19 [facility] Comment on above: Performed By: #### L 100.0100, L501.4021, L500.2500 ####[facility] [address] [place], [place], [id number] Sodium levelOrdered By: Ran More on 12-26-2024 Sodium [Moles/Vol] 136 mmol/L Normal 133-145 [facility] Comment on above: Performed By: #### L 100.0100, L501.4021, L500.2500 ####[facility] [address] [facility] [id number] Troponin T.cardiac [Mass/vol ume] in Serum or Plasma by High sensitivity methodOrdered By: Fernie More on 12-26-2024 Troponin T.cardiac High sensitivity method [Mass/Vol] 8 ng/L <14 [facility] White blood cell (WBC) count Ordered By: Fernie More on 12-26-2024 WBC (Bld) [#/Vol] 15.3 10*3/uL High 4.4-11.0 [facility] Troponin T.cardiac [Mass/vol ume] in Serum or Plasma by High sensitivity methodOrdered By: Fernie More on 12-25-2024 Troponin T.cardiac High sensitivity method [Mass/Vol] 10 ng/L <14 [facility] Quantiferon TB-Gold+on 12-02 QFT MITOGEN GENE > 10.00 Normal . [facility] Comment on above: Performed By: #### L 3400.8000 ####[facility] [address] [place], [place], [id number] QFT NIL VALUE 0.02 IU/mL Normal . [facility] Comment on above: Performed By: #### L 3400.8000 ####[facility] [address] [place], [address] QFT TB GOLD+ Comment Normal . [facility] Comment on above: Result Comment: Jose tiFERON-TB [...] the test. Performed By: #### L 3400.8000 ####[facility] [address] [place], [address] QFT TB POS CRIT Negative Normal Negative [facility] Comment on above: Result Comment: No r [...] interferon gamma. Chemiluminescence immunoassay methodology Performed at: [facility] [id number] Director Of Technology: Renny Frankel PhD, Phone: [phone] Performed By: #### L 3400.8000 ####[facility] [address] [place], [address] QFT TB1+ AG GENE 0.09 IU/mL Normal . [facility] Comment on above: Performed By: #### L 3400.8000 ####[facility] [address] [place], [address] QFT TB2+ AG GENE 0.08 IU/mL Normal . [facility] Comment on above: Performed By: #### L 3400.8000 ####[facility] [address] [place], [address] M. tuberculosis tuberculin s jose IFN-g Ql (Bld)Ordered By: Allyson Soler on 12-01-2024 TB Test (QFT) Antigen 1 0.09 IU/mL . [facility] Qualitative QuantiFERON-TB g old in tube testOrdered By: Allyson Soler on 12-01-2024 M. tuberculosis tuberculin stim IFN-g Ql (Bld) 0.09 IU/mL . [facility] Quantiferon-TB Gold Plus yaneth tOrdered By: Allyson Soler on 12-01-2024 TB Test (QFT) Comment . [facility] Comment on above: QuantiFERON-TB Gold Plus is [...] Test (QFT) Antigen 2 0.08 IU/mL . [facility] TB Test (QFT) Mitogen > 10.00 IU/mL . [facility] TB Test (QFT) Nil 0.02 IU/mL . [facility] TB Test (QFT) Positive Criteria Negative Negative [facility] Comment on above: No response to M [...] the productionof interferon gamma. Chemiluminescence immunoassaymethodologyPerformed at: [facility] [id number] Director: Renny Frankel PhD, Phone: [phone] CCP IgG Antibodieson 025 CCP IgG Ab. 4 units Normal 0-19 [facility] Comment on above: Result Comment: Nega tive <20 Weak positive 20 - 39 Moderate positive 40 - 59 Strong positive >59 Performed at: - [facility] [id number] [place], [place] [id number] Director Of Technology: Renny Frankel PhD, Phone: [phone] Performed By: #### L 501.6710, L505.7010, L506.1001, L3890.6102, L100.0100, L3890.6202, L500.4050, L3890.6301, L4600.0100, L101.9900 ####[facility] [address] [place], [address] Absolute lymphocyte countOrd ered By: Allyson Soler on 11-29-2024 Lymphocytes Auto (Unsp spec) [#/Vol] 1.39 10*3/uL 0.83-4.51 [facility] Absolute neutrophil countOrd ered By: Allysondanial Soler on 11-29-2024 Neutrophils (Bld) [#/Vol] 10.7 10*3/uL High 2.0-7.7 [facility] Anion gap in Serum or Plasma Ordered By: Allyson Soler on 11-29-2024 Anion gap [Moles/Vol] 13 mmol/L 5-15 [facility] Automated lymphocyte count a s percentage of total leukocytesOrdered By: Allyson Soler on 11-29-2024 Lymphocytes/100 WBC Auto (Unsp spec) 10.4 % Low 19-41 [facility] BUN/creatinine ratioOrdered By: Allyson Soler on 11-29-2024 Urea nitrogen/Creatinine [Mass ratio] 26.8 mg/mg High 10-20 [facility] Basophil percentageOrdered B y: Allyson Soler on 11-29-2024 Basophils/100 WBC (Bld) 0.4 % 0-1 [facility] Bilirubin, totalOrdered By: Allyson Soler on 11-29-2024 Bilirubin [Mass/Vol] 0.49 mg/dL 0.00-1.30 [facility] CBC W/Diff, Automatedon 11-14 Absolute Lymph 1.39 X10 3/uL Normal 0.83-4.51 [facility] Comment on above: Performed By: #### L 501.6710, L505.7010, L506.1001, L3890.6102, L100.0100, L3890.6202, L500.4050, L3890.6301, L4600.0100, L101.9900 ####[facility] [address] [place], [address] Absolute Neut 10.7 X10 3/uL High 2.0-7.7 [facility] Comment on above: Performed By: #### L 501.6710, L505.7010, L506.1001, L3890.6102, L100.0100, L3890.6202, L500.4050, L3890.6301, L4600.0100, L101.9900 ####[facility] [address] [place], [place], [phone]) Basophils/100 WBC (Bld) 0.4 % Normal 0-1 [facility] Comment on above: Performed By: #### L 501.6710, L505.7010, L506.1001, L3890.6102, L100.0100, L3890.6202, L500.4050, L3890.6301, L4600.0100, L101.9900 ####[facility] [address] [place], [place], [phone]) Eosinophils/100 WBC (Bld) 0.6 % Normal 0-5 [facility] Comment on above: Performed By: #### L 501.6710, L505.7010, L506.1001, L3890.6102, L100.0100, L3890.6202, L500.4050, L3890.6301, L4600.0100, L101.9900 ####[facility] [address] [place], [address] Erythrocyte distribution width (RBC) [Ratio] 15.1 % High 11.6-14.6 [facility] Comment on above: Performed By: #### L 501.6710, L505.7010, L506.1001, L3890.6102, L100.0100, L3890.6202, L500.4050, L3890.6301, L4600.0100, L101.9900 ####[facility] [address] [place], [place], [phone]) Hematocrit (Bld) [Volume fraction] 42.5 % Normal 37-47 [facility] Comment on above: Performed By: #### L 501.6710, L505.7010, L506.1001, L3890.6102, L100.0100, L3890.6202, L500.4050, L3890.6301, L4600.0100, L101.9900 ####[facility] [address] [facility] [place], [place], [id number] Hemoglobin (Bld) [Mass/Vol] 14.1 g/dL Normal 12.0-15.0 [facility] Comment on above: Performed By: #### L 501.6710, L505.7010, L506.1001, L3890.6102, L100.0100, L3890.6202, L500.4050, L3890.6301, L4600.0100, L101.9900 ####[facility] [address] [place], [place], [id number] IG% 2.000 High 0.0-0.9 [facility] Comment on above: Result Comment: IG% - Immature Granulocytes (promyelocytes, myelocytes and metamyelocytes) > 1% indicates that a LEFT SHIFT is Present. Performed By: #### L 501.6710, L505.7010, L506.1001, L3890.6102, L100.0100, L3890.6202, L500.4050, L3890.6301, L4600.0100, L101.9900 ####[facility] [address] [place], [address] Lymphocytes/100 WBC (Bld) 10.4 % Low 19-41 [facility] Comment on above: Performed By: #### L 501.6710, L505.7010, L506.1001, L3890.6102, L100.0100, L3890.6202, L500.4050, L3890.6301, L4600.0100, L101.9900 ####[facility] [address] [place], [address] MCH (RBC) [Entitic mass] 30.5 pg Normal 27.0-32.0 [facility] Comment on above: Performed By: #### L 501.6710, L505.7010, L506.1001, L3890.6102, L100.0100, L3890.6202, L500.4050, L3890.6301, L4600.0100, L101.9900 ####[facility] [address] [place], [address] MCHC (RBC) [Mass/Vol] 33.2 g/dL Normal 32-36 [facility] Comment on above: Performed By: #### L 501.6710, L505.7010, L506.1001, L3890.6102, L100.0100, L3890.6202, L500.4050, L3890.6301, L4600.0100, L101.9900 ####[facility] [address] [place], [address] MCV (RBC) [Entitic vol] 92.0 fL Normal 81-99 [facility] Comment on above: Performed By: #### L 501.6710, L505.7010, L506.1001, L3890.6102, L100.0100, L3890.6202, L500.4050, L3890.6301, L4600.0100, L101.9900 ####[facility] [address] [place], [address] Monocytes/100 WBC (Bld) 6.7 % Normal 0-10 [facility] Comment on above: Performed By: #### L 501.6710, L505.7010, L506.1001, L3890.6102, L100.0100, L3890.6202, L500.4050, L3890.6301, L4600.0100, L101.9900 ####[facility] [address] [place], [address] Neutrophils/100 WBC (Bld) 79.9 % High 47-70 [facility] Comment on above: Performed By: #### L 501.6710, L505.7010, L506.1001, L3890.6102, L100.0100, L3890.6202, L500.4050, L3890.6301, L4600.0100, L101.9900 ####[facility] [address] [place], [address] Nucleated RBC (Bld) [#/Vol] 0 10*3/uL Normal 0-5 [facility] Comment on above: Performed By: #### L 501.6710, L505.7010, L506.1001, L3890.6102, L100.0100, L3890.6202, L500.4050, L3890.6301, L4600.0100, L101.9900 ####[facility] [address] [place], [address] Platelet mean volume (Bld) [Entitic vol] 11.6 fL Normal 6.2-12.0 [facility] Comment on above: Performed By: #### L 501.6710, L505.7010, L506.1001, L3890.6102, L100.0100, L3890.6202, L500.4050, L3890.6301, L4600.0100, L101.9900 ####[facility] [address] [place], [address] Platelets (Bld) [#/Vol] 174 10*3/uL Normal 150-450 [facility] Comment on above: Performed By: #### L 501.6710, L505.7010, L506.1001, L3890.6102, L100.0100, L3890.6202, L500.4050, L3890.6301, L4600.0100, L101.9900 ####[facility] [address] [place], [address] RBC (Bld) [#/Vol] 4.62 10*6/uL Normal 4.2-5.4 [facility] Comment on above: Performed By: #### L 501.6710, L505.7010, L506.1001, L3890.6102, L100.0100, L3890.6202, L500.4050, L3890.6301, L4600.0100, L101.9900 ####[facility] [address] [place], [address] RDW SD 50.7 fl High 35.1-43.9 [facility] Comment on above: Performed By: #### L 501.6710, L505.7010, L506.1001, L3890.6102, L100.0100, L3890.6202, L500.4050, L3890.6301, L4600.0100, L101.9900 ####[facility] [address] [place], [address] WBC (Bld) [#/Vol] 13.3 10*3/uL High 4.4-11.0 [facility] Comment on above: Performed By: #### L 501.6710, L505.7010, L506.1001, L3890.6102, L100.0100, L3890.6202, L500.4050, L3890.6301, L4600.0100, L101.9900 ####[facility] [address] [place], [address] CRPon 11-29-2024 C-REACTIVE PROT < 3.00 Normal 0.0-3.0 [facility] Comment on above: Performed By: #### L 501.6710, L505.7010, L506.1001, L3890.6102, L100.0100, L3890.6202, L500.4050, L3890.6301, L4600.0100, L101.9900 ####[facility] [address] [place], [address] CRP [Mass/Vol]Ordered By: Terese Soler on 11-29-2024 C-Reactive Protein Extended Range < 3.00 mg/L 0.0-3.0 [facility] Carbon dioxide, total [Moles /volume] in Central venous bloodOrdered By: Allyson Soler on 11-29-2024 CO2 [Moles/Vol] 26.9 mmol/L 21.0-32.0 [facility] Chest PA and Lateralon 11-29 Chest PA and Lateral [facility] [address] [place], [place] [address] Chest PA and Lateral MR#: [id number] Acct: [id number] Name: BATOOL ESTRELLA Rep #: [id number] : 1945 F 79 From: Greg Motley MD PCP: Dr. Kymberly Muhammad, DO Status: REG CLI Study: Chest PA and Lateral Date of Exam: 11/29/24 Exam# [id number] Ordering Dr: Allyson Soelr MD PROCEDURE: CHEST PA AND LATERAL (RADCXR), [...] 2. Additional description as above. Reading Location: [id number] CC: Dr. Kymberly Muhammad DO; Dr. Allyson Soler MD [employer] R[employer] Sling Maker: Signed Normal [facility] Chloride assayOrdered By: Terese Soler on 11-29-2024 Chloride [Moles/Vol] 102 mmol/L 98-108 [facility] Comprehensive Metabolic Prof ilon 11-29-2024 Albumin [Mass/Vol] 3.9 g/dL Normal 3.4-4.8 [facility] Comment on above: Performed By: #### L 501.6710, L505.7010, L506.1001, L3890.6102, L100.0100, L3890.6202, L500.4050, L3890.6301, L4600.0100, L101.9900 ####[facility] [address] [place], [address] Albumin/Globulin [Mass ratio] 2.1 {ratio} Normal 0.9-2.4 [facility] Comment on above: Performed By: #### L 501.6710, L505.7010, L506.1001, L3890.6102, L100.0100, L3890.6202, L500.4050, L3890.6301, L4600.0100, L101.9900 ####[facility] [address] [place], [address] ALK PHOS 67 U/L Normal 35-104 [facility] Comment on above: Performed By: #### L 501.6710, L505.7010, L506.1001, L3890.6102, L100.0100, L3890.6202, L500.4050, L3890.6301, L4600.0100, L101.9900 ####[facility] [address] [place], [address] ALT [Catalytic activity/Vol] 29 U/L Normal <=34 [facility] Comment on above: Performed By: #### L 501.6710, L505.7010, L506.1001, L3890.6102, L100.0100, L3890.6202, L500.4050, L3890.6301, L4600.0100, L101.9900 ####[facility] [address] [place], [address] AST [Catalytic activity/Vol] 18 U/L Normal <=31 [facility] Comment on above: Performed By: #### L 501.6710, L505.7010, L506.1001, L3890.6102, L100.0100, L3890.6202, L500.4050, L3890.6301, L4600.0100, L101.9900 ####[facility] [address] [place], [place], [id number] Bilirubin [Mass/Vol] 0.49 mg/dL Normal 0.00-1.30 [facility] Comment on above: Performed By: #### L 501.6710, L505.7010, L506.1001, L3890.6102, L100.0100, L3890.6202, L500.4050, L3890.6301, L4600.0100, L101.9900 ####[facility] [address] [place], [address] BUN/CRE 26.8 RATIO High 10-20 [facility] Comment on above: Performed By: #### L 501.6710, L505.7010, L506.1001, L3890.6102, L100.0100, L3890.6202, L500.4050, L3890.6301, L4600.0100, L101.9900 ####[facility] [address] [place], [address] Calcium [Mass/Vol] 8.8 mg/dL Normal 7.6-11.0 [facility] Comment on above: Performed By: #### L 501.6710, L505.7010, L506.1001, L3890.6102, L100.0100, L3890.6202, L500.4050, L3890.6301, L4600.0100, L101.9900 ####[facility] [address] [place], [address] Chloride [Moles/Vol] 102 mmol/L Normal 98-108 [facility] Comment on above: Performed By: #### L 501.6710, L505.7010, L506.1001, L3890.6102, L100.0100, L3890.6202, L500.4050, L3890.6301, L4600.0100, L101.9900 ####[facility] [address] [place], [address] CO2 [Moles/Vol] 26.9 mmol/L Normal 21.0-32.0 [facility] Comment on above: Performed By: #### L 501.6710, L505.7010, L506.1001, L3890.6102, L100.0100, L3890.6202, L500.4050, L3890.6301, L4600.0100, L101.9900 ####[facility] [address] [place], [address] Creatinine [Mass/Vol] 0.77 mg/dL Normal 0.70-1.20 [facility] Comment on above: Performed By: #### L 501.6710, L505.7010, L506.1001, L3890.6102, L100.0100, L3890.6202, L500.4050, L3890.6301, L4600.0100, L101.9900 ####[facility] [address] [place], [address] GAP 13 Normal 5-15 [facility] Comment on above: Performed By: #### L 501.6710, L505.7010, L506.1001, L3890.6102, L100.0100, L3890.6202, L500.4050, L3890.6301, L4600.0100, L101.9900 ####[facility] [address] [place], [address] GFR/1.73 sq M.predicted among non-blacks MDRD (S/P/Bld) [Vol rate/Area] 80 mL/min/{1.73_m2} Normal >60 [facility] Comment on above: Result Comment: mL/m in/1.73m2 CKD-EPI Creatinine Equation (2020) Performed By: #### L 501.6710, L505.7010, L506.1001, L3890.6102, L100.0100, L3890.6202, L500.4050, L3890.6301, L4600.0100, L101.9900 ####[facility] [address] [place], [address] Globulin (S) [Mass/Vol] 1.8 g/dL Low 2.2-4.2 [facility] Comment on above: Performed By: #### L 501.6710, L505.7010, L506.1001, L3890.6102, L100.0100, L3890.6202, L500.4050, L3890.6301, L4600.0100, L101.9900 ####[facility] [address] [place], [address] Glucose [Mass/Vol] 96 mg/dL Normal 70-99 [facility] Comment on above: Performed By: #### L 501.6710, L505.7010, L506.1001, L3890.6102, L100.0100, L3890.6202, L500.4050, L3890.6301, L4600.0100, L101.9900 ####[facility] [address] [place], [address] Potassium [Moles/Vol] 3.7 mmol/L Normal 3.3-5.1 [facility] Comment on above: Performed By: #### L 501.6710, L505.7010, L506.1001, L3890.6102, L100.0100, L3890.6202, L500.4050, L3890.6301, L4600.0100, L101.9900 ####[facility] [address] [place], [address] Sodium [Moles/Vol] 142 mmol/L Normal 133-145 [facility] Comment on above: Performed By: #### L 501.6710, L505.7010, L506.1001, L3890.6102, L100.0100, L3890.6202, L500.4050, L3890.6301, L4600.0100, L101.9900 ####[facility] [address] [place], [address] T PROT 5.7 g/dL Low 5.9-8.4 [facility] Comment on above: Performed By: #### L 501.6710, L505.7010, L506.1001, L3890.6102, L100.0100, L3890.6202, L500.4050, L3890.6301, L4600.0100, L101.9900 ####[facility] [address] [place], [address] Urea nitrogen [Mass/Vol] 21 mg/dL High 4-19 [facility] Comment on above: Performed By: #### L 501.6710, L505.7010, L506.1001, L3890.6102, L100.0100, L3890.6202, L500.4050, L3890.6301, L4600.0100, L101.9900 ####[facility] [address] [place], [place], [id number] Cyclic citrullinated peptide IgG QnOrdered By: Allyson Soler on 11-29-2024 Cyclic Citrullinated Peptide IgG Ab 4 units 0-19 [facility] Comment on above: Negative <20 Weak po sitive 20 - 39 Moderate positive 40 - 59 Strong positive >59Performed at: - [facility] [id number] Director: Renny Frankel PhD, Phone: [phone] Eosinophil percentageOrdered By: Allyson Soler on 11-29-2024 Eosinophils/100 WBC (Bld) 0.6 % 0-5 [facility] Erythrocyte Sed Rateon 11-29 SED RATE 1 mm/hr Normal 0-30 [facility] Comment on above: Performed By: #### L 501.6710, L505.7010, L506.1001, L3890.6102, L100.0100, L3890.6202, L500.4050, L3890.6301, L4600.0100, L101.9900 ####[facility] [address] [place], [address] Erythrocyte distribution wid th (RBC) [Ratio]Ordered By: Allyson Soler on 11-29-2024 Erythrocyte distribution width (RBC) [Entitic vol] 50.7 fL High 35.1-43.9 [facility] Erythrocyte distribution wid th ratioOrdered By: Allyson Soler on 11-29-2024 Erythrocyte distribution width (RBC) [Ratio] 15.1 % High 11.6-14.6 [facility] Erythrocyte distribution wid th standard deviationOrdered By: Allyson Soler on 11-29-2024 Erythrocyte distribution width (RBC) [Ratio] 50.7 fl High 35.1-43.9 [facility] Erythrocyte sedimentation ra teOrdered By: Allyson Soler on 11-29-2024 ESR (Bld) [Velocity] 1 mm/h 0-30 [facility] GFR/1.73 sq M.predicted adriana g non-blacks MDRD (S/P/Bld) [Vol rate/Area]Ordered By: Allyson Soler on 11-29-2024 Estimated GFR (MDRD) Non-Af Amer 80 >60 [facility] Comment on above: mL/min/1.73m2 CKD-EP I Creatinine Equation (2020) Glomerular filtration rate ( GFR) estimation/1.73 sq m using serum, plasma, or whole bOrdered By: Allyson Soler on 11-29-2024 GFR/1.73 sq M.predicted among non-blacks MDRD (S/P/Bld) [Vol rate/Area] 80 mL/min/{1.73_m2} >60 [facility] Comment on above: mL/min/1.73m2 CKD-EP I Creatinine Equation (2020) HBV surface Ab Ql (S)Ordered By: Allyson Soler on 11-29-2024 Hepatitis B Surface Antibody Non-Reactive [facility] Comment on above: <8.5 mIU/mL: Non-Ashley ctive8.5<= x <11.5 mIU/mL: Indeterminate>=11.5 mIU/mL: Reactive Non Reactive: Inconsistent with immunity less than <10 mIU/mL Reactive: Consistent with immunity greater than or equal to 10 mIU/mL HBV surface Ag Ql (S)Ordered By: Allyson Soler on 11-29-2024 Hepatitis B Surface Antigen Non-Reactive Nonreactive [facility] Comment on above: Reactive: Presumptiv e evidence of HBV. Repeatedly reactive samples must be confirmed using a neutralization test ([employer] HBsAg Confirmatory Test)Non-Reactive: HBsAg not detected; does not exclude the possibility of exposure to HBV Hematocrit Auto (Bld) [Volum e fraction]Ordered By: Allyson Soler on 11-29-2024 Hematocrit (Bld) [Volume fraction] 42.5 % 37-47 [facility] Hemoglobin measurementOrdere d By: Allyson Soler on 11-29-2024 Hemoglobin (Bld) [Mass/Vol] 14.1 g/dL 12.0-15.0 [facility] Hepatitis B Surface Antibody on 11-29-2024 HEP B Surf Ab Non-Reactive Normal [facility] Comment on above: Result Comment: <8.5 mIU/mL: Non-Reactive 8.5<= x <11.5 mIU/mL: Indeterminate >=11.5 mIU/mL: Reactive Non Reactive: Inconsistent with immunity less than <10 mIU/mL Reactive: Consistent with immunity greater than or equal to 10 mIU/mL Performed By: #### L 501.6710, L505.7010, L506.1001, L3890.6102, L100.0100, L3890.6202, L500.4050, L3890.6301, L4600.0100, L101.9900 ####[facility] [address] [place], [address] Hepatitis C Antibodyon 11-29 Hepatitis C Ab Non-Reactive Normal Nonreactive [facility] Comment on above: Result Comment: Reac tive: Presumptive evidence of antibodies to HCV. Follow CDC recommendations for supplemental testing. Non-Reactive: Antibodies to HCV were not detected; does not exclude the possibility of exposure to HCV Reactive Results are presumptive evidence of antibodies to HCV. Follow CDC recommendations for supplemental testing. Order confirmation testing: HCV Quant by PCR testing - HCVPCR #[id number] Non Reactive: < 0.8 Equivocal: >/= 0.8 to < 1.0 Reactive: >/= 1.0 The CDC requires that a reactive/equivocal HCV antibody result be sent out for confirmation. HCV Quant by PCR testing. Performed By: #### L 501.6710, L505.7010, L506.1001, L3890.6102, L100.0100, L3890.6202, L500.4050, L3890.6301, L4600.0100, L101.9900 ####[facility] [address] [place], [address] Hepatitis C antibodyOrdered By: Allyson Soler on 11-29-2024 Hepatitis C Antibody Non-Reactive Nonreactive [facility] Comment on above: Reactive: Presumptiv e evidence of antibodies to HCV. Follow CDC recommendations for supplemental testing.Non-Reactive: Antibodies to HCV were not detected; does not exclude the possibility of exposure to HCVReactive Results are presumptive evidence of antibodies to HCV. Follow CDC recommendations for supplemental testing.Order confirmation testing: HCV Quant by PCR testing - HCVPCR #[id number] Non Reactive: < 0.8 Equivocal: >/= 0.8 to < 1.0 Reactive: >/= 1.0The CDC requires that a reactive/equivocal HCV antibody result be sent out for confirmation. HCV Quant by PCR testing. Immature granulocytes/100 WB C Auto (Bld)Ordered By: Allyson Soler on 11-29-2024 Immature granulocytes/100 WBC (Bld) 2.000 % High 0.0-0.9 [facility] Comment on above: IG% - Immature Granu locytes (promyelocytes, myelocytes and metamyelocytes) > 1% indicates that a LEFT SHIFT is Present. L3890.6102on 11-29-2024 HEP B Surf Ag Non-Reactive Normal Nonreactive [facility] Comment on above: Result Comment: Reac tive: Presumptive evidence of HBV. Repeatedly reactive samples must be confirmed using a neutralization test ([employer] HBsAg Confirmatory Test) Non-Reactive: HBsAg not detected; does not exclude the possibility of exposure to HBV Performed By: #### L 501.6710, L505.7010, L506.1001, L3890.6102, L100.0100, L3890.6202, L500.4050, L3890.6301, L4600.0100, L101.9900 ####[facility] [address] [place], [place], [address] Laboratory - Chemistry and C hemistry - challengeOrdered By: Allyson Soler on 11-29-2024 AST [Catalytic activity/Vol] 18 U/L <32 [facility] Laboratory - Microbiology an d Antimicrobial susceptibilityOrdered By: Allyson Soler on 11-29-2024 HBV surface Ag Ql (S) Non-Reactive Nonreactive [facility] Comment on above: Reactive: Presumptiv e evidence of HBV. Repeatedly reactive samples must be confirmed using a neutralization test ([employer] HBsAg Confirmatory Test)Non-Reactive: HBsAg not detected; does not exclude the possibility of exposure to HBV Lymphocytes Auto (Unsp spec) [#/Vol]Ordered By: Allyson Soler on 11-29-2024 Lymphocytes (Bld) [#/Vol] 1.39 10*3/uL 0.83-4.51 [facility] Lymphocytes/100 WBC Auto (Un sp spec)Ordered By: Allyson Soler on 11-29-2024 Lymphocytes/100 WBC (Bld) 10.4 % Low 19-41 [facility] MCV (mean corpuscular volume ) determinationOrdered By: Allyson Soler on 11-29-2024 MCV (RBC) [Entitic vol] 92.0 fL 81-99 [facility] Mean corpuscular hemoglobin (MCH) determinationOrdered By: Allyson Soler on 11-29-2024 MCH (RBC) [Entitic mass] 30.5 pg 27.0-32.0 [facility] Mean corpuscular hemoglobin concentration (MCHC) determinationOrdered By: Allyson Soler on 11-29-2024 MCHC (RBC) [Mass/Vol] 33.2 g/dL 32-36 [facility] Mean platelet volume determi nationOrdered By: Allyson Soler on 11-29-2024 Platelet mean volume (Bld) [Entitic vol] 11.6 fL 6.2-12.0 [facility] Monocyte percentageOrdered B y: Allyson Soler on 11-29-2024 Monocytes/100 WBC (Bld) 6.7 % 0-10 [facility] Neutrophil percentageOrdered By: Allyson Soler on 11-29-2024 Neutrophils/100 WBC (Bld) 79.9 % High 47-70 [facility] Nucleated red blood cell per centageOrdered By: Allyson Soler on 11-29-2024 Nucleated RBC/100 WBC (Bld) [Ratio] 0 % 0-5 [facility] Platelet countOrdered By: Terese Soler on 11-29-2024 Platelets (Bld) [#/Vol] 174 10*3/uL 150-450 [facility] Potassium (Unsp spec) [Mass/ Vol]Ordered By: Allyson Soler on 11-29-2024 Potassium [Moles/Vol] 3.7 mmol/L 3.3-5.1 [facility] Potassium measurement (mass/ volume)Ordered By: Allyson Soler on 11-29-2024 Potassium (Unsp spec) [Mass/Vol] 3.7 mmol/L 3.3-5.1 [facility] RBC Auto (Bld) [#/Vol]Ordere d By: Allyson Soler on 11-29-2024 RBC (Bld) [#/Vol] 4.62 10*6/uL 4.2-5.4 [facility] Rheumatoid Factoron 11-30-19 25 RHEUMATOID FAC < 10.0 Normal <15 [facility] Comment on above: Performed By: #### L 501.6710, L505.7010, L506.1001, L3890.6102, L100.0100, L3890.6202, L500.4050, L3890.6301, L4600.0100, L101.9900 ####[facility] [address] [place], [address] Rheumatoid factor Ql (S)Orde red By: Allyson Soler on 11-29-2024 Rheumatoid Factor < 10.0 IU/mL <15 [facility] Serum creatinine measurement (mass/volume)Ordered By: Allyson Soler on 11-29-2024 Creatinine [Mass/Vol] 0.77 mg/dL 0.70-1.20 [facility] Serum globulin measurementOr dered By: Allyson Soler on 11-29-2024 Globulin (S) [Mass/Vol] 1.8 g/dL Low 2.2-4.2 [facility] Serum glucose measurement (m ass/volume)Ordered By: Allyson Soler on 11-29-2024 Glucose [Mass/Vol] 96 mg/dL 70-99 [facility] Serum hepatitis B virus surf andrés antibody detectionOrdered By: Allyson Soler on 11-29-2024 HBV surface Ab Ql (S) Non-Reactive [facility] Comment on above: <8.5 mIU/mL: Non-Ashley ctive8.5<= x <11.5 mIU/mL: Indeterminate>=11.5 mIU/mL: Reactive Non Reactive: Inconsistent with immunity less than <10 mIU/mL Reactive: Consistent with immunity greater than or equal to 10 mIU/mL Serum or plasma C reactive p rotein measurement (mass/volume)Ordered By: Allyson Soler on 11-29-2024 CRP [Mass/Vol] mg/L 0.0-3.0 [facility] Serum or plasma alanine christianson otransferase (ALT) measurementOrdered By: Allyson Soler on 11-29-2024 ALT [Catalytic activity/Vol] 29 U/L <35 [facility] Serum or plasma albumin rolando urement (mass/volume)Ordered By: Allyson Soler on 11-29-2024 Albumin [Mass/Vol] 3.9 g/dL 3.4-4.8 [facility] Serum or plasma albumin/glob ulin mass ratioOrdered By: Allyson Soler on 11-29-2024 Albumin/Globulin [Mass ratio] 2.1 {ratio} 0.9-2.4 [facility] Serum or plasma alkaline trudy sphatase measurementOrdered By: Allyson Soler on 11-29-2024 ALP [Catalytic activity/Vol] 67 U/L 35-104 [facility] Serum or plasma calcium rolando urement (mass/volume)Ordered By: Allyson Soler on 11-29-2024 Calcium [Mass/Vol] 8.8 mg/dL 7.6-11.0 [facility] Serum or plasma cyclic citru llinated peptide IgG antibody assay (units/volume)Ordered By: Allyson Soler on 11-29-2024 Cyclic citrullinated peptide IgG Qn 4 units 0-19 [facility] Comment on above: Negative <20 Weak po sitive 20 - 39 Moderate positive 40 - 59 Strong positive >59Performed at: [facility] [id number] Director: Renny Frankel PhD, Phone: [phone] Serum or plasma urea nitroge n measurement (mass/volume)Ordered By: Allyson Soler on 11-29-2024 Urea nitrogen [Mass/Vol] 21 mg/dL High 4-19 [facility] Serum rheumatoid factor dete ctionOrdered By: Allyson Soler on 11-29-2024 Rheumatoid factor Ql (S) < 10.0 IU/mL <15 [facility] Sodium levelOrdered By: Jude Soler on 11-29-2024 Sodium [Moles/Vol] 142 mmol/L 133-145 [facility] Total proteinOrdered By: Justin Soler on 11-29-2024 Protein [Mass/Vol] 5.7 g/dL Low 5.9-8.4 [facility] Vitamin D, 25-hydroxyOrdered By: Allyson Soler on 11-29-2024 Vitamin D 25-Hydroxy 22.9 ng/mL Low 30-100 [facility] Comment on above: Vitamin D StatusDefi ciency: <20 ng/mL (50nmol/L)Insufficiency: 20-30 ng/mL (50-75 nmol/L)Sufficiency: 30-100 ng/mL (75-250 nmol/L)Toxicity: >100 ng/mL (>250 nmol/L) Vitamin D,25 Hydroxyon 11-29 Vitamin D 25-OH 22.9 ng/mL Low 30-100 [facility] Comment on above: Result Comment: Latricia min D Status Deficiency: <20 ng/mL (50nmol/L) Insufficiency: 20-30 ng/mL (50-75 nmol/L) Sufficiency: 30-100 ng/mL (75-250 nmol/L) Toxicity: >100 ng/mL (>250 nmol/L) Performed By: #### L 501.6710, L505.7010, L506.1001, L3890.6102, L100.0100, L3890.6202, L500.4050, L3890.6301, L4600.0100, L101.9900 ####[facility] [address] [place], [address] White blood cell (WBC) count Ordered By: Allyson Soler on 11-29-2024 WBC (Bld) [#/Vol] 13.3 10*3/uL High 4.4-11.0 [facility] Surgery Visit Reporton 11-23 Surgery Visit Report [facility] [address] [place] [address]. [address] [place] [address] OFFICE VISIT Date of Service: 11/23/24 MR#: [id number] Acct: [id number] Name: BATOOL ESTRELLA Rep #: [id number] : 1945 Provider: Dr. Brandon buckley MD Age/Sex: 79/F Location: [facility] Status: Signed Intake Vital Signs 11/06/24 06:22 Height 5 ft 4 in Intake Visit Reasons: TEMPORAL ARTERY BIOPSY DOS 11/06 Chief Complaint: right temp artery biopsy Outsole Caser Required: No Is patient in pain?: No [...] Op Diagnoses Blurred vision, right eye H53.8 [facility] Medical History Wears dentures Wears glasses History [...] Follow-up as needed. Brandon Doll MD Pager: [facility] [address] [place] [address] [address], [address] [place] [address] Office: 11/23/24903 Date Brandon Gregorio Signature: Date (if applicable) CC: Normal [facility] CRPon 11-08-2024 C-REACTIVE PROT < 3.00 Normal 0.0-3.0 [facility] Comment on above: Performed By: #### L 101.9900, L501.6710 ####[facility] [address] [place], [place], [address] CRP [Mass/Vol]Ordered By: Yadira Muhammad on 11-08-2024 C-Reactive Protein Extended Range < 3.00 mg/L 0.0-3.0 [facility] Erythrocyte Sed Rateon 11-08 SED RATE 2 mm/hr Normal 0-30 [facility] Comment on above: Performed By: #### L 101.9900, L501.6710 ####[facility] [address] [place], [address] Erythrocyte sedimentation ra teOrdered By: Kymberly Muhammad on 11-08-2024 ESR (Bld) [Velocity] 2 mm/h 0-30 [facility] Serum or plasma C reactive p rotein measurement (mass/volume)Ordered By: Kymberly Muhammad on 11-08-2024 CRP [Mass/Vol] mg/L 0.0-3.0 [facility] Discharge Instructionon 10-15 Discharge Instruction [facility] Medical Records Department [address] [place] [address] Instructions for Home/Discharge Instructions 11/06/24913 MR#: [id number] Acct: [id number] Name: BATOOL ESTRELLA Rep #: [id number] : 1945 79 From: Brandon Doll MD [...] to schedule 2 week follow up appointment. [phone] Test Results: Test results from this visit will be discussed in further detail at your follow-up appointment, if applicable. Discharge Plan Admission Attending Provider: Brandon Doll Primary Care Provider: Kymberly Muhammad Instructions Print Language: Romanian Discharge Orders/Prescriptions Prescriptions: No Action One Daily Multi-Vit w-Mineral 4.5 mg iron tablet 1 tab PO DAILY prednisone 20 mg tablet 80 mg PO DAILY Qty: 28 0RF Rx Instructions: Next dose 11/04/2024 Referrals / Follow Up: Kymberly Muhammad DO [Primary Care Provider] - Disposition Disposition (needs filled in before D/C Order can be placed): Home, Self Care 11/06/24 0915 Brandon Doll MD CC: Dr. Kymberly Muhammad DO Signed Normal [facility] MR/POSTOP.ANE 11-06-2024 MR/POSTOP.[facility] Medical Records Department [address] [place] [address] Anesthesia Postop Eval I 11/06/24906 MR#: [id number] Acct: [id number] Name: BATOOL ESTRELLA Rep #: [id number] : 1945 79 From: Enriqueta Light CRNA PCP: Dr. Kymberly Muhammad DO Status:REG SDC Y Race: C Location: [place] [address] Anesthesia: Postop Eval I Current Vital Signs [...] completed: Yes 11/06/24 09 Date Enriqueta Light BUSINESS ANALYTICS SPECIALIST Cosigner Signature: Date CC: Signed Normal [facility] MR/[id number] 11-06-2024 /POSTOPAN2 [facility] Medical Records Department [address] [place] [address] Anesthesia Postop Eval II 11/06/24 1015 MR#: [id number] Acct: [id number] Name: BATOOL ESTRELLA Rep #: [id number] : 1945 79 From: Carmen Wallis PCP: Dr. Kymberly Muhammad, DO Status:REG SDC Y Race: C Location: [place] [address] Anesthesia Postop Eval I Sum Postop Eval Completion status Anesthesia document: Postop Eval 1 completed: Yes Anesthesia Postop Eval I Summary Anesthesia Postop Eval I Summary: Anesthesia Postop Eval I: Assessment Summary Airway patent Yes 11/06/24 09:08 BUSINESS ANALYTICS SPECIALIST.LMIL Spontaneous unlabored Yes 11/06/24 09:08 BUSINESS ANALYTICS SPECIALIST.LMIL respirations Mental status Awake 11/06/24 09:08 BUSINESS ANALYTICS SPECIALIST.LMIL nausea No 11/06/24 09:08 BUSINESS ANALYTICS SPECIALIST.LMIL Vomiting No 11/06/24 09:08 BUSINESS ANALYTICS SPECIALIST.LMIL Anesthesia Postop Eval I: Fluid Summary Crystalloid volume administer 10 11/06/24 09:08 BUSINESS ANALYTICS SPECIALIST.LMIL (ml) Colloids volume administered ( ml) Blood Product volume administered (ml) Total IV fluid infused 10 11/06/24 09:08 BUSINESS ANALYTICS SPECIALIST.LMIL Anesthesia Postop Eval I: Summary Notes Anesthesia Complication No 11/06/24 09:08 BUSINESS ANALYTICS SPECIALIST.LMIL Anesthesia Complication Comment: Post-operative progress note Anesthesia: Postop Eval II Evaluation Mental status: Awake Pain Level: 1 nausea: No Vomiting: No 11/06/24 1015 Date Carmen Coronaigner Signature: Date CC: Signed Normal [facility] Operative Reporton Operative Report [facility] Medical Records Department [address] [place] [address] Operative Report 11/06/24910 MR#: [id number] Acct: [id number] Name: BATOOL ESTRELLA Rep #: [id number] : 1945 79 From: Brandon Doll MD PCP: Dr. Kymberly Muhammad, DO Status:[facility] Location: [place] [address] Operative Report (Standard) Operative Information Date of Procedure: 11/06/24 Pre-Operative Diagnosis: Right vision loss Post-Operative Diagnosis: Same Surgery/Procedure Performed: Right temporal artery biopsy wireless sales representative: Yes End Polisher: Jeremie Sebastian Tasks completed by commercial lines assistant: Retracting Type of Anesthesia: Local MAC [...] and MAC anesthesia was induced. The right mormonism was inspected and the route of the artery was marked. The mormonism was prepped and draped in usual sterile [...] appear to be artery into the right mormonism. The area was irrigated and suctioned dry and it was continue to be explored but I did not find other tubular structures in the mormonism. The incision was irrigated and suctioned dry once more and then closed with running 4-0 Monocryl suture. Dermabond was applied. Patient was taken to PACU in stable condition. Surgical Findings: Small temporal artery Complications Complications: No Admit VTE Documentation VTE Mechan Device Prophylaxis: SCD's 11/06/24 0914 Cosigner Signature (if applicable): CC: Dr. Brandon Doll MD; Dr. Kymberly Muhammad DO Signed Normal [facility] Surgery Specimen Level Aristeo 11-06-2024 Surgery Specimen Level IV Patient Age/Sex Location Account Attending Physician BATOOL ESTRELLA 79/F [facility] [id number] Dr. Brandon Doll MD Specimen: [id number] Received: 11/06/24-1320 Status: WENDI Capps Num: [id number] Spec Type: TEMPORAL Subm Dr: Dr. Brandon [...] Totally submitted in one cassette. JK 11/06/2024 CPT:37006, TC:3 Patient Age/Sex Location Account Attending Physician BATOOL ESTRELLA 79/F [facility] [id number] Dr. Brandon Doll MD Signed (signature on file) Dr. Lefty Valdez MD 11/08/24 1321 Normal [facility] Comment on above: Performed By: #### P JACKIE ####[facility] [address] [place], [place], [address] MR/PATTrixie 11-02-2024 MR/PAT.NIKOLAI [facility] Medical Records Department [address] [place] [address] PAT - Anesthesia 11/02/24 1514 MR#: [id number] Acct: [id number] Name: BATOOL ESTRELLA (BETSY) Rep #: [id number] : 1945 79 From: Chris Jang MD PCP: Dr. Kymberly Muhammad, DO Status:PRE SDC Y Race: C Location: [facility] Pre-Assessment Diagnosis/Proposed Procedure Planned Operative Procedure(s): RIGHT TEMPORAL ARTERY BX Anesthesia History Anesthesia History - shipping hand: Anesthesia History - shipping hand Hx Hospitalization No 11/02/24 10:36 Any Problems [...] take am of surgery PONV PONV - shipping hand: PONV - shipping hand Female Yes 11/02/24 10:36 HX of Motion [...] 11/02/24 09:00 Respiratory Assessment Respiratory Assessment - shipping hand: Respiratory Tract Infection Hx - shipping hand Hx Respiratory Tract Infection No 11/02/24 10:36 STOP Sleep Apnea STOP Sleep Apnea - shipping hand: STOP Sleep Apnea - shipping hand Hx Hypertension No 11/02/24 10:36 Hx Sleep [...] Tobacco Use History Tobacco Use History - shipping hand: Tobacco Use History - shipping hand Tobacco Use Smoking Status Never smoker 11/02/24 10:36 Hx Tobacco Use No 11/02/24 10:36 Years Smoking Packs Smoked per Day Smoking Cessation Date was within the last 15 years Hx Smoking Cessation Date Hx Smoking Cessation Counseling Hematologic Medial History Hematologic Hx - shipping hand: 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 Normal [facility] Surgery Visit Reporton 11-02 Surgery Visit Report [facility] [address] [place] [address] OFFICE VISIT Date of Service: 11/02/24 MR#: [id number] Acct: [id number] Name: BATOOL ESTRELLA (BETSY) Rep #: [id number] : 1945 Provider: Dr. Brandon buckley MD Age/Sex: 79/F Location: [facility] Status: Signed Intake Vital Signs 11/01/24 17:03 [...] willing to proceed. Brandon Doll MD Pager: [facility] [address] [place] [address] [address], [address] [place] [address] Office: Coding Level of Care Code Off vis,new,level 3 Diagnoses Blurred vision, right eye H53.8 Clinical Quality Measures Falls Risk Screening/Assistive Devices Have you fallen in the past year?: No 11/02/24 0911 (more content not included)... Normal [facility] Absolute lymphocyte countOrd ered By: Enoc Armijo on 11-01-2024 Lymphocytes Auto (Unsp spec) [#/Vol] 1.50 10*3/uL 0.83-4.51 [facility] Absolute neutrophil countOrd ered By: Enoc Armijo on 11-01-2024 Neutrophils (Bld) [#/Vol] 8.2 10*3/uL High 2.0-7.7 [facility] Anion gap in Serum or Plasma Ordered By: Enoc Armijo on 11-01-2024 Anion gap [Moles/Vol] 13 mmol/L 5-15 [facility] Automated lymphocyte count a s percentage of total leukocytesOrdered By: Enoc Armijo on 11-01-2024 Lymphocytes/100 WBC Auto (Unsp spec) 13.8 % Low 19-41 [facility] BUN/creatinine ratioOrdered By: Enoc Armijo on 11-01-2024 Urea nitrogen/Creatinine [Mass ratio] 28.1 mg/mg High 10-20 [facility] Basic Metabolic Profile (BMP )on 11-01-2024 BUN/CRE 28.1 RATIO High - [facility] Comment on above: Performed By: #### L 101.9900, L100.0100, L501.6710, L500.2500 ####[facility] [address] [place], [address] Calcium [Mass/Vol] 8.8 mg/dL Normal 7.6-11.0 [facility] Comment on above: Performed By: #### L 101.9900, L100.0100, L501.6710, L500.2500 ####[facility] [address] [place], [address] Chloride [Moles/Vol] 104 mmol/L Normal 98-108 [facility] Comment on above: Performed By: #### L 101.9900, L100.0100, L501.6710, L500.2500 ####[facility] [address] [place], [address] CO2 [Moles/Vol] 23.1 mmol/L Normal 21.0-32.0 [facility] Comment on above: Performed By: #### L 101.9900, L100.0100, L501.6710, L500.2500 ####[facility] [address] [place], [address] Creatinine [Mass/Vol] 0.63 mg/dL Low 0.70-1.20 [facility] Comment on above: Performed By: #### L 101.9900, L100.0100, L501.6710, L500.2500 ####[facility] [address] [place], [address] ECRCL 50.85 ml/min Normal 50-250 [facility] Comment on above: Performed By: #### L 101.9900, L100.0100, L501.6710, L500.2500 ####[facility] [address] [place], [address] GAP 13 Normal 5-15 [facility] Comment on above: Performed By: #### L 101.9900, L100.0100, L501.6710, L500.2500 ####[facility] [address] [place], [address] GFR/1.73 sq M.predicted among non-blacks MDRD (S/P/Bld) [Vol rate/Area] 91 mL/min/{1.73_m2} Normal >60 [facility] Comment on above: Result Comment: mL/m in/1.73m2 CKD-EPI Creatinine Equation (2020) Performed By: #### L 101.9900, L100.0100, L501.6710, L500.2500 ####[facility] [address] [place], [address] Glucose [Mass/Vol] 110 mg/dL High 70-99 [facility] Comment on above: Performed By: #### L 101.9900, L100.0100, L501.6710, L500.2500 ####[facility] [address] [place], [address] Potassium [Moles/Vol] 4.2 mmol/L Normal 3.3-5.1 [facility] Comment on above: Performed By: #### L 101.9900, L100.0100, L501.6710, L500.2500 ####[facility] [address] [place], [address] Sodium [Moles/Vol] 140 mmol/L Normal 133-145 [facility] Comment on above: Performed By: #### L 101.9900, L100.0100, L501.6710, L500.2500 ####[facility] [address] [place], [address] Urea nitrogen [Mass/Vol] 18 mg/dL Normal 4-19 [facility] Comment on above: Performed By: #### L 101.9900, L100.0100, L501.6710, L500.2500 ####[facility] [address] [place], [address] Basophil percentageOrdered B y: Enoc Armijo on 11-01-2024 Basophils/100 WBC (Bld) 0.5 % 0-1 [facility] CBC W/Diff, Automatedon 10-14 Absolute Lymph 1.50 X10 3/uL Normal 0.83-4.51 [facility] Comment on above: Performed By: #### L 101.9900, L100.0100, L501.6710, L500.2500 ####[facility] [address] [place], [address] Absolute Neut 8.2 X10 3/uL High 2.0-7.7 [facility] Comment on above: Performed By: #### L 101.9900, L100.0100, L501.6710, L500.2500 ####[facility] [address] [place], [address] Basophils/100 WBC (Bld) 0.5 % Normal 0-1 [facility] Comment on above: Performed By: #### L 101.9900, L100.0100, L501.6710, L500.2500 ####[facility] [address] [place], [address] Eosinophils/100 WBC (Bld) 0.9 % Normal 0-5 [facility] Comment on above: Performed By: #### L 101.9900, L100.0100, L501.6710, L500.2500 ####[facility] [address] [place], [address] Erythrocyte distribution width (RBC) [Ratio] 12.4 % Normal 11.6-14.6 [facility] Comment on above: Performed By: #### L 101.9900, L100.0100, L501.6710, L500.2500 ####[facility] [address] [place], [address] Hematocrit (Bld) [Volume fraction] 39.9 % Normal 37-47 [facility] Comment on above: Performed By: #### L 101.9900, L100.0100, L501.6710, L500.2500 ####[facility] [address] [place], [address] Hemoglobin (Bld) [Mass/Vol] 13.0 g/dL Normal 12.0-15.0 [facility] Comment on above: Performed By: #### L 101.9900, L100.0100, L501.6710, L500.2500 ####[facility] [address] [place], [address] IG% 0.400 Normal 0.0-0.9 [facility] Comment on above: Result Comment: IG% - Immature Granulocytes (promyelocytes, myelocytes and metamyelocytes) > 1% indicates that a LEFT SHIFT is Present. Performed By: #### L 101.9900, L100.0100, L501.6710, L500.2500 ####[facility] [address] [place], [address] Lymphocytes/100 WBC (Bld) 13.8 % Low 19-41 [facility] Comment on above: Performed By: #### L 101.9900, L100.0100, L501.6710, L500.2500 ####[facility] [address] [place], [address] MCH (RBC) [Entitic mass] 30.2 pg Normal 27.0-32.0 [facility] Comment on above: Performed By: #### L 101.9900, L100.0100, L501.6710, L500.2500 ####[facility] [address] [place], [address] MCHC (RBC) [Mass/Vol] 32.6 g/dL Normal 32-36 [facility] Comment on above: Performed By: #### L 101.9900, L100.0100, L501.6710, L500.2500 ####[facility] [address] [place], [address] MCV (RBC) [Entitic vol] 92.8 fL Normal 81-99 [facility] Comment on above: Performed By: #### L 101.9900, L100.0100, L501.6710, L500.2500 ####[facility] [address] [place], [address] Monocytes/100 WBC (Bld) 8.6 % Normal 0-10 [facility] Comment on above: Performed By: #### L 101.9900, L100.0100, L501.6710, L500.2500 ####[facility] [address] [place], [address] Neutrophils/100 WBC (Bld) 75.8 % High 47-70 [facility] Comment on above: Performed By: #### L 101.9900, L100.0100, L501.6710, L500.2500 ####[facility] [address] [place], [address] Nucleated RBC (Bld) [#/Vol] 0 10*3/uL Normal 0-5 [facility] Comment on above: Performed By: #### L 101.9900, L100.0100, L501.6710, L500.2500 ####[facility] [address] [place], [address] Platelet mean volume (Bld) [Entitic vol] 11.4 fL Normal 6.2-12.0 [facility] Comment on above: Performed By: #### L 101.9900, L100.0100, L501.6710, L500.2500 ####[facility] [address] [place], [address] Platelets (Bld) [#/Vol] 265 10*3/uL Normal 150-450 [facility] Comment on above: Performed By: #### L 101.9900, L100.0100, L501.6710, L500.2500 ####[facility] [address] [place], [address] RBC (Bld) [#/Vol] 4.30 10*6/uL Normal 4.2-5.4 [facility] Comment on above: Performed By: #### L 101.9900, L100.0100, L501.6710, L500.2500 ####[facility] [address] [place], [address] RDW SD 42.5 fl Normal 35.1-43.9 [facility] Comment on above: Performed By: #### L 101.9900, L100.0100, L501.6710, L500.2500 ####[facility] [address] [place], [address] WBC (Bld) [#/Vol] 10.9 10*3/uL Normal 4.4-11.0 [facility] Comment on above: Performed By: #### L 101.9900, L100.0100, L501.6710, L500.2500 ####[facility] [address] [place], [address] CRPon 11-01-2024 C-REACTIVE PROT 15.90 mg/L High 0.0-3.0 [facility] Comment on above: Performed By: #### L 101.9900, L100.0100, L501.6710, L500.2500 ####[facility] [address] [place], [address] CRP [Mass/Vol]Ordered By: Luis Alberto Armijo on 11-01-2024 C-Reactive Protein Extended Range 15.90 mg/L High 0.0-3.0 [facility] Carbon dioxide, total [Moles /volume] in Central venous bloodOrdered By: Enoc Armijo on 03-19-2025 CO2 [Moles/Vol] 23.1 mmol/L 21.0-32.0 [facility] Chloride assayOrdered By: Luis Alberto Armijo on 11-01-2024 Chloride [Moles/Vol] 104 mmol/L 98-108 [facility] Emergency Department Summary on 11-01-2024 Emergency Department Summary [facility] Medical Records Department [address] [place] [address] Emergency Department Summary 11/01/24 MR#: [id number] Acct: [id number] Name: BATOOL ESTRELLA Rep #: [id number] : 1945 79 From: Enoc Watkins PCP: [...] swelling superior aspect of the optic nerve. [facility] Home Medications ???Medication ???Instructions ???Recorded ???Last Taken [...] office for patient to call tomorrow. 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 Normal [facility] Eosinophil percentageOrdered By: Enoc Armijo on 11-01-2024 Eosinophils/100 WBC (Bld) 0.9 % 0-5 [facility] Erythrocyte Sed Rateon 11-01 SED RATE 17 mm/hr Normal 0-30 [facility] Comment on above: Performed By: #### L 101.9900, L100.0100, L501.6710, L500.2500 ####[facility] [address] [place], [address] Erythrocyte distribution wid th ratioOrdered By: Enoc Armijo on 11-01-2024 Erythrocyte distribution width (RBC) [Ratio] 12.4 % 11.6-14.6 [facility] Erythrocyte distribution wid th standard deviationOrdered By: Enoc Armijo on 11-01-2024 Erythrocyte distribution width (RBC) [Entitic vol] 42.5 fL 35.1-43.9 [facility] Erythrocyte distribution width (RBC) [Ratio] 42.5 fl 35.1-43.9 [facility] Erythrocyte sedimentation ra teOrdered By: Enoc Armijo on 11-01-2024 ESR (Bld) [Velocity] 17 mm/h 0-30 [facility] Estimation of creatinine faviola aranceOrdered By: Enoc Armijo on 11-01-2024 Estimated Creatinine Clearance Calc 50.85 ml/min 50-250 [facility] GFR/1.73 sq M.predicted adriana g non-blacks MDRD (S/P/Bld) [Vol rate/Area]Ordered By: Enoc Armijo on 11-01-2024 Estimated GFR (MDRD) Non-Af Amer 91 >60 [facility] Comment on above: mL/min/1.73m2 CKD-EP I Creatinine Equation (2020) Glomerular filtration rate ( GFR) estimation/1.73 sq m using serum, plasma, or whole bOrdered By: Enoc Armijo on 11-01-2024 GFR/1.73 sq M.predicted among non-blacks MDRD (S/P/Bld) [Vol rate/Area] 91 mL/min/{1.73_m2} >60 [facility] Comment on above: mL/min/1.73m2 CKD-EP I Creatinine Equation (2020) Hematocrit Auto (Bld) [Volum e fraction]Ordered By: Enoc Armijo on 11-01-2024 Hematocrit (Bld) [Volume fraction] 39.9 % 37-47 [facility] Hemoglobin measurementOrdere d By: Enoc Armijo on 11-01-2024 Hemoglobin (Bld) [Mass/Vol] 13.0 g/dL 12.0-15.0 [facility] Immature granulocytes/100 WB C Auto (Bld)Ordered By: Enoc Armijo on 11-01-2024 Immature granulocytes/100 WBC (Bld) 0.400 % 0.0-0.9 [facility] Comment on above: IG% - Immature Granu locytes (promyelocytes, myelocytes and metamyelocytes) > 1% indicates that a LEFT SHIFT is Present. Lymphocytes Auto (Unsp spec) [#/Vol]Ordered By: Enoc Armijo on 11-01-2024 Lymphocytes (Bld) [#/Vol] 1.50 10*3/uL 0.83-4.51 [facility] Lymphocytes/100 WBC Auto (Un sp spec)Ordered By: Enoc Armijo on 11-01-2024 Lymphocytes/100 WBC (Bld) 13.8 % Low 19-41 [facility] MCV (mean corpuscular volume ) determinationOrdered By: Enoc Armijo on 11-01-2024 MCV (RBC) [Entitic vol] 92.8 fL 81-99 [facility] Mean corpuscular hemoglobin (MCH) determinationOrdered By: Enoc Armijo on 11-01-2024 MCH (RBC) [Entitic mass] 30.2 pg 27.0-32.0 [facility] Mean corpuscular hemoglobin concentration (MCHC) determinationOrdered By: Enoc Armijo on 11-01-2024 MCHC (RBC) [Mass/Vol] 32.6 g/dL 32-36 [facility] Mean platelet volume determi nationOrdered By: Enoc Armijo on 11-01-2024 Platelet mean volume (Bld) [Entitic vol] 11.4 fL 6.2-12.0 [facility] Monocyte percentageOrdered B y: Enoc Armijo on 11-01-2024 Monocytes/100 WBC (Bld) 8.6 % 0-10 [facility] Neutrophil percentageOrdered By: Enoc Le on 11-01-2024 Neutrophils/100 WBC (Bld) 75.8 % High 47-70 [facility] Nucleated red blood cell per centageOrdered By: Enoc Le on 11-01-2024 Nucleated RBC/100 WBC (Bld) [Ratio] 0 % 0-5 [facility] Platelet countOrdered By: Luis Alberto brown Armijo on 11-01-2024 Platelets (Bld) [#/Vol] 265 10*3/uL 150-450 [facility] Potassium (Unsp spec) [Mass/ Vol]Ordered By: Enoc Armijo on 11-01-2024 Potassium [Moles/Vol] 4.2 mmol/L 3.3-5.1 [facility] Potassium measurement (mass/ volume)Ordered By: Enoc Armijo on 11-01-2024 Potassium (Unsp spec) [Mass/Vol] 4.2 mmol/L 3.3-5.1 [facility] RBC Auto (Bld) [#/Vol]Ordere d By: Enoc Le on 11-01-2024 RBC (Bld) [#/Vol] 4.30 10*6/uL 4.2-5.4 [facility] Serum creatinine measurement (mass/volume)Ordered By: Enoc Armijo on 11-01-2024 Creatinine [Mass/Vol] 0.63 mg/dL Low 0.70-1.20 [facility] Serum glucose measurement (m ass/volume)Ordered By: Enoc Armijo on 11-01-2024 Glucose [Mass/Vol] 110 mg/dL High 70-99 [facility] Serum or plasma C reactive p rotein measurement (mass/volume)Ordered By: Enoc Armijo on 11-01-2024 CRP [Mass/Vol] 15.90 mg/L High 0.0-3.0 [facility] Serum or plasma calcium rolando urement (mass/volume)Ordered By: Enoc Armijo on 11-01-2024 Calcium [Mass/Vol] 8.8 mg/dL 7.6-11.0 [facility] Serum or plasma urea nitroge n measurement (mass/volume)Ordered By: Enoc Armijo on 11-01-2024 Urea nitrogen [Mass/Vol] 18 mg/dL - [facility] Sodium levelOrdered By: Enoc Armijo on 11-01-2024 Sodium [Moles/Vol] 140 mmol/L 133-145 [facility] White blood cell (WBC) count Ordered By: Enoc Armijo on 11-01-2024 WBC (Bld) [#/Vol] 10.9 10*3/uL 4.4-11.0 [facility] Urine Cultureon 05-26-2024 URC Klebsiella pneumonia e sp pneum [place] Count 80,000-100,000 Klebsiella pneumoniae sp pneum: REACTION [...] TMP SMX Islt SUNNY <=20 S Normal [facility] Comment on above: Performed By: #### M 100.2200, L400.0001 ####[facility] [address] [place], [place], [address] Urgent Care Visit Reporton 1 Urgent Care Visit Report [facility] [address], [address] [place], [place] [address] OFFICE VISIT Date of Service: 05/24/24 MR#: [id number] Acct: [id number] Name: BATOOL ESTRELLA Rep #: [id number] : 1945 Provider: TERESE Murillo Age/Sex: 79/F Location: [facility] Status: Signed Intake Vital Signs 10/05/19 08:13 [...] FOR UTI Chief Complaint: DYSURIA sx yesterday Outsole Caser Required: No Accompanied by: Self Is patient [...] MA on 05/24/24 16:01 Off Ur Spec [place] 1.015 Last Edit by Christine Roque MA [...] 0838 Date (more content not included)... Normal [facility] Urinalysis, Completeon 05-24 BACTERIA 2+ /hpf Normal None Seen [facility] Comment on above: Order Comment: BRADFORD CTOR TO SPECIFY Performed By: #### M 100.2200, L400.0001 ####[facility] [address] [place], [address] EPI,SQUAMOUS 0-5 SEEN Normal 5-10 [facility] Comment on above: Order Comment: BRADFORD CTOR TO SPECIFY Performed By: #### M 100.2200, L400.0001 ####[facility] [address] [place], [address] WBC >100 SEEN Normal 0-5 [facility] Comment on above: Order Comment: BRADFORD CTOR TO SPECIFY Performed By: #### M 100.2200, L400.0001 ####[facility] [address] [place], [address] RBC 10-25 SEEN Normal 0-5 [facility] Comment on above: Order Comment: BRADFORD CTOR TO SPECIFY Performed By: #### M 100.2200, L400.0001 ####[facility] [address] [place], [address] Mucus Ql (Urine sed) 0 SEEN Normal [facility] Comment on above: Order Comment: BRADFORD CTOR TO SPECIFY Performed By: #### M 100.2200, L400.0001 ####[facility] [address] [place], [address] Absolute lymphocyte countOrd ered By: Kymberly Muhammad on 12-13-2023 Lymphocytes Auto (Unsp spec) [#/Vol] 1.21 10*3/uL 0.83-4.51 [facility] Automated lymphocyte count a s percentage of total leukocytesOrdered By: Kymberly Muhammad on 12-13-2023 Lymphocytes/100 WBC Auto (Unsp spec) 10.7 % 19-41 [facility] Basophil percentageOrdered B y: Kymberly Muhammad on 12-13-2023 Basophils/100 WBC (Bld) 0.5 % 0-1 [facility] Bilirubin [Mass/Vol] 0.30 mg/dL 0.20-1.00 [facility] Comment on above: For patients on eltr ombopag therapy, use of Dimension [place] TBIL is not recommended. Chloride [Moles/Vol] 105 mmol/L 98-107 [facility] Eosinophils/100 WBC (Bld) 0.2 % 0-5 [facility] Glucose [Mass/Vol] 132 mg/dL 74-106 [facility] Comment on above: Fasting Glucose resu lt greater than or equal to 126 mg/dL suggests DIABETES MELLITUS per A.D.A. criteria. Hemoglobin (Bld) [Mass/Vol] 14.0 g/dL 12.0-15.0 [facility] Monocytes/100 WBC (Bld) 7.0 % 0-10 [facility] Neutrophils (Bld) [#/Vol] 9.2 10*3/uL 2.0-7.7 [facility] Neutrophils/100 WBC (Bld) 81.3 % 47-70 [facility] Potassium [Moles/Vol] 3.7 mmol/L 3.5-5.1 [facility] Protein [Mass/Vol] 7.1 g/dL 6.4-8.2 [facility] Sodium [Moles/Vol] 140 mmol/L 136-145 [facility] WBC (Bld) [#/Vol] 11.3 10*3/uL 4.4-11.0 [facility] Determination of erythrocyte mean corpuscular volume (MCV)Ordered By: Kymberly Muhammad on 12-13-2023 MCV (RBC) [Entitic vol] 93.4 fL 81-99 [facility] Erythrocyte distribution wid th ratioOrdered By: Kymberly Muhammad on 12-13-2023 Erythrocyte distribution width (RBC) [Ratio] 13.1 % 11.6-14.6 [facility] Erythrocyte distribution wid th standard deviationOrdered By: Kymberly Muhammad on 12-13-2023 Erythrocyte distribution width (RBC) [Entitic vol] 44.3 fL 35.1-43.9 [facility] Erythrocyte sedimentation ra teOrdered By: Kymberly Muhammad on 12-13-2023 ESR (Bld) [Velocity] 4 mm/h 0-30 [facility] Hematocrit Auto (Bld) [Volum e fraction]Ordered By: Kymberly Muhammad on 12-13-2023 Hematocrit (Bld) [Volume fraction] 43.8 % 37-47 [facility] Immature granulocytes/100 WB C Auto (Bld)Ordered By: Kymberly Muhammad on 12-13-2023 Immature granulocytes/100 WBC (Bld) 0.300 % 0.0-0.9 [facility] Comment on above: IG% - Immature Granu locytes (promyelocytes, myelocytes and metamyelocytes) > 1% indicates that a LEFT SHIFT is Present. Laboratory - Chemistry and C hemistry - challengeOrdered By: Kymberly Muhammad on 12-13-2023 Albumin/Globulin [Mass ratio] 1.0 {ratio} 0.9-2.4 [facility] ALP [Catalytic activity/Vol] 83 U/L 45-117 [facility] ALT [Catalytic activity/Vol] 21 U/L 13-56 [facility] CO2 [Moles/Vol] 31.0 mmol/L 21.0-32.0 [facility] Cobalamin (Vitamin B12) [Mass/Vol] 556 pg/mL 211-911 [facility] Globulin (S) [Mass/Vol] 3.5 g/dL 2.2-4.2 [facility] Urea nitrogen/Creatinine [Mass ratio] 28.4 mg/mg 10-20 [facility] Laboratory - Hematology and Cell countsOrdered By: Kymberly Muhammad on 12-13-2023 MCH (RBC) [Entitic mass] 29.9 pg 27.0-32.0 [facility] MCHC (RBC) [Mass/Vol] 32.0 g/dL 32-36 [facility] Nucleated RBC/100 WBC (Bld) [Ratio] 0 % 0-5 [facility] Platelet mean volume (Bld) [Entitic vol] 12.5 fL 6.2-12.0 [facility] Platelets (Bld) [#/Vol] 209 10*3/uL 150-450 [facility] No Panel InformationOrdered By: Kymberly Muhammad on 12-13-2023 Anti-Nuclear Antibody Screen Negative Negative [facility] Comment on above: Performed at: [employer] [place] [id number] Director: Renny Frankel PhD, Phone: [phone] C-Reactive Protein Extended Range < 2.90 mg/L 0.0-3.0 [facility] Comment on above: C-Reactive Protein ( CRP) provides useful information for thediagnosis, therapy and monitoring of inflammatory processesand associated diseases. For the evaluation of Relative Riskfor Cardiovascular Disease, a High Sensitivity CRP (HSCRP)should be ordered. Centromere B Antibody Not Reportable [facility] Estimated GFR (MDRD) Amer 98 mL/min >60 [facility] Comment on above: GFR Calc Estimated GFR (MDRD) Non-Af Amer 81 mL/min >60 [facility] Comment on above: Non- GFR Calc LADONNA-1 Antibody Not Reportable [facility] Lyme Disease IgG Ab 18 kDa Band Absent . [facility] Lyme Disease IgG Ab 23 kDa Band Absent . [facility] Lyme Disease IgG Ab 28 kDa Band Absent . [facility] Lyme Disease IgG Ab 30 kDa Band Absent . [facility] Lyme Disease IgG Ab 39 kDa Band Absent . [facility] Lyme Disease IgG Ab 41 kDa Band Present . [facility] Lyme Disease IgG Ab 45 kDa Band Absent . [facility] Lyme Disease IgG Ab 58 kDa Band Present . [facility] Lyme Disease IgG Ab 66 kDa Band Absent . [facility] Lyme Disease IgG Ab 93 kDa Band Absent . [facility] Lyme Disease IgG West Blot Interp Negative . [facility] Comment on above: Positive: 5 of the f ollowing Borrelia-specific bands: 18,23,28,30,39,41,45,58, 66, and 93. Negative: No bands or banding patterns which do not meet positive criteria. Lyme Disease IgM Ab (Western Blot) Negative . [facility] Comment on above: Note: An equivocal o r positive EIA result followed by anegative Line Blot result is considered NEGATIVE. Anequivocal or positive EIA result followed by a positiveLine Blot is considered POSITIVE by the CDC.Positive: 2 of the following bands: 23,39 or 41Negative: No bands or banding patterns which do not meetpositive criteria.Criteria for positivity are those recommended byCDC/ASTPHLD. p23=Osp C, j63=hnnlillpyVbty:Sera from individuals with the following may cross [...] testingto improve the sensitivity and specificity of testing.[facility] offers test code 768215 Lyme Disease Serology withReflex to aid in the diagnosis of Lyme Disease.Performed at: [address] [id number] Director: Solo Kaiser MD, Phone: [phone] Lyme Disease IgM Ab 23 kDa Band Absent . [facility] Lyme Disease IgM Ab 39 kDa Band Absent . [facility] Lyme Disease IgM Ab 41 kDa Band Absent . [facility] IMMIGRATION OFFICER Antibody Not Reportable [facility] SM Antibody Not Reportable [facility] SS-A/Ro IgG Antibody Not Reportable [facility] SS-B/La IgG Antibody Not Reportable [facility] RBC Auto (Bld) [#/Vol]Ordere d By: Kymberly Muhammad on 12-13-2023 RBC (Bld) [#/Vol] 4.69 10*6/uL 4.2-5.4 [facility] Serum DNA double strand anti body assay (units/volume)Ordered By: Kymberly Muhammad on 12-13-2023 DNA double strand Ab Qn (S) Not Reportable [facility] Serum Scl-70 antibody assay (units/volume)Ordered By: Kymberly Armandoliya on 12-13-2023 SCL-70 extractable nuclear Ab Qn (S) Not Reportable [facility] Serum or plasma calcium rolando urement (mass/volume)Ordered By: Kymberly Muhammad on 12-13-2023 Calcium [Mass/Vol] 9.0 mg/dL 8.5-10.1 [facility] Serum or plasma creatinine m easurement (mass/volume)Ordered By: Kymberly Muhammad on 12-13-2023 Creatinine [Mass/Vol] 0.74 mg/dL 0.55-1.02 [facility] Comment on above: The validity of the calculated GFR & GFRAA in patients over 70 years has not been determined. Clinical correlation is essential. Serum or plasma urea nitroge n measurement (mass/volume)Ordered By: Kymberly Muhammad on 12-13-2023 Urea nitrogen [Mass/Vol] 21 mg/dL 7-18 [facility] Thin prep Papanicolaou smear with manual screeningOrdered By: Kymberly Muhammad on 12-13-2023 Thin prep Papanicolaou smear with manual screening 3.6 g/dL 3.2-5.0 [facility] Thin prep Papanicolaou smear with manual screening 19 U/L 15-37 [facility] Thin prep Papanicolaou smear with manual screening 4 5-15 [facility] Absolute lymphocyte countOrd ered By: Kymberly Trliya on 06-09-2023 Lymphocytes Auto (Unsp spec) [#/Vol] 1.07 10*3/uL 0.83-4.51 [facility] Basophil percentageOrdered B y: Kymberly Muhammad on 06-09-2023 Basophils/100 WBC (Bld) 0.4 % 0-1 [facility] Bilirubin [Mass/Vol] 0.30 mg/dL 0.20-1.00 [facility] Comment on above: For patients on eltr ombopag therapy, use of Dimension [place] TBIL is not recommended. Chloride [Moles/Vol] 104 mmol/L 98-107 [facility] Eosinophils/100 WBC (Bld) 0.2 % 0-5 [facility] Glucose [Mass/Vol] 90 mg/dL 74-106 [facility] Neutrophils (Bld) [#/Vol] 14.0 10*3/uL 2.0-7.7 [facility] Neutrophils/100 WBC (Bld) 85.8 % 47-70 [facility] Potassium [Moles/Vol] 4.6 mmol/L 3.5-5.1 [facility] Protein [Mass/Vol] 7.3 g/dL 6.4-8.2 [facility] Sodium [Moles/Vol] 139 mmol/L 136-145 [facility] WBC (Bld) [#/Vol] 16.3 10*3/uL 4.4-11.0 [facility] Blood erythrocytes count (nu mber/volume)Ordered By: Kymberly Muhammad on 06-09-2023 RBC (Bld) [#/Vol] 4.53 10*6/uL 4.2-5.4 [facility] Blood hemoglobin measurement (mass/volume)Ordered By: Kymberly Muhammad on 06-09-2023 Hemoglobin (Bld) [Mass/Vol] 13.8 g/dL 12.0-15.0 [facility] Blood lymphocytes/100 leukoc ytesOrdered By: Kymberly Muhammad on 06-09-2023 Lymphocytes/100 WBC (Bld) 6.6 % 19-41 [facility] Blood monocytes/100 leukocyt esOrdered By: Kymberly Muhammad on 06-09-2023 Monocytes/100 WBC (Bld) 6.4 % 0-10 [facility] Blood platelet mean volumeOr dered By: Kymberly Muhammad on 06-09-2023 Platelet mean volume (Bld) [Entitic vol] 11.9 fL 6.2-12.0 [facility] Determination of erythrocyte mean corpuscular volume (MCV)Ordered By: Kymberly Muhammad on 06-09-2023 MCV (RBC) [Entitic vol] 93.6 fL 81-99 [facility] Erythrocyte sedimentation ra teOrdered By: Kymberly Muhammad on 06-09-2023 ESR (Bld) [Velocity] 6 mm/h 0-30 [facility] Hematocrit Auto (Bld) [Volum e fraction]Ordered By: Kymberly Muhammad on 06-09-2023 Hematocrit (Bld) [Volume fraction] 42.4 % 37-47 [facility] Laboratory - Chemistry and C hemistry - challengeOrdered By: Kymberly Muhammad on 06-09-2023 ALP [Catalytic activity/Vol] 87 U/L 45-117 [facility] ALT [Catalytic activity/Vol] 16 U/L 13-56 [facility] CO2 [Moles/Vol] 30.0 mmol/L 21.0-32.0 [facility] Globulin (S) [Mass/Vol] 3.5 g/dL 2.2-4.2 [facility] Urea nitrogen/Creatinine [Mass ratio] 29.2 mg/mg 10-20 [facility] Laboratory - Hematology and Cell countsOrdered By: Kymberly Muhammad on 06-09-2023 Erythrocyte distribution width (RBC) [Entitic vol] 43.3 fL 35.1-43.9 [facility] Erythrocyte distribution width (RBC) [Ratio] 12.6 % 11.6-14.6 [facility] Immature granulocytes/100 WBC (Bld) 0.600 % 0.0-0.9 [facility] Comment on above: IG% - Immature Granu locytes (promyelocytes, myelocytes and metamyelocytes) > 1% indicates that a LEFT SHIFT is Present. MCH (RBC) [Entitic mass] 30.5 pg 27.0-32.0 [facility] Nucleated RBC/100 WBC (Bld) [Ratio] 0 % 0-5 [facility] MCHC Auto (RBC) [Mass/Vol]Or dered By: Kymberly Muhammad on 06-09-2023 MCHC (RBC) [Mass/Vol] 32.5 g/dL 32-36 [facility] No Panel InformationOrdered By: Kymberly Muhammad on 06-09-2023 Anti-Nuclear Antibody Screen Negative Negative [facility] Comment on above: Performed at: [address] [id number] Director: Renyn Frankel PhD, Phone: [phone] Estimated GFR (MDRD) Amer 114 mL/min >60 [facility] Comment on above: GFR Calc Estimated GFR (MDRD) Non-Af Amer 94 mL/min >60 [facility] Comment on above: Non- GFR Calc Platelets bldOrdered By: Dorene Muhammad on 06-09-2023 Platelets (Bld) [#/Vol] 246 10*3/uL 150-450 [facility] Serum or plasma C reactive p rotein measurement (mass/volume)Ordered By: Kymberly Muhammad on 06-09-2023 CRP [Mass/Vol] 6.23 mg/L 0.0-3.0 [facility] Comment on above: C-Reactive Protein ( CRP) provides useful information for thediagnosis, therapy and monitoring of inflammatory processesand associated diseases. For the evaluation of Relative Riskfor Cardiovascular Disease, a High Sensitivity CRP (HSCRP)should be ordered. Serum or plasma albumin rolando urement (mass/volume)Ordered By: Kymberly Muhammad on 06-09-2023 Albumin [Mass/Vol] 3.8 g/dL 3.2-5.0 [facility] Serum or plasma albumin/glob ulin mass ratioOrdered By: Kymberly Muhammad on 06-09-2023 Albumin/Globulin [Mass ratio] 1.1 {ratio} 0.9-2.4 [facility] Serum or plasma calcium rolando urement (mass/volume)Ordered By: Kymberly Muhammad on 06-09-2023 Calcium [Mass/Vol] 9.0 mg/dL 8.5-10.1 [facility] Serum or plasma creatinine m easurement (mass/volume)Ordered By: Kymberly Muhammad on 06-09-2023 Creatinine [Mass/Vol] 0.65 mg/dL 0.55-1.02 [facility] Comment on above: The validity of the calculated GFR & GFRAA in patients over 70 years has not been determined. Clinical correlation is essential. Serum or plasma urea nitroge n measurement (mass/volume)Ordered By: Kymberly Muhammad on 06-09-2023 Urea nitrogen [Mass/Vol] 19 mg/dL 7-18 [facility] Thin prep Papanicolaou smear with manual screeningOrdered By: Kymberly Muhammad on 06-09-2023 Thin prep Papanicolaou smear with manual screening 14 U/L 15-37 [facility] Thin prep Papanicolaou smear with manual screening 5 5-15 [facility] Basophil percentageon 2021 Basophil percentage 0-5 SEEN /hpf 0-5 [facility] Work Phone: Laboratory - Chemistry and C hemistry - challengeon 04-24-2022 Glucose Ql (U) Negative [facility] Work Phone: pH (U) 5.0 [pH] [facility] Work Phone: Specific gravity (U) [Rel density] 1.010 [facility] Work Phone: Urobilinogen (U) [Mass/Vol] Negative [facility] Work Phone: Laboratory - Hematology and Cell countson 04-24-2022 Hemoglobin Ql (U) Negative [facility] Work Phone: Laboratory - Specimen inform ationon 04-24-2022 Clarity (U) Clear [facility] Work Phone: Mucus LM Ql (Urine sed)on Mucus Ql (Urine sed) 0 SEEN /hpf [facility] Work Phone: Nitrite ur dipstickon 2021 Nitrite Ql (U) Negative [facility] Work Phone: No Panel Informationon 04-24 Urine Leukocytes Positive [facility] Work Phone: Urine Non-Hemolyzed Blood Negative [facility] Work Phone: Squamous epithelial cells de tection in urine sediment by light microscopyon 04-24-2022 Epithelial cells.squamous LM Ql (Urine sed) 0-5 SEEN /hpf 5-10 [facility] Work Phone: Urine blood detectionon RBC Ql (U) Negative Negative [facility] Work Phone: RBC Ql (U) 0 SEEN /hpf 0-5 [facility] Work Phone: Urine clarityon 04-24-2022 Clarity (U) Sl. Cloudy Clear [facility] Work Phone: Urine color determinationon 04-24-2022 Color (U) Yellow [facility] Work Phone: Urine glucose detectionon Glucose Ql (U) Normal mg/dl Normal [facility] Work Phone: Urine ketones detection by t est stripon 04-24-2022 Ketones Ql (U) Negative [facility] Work Phone: Urine leukocyte esterase det ection by dipstickon 04-24-2022 Leukocyte esterase Test strip Ql (U) 25 /ul Negative [facility] Work Phone: [phone] Urine pHon 04-24-2022 pH (U) 6.5 [pH] 5.0 - 8.0 [facility] Work Phone: Urine protein assay by test strip, semi-quantitativeon 04-24-2022 Protein Ql (U) Negative [facility] Work Phone: Urine sediment bacteria coun t by microscopy (number/high power field)on 04-24-2022 Bacteria LM.HPF (Urine sed) [#/Area] 0 /[HPF] None Seen [facility] Work Phone: Urine specific gravity measu rementon 04-24-2022 Specific gravity (U) [Rel density] 1.005 1.002-1.030 [facility] Work Phone: Urine total bilirubin detect ion by test stripon 04-24-2022 Bilirubin Ql (U) Negative [facility] Work Phone: Urobilinogen Auto test strip Ql (U)on 04-24-2022 Urobilinogen Ql (U) Normal mg/dl Normal [facility] Work Phone: Culture, urine Bacteria identified Cx Nom (U) Mixed Gram Pos & Gram Neg Org [facility] Work Phone: Vital Signs Date Time Vital Sign Value Performing Clinician Faci lity 12-27-2024 01:05-0400 Body temperature 97.9 [degF] Dr. Kymberly Muhammad DO Work Phone: [facility] 12-27-2024 01:05-0400 Diastolic blood pressure 84 mm[Hg] Dr. Kymberly Muhammad DO Work Phone: [facility] 12-27-2024 01:05-0400 Heart rate 56 /min Dr. Kymberly Muhammad DO Work Phone: [facility] 12-27-2024 01:05-0400 Respiratory rate 18 /min Dr. Kymberly Muhammad DO Work Phone: [facility] 12-27-2024 01:05-0400 SaO2% (BldA) [Mass fraction] 97 % Dr. Kymberly Muhammad DO Work Phone: [facility] 12-27-2024 01:05-0400 Systolic blood pressure 131 mm[Hg] Dr. Kymberly Muhammad DO Work Phone: [facility] 12-26-2024 21:57-0400 Body height 162.[address] Kymberly Muhammad DO Work Phone: [facility] 12-26-2024 21:57-0400 Body mass index (BMI) [Ratio] 23 kg/m2 Dr. Kymberly Muhammad DO Work Phone: [facility] 12-26-2024 21:57-0400 Body weight 60.[address] Kymberly Muhammad DO Work Phone: [facility] 11-06-2024 09:45-0400 Body temperature 97.2 [degF] Dr. Kymberly Muhammad DO Work Phone: [facility] 11-06-2024 09:45-0400 Diastolic blood pressure 72 mm[Hg] Dr. Kymberly Muhammad DO Work Phone: [facility] 11-06-2024 09:45-0400 Heart rate 77 /min Dr. Kymberly Muhammad DO Work Phone: [facility] 11-06-2024 09:45-0400 Respiratory rate 16 /min Dr. Kymberly Muhammad DO Work Phone: [facility] 11-06-2024 09:45-0400 SaO2% (BldA) [Mass fraction] 96 % Dr. Kymberly Muhammad DO Work Phone: [facility] 11-06-2024 09:45-0400 Systolic blood pressure 133 mm[Hg] Dr. Kymberly Muhammad DO Work Phone: [facility] 11-06-2024 06:22-0400 Body height 162.[address] Kymberly Muhammad DO Work Phone: [facility] 11-06-2024 06:22-0400 Body mass index (BMI) [Ratio] 22.3 kg/m2 Dr. Kymberly Muhammad DO Work Phone: [facility] 11-06-2024 06:22-0400 Body weight [address] Kymberly Muhammad DO Work Phone: [facility] 11-03-2024 13:05-0400 Body temperature 96.8 [degF] Dr. Kymberly Muhammad DO Work Phone: [facility] 11-03-2024 13:05-0400 Diastolic blood pressure 64 mm[Hg] Dr. Kymberly Muhammad DO Work Phone: [facility] 11-03-2024 13:05-0400 Heart rate 55 /min Dr. Kymberly Muhammad DO Work Phone: [facility] 11-03-2024 13:05-0400 Respiratory rate 16 /min Dr. Kymberly Muhammad DO Work Phone: [facility] 11-03-2024 13:05-0400 SaO2% (BldA) [Mass fraction] 98 % Dr. Kymberly Muhammad DO Work Phone: [facility] 11-03-2024 13:05-0400 Systolic blood pressure 122 mm[Hg] Dr. Kymberly Muhammad DO Work Phone: [facility] 11-03-2024 11:20-0400 Body height 162.[address] Kymberly Muhammad DO Work Phone: [facility] 11-02-2024 16:21-0400 Body temperature 97.5 [degF] Dr. Kymberly Muhammad DO Work Phone: [facility] 11-02-2024 16:21-0400 Diastolic blood pressure 62 mm[Hg] Dr. Kymberly Muhammad DO Work Phone: [facility] 11-02-2024 16:21-0400 Heart rate 63 /min Dr. Kymberly Muhammad DO Work Phone: [facility] 11-02-2024 16:21-0400 Respiratory rate 16 /min Dr. Kymberly Muhammad DO Work Phone: [facility] 11-02-2024 16:21-0400 SaO2% (BldA) [Mass fraction] 98 % Dr. Kymberly Muhammad DO Work Phone: [facility] 11-02-2024 16:21-0400 Systolic blood pressure 131 mm[Hg] Dr. Kymberly Muhammad DO Work Phone: [facility] 11-02-2024 14:26-0400 Body height 162.[address] Kymberly Muhammad DO Work Phone: [facility] 11-02-2024 09:00-0400 Body mass index (BMI) [Ratio] 21.6 kg/m2 Dr. Kymberly Muhammad DO Work Phone: [facility] 11-02-2024 09:00-0400 Body temperature 96 [degF] Dr. Kymberly Muhammad DO Work Phone: [facility] 11-02-2024 09:00-0400 Body weight 57.[address] Kymberly Muhammad DO Work Phone: [facility] 11-02-2024 09:00-0400 Diastolic blood pressure 70 mm[Hg] Dr. Kymberly Muhammad DO Work Phone: [facility] 11-02-2024 09:00-0400 Heart rate 70 /min Dr. Kymberly Muhammad DO Work Phone: [facility] 11-02-2024 09:00-0400 Respiratory rate 17 /min Dr. Kymberly Muhammad DO Work Phone: [facility] 11-02-2024 09:00-0400 SaO2% (BldA) [Mass fraction] 97 % Dr. Kymberly Muhammad DO Work Phone: [facility] 11-02-2024 09:00-0400 Systolic blood pressure 111 mm[Hg] Dr. Kymberly Muhammad DO Work Phone: [facility] 11-01-2024 19:13-0400 Body temperature 98.2 [degF] Dr. Kymberly Muhammad DO Work Phone: [facility] 11-01-2024 19:13-0400 Diastolic blood pressure 68 mm[Hg] Dr. Kymberly Muhammad DO Work Phone: [facility] 11-01-2024 19:13-0400 Heart rate 57 /min Dr. Kymberly Muhammad DO Work Phone: [facility] 11-01-2024 19:13-0400 Respiratory rate 16 /min Dr. Kymberly Muhammad DO Work Phone: [facility] 11-01-2024 19:13-0400 SaO2% (BldA) [Mass fraction] 99 % Dr. Kymberly Muhammad DO Work Phone: [facility] 11-01-2024 19:13-0400 Systolic blood pressure 165 mm[Hg] Dr. Kymberly Muhammad DO Work Phone: [facility] 11-01-2024 17:03-0400 Body height 162.[address] Kymberly Muhammad DO Work Phone: [facility] 11-01-2024 17:03-0400 Body mass index (BMI) [Ratio] 22.1 kg/m2 Dr. Kymberly Muhammad DO Work Phone: [facility] 11-01-2024 17:03-0400 Body weight 58.[address] Kymberly Muhammad DO Work Phone: [facility] 04-24-2022 08:58-0400 Body temperature 98 [degF] Dr. Kymberly Muhammad Work Phone: [facility] Work Phone: 04-24-2022 08:58-0400 Diastolic blood pressure 74 mm[Hg] Dr. Kymberly Muhammad Work Phone: [facility] Work Phone: 04-24-2022 08:58-0400 Heart rate 60 /min Dr. Kymberly Muhammad Work Phone: [facility] Work Phone: 04-24-2022 08:58-0400 Respiratory rate 16 /min Dr. Kymberly Muhammad Work Phone: [facility] Work Phone: 04-24-2022 08:58-0400 SaO2% (BldA) [Mass fraction] 97 % Dr. Kymberly Muhammad Work Phone: [facility] Work Phone: 04-24-2022 08:58-0400 Systolic blood pressure 132 mm[Hg] Dr. Kymberly Muhammad Work Phone: [facility] Work Phone: Encounters Encounter Date Encounter Type Care Provider Facility Start: 05-02-2025 ambulatory Kymberly Muhammad Facility:[facility] Start: 05-02-2025 End: 05-02-2025 [facility] Start: 04-18-2025 Non-patient / Non-visit Dr. Raciel beal MD -[facility] Start: 04-18-2025 End: 04-18-[address] Kymberly Muhammad DO Work Phone: -Cardiovascular Services Start: 04-18-2025 End: 04-18-[address] Kymberly Muhammad DO -[facility] Services Work Phone: Start: 04-18-2025 End: 04-18-2025 ambulatory Kymberly Muhammad Facility:[facility] Start: 04-09-[facility] Start: 04-05-2025 End: 04-05-[address] Kymberly Muhammad DO Work Phone: -[facility] Start: 04-05-2025 End: 04-05-[address] Allyson Soler MD -[facility] Work Phone: Start: 04-05-2025 End: 04-05-2025 ambulatory [facility] Facility:[facility] Start: 03-16-2025 End: 03-16-[address] Kymberly Muhammad DO Work Phone: -[facility] Start: 03-16-2025 End: 03-16-[address] Kymberly Muhammad DO -[facility] Work Phone: Start: 03-16-2025 End: 03-16-2025 ambulatory Kymberly Muhammad Facility:[facility] Start: 03-05-2025 End: 03-05-[address] Kymberly Muhammad DO Work Phone: -[facility] Start: 03-05-2025 End: 03-05-[address] Allyson Soler MD -[facility] Work Phone: Start: 03-05-2025 End: 03-05-2025 ambulatory [facility] Facility:[facility] Start: 02-13-2025 Non-patient / Non-visit Dr. Carmencita rubio MD -[facility] Work Phone: Start: 01-30-2025 End: 01-30-[address] Kymberly Muhammad DO Work Phone: [facility] Work Phone: Start: 01-30-2025 End: 01-30-[address] Kymberly Muhammad DO -[facility] Work Phone: Start: 01-30-2025 End: 01-30-2025 ambulatory Kymberly Muhammad Facility:[facility] Start: 01-27-2025 End: 01-27-[address] Kymberly Muhammad DO Work Phone: [facility] Work Phone: Start: 01-27-2025 End: 01-27-[address] Allyson Soler MD -Laboratory Work Phone: Start: 01-27-2025 End: 01-27-2025 ambulatory [facility] Facility:[facility] Start: 12-29-2024 End: 12-29-[address] Kymberly Muhammad DO Work Phone: [facility] Work Phone: Start: 12-29-2024 End: 12-29-[address] Allyson Soler MD -[facility] Work Phone: Start: 12-29-2024 End: 12-29-2024 ambulatory [facility] Facility:[facility] Start: 12-26-2024 End: 12-27-2024 Emergency department patient visit Dr. Kymberly Muhammad DO Work Phone: -Emergency Department Work Phone: Start: 12-01-2024 End: 12-01-[address] Allyson Soler MD -Laboratory, [facility] Work Phone: Start: 12-01-2024 End: 12-01-2024 ambulatory [facility] Facility:[facility] Start: 11-29-2024 End: 11-29-[address] Kymberly Muhammad DO Work Phone: [facility] Work Phone: Start: 11-29-2024 End: 11-29-[address] Allyson Soler MD -Laboratory, [facility] Work Phone: Start: 11-29-2024 End: 11-29-2024 ambulatory Allyson Soler Facility:[facility] Start: 11-23-2024 End: 11-23-[address] Brandon Doll MD -[facility] Work Phone: Start: 11-23-2024 End: 11-23-2024 ambulatory Kymberlyricco Armandoliya Facility:[facility] Start: 11-08-2024 End: 11-08-[address] Kymberly Muhammad DO Work Phone: [facility] Work Phone: Start: 11-08-2024 End: 11-08-[address] [facility] Start: 11-08-2024 End: 11-08-2024 ambulatory Kymberly Muhammad Facility:[facility] Start: 11-06-2024 ambulatory Brandon Malone lity:[facility] Start: 11-06-2024 Non-patient / Non-visit Dr. Heidi Doll MD -[facility] Start: 11-06-2024 End: 11-06-2024 Admission to same day surgery center Dr. Brandon Doll MD -[facility] Start: 11-06-2024 End: 11-06-[address] Kymberly Muhammad DO Work Phone: [facility] Work Phone: Start: 11-03-2024 End: 11-03-[address] Enoc Watkins -[facility] Work Phone: Start: 11-03-2024 End: 11-03-[address] Kymberly Muhammad DO Work Phone: [facility] Work Phone: Start: 11-02-2024 End: 11-02-[address] Enoc Le DO -[facility] Work Phone: Start: 11-02-2024 End: 11-02-[address] Kymberly Muhammad DO Work Phone: [facility] Work Phone: Start: 11-02-2024 End: 11-02-[address] Brandon Doll MD -[facility] Work Phone: Start: 11-02-2024 End: 11-02-2024 ambulatory Kymberly Muhammad Facility:[facility] Start: 11-01-2024 End: 11-01-2024 Emergency department patient visit Dr. Kymberly Muhammad DO Work Phone: -Emergency Department Work Phone: Start: 05-24-2024 End: 05-24-[address] [facility] Facility:[facility] Start: 05-24-2024 End: 05-24-[address] [facility] Facility:[facility] Start: 12-13-2023 End: 12-13-2023 ambulatory [facility] Work Phone: Start: 12-13-2023 End: 12-13-2023 [facility] Start: 06-09-2023 End: 06-09-2023 ambulatory [facility] Work Phone: Start: 06-09-2023 End: 06-09-2023 Patient encounter procedure [facility] Start: 05-30-2022 End: 05-30-[address] Kymberly Muhammad Work Phone: [facility] Work Phone: Start: 05-30-2022 End: 05-30-[address] Kymberly Muhammad Work Phone: [facility]-Ultrasound, [facility] Start: 05-07-2022 End: 05-07-[address] Kymberly Muhammad Work Phone: [facility] Work Phone: Start: 05-07-2022 End: 05-07-[address] Kymberly Muhammad Work Phone: [facility], [facility] Start: 04-24-2022 End: 04-24-[address] Kymberly Muhammad Work Phone: [facility] Work Phone: Start: 04-24-2022 End: 04-24-[address] Kymberly Muhammad Work Phone: [facility]-Laboratory, Specimen Start: 04-24-2022 End: 04-24-[address] Kymberly Muhammad Work Phone: [facility] Start: 04-17-2022 End: 04-17-2022 ambulatory [facility] Work Phone: Start: 04-17-2022 End: 04-17-2022 Patient encounter procedure [facility]-Laboratory, Specimen Procedures Date Procedure Procedure Detail Performing Clinician Start: 03-05-2025 Flow cytometry cell surf marker techl only 1st Dr. Kymberly Muhammad DO Work Phone: Start: 03-05-[address] Kymberly Muhammad DO Work Phone: Start: 01-30-2025 MRI of brain with contrast [...] the productionof interferon gamma. Chemiluminescence immunoassaymethodologyPerformed at: [facility] [id number] Director: Renny Frankel PhD, Phone: [phone] Start: 11-29-2024 Hepatitis C antibody measurement Dr. [...] HCV Quant by PCR testing - HCVPCR #[id number] Non Reactive: < 0.8 Equivocal: >/= 0.8 [...] Activity Detail Author Start: 12-26-2024 End: 12-27-2024 [facility] Start: 11-06-2024 Anesthesia major ves sels neck simple ligation ANESTH NECK VESSEL SURGERY [facility] Start: 11-06-2024 Ligation/biopsy temp oral artery LIGATION/BX TEMPORAL ARTERY [facility] Start: 11-06-2024 Patient discharge [facility] Start: 11-03-2024 Iv infusion therapy/prophylaxis /dx 1st to 1 hr THER/PROPH/DIAG IV INF INIT [facility] Start: 11-01-2024 [facility] Start: 05-07-2022 US Kidney - bilatera l and Urinary bladder [facility] Work Phone: Start: 05-07-2022 US urinary tract Kidney and Bladder [facility] Work Phone: Antibody to lupus La protein measurement [facility] Antibody to SS-A measurement [facility] Centromere protein B Ab [Units/volume] in Serum [facility] Chromatin Ab [Units/volume] in Serum or Plasma [facility] DNA double strand Ab [Units/volume] in Serum [facility] Ladonna-1 extractable nuc lear Ab [Units/volume] in Serum [facility] Patient Education [facility] Work Phone: Patient referral [facility] Work Phone: [id number] extractable nuclear Ab [Units/volume] in Serum by Immunoassay [facility] extractable nuclear Ab [Presence] in Serum [facility] Immunizations Immunization Date Immunization Notes Care Provider Scott sanchez 06-26-2017 tetanus toxoid, redu suzanne diphtheria toxoid, and acellular pertussis vaccine, adsorbed [facility] Payers Date Payer Category Payer Self-pay [id number] 2013 Medicare [id number] Unknown [id number] Unknown [id number] 2.16.8 [id number] Unknown [id number] 2.16.8 [id number] Unknown [id number] 2.16.8 40.1.413619.3.579.2.462 Unknown [id number] 2.16.8 40.1.675028.3.579.2.462 Unknown [id number] 2.16.8 40.1.409075.3.579.2.462 Unknown [id number] 2.16.8 40.1.339109.3.579.2.462 Unknown [id number] 2.16.8 40.1.810333.3.579.2.462 Unknown [id number] 2.16.8 40.1.736189.3.579.2.462 Unknown [id number] 2.16.8 40.1.051227.3.579.2.462 Unknown [id number] 2.16.8 40.1.179840.3.579.2.462 Unknown [id number] 2.16.8 40.1.077586.3.579.2.462 Unknown [id number] 2.16.8 40.1.917654.3.579.2.462 Unknown [id number] 2.16.8 40.1.608304.3.579.2.462 Unknown [id number] 2.16.8 40.1.611566.3.579.2.462 Unknown [id number] 2.16.8 40.1.927770.3.579.2.462 Unknown [id number] 2.16.8 40.1.360412.3.579.2.462 Unknown [id number] 2.16.8 40.1.520507.3.579.2.462 Unknown [id number] 2.16.8 40.1.160780.3.579.2.462 Unknown [id number] 2.16.8 40.1.436226.3.579.2.462 Unknown [id number] 2.16.8 40.1.699684.3.579.2.462 Unknown [id number] 2.16.8 40.1.379481.3.579.2.462 Unknown [id number] 2.16.8 40.1.744201.3.579.2.462 Unknown [id number] 2.16.8 40.1.444747.3.579.2.462 Unknown [id number] 2.16.8 40.1.313324.3.579.2.462 Unknown [id number] 2.16.8 40.1.807843.3.579.2.462 Social History Date Type Detail Facility Start: 10-05-2019 End: 04-24-2022 Tobacco smoking status NHIS Unknown if ever smoked [facility] Start: 08-21-2019 None [facility] Start: 08-21-2019 Alone [facility] Start: 1945 Sex Assigned At Female [facility] Start: 11-01-2024 End: 12-26-2024 Tobacco smoking status NHIS Never smoked tobacco (finding) [facility] Start: 11-01-2024 End: 12-06-2024 Sex Female (finding) [facility] NEGATED: Highlighted row Not [facility] Medical Equipment Procedure Code Equipment Code Equipment Origin al Text Equipment Identifier Dates Biopsy, artery, temporal Ligation clip, metallic ()[id number] FDA Start: 11-06-2024 Biopsy, artery, temporal Ligation clip, metallic ()[id number] FDA Start: 11-06-2024 Goals Date Patient Goal Desired Activity /State Mental Status Date Assessment Result Facility 12-26-2024 Cognitive function Voice/Name [facility] Work Phone: 11-06-2024 Cognitive function Voice/Name [facility] Work Phone: 11-03-2024 Cognitive function Awake;Alert;A ppropriate;Fol lows Commands [facility] Work Phone: 11-02-2024 Cognitive function Awake;Appropr iate;Follows Commands [facility] Work Phone: Clinical Notes 11-01-2024 to 12-26-2024 Note Date & Type Note Facility 12-26-2024 Radiology Diagnostic study note [facility] Imaging Services [address] [place], [place] [address] Chest 1 View (Portable) MR#: [id number] Acct: [id number] Name: BATOOL ESTRELLA Rep #: [id number] : 1945 F 79 From: Loretta Partida MD PCP: Dr. Kymberly Muhammad DO Status: REG ER Study:Chest 1 View (Portable) Date of Exam: 12/26/24 Exam# [id number] Ordering Dr: Rolando More DO PROCEDURE: CHEST 1 VIEW (PORTABLE) 12/26/2024 REASON FOR EXAM: CHEST PAIN TECHNIQUE: Frontal view of the chest. COMPARISON: 11/30/2019 FINDINGS: Hardware: None Heart: Cardiac and mediastinal contours are stable. Lungs: No focal consolidation. No pneumothorax. No pleural effusion. Bones: The bones are unremarkable. Other: RAD/Chest 1 View (Portable) IMPRESSION: No Acute Findings. Reading Location: [facility] CC: Dr. Fernie More DO; Dr. Kymberly Muhammad DO ~ Wire Rope Sling Maker: Signed [facility] 11-29-2024 Radiology Diagnostic study note [facility] Imaging Services [address] [place] [address] Chest PA and Lateral MR#: [id number] Acct: [id number] Name: BATOOL ESTRELLA Rep #: [id number] : 1945 F 79 From: Veena Motley MD PCP: Dr. Kymberly Muhammad DO Status: REG CLI Study:Chest PA and Lateral Date of Exam: 11/29/24 Exam# [id number] Ordering Dr: Allyson Soler MD PROCEDURE: CHEST [...] 2. Additional description as above. Reading Location: [facility] CC: Dr. Kymberly Muhammad DO; Dr. Allyson Soler MD ~ Wire Rope Sling Maker: Signed [facility] 11-23-2024 Evaluation note Diagnosis Onset Date Resolution Blurred vision, right eye inactive November 23, 2024 8:38am [facility] Work Phone: 1(279) 755-817603-24-2025 Discharge summary Author Brandon Doll [facility] Note Date/Time November 06, 2024 9:1 5am [facility] Medical Records Department [address] [place] [address] Instructions for Home/Discharge Instructions 11/06/24 0914 MR#: [id number] Acct: [id number] Name: BATOOL ESTRELLA Rep #:[id number] : 1945 79 From: Brandon ayon MD [...] to schedule 2 week follow up appointment. [phone] Test Results: Test results from this visit will be discussed in further detail at your follow- up appointment, if applicable. Discharge Plan Admission Attending Provider: Barndon Doll Primary Care Provider: Kymberly Muhammad Instructions Print Language: Romanian Discharge Orders/Prescriptions Prescriptions: No Action One Daily [...] CC: Dr. Kymberly Muhammad DO ~ Signed [facility] Work Phone: 1(181) 132-114103-24-2025 Consult note [facility] Medical Records Department [address] [place] [address] Anesthesia Postop Eval II 11/06/24 1015 MR#: [id number] Acct: [id number] Name: BATOOL ESTRELLA Rep #:[id number] : 1945 79 From: Carmen Wallis PCP: Dr. Kymberly Muhammad DO Status:REG SDC Y Race: C Location: [place] [address]-1 Anesthesia Postop Eval I Sum Postop Eval Completion status Anesthesia document: Postop Eval 1 completed: Yes Anesthesia Postop Eval I Summary Anesthesia Postop Eval I Summary: Anesthesia Postop Eval I: Assessment Summary Airway patent Yes 11/06/24 09:08 BUSINESS ANALYTICS SPECIALIST.LMIL Spontaneous unlabored Yes 11/06/24 09:08 BUSINESS ANALYTICS SPECIALIST.LMIL respirations Mental status Awake 11/06/24 09:08 BUSINESS ANALYTICS SPECIALIST.LMIL nausea No 11/06/24 09:08 BUSINESS ANALYTICS SPECIALIST.LMIL Vomiting No 11/06/24 09:08 BUSINESS ANALYTICS SPECIALIST.LMIL Anesthesia Postop Eval I: Fluid Summary Crystalloid volume administer 10 11/06/24 09:08 BUSINESS ANALYTICS SPECIALIST.LMIL (ml) Colloids volume administered ( ml) Blood Product volume administered (ml) Total IV fluid infused 10 11/06/24 09:08 BUSINESS ANALYTICS SPECIALIST.LMIL Anesthesia Postop Eval I: Summary Notes Anesthesia Complication No 11/06/24 09:08 BUSINESS ANALYTICS SPECIALIST.LMIL Anesthesia Complication Comment: Post-operative progress note Anesthesia: Postop Eval II Evaluation Mental status: Awake Pain Level: 1 nausea: No Vomiting: No 11/06/24 1015 a> Date _ Carmen Gregorio Signature: Date CC: ~ Signed [facility]03-24-2025 History and physical note [facility] Medical Records Department [address] [place] [address] History & Physical Exam 11/06/24 0659 MR#: [id number] Acct: [id number] Name: BATOOL ESTRELLA Rep #:[id number] : 1945 79 From: Brandon ayon MD PCP: Dr. Kymberly Muhammad, DO Status:[facility] Location: [place] [address] History and Physical Date of Admission: 11/06/24 [...] willing to proceed. Brandon Doll MD Pager: [facility] [address] [place] [address], [address] [place] [phone] Office: I have examined the patient and the H&P has been reviewed. There are no clinicalchanges since date of exam. 11/06/24 0659 Cosigner Signature (if applicable): CC: Dr. Brandon Doll MD; Dr. Kymberly Muhammad DO~ Signed [facility]03-24-2025 Consult note Author Enriqueta Light [facility] Note Date/Time November 06, 2024 9:0 8am [facility] Medical Records Department [address] [place], [place] [address] Anesthesia Postop Eval I 11/06/24906 MR#: [id number] Acct: [id number] Name: BATOOL ESTRELLA Rep #:[id number] : 1945 79 From: Enriqeuta Light CRNA PCP: Dr. Kymberly Muhammad, DO Status:REG SDC Y Race: C Location: [place] [address] Anesthesia: Postop Eval I Current Vital Signs [...] document: Postop Eval 1 completed: Yes 11/06/24907 <Electronically signed by Enriqueta castaneda CRNA> Date _ Enriqueta Light BUSINESS ANALYTICS SPECIALIST Cosigner Signature: Date CC: ~ Signed [facility] Work Phone: 1(218) 378-138103-24-2025 Consult note Author [facility] [place] Note Date/Time November 06, 2024 7:[address] [place] [address] Medical Records Department [address] [place] [address] Pre-Anesthesia Evaluation 11/06/24713 MR#: [id number] Acct: [id number] Name: NIKOLAS ESTRELLAGOLDEN PICKENS Rep #:[id number] : 1945 79 From: Chris Jang MD PCP: Dr. Kymberly Muhammad, DO Status:REG SDC Y Race: C Location: [place] [address] ASA Classification* ASA Classification ASA Classification: 2 [...] ARTERY BX Anesthesia History Anesthesia History - shipping hand: Anesthesia History - shipping hand Hx Hospitalization No 11/02/24 10:36 Any Problems [...] take am of surgery PONV PONV - shipping hand: PONV - shipping hand Female Yes 11/02/24 10:36 HX of Motion [...] 11/06/24 06:22 Respiratory Assessment Respiratory Assessment - shipping hand: Respiratory Tract Infection Hx - shipping hand Hx Respiratory Tract Infection No 11/02/24 10:36 STOP Sleep Apnea STOP Sleep Apnea - shipping hand: STOP Sleep Apnea - shipping hand Hx Hypertension No 11/03/24 11:20 Hx Sleep [...] Tobacco Use History Tobacco Use History - shipping hand: Tobacco Use History - shipping hand Tobacco Use Smoking Status Never smoker 11/02/24 10:36 Hx Tobacco Use No 11/02/24 10:36 Years Smoking Packs Smoked per Day Smoking Cessation Date was within the last 15 years Hx Smoking Cessation Date Hx Smoking Cessation Counseling Hematologic Medial History Hematologic Hx - shipping hand: 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 11/06/24719 <Electronically signed by Chris jacobsen MD> Date _ Chris Jang MD Cosigner Signature: Date CC: ~ Signed [facility] Work Phone: 1(435) 675-307903-24-2025 Discharge summary [facility] Medical Records Department [address] [place] [address] Instructions for Home/Discharge Instructions 11/06/24913 MR#: [id number] Acct: [id number] Name: BATOOL ESTRELLA Rep #:[id number] : 1945 79 From: Brandon ayon MD PCP: Dr. Kymberly Muhammad, DO Status:REG [facility] Discharge Instructions Diet Discharge Diet: No restrictions [...] to schedule 2 week follow up appointment. [phone] Test Results: Test results from this visit will be discussed in further detail at your follow- up appointment, if applicable. Discharge Plan Admission Attending Provider: Brandon Doll Primary Care Provider: Kymberly Muhammad Instructions Print Language: Romanian Discharge Orders/Prescriptions Prescriptions: No Action One Daily [...] CC: Dr. Kymberly Muhammad DO ~ Signed [facility]03-24-2025 Procedure note [facility] Medical Records Department [address] [place] [address] Operative Report 11/06/24 0911 MR#: [id number] Acct: [id number] Name: BATOOL ESTRELLA Rep #:[id number] : 1945 79 From: Brandon ayon MD PCP: Dr. Kymberly Muhammad DO Status:[facility] Location: [place] [address] Operative Report (Standard) Operative Information Date of Procedure: 11/06/24 Pre-Operative Diagnosis: Right vision loss Post-Operative Diagnosis: Same Surgery/Procedure Performed: Right temporal artery biopsy wireless sales representative: Yes End Polisher: Jeremie Sebastian Tasks completed by commercial lines assistant: Retracting Type of Anesthesia: Local MAC [...] and MAC anesthesia was induced. The right mormonism was inspected and the route of the artery was marked. The mormonism was prepped and draped in usual sterile [...] that appearto be artery into the right mormonism. The area was irrigated and suctioned dry and it was continue to be explored but I did not find other tubular structures in the mormonism. The incision was irrigated and suctioned dry once more and then closed with running 4-0 Monocryl suture. Dermabond was applied. Patient was taken to PACUin stable condition. Surgical Findings: Small temporal artery Complications Complications: No Admit VTE Documentation VTE Mechan Device Prophylaxis: SCD's 11/06/24913 Cosigner Signature (if applicable): CC: Dr. Brandon Doll MD; Dr. Kymberly Muhammad, DO~ Signed [facility]03-24-2025 Consult note [facility] Medical Records Department [address] [place] [address] Anesthesia Postop Eval I 11/06/24 0907 MR#: [id number] Acct: [id number] Name: BATOOL ESTRELLA Rep #:[id number] : 1945 79 From: Enriqueta Light CRNA PCP: Dr. Kymberly Muhammad, Status:REG SDC Y Race: C Location: [facility]14 Anesthesia: Postop Eval I Current Vital Signs [...] Eval 1 completed: Yes 11/06/24 09 c BUSINESS ANALYTICS SPECIALIST> Date _ Enriqueta Light BUSINESS ANALYTICS SPECIALIST Cosigner Signature: Date CC: ~ Signed [facility]03-24-2025 History and physical note Author Brandon Doll [facility] Note Date/Time November 06, 2024 11: 14am [facility] Medical Records Department [address] [place] [address] History & Physical Exam 11/06/24 0659 MR#: [id number] Acct: [id number] Name: BATOOL ESTRELLA Rep #:[id number] : 1945 79 From: Brandon ayon MD PCP: Dr. Kymberly Muhammad, DO Status:[facility] Location: [place] [address] History and Physical Date of Admission: 11/06/24 [...] willing to proceed. Brandon Doll MD Pager: [facility] [address] [place] [address], [address] [place] [phone] Office: I have examined the patient and the H&P has been reviewed. There are no clinicalchanges since date of exam. 11/06/24 0659 <Electronically signed by Brandon Doll MD> Cosigner Signature (if applicable): CC: Dr. Brandon Doll MD; Dr. Kymberly Muhammad DO~ Signed [facility] Work Phone: 1(253) 352-170103-24-2025 Consult note [facility] Medical Records Department [address] [place] [address] Pre-Anesthesia Evaluation 11/06/24 0714 MR#: [id number] Acct: [id number] Name: BATOOL ESTRELLA Rep #:[id number] : 1945 79 From: Chris Jang MD PCP: Dr. Kymberly Muhammad DO Status:REG SDC Y Race: C Location: [place] [address]- ASA Classification* ASA Classification ASA Classification: 2 [...] ARTERY BX Anesthesia History Anesthesia History - shipping hand: Anesthesia History - shipping hand Hx Hospitalization No 11/02/24 10:36 Any Problems [...] take am of surgery PONV PONV - shipping hand: PONV - shipping hand Female Yes 11/02/24 10:36 HX of Motion [...] 11/06/24 06:22 Respiratory Assessment Respiratory Assessment - shipping hand: Respiratory Tract Infection Hx - shipping hand Hx Respiratory Tract Infection No 11/02/24 10:36 STOP Sleep Apnea STOP Sleep Apnea - shipping hand: STOP Sleep Apnea - shipping hand Hx Hypertension No 11/03/24 11:20 Hx Sleep [...] Tobacco Use History Tobacco Use History - shipping hand: Tobacco Use History - shipping hand Tobacco Use Smoking Status Never smoker 11/02/24 10:36 Hx Tobacco Use No 11/02/24 10:36 Years Smoking Packs Smoked per Day Smoking Cessation Date was within the last 15 years Hx Smoking Cessation Date Hx Smoking Cessation Counseling Hematologic Medial History Hematologic 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 Kymberly Muhammad, DO Status:REG [facility] Location: [place] [address] History and Physical Date of Admission: 11/06/24 [...] willing to proceed. Brandon Doll MD Pager: [facility] [address] [place] [address], [address] [place] [address] Office: I have examined the patient and the H P has been reviewed. There are no clinical changes since date of exam. 11/06/24 0659 Cosigner Signature (if applicable): CC: Dr. Brandon Doll MD; Dr. Kymberly Weir (more content not included)... [facility]03-20-2025 Evaluation note* Diagnosis Onset Date Resolution Status Admit Date Blurred vision, right eye acute November 02, 2024 8:48am [facility] Work Phone: 1(144) 422-399103-20-2025 Evaluation note* Diagnosis Onset Date Resolution Status Admit Date Blurred vision, right eye inactive November 02, 2024 8:48am [facility] Work Phone: 1(307) 370-649803-20-2025 Evaluation note* Diagnosis Onset Date Resolution Status Admit Date Blurred vision, right eye inactive November 02, 2024 8:48am Blurred vision, right eye inactive November 23, 2024 8:38am [facility] Work Phone: 1(783) 723-928903-19-2025 Discharge summary [facility] Medical Records Department [address] [place], [place] [address] Emergency Department Summary 11/01/24 MR#: [id number] Acct: [id number] Name: BATOOL ESTRELLA Rep #:[id number] : 1945 79 From: Enoc Watkins PCP: [...] the optic nerve. PFSH PFS Home Medications ?Medication ?Instructions ?Recorded ?Last Taken [...] with consulting clinician: Ophthalmology, general surgery, licensed esthetician This note was generated with [employer] software. It may contain incorrectwords, spelling, [...] ophthalmology Dr. Murphy next week. Print Language: Romanian Disposition Disposition: Home, Self Care What to do if you have Problems For any increased pain, shortness of breath, bleeding, nausea or vomiting, chestpain, or any unexpected problems, contact your Primary Care Provider. Call [facility] ([phone]) or report tothe closest Emergency Room. Call 911 if necessary. 11/01/241925 Cosigner Signature (if applicable): CC: Dr. Carlos Murphy MD; Dr. Kymberly Muhammad DO; Dr. Kashmir Ramirez MD ~ Signed [facility]03-19-2025 Discharge summary Author Enoc Armijo [facility] Note Date/Time November 01, 2024 7:2 6pm [facility] Medical Records Department [address] [place] [address] Emergency Department Summary 11/01/24 MR#: [id number] Acct: [id number] Name: BATOOL ESTRELLA Rep #:[id number] : 1945 79 From: Enoc Watkins PCP: [...] the optic nerve. PFSH PFS Home Medications ?Medication ?Instructions ?Recorded ?Last Taken [...] with consulting clinician: Ophthalmology, general surgery, licensed esthetician This note was generated with [employer] software. It may contain incorrectwords, spelling, [...] ophthalmology Dr. Murphy next week. Print Language: Romanian Disposition Disposition: Home, Self Care What to do if you have Problems For any increased pain, shortness of breath, bleeding, nausea or vomiting, chestpain, or any unexpected problems, contact your Primary Care Provider. Call [facility] ([phone]) or report to the closest Emergency Room. Call 911 if necessary. 11/01/241925 <Electronically signed by Enoc Watkins> Cosigner Signature (if applicable): CC: Dr. Carlos Murphy MD; Dr. Kymberly Muhammad DO; Dr. Kashmir Ramirez MD ~ Signed [facility] Work Phone: Consult note Author Carmen Wallis [facility] Note Date/Time November 06, 2024 11: 14am [facility] Medical Records Department [address] [place] [address] Anesthesia Postop Eval II 11/06/24 1015 MR#: [id number] Acct: [id number] Name: BATOOL ESTRELLA Rep #:[id number] : 1945 79 From: Carmen Wallis PCP: Dr. Kymberly Muhammad DO Status:REG SDC Y Race: C Location: [place] [address] Anesthesia Postop Eval I Sum Postop Eval Completion status Anesthesia document: Postop Eval 1 completed: Yes Anesthesia Postop Eval I Summary Anesthesia Postop Eval I Summary: Anesthesia Postop Eval I: Assessment Summary Airway patent Yes 11/06/24 09:08 BUSINESS ANALYTICS SPECIALIST.LMIL Spontaneous unlabored Yes 11/06/24 09:08 BUSINESS ANALYTICS SPECIALIST.LMIL respirations Mental status Awake 11/06/24 09:08 BUSINESS ANALYTICS SPECIALIST.LMIL nausea No 11/06/24 09:08 BUSINESS ANALYTICS SPECIALIST.LMIL Vomiting No 11/06/24 09:08 BUSINESS ANALYTICS SPECIALIST.LMIL Anesthesia Postop Eval I: Fluid Summary Crystalloid volume administer 10 11/06/24 09:08 BUSINESS ANALYTICS SPECIALIST.LMIL (ml) Colloids volume administered ( ml) Blood Product volume administered (ml) Total IV fluid infused 10 11/06/24 09:08 BUSINESS ANALYTICS SPECIALIST.LMIL Anesthesia Postop Eval I: Summary Notes Anesthesia Complication No 11/06/24 09:08 BUSINESS ANALYTICS SPECIALIST.LMIL Anesthesia Complication Comment: Post-operative progress note Anesthesia: Postop Eval II Evaluation Mental status: Awake Pain Level: 1 nausea: No Vomiting: No 11/06/24 1015 <Electronically signed by Carmen chacko> Date _ Carmen Castrochase Coronabaldotomasa Signature: Date CC: ~ Signed [facility] Work Phone: Evaluation noteNo assessment information available [facility] Work Phone: Evaluation note* Diagnosis Onset Date Resolution Status Urinary tract infection acut e [facility] Work Phone: Hospital Discharge instructions Additional Instructions [...] your follow-up with ophthalmology Dr. Murphy next week.[facility] Work Phone: Hospital Discharge instructions Additional Instructions If symptoms return or have you any concerns please return to the emergency. Please discuss your ED visit with your doctor and the possibility of going on for cardiac stress testing. As we discussed both sets of cardiac enzymes were negative and your EKG did not show an obvious heart attack.[facility] Work Phone: Reason for referral (narrative)No reason for referral information availableWooMer[facility] Work Phone: Chief Complaint and Reason [...] VISUAL LOSS January 30, 2025 7:58 am Chief Complaint Admit Date TEMPORAL ARTERY BIOPSY DOS 11/06November 232024 8:38am PAIN- COPY PCP/ LABS AND XRAY November 8:21am REDRAW/ NOT ENOUGH BLOOD December 01 8:51am chest pain December 26, 2024 9:57p m PAIN- COPY PCP December 29, 2024 3:59p m VISUAL LOSS January 30, 2025 7:58 am PAIN- COPY PCP March 05, 2025 8:10 am Reason for Visit Admit Date Blurred vision, right eye November 23 8:38am Chief Complaint Admit Date REDRAW/ NOT ENOUGH BLOOD December 01 8:51am chest pain December 26, 2024 9:57p m PAIN- COPY PCP December 29, 2024 3:59p m VISUAL LOSS January 30, 2025 7:58 am PAIN- COPY PCP March 05, 2025 8:10 am LAB March 16, 2025 1:0 4pm Chief Complaint Admit Date chest pain December 26, 2024 9:57p m PAIN- COPY PCP December 29, 2024 3:59p m VISUAL LOSS January 30, 2025 7:58 am PAIN- COPY PCP March 05, 2025 8:10 am LAB March 16, 2025 1:0 4pm Chief Complaint Admit Date chest pain December 26, 2024 9:57p m PAIN- COPY PCP December 29, 2024 3:59p m VISUAL LOSS January 30, 2025 7:58 am PAIN- COPY PCP March 05, 2025 8:10 am LAB March 16, 2025 1:0 4pm PVD EDEMA April 18, 2025 7:57am Advance Directives No Advanced Directives Records Found Advance Directive Response Recorded Date/ Time Advance Directives Yes December 06, 2 014 10:04am Living Will Yes October 05, 020 9:13am Power of Clearing Inspector Yes October 05, 2019 9:13am Advance Directive Response Recorded Date/ Time Living Will Yes November 01, 2024 5:17pm Do you have a Healthcare Power of Clearing Inspector? Yes November 01, 2024 5:17pm Name of Medical Power of Clearing Inspector child November 01, 2024 5:17pm Advance Directives Yes December 06, 014 10:04am Advance Directive Response Recorded Date/ Time Advance Directives Yes November 02 025 8:04am Living Will Yes November 01, 2024 5:17pm Do you have a Healthcare Power of Clearing Inspector? Yes November 01, 2024 5:17pm Name of Medical Power of Clearing Inspector child November 01, 2024 5:17pm Advance Directive Response Recorded Date/ Time Advance Directives Yes November 02 8:04am Living Will Yes November 01, 2024 5:17pm Do you have a Healthcare Power of Clearing Inspector? Yes November 01, 2024 5:17pm Name of Medical Power of Clearing Inspector child November 01, 2024 5:17pm Living Will Yes November 02, 2024 10:36am Do you have a Healthcare Power of Clearing Inspector? Yes November 02, 2024 10:36am Name of Medical Power of Clearing Inspector CARLOS ESTRELLA November 02, 2024 10:36am Advance Directive Response Recorded Date/ Time Advance Directives Yes November 02 8:04am Living Will Yes November 01, 2024 5:17pm Do you have a Healthcare Power of Clearing Inspector? Yes November 01, 2024 5:17pm Name of Medical Power of Clearing Inspector child November 01, 2024 5:17pm Living Will Yes November 02, 2024 10:36am Do you have a Healthcare Power of Clearing Inspector? Yes November 02, 2024 10:36am Name of Medical Power of Clearing Inspector CARLOS ESTRELLA November 02, 2024 10:36am Do you have a Healthcare Power of Clearing Inspector? Yes December 26, 2024 9:57pm Advance Directive Response Recorded Date/ Time Do you have a Healthcare Power of Clearing Inspector? Yes December 26, 2024 9:57pm Advance Directives Yes November 02 8:04am Summary Purpose Family History No Family History [...] Kymberly Muhammad DO Primary Care Provider, Attending P gene Active Team Status: Active Member Role Status [...] January 30, 2025 End: January 30, 2025 Team Status: Active Member Role/Relationship Status Dates Dr. Kymberly Muhammad DO Primary Care Provider Active Team Status: Inactive Member Role/Relationship Status Dates Dr. Kymberly Muhammad DO Primary Care Provider Active Start: November 08, 2024 End: November 08, 2024 Dr. Kymberly Muhammad DO Attending Provider Active St art: November 08, 2024 End: November 08, 2024 Team Status: Inactive Member Role/Relationship Status Dates Dr. Kymberly Muhammad DO Primary Care Provider Active Start: November 23, 2024 End: November 23, 2024 Dr. Kymberly Muhammad DO Referring Provider Active St art: November 23, 2024 End: November 23, 2024 Dr. Brandon Doll MD Attending Provider Active Start: November 23, 2024 End: November 23, 2024 Team Status: Inactive Member Role/Relationship Status Dates Dr. Kymberly Muhammad DO Primary Care Provider Active Start: November 29, 2024 End: November 29, 2024 Dr. Allyson Soler MD Attending Provider Active Start: November 29, 2024 End: November 29, 2024 Dr. Allyson Soler MD Referring Provider Active Start: November 29, 2024 End: November 29, 2024 Team Status: Inactive Member Role/Relationship Status Dates Dr. Kymberly Muhammad DO Primary Care Provider Active Start: December 01, 2024 End: December 01, 2024 Dr. Allyson Soler MD Attending Provider Active Start: December 01, 2024 End: December 01, 2024 Dr. Allyson Soler MD Referring Provider Active Start: December 01, 2024 End: December 01, 2024 Team Status: Inactive Member Role/Relationship Status Dates Dr. Kymberly Muhammad DO Primary Care Provider Active Start: December 26, 2024 End: December 27, 2024 Dr. Fernie More DO Attending Provider Active Start: December 26, 2024 End: December 27, 2024 Dr. Fernie More DO Emergency Provider Active Start: December 26, 2024 End: December 27, 2024 Team Status: Inactive Member Role/Relationship Status Dates Dr. Kymberly Muhammad DO Primary Care Provider Active Start: December 29, 2024 End: December 29, 2024 Dr. Allyson Soler MD Attending Provider Active Start: December 29, 2024 End: December 29, 2024 Dr. Allyson Soler MD Referring Provider Active Start: December 29, 2024 End: December 29, 2024 Team Status: Inactive Member Role/Relationship Status Dates Dr. Kymberly Muhammad DO Primary Care Provider Active Start: January 27, 2025 End: January 27, 2025 Dr. Allyson Soler MD Attending Provider Active Start: January 27, 2025 End: January 27, 2025 Dr. Allyson Soler MD Referring Provider Active Start: January 27, 2025 End: January 27, 2025 Team Status: Inactive Member Role/Relationship Status Dates Dr. Kymberly Muhammad DO Primary Care Provider Active Start: January 30, 2025 End: January 30, 2025 Dr. Kymberly Muhammad DO Attending Provider Active St art: January 30, 2025 End: January 30, 2025 Dr. Kymberyl Muhammad DO Referring Provider Active St art: January 30, 2025 End: January 30, 2025 Team Status: Inactive Member Role/Relationship Status Dates Dr. Kymberly Muhammad DO Primary Care Provider Active Start: February 13, 2025 Dr. Carmencita Vázquez MD Attending Provider Active Start: February 13, 2025 Team Status: Inactive Member Role/Relationship Status Dates Dr. Kymberly Muhammad DO Primary Care Provider Active Start: March 05, 2025 End: March 05, 2025 Dr. Allyson Soler MD Attending Provider Active Start: March 05, 2025 End: March 05, 2025 Dr. Allyson Soler MD Referring Provider Active Start: March 05, 2025 End: March 05, 2025 Team Status: Inactive Member Role/Relationship Status Dates Dr. Kymberly Muhammad DO Primary Care Provider Active Start: December 01, 2024 End: December 01, 2024 Dr. Allyson Soler MD Attending Provider Active Start: December 01, 2024 End: December 01, 2024 Dr. Allyson Soler MD Referring Provider Active Start: December 01, 2024 End: December 01, 2024 Team Status: Inactive Member Role/Relationship Status Dates Dr. Kymberly Muhammad DO Primary Care Provider Active Start: December 26, 2024 End: December 27, 2024 Dr. Fernie More DO Attending Provider Active Start: December 26, 2024 End: December 27, 2024 Dr. Fernie More DO Emergency Provider Active Start: December 26, 2024 End: December 27, 2024 Team Status: Inactive Member Role/Relationship Status Dates Dr. Kymberly Muhammad DO Primary Care Provider Active Start: December 29, 2024 End: December 29, 2024 Dr. Allyson Soler MD Attending Provider Active Start: December 29, 2024 End: December 29, 2024 Dr. Allyson Soler MD Referring Provider Active Start: December 29, 2024 End: December 29, 2024 Team Status: Inactive Member Role/Relationship Status Dates Dr. Kymberly Muhammad DO Primary Care Provider Active Start: January 27, 2025 End: January 27, 2025 Dr. Allyson Soler MD Attending Provider Active Start: January 27, 2025 End: January 27, 2025 Dr. Allyson Soler MD Referring Provider Active Start: January 27, 2025 End: January 27, 2025 Team Status: Inactive Member Role/Relationship Status Dates Dr. Kymberly Muhammad DO Primary Care Provider Active Start: January 30, 2025 End: January 30, 2025 Dr. Kymberly Muhammad DO Attending Provider Active St art: January 30, 2025 End: January 30, 2025 Dr. Kymberly Muhammad DO Referring Provider Active St art: January 30, 2025 End: January 30, 2025 Team Status: Inactive Member Role/Relationship Status Dates Dr. Kymberly Muhammad DO Primary Care Provider Active Start: February 13, 2025 Dr. Carmencita Vázquez MD Attending Provider Active Start: February 13, 2025 Team Status: Inactive Member Role/Relationship Status Dates Dr. Kymberly Muhammad DO Primary Care Provider Active Start: March 05, 2025 End: March 05, 2025 Dr. Allyson Soler MD Attending Provider Active Start: March 05, 2025 End: March 05, 2025 Dr. Allyson Soler MD Referring Provider Active Start: March 05, 2025 End: March 05, 2025 Team Status: Inactive Member Role/Relationship Status Dates Dr. Kymberly Muhammad DO Primary Care Provider Active Start: March 16, 2025 End: March 16, 2025 Dr. Kymberly Muhammad DO Attending Provider Active St art: March 16, 2025 End: March 16, 2025 Dr. Kymberly Muhammad DO Referring Provider Active St art: March 16, 2025 End: March 16, 2025 Team Status: Inactive Member Role/Relationship Status Dates Dr. Kymberly Muhammad DO Primary Care Provider Active Start: December 26, 2024 End: December 27, 2024 Dr. Fernie More DO Attending Provider Active Start: December 26, 2024 End: December 27, 2024 Dr. Fernie More DO Emergency Provider Active Start: December 26, 2024 End: December 27, 2024 Team Status: Inactive Member Role/Relationship Status Dates Dr. Kymberly Muhammad DO Primary Care Provider Active Start: December 29, 2024 End: December 29, 2024 Dr. Allyson Soler MD Attending Provider Active Start: December 29, 2024 End: December 29, 2024 Dr. Allyson Soler MD Referring Provider Active Start: December 29, 2024 End: December 29, 2024 Team Status: Inactive Member Role/Relationship Status Dates Dr. Kymberly Muhammad DO Primary Care Provider Active Start: January 27, 2025 End: January 27, 2025 Dr. Allyson Soler MD Attending Provider Active Start: January 27, 2025 End: January 27, 2025 Dr. Allyson Soler MD Referring Provider Active Start: January 27, 2025 End: January 27, 2025 Team Status: Inactive Member Role/Relationship Status Dates Dr. Kymberly Muhammad DO Primary Care Provider Active Start: January 30, 2025 End: January 30, 2025 Dr. Kymberly Muhammad DO Attending Provider Active St art: January 30, 2025 End: January 30, 2025 Dr. Kymberly Muhammad DO Referring Provider Active St art: January 30, 2025 End: January 30, 2025 Team Status: Inactive Member Role/Relationship Status Dates Dr. Kymberly Muhammad DO Primary Care Provider Active Start: February 13, 2025 Dr. Carmencita Vázquez MD Attending Provider Active Start: February 13, 2025 Team Status: Inactive Member Role/Relationship Status Dates Dr. Kymberly Muhammad DO Primary Care Provider Active Start: March 05, 2025 End: March 05, 2025 Dr. Allyson Soler MD Attending Provider Active Start: March 05, 2025 End: March 05, 2025 Dr. Allyson Soler MD Referring Provider Active Start: March 05, 2025 End: March 05, 2025 Team Status: Inactive Member Role/Relationship Status Dates Dr. Kymberly Muhammad DO Primary Care Provider Active Start: March 16, 2025 End: March 16, 2025 Dr. Kymberly Muhammad DO Attending Provider Active St art: March 16, 2025 End: March 16, 2025 Dr. Kymberly Muhammad DO Referring Provider Active St art: March 16, 2025 End: March 16, 2025 Team Status: Inactive Member Role/Relationship Status Dates Dr. Kymberly Muhammad DO Primary Care Provider Active Start: April 05, 2025 End: April 05, 2025 Dr. Allyson Soler MD Attending Provider Active Start: April 05, 2025 End: April 05, 2025 Dr. Allyson Soler MD Referring Provider Active Start: April 05, 2025 End: April 05, 2025 Team Status: Inactive Member Role/Relationship Status Dates Dr. Kymberly Muhammad DO Primary Care Provider Active Start: April 18, 2025 End: April 18, 2025 Dr. Kymberly Muhammad DO Attending Provider Active St art: April 18, 2025 End: April 18, 2025 Dr. Kymberly Muhammad DO Referring Provider Active St art: April 18, 2025 End: April 18, 2025 Team Status: Active Member Role/Relationship Status Dates Dr. Kymberly Muhammad DO Primary Care Provider Active Start: April 18, 2025 Dr. Raciel Reis MD Attending Provider Active S tart: April 18, 2025 INFORMATION SOURCE (unrecogn ized section and content) DATE CREATED AUTHOR 05/09/2025 [facility] FOR RECORDS PERTAINING TO PATIENTS WHO ARE [...] BE BASED ON THE PRIMARY CLINICAL RECORDS. [employer] provides no warranty or guarantee of the accuracy or completeness of information in this document.
== END | disposition home or self-care (01) ==
LOC: MTRAD 16:21
PROVIDERS: PCP Family Medicine; Referring Provider Family Medicine; Visit Provider Family Medicine
DX: M25.551 Pain in right hip (principal); M54.50 Low back pain, unspecified
CPT/HCPCS: 72100; 73502

== ENCOUNTER → 2025-05-15 | Outpatient (CLI) | payer MEDICARE, SELFPAY ==
[2025-05-15 11:09] LABS: CRP < 3.00 mg/L (0.0-3.0)
== END | disposition home or self-care (01) ==
LOC: MTLAB 08:30
PROVIDERS: PCP Family Medicine; Referring Provider Internal Medicine Rheumatology; Visit Provider Internal Medicine Rheumatology
DX: H47.011 Ischemic optic neuropathy, right eye (principal); M31.6 Other giant cell arteritis
CPT/HCPCS: 36415; 85652; 86140

== ENCOUNTER → 2025-05-29 | Outpatient (CLI) | payer MEDICARE, SELFPAY ==
[2025-05-29 19:11] LABS: CRP < 3.00 mg/L (0.0-3.0)
== END | disposition home or self-care (01) ==
LOC: MTLAB 15:56
PROVIDERS: PCP Family Medicine; Referring Provider Internal Medicine Rheumatology; Visit Provider Internal Medicine Rheumatology
DX: M31.6 Other giant cell arteritis (principal); H47.011 Ischemic optic neuropathy, right eye; Z79.899 Other long term (current) drug therapy
CPT/HCPCS: 36415; 85652; 86140

== ENCOUNTER → 2025-07-18 | Outpatient (CLI) | payer MEDICARE, SELFPAY ==
[2025-07-18 13:13] LABS: CRP < 3.00 mg/L (0.0-3.0)
== END | disposition home or self-care (01) ==
LOC: MTLAB 09:43
PROVIDERS: PCP Family Medicine; Referring Provider Internal Medicine Rheumatology; Visit Provider Internal Medicine Rheumatology
DX: M31.6 Other giant cell arteritis (principal); H47.011 Ischemic optic neuropathy, right eye; Z79.899 Other long term (current) drug therapy
CPT/HCPCS: 36415; 85652; 86140

== ENCOUNTER → 2025-08-01 | Outpatient (CLI) | payer MEDICARE, SELFPAY ==
--- NOTE | 2025-08-01 08:51 | VDLE_ITS ---
Reason For Study Reason For Study: F/U DVT RIGHT LEFT GSV is normal. GSV is normal. CFV is compressible, spontaneous, phasic, competent CFV is compressible, spontaneous, phasic, competent, and demonstrates normal augmentation. and demonstrates normal augmentation. FV is compressible, spontaneous, phasic, competent FV is compressible, spontaneous, phasic, competent and demonstrates normal augmentation. and demonstrates normal augmentation. POP V is compressible, spontaneous, phasic, competent POP V is compressible, spontaneous, phasic, competent and demonstrates normal augmentation. and demonstrates normal augmentation. T/P Trunk is compressible. T/P Trunk is compressible. PTV is compressible. PTV is compressible. RT PerV is compressible. LT PerV is compressible. SoleusV is compressible. Procedure This is a venous duplex using B-mode, color flow and spectral Doppler. Exam performed in department. Compared to 04/18/2025. VL/Venous Duplex US - Robin Extrem Interpretation Summary Deep veins of the bilateral lower extremities are patent and compressible segme ntally. There is no evidence of bilateral lower extremity deep vein thrombosis. The bilateral great saphenous veins appea r patent and compressible segmentally. Ordering Physician: Kymberly Muhammad Referring Physician: Kymberly Muhammad Performed By: Isabella Reyes RVT
== END | disposition home or self-care (01) ==
LOC: CVS 08:51
PROVIDERS: PCP Family Medicine; Referring Provider Family Medicine; Visit Provider Family Medicine
DX: I82.461 Acute embolism and thrombosis of right calf muscular vein (principal)
CPT/HCPCS: 93970